=== PATIENT | male | born 1945 | race Caucasian/White ===

== ENCOUNTER 2020-07-15 10:43 | Emergency (ER) | payer MEDICARE, SELFPAY ==
[2020-07-15 11:28] VITALS: BP 115/75; PULSE 78; RESP 18; TEMP 36.6; O2SAT 97
[2020-07-15 11:45] LABS: Basophils Absolute Auto 0.1 K/mm3 (0.0-0.1); Basophils Percent Auto 0.8 % (0.2-1.2); Eosinophils Absolute Auto 0.6 K/mm3 (0-0.3); Eosinophils Percent Auto 8.3 % (0-4.4); Hematocrit 47.7 % (42.0-52.0); Hemoglobin 15.7 g/dL (14.0-18.0); Immature Granulocyte Absolute 0.01 K/mm3 (0.00-0.031); Immature Granulocyte Percent A 0.1 % (0-0.5); Lymphocytes Absolute Auto 1.15 K/mm3 (0.9-3.2); Lymphocytes Percent Auto 16.2 % (18.3-44.2); Mean Corpuscular HGB Conc 32.9 g/dl (32-36); Mean Corpuscular Hemoglobin 33.6 pg (26-34); Mean Corpuscular Volume 102.1 fl (80-100); Mean Platelet Volume 10.2 fl (7.4-10.4); Monocytes Absolute Auto 0.9 K/mm3 (0.1-0.6); Monocytes Percent Auto 12.5 % (2.6-8.5); Neutrophils Absolute Auto 4.4 K/mm3 (1.3-6.7); Neutrophils Percent Auto 62.1 % (45.5-73.1); Platelet Count Result 200 k/mm3 (150-375); Red Blood Count 4.67 M/mm3 (4.6-6.20); Red Cell Distribution Width 14.4 % (11.5-14.5); White Blood Count 7.1 K/mm3 (4.5-10.0)
[2020-07-15 11:57] LABS: Alanine Aminotransferase 11 U/L (4-50); Albumin Level 4.2 g/dL (3.5-5.1); Alkaline Phosphatase 31 U/L (38-126); Anion Gap 8 mmol/L (8-16); Aspartate Amino Transferase 20 U/L (17-59); Bilirubin,Total 0.6 mg/dL (0.2-1.3); Blood Urea Nitrogen 70 mg/dL (9-20); Calcium 9.9 mg/dL (8.4-10.2); Carbon Dioxide 27 mmol/L (22-30); Chloride 104 mmol/L (98-107); Estimated CRCL calculation 22 ml/min; Estimated Glomerular Filt Rate 22; Glucose 87 mg/dL (75-110); Potassium 4.8 mmol/L (3.4-5.0); Sodium 139 mmol/L (137-145)
[2020-07-15 11:59] LABS: INR 1.1; Prothrombin Time 14.2 Seconds (11.1-14.7)
[2020-07-15 12:00] LABS: Partial Thromboplastin Time 29.7 SECONDS (22.3-36.8)
--- NOTE | 2020-07-15 13:01 | ED.GIBLEED ---
HPI - GI Bleed General Chief complaint: GI Bleed Stated complaint: blood in stool Time Seen by Provider: 07/15/20 12:52 History of Present Illness HPI Narrative: He has had 3 bowel movements containing bright red blood since yesterday. He is not able to quantify. They are liquid stools. No abdominal pain, nausea, vomting. He has had no previous episodes. He takes 325 mg of aspirin daily. Related Data Home Medications Medication Instructions Recorded Confirmed ascorbic acid (vitamin C) 1,000 mg 1 gm PO DAILY 06/01/20 tablet aspirin 325 mg tablet 325 mg PO DAILY 06/01/20 beta carotene 25,000 unit capsule 25,000 unit PO DAILY 06/01/20 bumetanide 2 mg tablet 2 mg PO BID 06/01/20 calcium carbonate 600 mg calcium 600 mg PO DAILY 06/01/20 (1,500 mg) tablet carvedilol 3.125 mg tablet 3.125 mg PO Q12H 06/01/20 digoxin 125 mcg (0.125 mg) tablet 125 mcg PO BID tablet 06/01/20 hydralazine 25 mg tablet 25 mg PO TID 06/01/20 hydrochlorothiazide 25 mg tablet 25 mg PO DAILY 06/01/20 lactobacillus combination no.8 3 3,000 mmu cells PO DAILY 06/01/20 billion cell capsule spironolactone 25 mg tablet 25 mg PO DAILY 06/01/20 vitamin E (dl, acetate) 400 unit 400 unit PO DAILY 06/01/20 capsule zinc 50 mg tablet 50 mg PO DAILY 06/01/20 Allergies Allergy/AdvReac Type Severity Reaction Status Date / Time No Known Allergies Allergy Verified 05/28/13 11:13 Review of Systems Review of Systems: All systems reviewed & are unremarkable except as noted in HPI and below Constitutional: Constitutional: Denies fever(s) Cardiovascular: Cardiovascular: Denies chest pain Respiratory: Respiratory: Denies dyspnea Gastrointestinal: Gastrointestinal: Denies abdominal pain, Reports diarrhea, Denies nausea and Denies vomiting Genitourinary: Genitourinary: Denies dysuria Neurologic: Denies dizziness and Denies weakness Hematologic/Lymphatic: Hematologic/Lymphatic: Denies easy bleeding and Denies easy bruising [facility] Past Medical History Medical History C. difficile colitis CHF (congestive heart failure) CKD (chronic kidney disease) COPD (chronic obstructive pulmonary disease) CVA (cerebral vascular accident) Hepatitis Hernia HTN (hypertension) Hyperlipidemia Measles Mumps Myocardial infarction Prostate CA Shingles Family History Family History Sibling Patient's sister is in good health Mother Cerebrovascular accident, Onset Age: 68 Patient's mother is Cancer Polycystic kidney disease Father Family history of kidney disease, Onset Age: 78 Myocardial infarction Social History Social History Smoking status: Former smoker Smoking end date: 11/18/03 Alcohol intake: current Gender identity (if verbalized by the patient): Male Exam Const: General: healthy appearing, no acute distress and alert Orientation/consciousness: patient oriented x3 HENMT: Head: normal to inspection Neck: Neck: normal visual inspection and no lymphadenopathy Chest: Chest palpation & inspection: no tenderness Resp: Effort & Inspection: normal respiratory effort Auscultation: clear to auscultation bilaterally, no rales, no rhonchi and no wheezes Cardio: Jugular venous distension: no JVD Rate: regular rate Rhythm: regular rhythm Heart sounds: no murmurs GI: Inspection: non-distended GI Palp: Yes Soft to palpation and No Tenderness to palpation present (GI) Other: dried blood and stool around the rectum. 1 small external hemorrhoid. No active bleeding. Skin: General skin exam: normal color Neuro: General: patient oriented x3 and moves all extremities Speech: normal speech Extrem: General: no edema Psych: Appearance: well kempt Affect: normal affect Course Vital Signs Vital signs: Vital Signs Temperature 36.6
[2020-07-15 14:10] VITALS: BP 139/93; PULSE 75; RESP 17; O2SAT 100
== END 2020-07-15 14:12 | disposition home or self-care (01) ==
PROVIDERS: Emergency Medicine; Emergency Provider Emergency Medicine; PCP Internal Medicine
DX: K92.2 Gastrointestinal hemorrhage, unspecified (principal); I50.9 Heart failure, unspecified; I12.9 Hypertensive chronic kidney disease with stage 1 through stage 4 chronic kidney disease, or unspecified chronic kidney disease; N18.9 Chronic kidney disease, unspecified; Z86.73 Personal history of transient ischemic attack (TIA), and cerebral infarction without residual deficits; J44.9 Chronic obstructive pulmonary disease, unspecified; E78.5 Hyperlipidemia, unspecified; I25.2 Old myocardial infarction; Z85.46 Personal history of malignant neoplasm of prostate; Z87.891 Personal history of nicotine dependence
CPT/HCPCS: 36415; 80053; 85025; 85610; 85730; 86850; 86900; 86901; 99283

== ENCOUNTER 2020-08-08 02:03 | Outpatient (CLI) | payer MEDICARE, SELFPAY ==
[2020-08-08 16:34] LABS: SARS-CoV-2 RNA PCR Negative
== END 2020-08-08 02:04 | disposition home or self-care (01) ==
LOC: ANHCOVIDDT 02:03
PROVIDERS: PCP Internal Medicine; Visit Provider Internal Medicine Gastroenterology
DX: Z01.812 Encounter for preprocedural laboratory examination (principal); Z20.828 Contact with and (suspected) exposure to other viral communicable diseases
CPT/HCPCS: 87635; C9803; U0003

== ENCOUNTER 2020-08-10 00:31 | Day surgery (SDC) | payer MEDICARE, SELFPAY ==
[2020-08-05 10:19] VITALS: BMI 22.7
[2020-08-10 09:53] VITALS: BP 135/87; PULSE 81; RESP 18; TEMP 36.4; O2SAT 96; BMI 22.8
--- NOTE | 2020-08-10 09:58 | WPDANESEPPF ---
Anes - Initial Pre Proc Eval Procedure: Operation Date: 08/10/20 10:00 Proposed Procedures p Screening Colonoscopy - Jayesh Freeman MD Date/Time: 08/10/20 09:58 Surgeon: Jayesh Freeman MD Pre Op Diagnosis: Neoplasm Screening Patient Data Age: 75 Gender: M Height: 5 ft 11 in Weight: 74.2 kg Last Vital Signs Temp 97.5 F L 08/10/20 09:53 Pulse 81 08/10/20 09:53 Resp 18 08/10/20 09:53 BP 135/87 08/10/20 09:53 Pulse Ox 96 08/10/20 09:53 Allergies Allergy/AdvReac Type Severity Reaction Status Date / Time No Known Allergies Allergy Verified 08/10/20 09:47 Home Medications Medication Instructions Recorded Confirmed Type ascorbic acid (vitamin C) 1,000 mg 1 gm PO DAILY 06/01/20 08/10/20 History tablet aspirin 325 mg tablet 325 mg PO DAILY 06/01/20 08/10/20 History bumetanide 2 mg tablet 2 mg PO BID 06/01/20 08/10/20 History calcium carbonate 600 mg calcium 1,200 mg PO BID 06/01/20 08/10/20 History (1,500 mg) tablet digoxin 125 mcg (0.125 mg) tablet 125 mcg PO EVERY OTHER DAY tablet 06/01/20 08/10/20 History hydralazine 25 mg tablet 25 mg PO TID 06/01/20 08/10/20 History hydrochlorothiazide 25 mg tablet 25 mg PO DAILY 06/01/20 08/10/20 History lactobacillus combination no.8 3 3,000 mmu cells PO DAILY 06/01/20 08/10/20 History billion cell capsule spironolactone 25 mg tablet 25 mg PO DAILY 06/01/20 08/10/20 History vitamin E (dl, acetate) 400 unit 400 unit PO BID 06/01/20 08/10/20 History capsule zinc 50 mg tablet 50 mg PO DAILY 06/01/20 08/10/20 History albuterol sulfate 90 mcg/actuation 2 inhalation INHALATION BID #8.5 gm 06/02/20 08/10/20 Rx aerosol inhaler sertraline 50 mg tablet 50 mg PO DAILY #90 tablet 07/14/20 08/10/20 Rx aspirin 81 mg PO DAILY 08/05/20 08/10/20 History bumetanide 0.5 mg PO BID 08/05/20 08/10/20 History carvedilol 12.5 mg PO DAILY 08/05/20 08/10/20 History cholecalciferol (vitamin D3) 50 mcg PO DAILY 08/05/20 08/10/20 History [Vitamin D3] Patient hx anesthesia problems: none Family hx anesthesia problems: none PMFSH Social History Social History Years smoked: 20 Smoking status: Former smoker Smoking end date: 11/18/03 Alcohol intake: current Drinks per week: 4 Living arrangements: with family Gender identity (if verbalized by the patient): Male Spiritual care concerns: No Anes - Eval Final PreProcedure Day of Procedure 08/10/20 09:58 Patient weight: normal Heart: regular rate and rhythm Lungs: clear to auscultation Airway: Mallampati scale class II Neurological: alert and oriented Last oral intake: >/= 8 hours ASA classification: III Emergent: no Anesthetic plan: proceed Anesthesia type and monitoring: general GIVS and standard monitoring Informed Consent: The patient's anesthetic plan and its attendant risks and benefits were discussed with the patient/family/POA. Questions were solicited and answers provided to the satisfaction of the patient/family/POA.
[2020-08-10] MEDS: LACTATED RINGERS 1,000 ML 150 ML IV CONT (10:04)
--- NOTE | 2020-08-10 10:14 | PM.HPGS ---
History of Present Illness History of Present Illness Consent: Risks, benefits, and alternatives have been discussed and questions answered. Patient agrees to proceed with procedure. Chief complaint: Neoplasm Screening Narrative: Darrell Nielsen is a 75 year old male referred for screening colonoscopy. This is his 1st colonoscopy. He did see some blood his stools a few weeks ago but otherwise has had no symptoms PMFSH Past Medical History Medical History C. difficile colitis CHF (congestive heart failure) CKD (chronic kidney disease) COPD (chronic obstructive pulmonary disease) CVA (cerebral vascular accident) Hepatitis Hernia HTN (hypertension) Hyperlipidemia Measles Mumps Myocardial infarction Prostate CA Shingles Family History Family History Sibling Patient's sister is in good health Mother Cerebrovascular accident, Onset Age: 68 Patient's mother is Cancer Polycystic kidney disease Father Family history of kidney disease, Onset Age: 78 Myocardial infarction Social History Social History Years smoked: 20 Smoking status: Former smoker Smoking end date: 11/18/03 Alcohol intake: current Drinks per week: 4 Living arrangements: with family Gender identity (if verbalized by the patient): Male Spiritual care concerns: No Meds Home Medications and Allergies Home Medications Medication Instructions Recorded Confirmed Type ascorbic acid (vitamin C) 1,000 mg 1 gm PO DAILY 06/01/20 08/10/20 History tablet aspirin 325 mg tablet 325 mg PO DAILY 06/01/20 08/10/20 History bumetanide 2 mg tablet 2 mg PO BID 06/01/20 08/10/20 History calcium carbonate 600 mg calcium 1,200 mg PO BID 06/01/20 08/10/20 History (1,500 mg) tablet digoxin 125 mcg (0.125 mg) tablet 125 mcg PO EVERY OTHER DAY tablet 06/01/20 08/10/20 History hydralazine 25 mg tablet 25 mg PO TID 06/01/20 08/10/20 History hydrochlorothiazide 25 mg tablet 25 mg PO DAILY 06/01/20 08/10/20 History lactobacillus combination no.8 3 3,000 mmu cells PO DAILY 06/01/20 08/10/20 History billion cell capsule spironolactone 25 mg tablet 25 mg PO DAILY 06/01/20 08/10/20 History vitamin E (dl, acetate) 400 unit 400 unit PO BID 06/01/20 08/10/20 History capsule zinc 50 mg tablet 50 mg PO DAILY 06/01/20 08/10/20 History albuterol sulfate 90 mcg/actuation 2 inhalation INHALATION BID #8.5 gm 06/02/20 08/10/20 Rx aerosol inhaler sertraline 50 mg tablet 50 mg PO DAILY #90 tablet 07/14/20 08/10/20 Rx aspirin 81 mg PO DAILY 08/05/20 08/10/20 History bumetanide 0.5 mg PO BID 08/05/20 08/10/20 History carvedilol 12.5 mg PO DAILY 08/05/20 08/10/20 History cholecalciferol (vitamin D3) 50 mcg PO DAILY 08/05/20 08/10/20 History [Vitamin D3] Allergies Allergy/AdvReac Type Severity Reaction Status Date / Time No Known Allergies Allergy Verified 08/10/20 09:47 Vital Signs Vital Signs - 24 hr 08/10/20 09:53 Temperature 36.4 C L Pulse Rate 81 Respiratory Rate 18 Blood Pressure 135/87 Pulse Oximetry 96 Exam Resp: Auscultation: clear to auscultation bilaterally Cardio: Rate: regular rate Rhythm: regular rhythm GI: GI Palp: Yes Soft to palpation and No Tenderness to palpation present (GI) Assessment and Plan Assessment and plan (1) Colon cancer screening: Code(s): Z12.11 - Encounter for screening for malignant neoplasm of colon Status: Acute Assessment and Plan: Colonoscopy with possible biopsy or polypectomy or cautery or injection of substances.
[2020-08-10] MEDS: SIMETHICONE ORAL SUSPENSION 20 MG/0.3 ML 30 ML BOTTLE 0.6 ML IRRIGATION (10:32)
[2020-08-10 10:41] VITALS: BP 105/55; PULSE 66; RESP 16; O2SAT 98
[2020-08-10 10:51] VITALS: BP 124/74; PULSE 74; RESP 16; O2SAT 99
[2020-08-10 11:01] VITALS: BP 125/73; PULSE 67; RESP 16; O2SAT 99
== END 2020-08-10 11:21 | disposition home or self-care (01) ==
PROVIDERS: PCP Internal Medicine; Visit Provider Internal Medicine Gastroenterology
PROC: 0DJD8ZZ Inspection of Lower Intestinal Tract, Via Natural or Artificial Opening Endoscopic (ICD-10-PCS; CPT 45378; principal; 2020-08-10 10:00)
DX: Z12.11 Encounter for screening for malignant neoplasm of colon (principal); K57.30 Diverticulosis of large intestine without perforation or abscess without bleeding; K64.8 Other hemorrhoids; I13.0 Hypertensive heart and chronic kidney disease with heart failure and stage 1 through stage 4 chronic kidney disease, or unspecified chronic kidney disease; I50.9 Heart failure, unspecified; N18.9 Chronic kidney disease, unspecified; J44.9 Chronic obstructive pulmonary disease, unspecified; E78.5 Hyperlipidemia, unspecified; I25.2 Old myocardial infarction; Z85.46 Personal history of malignant neoplasm of prostate; Z86.73 Personal history of transient ischemic attack (TIA), and cerebral infarction without residual deficits; Z87.891 Personal history of nicotine dependence
CPT/HCPCS: G0121; J2704; J7120

== ENCOUNTER 2021-01-16 14:31 | Outpatient (CLI) | payer MEDICARE, SELFPAY | END 2021-01-16 14:32 | disposition home or self-care (01) | LOC: ANHCOVIDVC 14:31 | PROVIDERS: PCP Internal Medicine | DX: Z23 Encounter for immunization (principal) | CPT/HCPCS: 0001A; 91300 ==

== ENCOUNTER 2021-02-06 14:29 | Outpatient (CLI) | payer MEDICARE, SELFPAY | END 2021-02-06 14:30 | disposition home or self-care (01) | LOC: ANHCOVIDVC 14:29 | PROVIDERS: PCP Internal Medicine | DX: Z23 Encounter for immunization (principal) | CPT/HCPCS: 0002A; 91300 ==

== ENCOUNTER 2021-06-17 03:02 | Emergency (ER) | payer MEDICARE, SELFPAY ==
--- NOTE | ~2021-06-17 | XR_ITS ---
EXAMINATION: XR chest 1V portable DATE: 06/17/2021 03:23 INDICATION: Shortness of breath TECHNIQUE: frontal view of the chest was obtained. COMPARISON: Chest radiograph dated 05/28/[address] dated 11/10/2012 FINDINGS: Hyperexpansion of lungs with increased lucency and architectural distortion in the upper lung zones, left greater than right consistent with severe emphysema. Chronic pleural parenchymal scarring at the right upper lung zone. No other airspace opacities, pulmonary edema, pleural effusion or pneumothora x. The cardiomediastinal silhouette is normal. IMPRESSION: 1. Emphysema and chronic scarring at the right upper lung zone. No acute cardiopulmonary disease. Reviewed, dictated and finalized at location A. IMPRESSION: 1. Emphysema and chronic scarring at the right upper lung zone. No acute cardio pulmonary disease.
--- NOTE | 2021-06-17 03:05 | ECG_ITS ---
Measurements Intervals [place] Rate: 104 P: 62 FL: 161 QRS: 266 QRSD: 125 T: 79 QT: 334 QTc: 440 Interpretive Statements SINUS TACHYCARDIA ATRIAL AND VENTRICULAR PREMATURE COMPLEXES RIGHT BUNDLE BRANCH BLOCK ANTEROLATERAL INFARCT, AGE INDETERMINATE INFERIOR INFARCT, AGE INDETERMINATE BASELINE ARTIFACT- I, II, III, AVL, V1-V6 ABNORMAL ECG Electronically Signed On 06-17-2021 7:43:00 CDT by Ramírez Calhoun D.O.
[2021-06-17 03:06] VITALS: BP 160/90; PULSE 109; RESP 25; TEMP 36.6; O2SAT 91
--- NOTE | 2021-06-17 03:07 | ED.SOB ---
HPI - SOB/Dyspnea General Chief Complaint: Shortness of Breath/Dyspnea Stated Complaint: sob Time Seen by Provider: 06/17/21 03:05 History of Present Illness HPI Narrative: 76 yo male w/ h/o COPD presnets to the ED for SOB. This started yesterday evening and worsened overnight. Associated wtih cough productive of white sputum. O2 saturation 76% on RA during triage. No CP, fever. Related Data Home Medications Medication Instructions Recorded Confirmed ascorbic acid (vitamin C) 1,000 mg 1 gm PO DAILY 06/01/20 08/10/20 tablet aspirin 325 mg tablet 325 mg PO DAILY 06/01/20 08/10/20 bumetanide 2 mg tablet 2 mg PO BID 06/01/20 08/10/20 calcium carbonate 600 mg calcium 1,200 mg PO BID 06/01/20 08/10/20 (1,500 mg) tablet digoxin 125 mcg (0.125 mg) tablet 125 mcg PO EVERY OTHER DAY tablet 06/01/20 08/10/20 hydralazine 25 mg tablet 25 mg PO TID 06/01/20 08/10/20 hydrochlorothiazide 25 mg tablet 25 mg PO DAILY 06/01/20 08/10/20 lactobacillus combination no.8 3 3,000 mmu cells PO DAILY 06/01/20 08/10/20 billion cell capsule spironolactone 25 mg tablet 25 mg PO DAILY 06/01/20 08/10/20 vitamin E (dl, acetate) 400 unit 400 unit PO BID 06/01/20 08/10/20 capsule zinc 50 mg tablet 50 mg PO DAILY 06/01/20 08/10/20 aspirin 81 mg PO DAILY 08/05/20 08/10/20 bumetanide 0.5 mg PO BID 08/05/20 08/10/20 carvedilol 12.5 mg PO DAILY 08/05/20 08/10/20 cholecalciferol (vitamin D3) 50 mcg PO DAILY 08/05/20 08/10/20 [Vitamin D3] Allergies Allergy/AdvReac Type Severity Reaction Status Date / Time No Known Allergies Allergy Verified 08/10/20 09:47 Review of Systems Review of Systems: All systems reviewed & are unremarkable except as noted in HPI and below Constitutional: Constitutional: Denies fever(s) Eyes: Eyes: Reports no additional eye complaints ENT: Denies sore throat Cardiovascular: Cardiovascular: Denies chest pain Respiratory: Respiratory: Reports cough and Reports dyspnea Gastrointestinal: Gastrointestinal: Denies abdominal pain and Denies nausea Genitourinary: Genitourinary: Reports no additional male genitourinary complaints Musculoskeletal: Musculoskeletal: Reports no additional musculoskeletal complaints Neurologic: Reports system reviewed and no additional complaints, except as documented [facility] Past Medical History Medical History (Updated 06/18/21 @ 00:00 by Background Daemon) C. difficile colitis CHF (congestive heart failure) CKD (chronic kidney disease) COPD (chronic obstructive pulmonary disease) CVA (cerebral vascular accident) Hepatitis Hernia HTN (hypertension) Hyperlipidemia Measles Mumps Myocardial infarction Prostate CA Shingles Family History Family History Sibling Patient's sister is in good health Mother Cerebrovascular accident, Onset Age: 68 Patient's mother is Cancer Polycystic kidney disease Father Family history of kidney disease, Onset Age: 78 Myocardial infarction Social History Social History Years smoked: 20 Smoking status: Former smoker Smoking end date: 11/18/03 Alcohol intake: current Drinks per week: 4 Gender identity (if verbalized by the patient): Male Spiritual care concerns: No Course Vital Signs Vital signs: Vital Signs Temperature 36.6 C 06/17/21 03:06 Pulse Rate 109 H 06/17/21 03:06 Respiratory Rate 25 H 06/17/21 03:06 Blood Pressure 160/90 H 06/17/21 03:06 Pulse Oximetry 91 06/17/21 03:06 Temperature 36.7 C 06/17/21 06:34 Pulse Rate 79 06/17/21 06:34 Respiratory Rate 15 06/17/21 06:34 Blood Pressure 132/80 06/17/21 06:34 Pulse Oximetry 92 06/17/21 06:34 MDM - SOB/Dyspnea MDM Narrative Medical decision making narrative: After treatemnt his oxygen saturation is 88 %. He says that this is normal for him and he feels damn good . He would like to be discharged
[2021-06-17] MEDS: methylPREDNISolone SOD SUCC 125 MG VIAL IV PUSH (03:20)
[2021-06-17 03:27] LABS: Basophils Absolute Auto 0.1 K/mm3 (0.0-0.1); Basophils Percent Auto 0.4 % (0.2-1.2); Eosinophils Absolute Auto 0.2 K/mm3 (0-0.3); Eosinophils Percent Auto 1.3 % (0-4.4); Hematocrit 51.1 % (42.0-52.0); Hemoglobin 16.5 g/dL (14.0-18.0); Immature Granulocyte Absolute 0.05 K/mm3 (0.00-0.031); Immature Granulocyte Percent A 0.4 % (0-0.5); Lymphocytes Absolute Auto 1.27 K/mm3 (0.9-3.2); Mean Corpuscular HGB Conc 32.3 g/dl (32-36); Mean Corpuscular Hemoglobin 33.3 pg (26-34); Mean Corpuscular Volume 103.2 fl (80-100); Mean Platelet Volume 10.8 fl (7.4-10.4); Monocytes Absolute Auto 1.2 K/mm3 (0.1-0.6); Monocytes Percent Auto 8.2 % (2.6-8.5); Neutrophils Absolute Auto 11.4 K/mm3 (1.3-6.7); Neutrophils Percent Auto 80.7 % (45.5-73.1); Platelet Count Result 209 k/mm3 (150-375); Red Blood Count 4.95 M/mm3 (4.6-6.20); Red Cell Distribution Width 14.8 % (11.5-14.5); White Blood Count 14.1 K/mm3 (4.5-10.0)
--- NOTE | 2021-06-17 03:31 | PC.NURSE ---
Respiratory in room with patient at this time.
[2021-06-17] MEDS: IPRATROPIUM BR 0.02% INH SOLN 0.5 MG/2.5 ML VIAL 1 MG INHALATION (03:32)
[2021-06-17] MEDS: ALBUTEROL SULFATE NEB 2.5 MG/0.5 ML INH 10 MG INHALATION (03:32)
[2021-06-17 03:39] LABS: Anion Gap 15 mmol/L (8-16); Blood Urea Nitrogen 80 mg/dL (9-20); Calcium 10.4 mg/dL (8.4-10.2); Carbon Dioxide 24 mmol/L (22-30); Chloride 101 mmol/L (98-107); Estimated CRCL calculation 19 ml/min; Estimated Glomerular Filt Rate 18; Glucose 100 mg/dL (65-110); Potassium 5.5 mmol/L (3.4-5.0); Prothrombin Time 13.3 Seconds (11.1-14.7); Sodium 140 mmol/L (137-145)
[2021-06-17 03:44] LABS: Alveolar/Arterial O2 Gradient 96.9 mmHg; Base Excess ABG -3.1 mEq/l (+/-2.0); Carboxyhemoglobin 1.3 % THb (0-2.0); Device NASAL CANNULA; Fractional Inspired Oxygen 40 %; HCO3 ABG 23.9 mEq/l (22.0-26.0); Methemoglobin ABG 0.5 %THb (0-1.5); Modified Allen's Test Pass; Oxygen Content ABG 22.3 %vol (16.0-22.0); Oxygen Saturation ABG 98.3 % (95.0-100.0); Oxyhemoglobin 96.6 % THb (90.0-100.0); PCO2 ABG 49.4 mmHg (35.0-45.0); PO2 ABG 131.5 mmHg (80.0-100.0); PO2 FiO2 Ratio Arterial Blood 3.29 %; Reduced Hemoglobin 1.6 %THb (0-5.0); Site Drawn LEFT RADIAL; Total Hemoglobin 16.3 g/dL (12.0-18.0); pH ABG 7.302 (7.350-7.450)
[2021-06-17 03:45] VITALS: PULSE 95; RESP 23
[2021-06-17 04:56] VITALS: PULSE 77; RESP 19
[2021-06-17 05:07] VITALS: BP 136/85; PULSE 79; RESP 17; O2SAT 94
[2021-06-17 05:41] VITALS: O2SAT 92
[2021-06-17] MEDS: levoFLOXacin 500 MG TABLET PO (06:22)
--- NOTE | 2021-06-17 06:25 | PC.NURSE ---
Patient stating he feels much better.
[2021-06-17 06:34] VITALS: BP 132/80; PULSE 79; RESP 15; TEMP 36.7; O2SAT 92
== END 2021-06-17 06:36 | disposition home or self-care (01) ==
PROVIDERS: Emergency Provider Emergency Medicine; PCP Internal Medicine
DX: J44.1 Chronic obstructive pulmonary disease with (acute) exacerbation (principal); I50.9 Heart failure, unspecified; I13.0 Hypertensive heart and chronic kidney disease with heart failure and stage 1 through stage 4 chronic kidney disease, or unspecified chronic kidney disease; N18.9 Chronic kidney disease, unspecified; E78.5 Hyperlipidemia, unspecified; I25.2 Old myocardial infarction; Z85.46 Personal history of malignant neoplasm of prostate; Z86.73 Personal history of transient ischemic attack (TIA), and cerebral infarction without residual deficits; Z79.82 Long term (current) use of aspirin; Z87.891 Personal history of nicotine dependence; R00.0 Tachycardia, unspecified; I49.3 Ventricular premature depolarization; I49.1 Atrial premature depolarization; I45.10 Unspecified right bundle-branch block; R94.31 Abnormal electrocardiogram [ECG] [EKG]
CPT/HCPCS: 36415; 36600; 71045; 80048; 82375; 82805; 83050; 85025; 85610; 85730; 93005; 94640; 96374; 99284; A9270; J2930

== ENCOUNTER 2022-05-12 09:30 | Inpatient (IN) | payer MEDICARE, SELFPAY ==
[2022-05-12] VITALS (51 sets, daily range): BP systolic 103–151; BP diastolic 61–128; PULSE 78–113; RESP 16–33; TEMP 36.5–38.1; O2SAT 90–100; BMI 24.4
--- NOTE | ~2022-05-12 | XR_ITS ---
EXAMINATION: XR chest 1V portable INDICATION: Shortness of breath TECHNIQUE: Portable AP chest at 1031 hours COMPARISON: 06/17/2021 FINDINGS: There are lucencies left mid and upper lung zones, consistent with emphysema. Areas of coarse wire drawer jojo scarring are noted in the right upper lobe. No acute airspace opacities are identified. No pleura l effusion or pneumothorax. The cardiomediastinal silhouette is stable. IMPRESSION: 1. Emphysema without acute cardiopulmonary abnormality. Reviewed, dictated and finalized at location A.
--- NOTE | ~2022-05-12 | US_ITS ---
EXAMINATION: US abdomen limited DATE: 05/13/2022 14:42 INDICATION: Abdominal distention. History of polycystic kidney disease. TECHNIQUE: Multiple grayscale and Doppler ultrasound images of limited portions of the abdomen were o btained. COMPARISON: CT abdomen and pelvis to 714. FINDINGS: Pancreas not visualized. Multiple echogenic foci throughout the liver. Multiple liver cysts . No surface nodularity. Normal hepatopetal flow in the main portal vein. The gallbladder is partiall y collapsed with no abnormal wall thickening, pericholecystic fluid or stones. The normal common bile duct measures 7 mm. There was no sonographic Torres sign. Status post splenectomy. The right kidney measures 30 x 15 x 18 cm. The left kidney measures 30 x 13 x 17 cm. Both kidneys are difficult to measure due to gross enlargement and complete/near-complete replacement by cysts. IMPRESSION: 1. Innumerable hepatic and renal cysts, consistent with given history of positive disease. 2. Heterogeneous liver parenchyma with suggestion of multifocal echogenetic lesions which may be mima fact from cyst through transmission however regenerative nodules and metastases could appear similarl y. Reviewed, dictated and finalized at location K. IMPRESSION: 1. Innumerable hepatic and renal cysts, consistent with given history of positi ve disease. 2. Heterogeneous liver parenchyma with suggestion of multifocal echogenetic les ions which may be artifact from cyst through transmission however regenerative nodules and metastases could appear similarly.
--- NOTE | ~2022-05-12 | US_ITS ---
EXAMINATION: US venous doppler [facility] DATE: 05/13/2022 14:36 INDICATION: edema . TECHNIQUE: Grayscale images without and with compression and Doppler images of the bilateral lower ex tremity veins were obtained. COMPARISON: None FINDINGS: The right common femoral vein, profunda (deep) femoral vein, femoral vein, popliteal vein, peroneal v ein, posterior tibial veins, lesser saphenous, and greater saphenous vein are patent. The left common femoral vein, profunda femoral vein, femoral vein, popliteal vein, peroneal vein, pos terior tibial veins, and greater saphenous vein are patent. IMPRESSION: 1. Patent bilateral lower extremity veins. No evidence of deep venous thrombosis. Reviewed, dictated and finalized at location K. IMPRESSION: 1. Patent bilateral lower extremity veins. No evidence of deep venous thrombos is.
--- NOTE | 2022-05-12 09:33 | PC.NURSE ---
Patient's , Nieves [phone].
--- NOTE | 2022-05-12 09:35 | ECG_ITS ---
Measurements Intervals [place] Rate: 103 P: 49 [place]: 148 QRS: 266 QRSD: 131 T: 79 QT: 361 QTc: 475 Interpretive Statements SINUS TACHYCARDIA INTRAVENTRICULAR CONDUCTION DELAY [130+ ms QRS DURATION] INFERIOR MYOCARDIAL INFARCTION , OF INDETERMINATE AGE [40+ ms Q WAVE AND/OR ST/T ABNORMALITY IN II/aVF] ANTEROLATERAL MYOCARDIAL INFARCTION , OF INDETERMINATE AGE [40+ ms Q WAVE IN I/aVL/V3- V6] COMPARED TO ECG 06/17/2021 03:12:45 THERE IS NO SIGNIFICANT CHANGE Electronically Signed On 05-13-2022 7:02:35 CDT by Jimmy Torres M.D.
--- NOTE | 2022-05-12 09:37 | PC.NURSE ---
Oxygen applied for saturation of 91% and symptomatic.
[2022-05-12 09:47] LABS: Basophils Percent Auto 0.2 % (0.2-1.2); Eosinophils Absolute Auto 0.2 K/mm3 (0-0.3); Hematocrit 53.9 % (42.0-52.0); Hemoglobin 17.6 g/dL (14.0-18.0); Immature Granulocyte Absolute 0.03 K/mm3 (0.00-0.031); Immature Granulocyte Percent A 0.4 % (0-0.5); Immature Platelet Fraction Pct 8.7 % (0.9-11.2); Lymphocytes Absolute Auto 0.89 K/mm3 (0.9-3.2); Lymphocytes Percent Auto 10.9 % (18.3-44.2); Mean Corpuscular HGB Conc 32.7 g/dl (32-36); Mean Corpuscular Hemoglobin 33.7 pg (26-34); Mean Corpuscular Volume 103.3 fl (80-100); Mean Platelet Volume 11.5 fl (7.4-10.4); Monocytes Absolute Auto 0.7 K/mm3 (0.1-0.6); Monocytes Percent Auto 8.5 % (2.6-8.5); Neutrophils Absolute Auto 6.4 K/mm3 (1.3-6.7); Platelet Count Result 141 k/mm3 (150-375); Red Blood Count 5.22 M/mm3 (4.6-6.20); Red Cell Distribution Width 17.1 % (11.5-14.5); White Blood Count 8.2 K/mm3 (4.5-10.0)
[2022-05-12 09:55] LABS: Alanine Aminotransferase 23 U/L (6-50); Albumin Level 4.1 g/dL (3.5-5.1); Alkaline Phosphatase 40 U/L (38-126); Anion Gap 9 mmol/L (8-16); Aspartate Amino Transferase 28 U/L (17-59); Blood Urea Nitrogen 42 mg/dL (9-20); Calcium 8.9 mg/dL (8.4-10.2); Carbon Dioxide 22 mmol/L (22-30); Chloride 111 mmol/L (98-107); Estimated CRCL calculation 25 ml/min; Estimated Glomerular Filt Rate 26; Glucose 105 mg/dL (65-110); Potassium 4.3 mmol/L (3.4-5.0); Sodium 142 mmol/L (137-145)
--- NOTE | 2022-05-12 09:59 | ED.GENADULT ---
HPI - General Adult General Chief complaint: Shortness of Breath/Dyspnea Stated complaint: SOB Time Seen by Provider: 05/12/22 09:35 History of Present Illness HPI narrative: 76-year-old male with history of coronary artery disease and COPD presenting to the emergency department for evaluation of worsening shortness of breath. Patient states about 10 days ago patient did have a positive COVID test. Patient states initially his symptoms were minor but it progress into his chest and states he has had some worsening shortness of breath and increased work of breathing. Patient states he does have frequent follow-up with cardiology at [facility]. Patient denies any previous history of congestive heart failure and does not take a water pill. Related Data Home Medications Medication Instructions Recorded Confirmed ascorbic acid (vitamin C) 1,000 mg 1 gm PO DAILY 06/01/20 05/12/22 tablet calcium carbonate 600 mg calcium 1,500 mg PO BID 06/01/20 05/12/22 (1,500 mg) tablet (Calcium) hydralazine 25 mg tablet 25 mg PO TID 06/01/20 05/12/22 spironolactone 25 mg tablet 25 mg PO DAILY 06/01/20 05/12/22 vitamin E (dl, acetate) 180 mg 400 unit PO BID 06/01/20 05/12/22 (400 unit) capsule zinc 50 mg tablet 50 mg PO DAILY 06/01/20 05/12/22 aspirin 81 mg chewable tablet 81 mg PO DAILY 08/05/20 05/12/22 bumetanide 0.5 mg tablet 0.5 mg PO BID 08/05/20 05/12/22 carvedilol 12.5 mg tablet 12.5 mg PO DAILY 08/05/20 05/12/22 cholecalciferol (vitamin D3) 50 25 mcg PO DAILY 08/05/20 05/12/22 mcg (2,000 unit) tablet (Vitamin D3) atorvastatin 10 mg tablet 10 mg PO DAILY 05/12/22 05/12/22 beta carotene 25,000 unit tablet 25,000 unit PO DAILY 05/12/22 05/12/22 esomeprazole magnesium 40 mg 40 mg PO DAILY 05/12/22 05/12/22 capsule,delayed release (Nexium) fluticasone fur. 100 mcg-umeclid 1 inh inhalation DAILY 05/12/22 05/12/22 62.5 mcg-vilant 25 mcg inhalat.powder (Trelegy Ellipta) multivitamin 1 tablet PO DAILY 05/12/22 05/12/22 Allergies Allergy/AdvReac Type Severity Reaction Status Date / Time No Known Allergies Allergy Verified 05/12/22 09:44 Review of Systems Review of Systems: CONSTITUTIONAL: Denies fever, chills, or sweats. EYES: Denies visual changes, redness, or discharge. ENT: Denies rhinorrhea, congestion, sore throat, or otalgia. CARDIOVASCULAR: Denies chest pain, palpitations, or edema. RESPIRATORY: SOB GASTROINTESTINAL: Denies abdominal pain, nausea, vomiting, or diarrhea. GENITOURINARY: Denies dysuria or hematuria. SKIN: Denies rash or itching. MUSCULOSKELETAL: Lower extremity edema NEUROLOGIC: Denies headache, numbness, or weakness. PSYCHIATRIC: Denies anxiety or depression. [facility] Past Medical History Medical History (Updated 05/12/22 @ 14:35 by Janki Kim PA-C) Benign prostatic hyperplasia C. difficile colitis Cardiac arrest with ventricular fibrillation (2002) At time myocardial infarction. Cerebrovascular accident Chronic kidney disease Chronic obstructive pulmonary disease Congestive heart failure Hepatitis Hepatitis B Hernia Hyperlipidemia Hypertension Iron deficiency anemia Ischemic cardiomyopathy Measles Mumps Myocardial infarction Osteoarthritis Polycystic kidney disease Prostate CA Status post radiation seed implants. Shingles Surgical History Surgical History (Updated 05/12/22 @ 14:35 by Janki Kim PA-C) History of hernia repair History of hydrocelectomy Family History Family History Sibling Patient's sister is in good health Mother Cerebrovascular accident, Onset Age: 68 Patient's mother is Cancer Polycystic kidney disease Father Family history of kidney disease, Onset Age: 78 Myocardial infarction Social History Social History (Updated 05/12/22 @ 14:36 by Janki Kim PA-C) Social History: Surrogate decision maker: Code status: Smoking packs per day: 1
[2022-05-12 10:27] LABS: NT Pro B Type Natriuretic Pept 30400 pg/mL (5-100)
[2022-05-12] MEDS: ALBUTEROL SULFATE NEB 2.5 MG/3 ML INH 5 MG INHALATION (10:37)
[2022-05-12] MEDS: FUROSEMIDE INJ 40 MG/4 ML VIAL IV PUSH ×2 (11:25→20:44)
[2022-05-12 11:48] LABS: SARS-CoV-2 RNA PCR Positive
--- NOTE | 2022-05-12 14:50 | PM.IMHP ---
H&P: HPI History of Present Illness Date/Time: 05/12/22 14:50 Chief Complaint: Shortness of breath. Narrative: This is a pleasant 76-year-old male with coronary artery disease, congestive heart failure, chronic kidney disease, polycystic kidney disease, hypertension, and history of prostate cancer who presented to the emergency department for evaluation of shortness of breath. Few of his friends and family members tested positive for COVID about a week and half ago and 5 days ago he and his tested positive though he did not really have any significant symptoms at that time. He has started to feel unwell over the past 3 days with sinus congestion, decreased appetite, productive cough, and shortness of breath. He has also noticed swelling in his lower legs the last several days. He did indeed test positive for SARS-CoV-2 by PCR and chest x-ray showed emphysema without acute cardiopulmonary abnormality. He was given a dose of Lasix in the ER with good urine output and he is feeling somewhat better already. He denies fever, chills, sweats, headache, change in smell and taste, chest pain, pleuritic pain, palpitations, vomiting, and diarrhea. Review of Systems Review of Systems: Twelve systems were reviewed and are negative except for as per HPI. [facility] Past Medical History Medical History (Updated 05/13/22 @ 15:57 by Faraz Davis MD) Benign prostatic hyperplasia C. difficile colitis Cardiac arrest with ventricular fibrillation (2002) At time myocardial infarction. Cerebrovascular accident Chronic kidney disease, stage 4 (severe) Chronic obstructive pulmonary disease Congestive heart failure Coronary artery disease Hepatitis B Hernia Hyperlipidemia Hypertension Iron deficiency anemia Ischemic cardiomyopathy Measles Mumps Myocardial infarction Osteoarthritis Polycystic kidney disease Prostate CA Status post radiation seed implants. Shingles Surgical History Surgical History (Updated 05/12/22 @ 20:30 by Janki Kim PA-C) History of cardiac catheterization History of coronary artery stent placement History of hernia repair History of hydrocelectomy Family History Family History Sibling Patient's sister is in good health Mother Cerebrovascular accident, Onset Age: 68 Patient's mother is Cancer Polycystic kidney disease Father Family history of kidney disease, Onset Age: 78 Myocardial infarction Social History Social History (Updated 05/12/22 @ 20:31 by Janki Kim PA-C) Social History: Surrogate decision maker: Solange Nielsen, daughter. Code status: Full code. Smoking packs per day: 1 Smoking cigarettes per day: 20.0 Years smoked: 20 Smoking pack-years: 20.00 Smoking status: Never smoker Smoking end date: 11/18/03 Alcohol intake: current Drinks per week: 2 Substance use: never Additional living arrangements comments: The patient lives with his in [place]. Occupation/Education: retired Spiritual care concerns: No Meds Home Medications and Allergies Home Medications Medication Instructions Recorded Confirmed Type ascorbic acid (vitamin C) 1,000 mg 1 gm PO DAILY 06/01/20 05/12/22 History tablet calcium carbonate 600 mg calcium 1,500 mg PO DAILY 06/01/20 05/12/22 History (1,500 mg) tablet (Calcium) hydralazine 25 mg tablet 25 mg PO TID 06/01/20 05/12/22 History spironolactone 25 mg tablet 25 mg PO DAILY 06/01/20 05/12/22 History zinc 50 mg tablet 50 mg PO DAILY 06/01/20 05/12/22 History aspirin 81 mg chewable tablet 81 mg PO DAILY 08/05/20 05/12/22 History bumetanide 0.5 mg tablet 0.5 mg PO DAILY 08/05/20 05/12/22 History carvedilol 12.5 mg tablet 12.5 mg PO BID 08/05/20 05/12/22 History cholecalciferol (vitamin D3) 50 25 mcg PO DAILY 08/05/20 05/12/22 History mcg (2,000 unit) tablet (Vitamin D3) albuterol sulfate 90 mcg/actuation 2 inh in
--- NOTE | 2022-05-12 14:53 | PC.NURSE ---
This patient, Darrell Nielsen, was admitted to [facility] Surg Room 314-01 at 1450. Patient/family oriented to hospital policies and general routines including ID bracelet, bed and alarms, visiting hours, pain management, procedures, bathroom and other care routines, personal items, smoking policy, room service/diet, and visiting hours. Information on how to activate the Rapid Response Team has been discussed. Patient/Family are encouraged to report perceived risks to care and to ask questions if they do not understand what they are told or what they should do.
[2022-05-12] MEDS: carvediloL 12.5 MG TABLET PO (22:44)
[2022-05-13] VITALS (16 sets, daily range): BP systolic 87–132; BP diastolic 60–86; PULSE 65–103; RESP 16–23; TEMP 36.3–37.7; O2SAT 88–96
[2022-05-13 06:22] LABS: Basophils Percent Auto 0.4 % (0.2-1.2); Hematocrit 47.3 % (42.0-52.0); Hemoglobin 15.8 g/dL (14.0-18.0); Immature Granulocyte Absolute 0.03 K/mm3 (0.00-0.031); Immature Granulocyte Percent A 0.4 % (0-0.5); Immature Platelet Fraction Pct 8.5 % (0.9-11.2); Lymphocytes Absolute Auto 0.64 K/mm3 (0.9-3.2); Lymphocytes Percent Auto 8.3 % (18.3-44.2); Mean Corpuscular HGB Conc 33.4 g/dl (32-36); Mean Corpuscular Hemoglobin 33.7 pg (26-34); Mean Corpuscular Volume 100.9 fl (80-100); Mean Platelet Volume 10.9 fl (7.4-10.4); Monocytes Absolute Auto 0.7 K/mm3 (0.1-0.6); Neutrophils Absolute Auto 6.3 K/mm3 (1.3-6.7); Neutrophils Percent Auto 81.9 % (45.5-73.1); Platelet Count Result 133 k/mm3 (150-375); Red Blood Count 4.69 M/mm3 (4.6-6.20); Red Cell Distribution Width 16.4 % (11.5-14.5); White Blood Count 7.7 K/mm3 (4.5-10.0)
[2022-05-13 06:49] LABS: Alanine Aminotransferase 18 U/L (6-50); Albumin Level 3.4 g/dL (3.5-5.1); Alkaline Phosphatase 31 U/L (38-126); Anion Gap 8 mmol/L (8-16); Aspartate Amino Transferase 25 U/L (17-59); Blood Urea Nitrogen 44 mg/dL (9-20); CRP 7.5 mg/dL (<1.0); Calcium 8.4 mg/dL (8.4-10.2); Carbon Dioxide 22 mmol/L (22-30); Chloride 108 mmol/L (98-107); Estimated CRCL calculation 24 ml/min; Estimated Glomerular Filt Rate 25; Glucose 80 mg/dL (65-110); Magnesium 1.4 mg/dL (1.6-2.3); Potassium 4.1 mmol/L (3.4-5.0); Sodium 138 mmol/L (137-145)
[2022-05-13 07:07] LABS: Lactate Dehydrogenase 356 U/L (313-618)
[2022-05-13 07:44] LABS: Thyroid Stimulating Hormone Reflex 0.783 uIU/mL (0.465-4.68)
[2022-05-13] MEDS: ALBUTEROL SULFATE (*SP) AEROSOL 1 PUFF 2 PUFF INHALATION ×2 (07:51→21:03)
[2022-05-13] MEDS: FLUTICASONE/UMECLIDIN/VILANTER 100-62.5-25 MCG ELLIPTA 1 PUFF INHALATION (07:51)
[2022-05-13] MEDS: CHOLECALCIFEROL 1,000 UNITS TABLET 2000 UNITS PO (09:01)
[2022-05-13] MEDS: VITAMIN E 400 UNIT CAPSULE 800 UNIT PO (09:01)
[2022-05-13] MEDS: ASPIRIN 81 MG CHEWABLE TABLET PO (09:01)
[2022-05-13] MEDS: ZINC SULFATE 220 MG CAPSULE PO (09:01)
[2022-05-13] MEDS: hydrALAZINE HCL 25 MG TABLET PO ×2 (09:02→12:46)
[2022-05-13] MEDS: ASCORBIC ACID 500 MG TABLET 1000 MG PO (09:02)
[2022-05-13] MEDS: CALCIUM CARBONATE (OSCAL) 500 MG TABLET 1500 MG PO (09:02)
[2022-05-13] MEDS: carvediloL 12.5 MG TABLET PO ×2 (09:03→20:32)
[2022-05-13] MEDS: PANTOPRAZOLE 40 MG TABLET PO (09:03)
[2022-05-13] MEDS: ATORVASTATIN 10 MG TABLET PO (09:03)
[2022-05-13] MEDS: MULTIVITAMINS THERAPEUTIC TAB (*BKC) 1 TABLET PO (09:03)
[2022-05-13] MEDS: FUROSEMIDE INJ 40 MG/4 ML VIAL 20 MG IV PUSH ×2 (09:04→20:31)
[2022-05-13] MEDS: SPIRONOLACTONE 25 MG TABLET PO (09:04)
--- NOTE | 2022-05-13 12:09 | PCCCNOTE ---
On 05/13/22, the student, [Suellen Jain], provided care and completed [facility] documentation on this patient. I have reviewed the student's documentation and agree with the findings.
[2022-05-13] MEDS: MAGNESIUM SULF 2 GM/WATER 50ML 2 GM/50 ML BAG IVPB (12:31)
[2022-05-13] MEDS: MAGNESIUM OXIDE 400 MG TABLET PO (12:31)
--- NOTE | 2022-05-13 13:30 | PM.IMPN ---
Progress Note: A&P Assessment and Plan (1) COVID: Code(s): U07.1 - COVID-19 Status: Acute Assessment and Plan: No infiltrates noted on chest x-ray and he is not requiring supplemental oxygenation at this time. He may benefit from remdesivir as he has multiple comorbidities which put him at increased risk for complications with COVID however his renal function is not good enough to be started on that drug. Treatment is supportive at this time. Continue isolation per protocol. 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 (2) CHF exacerbation: Code(s): I50.9 - Heart failure, unspecified Status: Acute Assessment and Plan: Type unknown, he has not had an echocardiogram done at this facility recently that I can find. Patient endorses increasing lower extremity edema over the last several days for which he will be cautiously diuresed. (3) Chronic kidney disease, stage 4 (severe): Code(s): N18.4 - Chronic kidney disease, stage 4 (severe) Status: Acute Assessment and Plan: Creatinine is stable on review of previous labs and will be monitored while diuresing. (4) Hypertension: Code(s): I10 - Essential (primary) hypertension Status: Acute Assessment and Plan: Blood pressures were reviewed and they have been stable. Continue antihypertensives and monitor daily. (5) Chronic obstructive pulmonary disease: Code(s): J44.9 - Chronic obstructive pulmonary disease, unspecified Status: Acute Assessment and Plan: No acute exacerbation. Continue home inhalers and p.r.n. nebulizers. Subjective Date/time seen: 05/13/22 13:30 HPI This is a pleasant 76-year-old male with coronary artery disease, congestive heart failure, chronic kidney disease, polycystic kidney disease, hypertension, and history of prostate cancer who presented to the emergency department for evaluation of shortness of breath. Few of his friends and family members tested positive for COVID about a week and half ago and 5 days ago he and his tested positive though he did not really have any significant symptoms at that time. He has started to feel unwell over the past 3 days with sinus congestion, decreased appetite, productive cough, and shortness of breath. He has also noticed swelling in his lower legs the last several days. He did indeed test positive for SARS-CoV-2 by PCR and chest x-ray showed emphysema without acute cardiopulmonary abnormality. He was given a dose of Lasix in the ER with good urine output and he is feeling somewhat better already. He denies fever, chills, sweats, headache, change in smell and taste, chest pain, pleuritic pain, palpitations, vomiting, and diarrhea. 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
--- NOTE | 2022-05-13 13:46 | P.CONNP_ITS ---
Assessment and Plan Assessment and plan (1) Chronic kidney disease, stage 4 (severe): Code(s): N18.4 - Chronic kidney disease, stage 4 (severe) Status: Chronic Assessment and Plan: * secondary to polycystic kidney disease in combination with a degree of cardiorenal syndrome/CAD/vascular disease * baseline creatinine runs ~ 2.5 - 3.0mg/dl in the last several years * follows with outpatient nephrology (Dr. Priscila Guerrero at [facility]) * per his recollection, he was told in Dec 2021 that outpatient labs demonstrated GFR of 18cc/min * hence, current labs better than baseline * however, COVID-19 infection has been known to affect kidney function * follow repeat labs and UOP (2) COVID-19 virus infection: Code(s): U07.1 - COVID-19 Status: Acute Assessment and Plan: * now requiring supplemental oxygen in the context of shortness of breath * remdesivir contraindicated due to renal dysfunction * started on steroids (decadron) * attempt to continue/maintain dry lung strategy * follow respiratory status closely * continue supportive therapy (3) Ischemic cardiomyopathy: Code(s): I25.5 - Ischemic cardiomyopathy Status: Chronic Assessment and Plan: * follows with Dr. Uribe at [facility] * last Echo in August 2021 noted: * Severe left ventricular systolic dysfunction. Ejection fraction is measured at 32 %. Normal left ventricular cavity size. Mild concentric left ventricular hypertrophy. 2. Resting Segmental Wall Motion Analysis: Total wall motion score is 1.94. There is akinesis of the apical cap. There is mild hypokinesis of the basal to mid anterolateral wall. There is mild hypokinesis of the mid anterior wall. The basal anteroseptal to basal anterior wall demonstrates normal motion. The remaining left ventricular segments demonstrate severe hypokinesis. * There is moderate enlargement of the left atrium. * Normal appearance of the mitral valve leaflets. Moderate mitral valve regurgitation. * Normal appearance of the tricuspid leaflets. Mild tricuspid regurgitation. Normal right ventricular systolic pressure. * continue diuretics for now (4) Hypertension: Code(s): I10 - Essential (primary) hypertension Status: Chronic Assessment and Plan: * reasonable control at this time * follow trend of hemodynamics Long and extensive discussion with patient and (by phone) regarding his kidney disease/kidney function at this time and the need for close monitoring given diuretics and COVID-19 infection - they both appeared to voice understanding. Will continue to follow. History of Present Illness Reason for Consult Consult date: 05/13/22 Reason for consult: chronic renal failure Requesting physician: Matthew Laguerre MD Chief Complaint Chief complaint: CHF History of Present Illness Narrative: The patient is a 76-year-old male with a past medical history as outlined below who presented to [facility] Emergency room for further evaluation of shortness of breath. Apparently, a few of his friends and family members tested positive for COVID-19 about a week and half ago. His apparently tested positive 5 days ago as well. However, he himself did not have any significant symptoms in that time frame it is. However, over the last 3 days, he has noted symptoms of increased sinus congestion poor appetite productive cough and shortness of breath. He has also noticed an increase in swelling in his lower extremities in as same time frame. Given these constellation of symptoms, he p
--- NOTE | 2022-05-13 13:46 | PM.CNNEP ---
Assessment and Plan Assessment and plan (1) Chronic kidney disease, stage 4 (severe): Code(s): N18.4 - Chronic kidney disease, stage 4 (severe) Status: Chronic Assessment and Plan: secondary to polycystic kidney disease in combination with a degree of cardiorenal syndrome/CAD/vascular disease baseline creatinine runs ~ 2.5 - 3.0mg/dl in the last several years follows with outpatient nephrology (Dr. Priscila Guerrero at [facility]) per his recollection, he was told in Dec 2021 that outpatient labs demonstrated GFR of 18cc/min hence, current labs better than baseline however, COVID-19 infection has been known to affect kidney function follow repeat labs and UOP (2) COVID-19 virus infection: Code(s): U07.1 - COVID-19 Status: Acute Assessment and Plan: now requiring supplemental oxygen in the context of shortness of breath remdesivir contraindicated due to renal dysfunction started on steroids (decadron) attempt to continue/maintain dry lung strategy follow respiratory status closely continue supportive therapy (3) Ischemic cardiomyopathy: Code(s): I25.5 - Ischemic cardiomyopathy Status: Chronic Assessment and Plan: follows with Dr. Uribe at [facility] last Echo in August 2021 noted: Severe left ventricular systolic dysfunction. Ejection fraction is measured at 32 %. Normal left ventricular cavity size. Mild concentric left ventricular hypertrophy. 2. Resting Segmental Wall Motion Analysis: Total wall motion score is 1.94. There is akinesis of the apical cap. There is mild hypokinesis of the basal to mid anterolateral wall. There is mild hypokinesis of the mid anterior wall. The basal anteroseptal to basal anterior wall demonstrates normal motion. The remaining left ventricular segments demonstrate severe hypokinesis. There is moderate enlargement of the left atrium. Normal appearance of the mitral valve leaflets. Moderate mitral valve regurgitation. Normal appearance of the tricuspid leaflets. Mild tricuspid regurgitation. Normal right ventricular systolic pressure. continue diuretics for now (4) Hypertension: Code(s): I10 - Essential (primary) hypertension Status: Chronic Assessment and Plan: reasonable control at this time follow trend of hemodynamics Long and extensive discussion with patient and (by phone) regarding his kidney disease/kidney function at this time and the need for close monitoring given diuretics and COVID-19 infection - they both appeared to voice understanding. Will continue to follow. History of Present Illness Reason for Consult Consult date: 05/13/22 Reason for consult: chronic renal failure Requesting physician: Matthew Laguerre MD Chief Complaint Chief complaint: CHF History of Present Illness Narrative: The patient is a 76-year-old male with a past medical history as outlined below who presented to [facility] Emergency room for further evaluation of shortness of breath. Apparently, a few of his friends and family members tested positive for COVID-19 about a week and half ago. His apparently tested positive 5 days ago as well. However, he himself did not have any significant symptoms in that time frame it is. However, over the last 3 days, he has noted symptoms of increased sinus congestion poor appetite productive cough and shortness of breath. He has also noticed an increase in swelling in his lower extremities in as same time frame. Given these constellation of symptoms, he presented to the ER for further evaluation Workup and evaluation emergency room demonstrated the patient to be hemodynamically stable and and testing for COVID via saw [id number] PCR testing was positive as well. His chest x-ray also showed no acute cardiopulmonary abnormality but evidence of emphysema. He is known to have a history of chronic systolic heart failure/ cardiomyopathy as there was some concer
[2022-05-14] VITALS (11 sets, daily range): BP systolic 86–100; BP diastolic 58–80; PULSE 61–118; RESP 16–20; TEMP 36.1–36.8; O2SAT 93–96
[2022-05-14 06:25] LABS: Hematocrit 49.4 % (42.0-52.0); Hemoglobin 16.6 g/dL (14.0-18.0); Immature Platelet Fraction Pct 9.7 % (0.9-11.2); Mean Corpuscular HGB Conc 33.6 g/dl (32-36); Mean Corpuscular Hemoglobin 33.4 pg (26-34); Mean Corpuscular Volume 99.4 fl (80-100); Mean Platelet Volume 12.1 fl (7.4-10.4); Platelet Count Result 129 k/mm3 (150-375); Red Blood Count 4.97 M/mm3 (4.6-6.20); Red Cell Distribution Width 16.3 % (11.5-14.5); White Blood Count 10.5 K/mm3 (4.5-10.0)
[2022-05-14 06:50] LABS: Anion Gap 10 mmol/L (8-16); Blood Urea Nitrogen 60 mg/dL (9-20); Carbon Dioxide 22 mmol/L (22-30); Chloride 105 mmol/L (98-107); Estimated CRCL calculation 22 ml/min; Estimated Glomerular Filt Rate 22; Glucose 117 mg/dL (65-110); Potassium 4.3 mmol/L (3.4-5.0); Sodium 137 mmol/L (137-145)
[2022-05-14 06:52] LABS: Magnesium 1.9 mg/dL (1.6-2.3)
[2022-05-14] MEDS: FLUTICASONE/UMECLIDIN/VILANTER 100-62.5-25 MCG ELLIPTA 1 PUFF INHALATION (08:51)
[2022-05-14] MEDS: ALBUTEROL SULFATE (*SP) AEROSOL 1 PUFF 2 PUFF INHALATION ×2 (08:51→20:50)
[2022-05-14] MEDS: CALCIUM CARBONATE (OSCAL) 500 MG TABLET 1500 MG PO (09:52)
[2022-05-14] MEDS: hydrALAZINE HCL 25 MG TABLET PO (09:53)
[2022-05-14] MEDS: VITAMIN E 400 UNIT CAPSULE 800 UNIT PO (09:53)
[2022-05-14] MEDS: PANTOPRAZOLE 40 MG TABLET PO (09:53)
[2022-05-14] MEDS: ATORVASTATIN 10 MG TABLET PO (09:53)
[2022-05-14] MEDS: ASCORBIC ACID 500 MG TABLET 1000 MG PO (09:53)
[2022-05-14] MEDS: SPIRONOLACTONE 25 MG TABLET PO (09:53)
[2022-05-14] MEDS: ZINC SULFATE 220 MG CAPSULE PO (09:54)
[2022-05-14] MEDS: CHOLECALCIFEROL 1,000 UNITS TABLET 2000 UNITS PO (09:54)
[2022-05-14] MEDS: carvediloL 12.5 MG TABLET PO ×2 (09:54→20:28)
[2022-05-14] MEDS: MULTIVITAMINS THERAPEUTIC TAB (*BKC) 1 TABLET PO (09:54)
[2022-05-14] MEDS: ASPIRIN 81 MG CHEWABLE TABLET PO (09:54)
[2022-05-14] MEDS: MAGNESIUM OXIDE 400 MG TABLET PO (09:54)
[2022-05-14] MEDS: FUROSEMIDE INJ 40 MG/4 ML VIAL 20 MG IV PUSH (09:54)
--- NOTE | 2022-05-14 14:08 | PM.IMPN ---
Progress Note: A&P Assessment and Plan (1) COVID: Code(s): U07.1 - COVID-19 Status: Acute Assessment and Plan: No infiltrates noted on chest x-ray and he is not requiring supplemental oxygenation at this time. He may benefit from remdesivir as he has multiple comorbidities which put him at increased risk for complications with COVID however his renal function is not good enough to be started on that drug. Treatment is supportive at this time. Continue isolation per protocol. (2) CHF exacerbation: Code(s): I50.9 - Heart failure, unspecified Status: Acute Assessment and Plan: Type unknown, he has not had an echocardiogram done at this facility recently that I can find. Patient endorses increasing lower extremity edema over the last several days for which he will be cautiously diuresed. 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 will continue to monitor and have PT/OT evaluate patient, goal is wean the patient off Oxygen. 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 (3) Chronic kidney disease, stage 4 (severe): Code(s): N18.4 - Chronic kidney disease, stage 4 (severe) Status: Chronic Assessment and Plan: Creatinine is stable on review of previous labs and will be monitored while diuresing. (4) Hypertension: Code(s): I10 - Essential (primary) hypertension Status: Chronic Assessment and Plan: Blood pressures were reviewed and they have been stable. Continue antihypertensives and monitor daily. (5) Chronic obstructive pulmonary disease: Code(s): J44.9 - Chronic obstructive pulmonary disease, unspecified Status: Acute Assessment and Plan: No acute exacerbation. Continue home inhalers and p.r.n. nebulizers. 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 Exam Narrative: Patient is comfortable, NAD HEENT: eyes are clear and none icteric ROSELIA
--- NOTE | 2022-05-14 15:13 | P.PNNP_ITS ---
Progress Note: A&P Assessment and Plan (1) Chronic kidney disease, stage 4 (severe): Code(s): N18.4 - Chronic kidney disease, stage 4 (severe) Status: Chronic Assessment and Plan: * secondary to polycystic kidney disease in combination with a degree of cardiorenal syndrome/CAD/vascular disease * baseline creatinine runs ~ 2.5 - 3.0mg/dl in the last several years * follows with outpatient nephrology (Dr. Priscila Guerrero at [facility]) * per his recollection, he was told in Dec 2021 that outpatient labs demonstrated GFR of 18cc/min * hence, current labs better than baseline * however, COVID-19 infection has been known to affect kidney function * follow repeat labs and UOP (2) COVID-19 virus infection: Code(s): U07.1 - COVID-19 Status: Acute Assessment and Plan: * now requiring supplemental oxygen in the context of shortness of breath * remdesivir contraindicated due to renal dysfunction * started on steroids (decadron) * attempt to continue/maintain dry lung strategy * follow respiratory status closely * continue supportive therapy (3) Ischemic cardiomyopathy: Code(s): I25.5 - Ischemic cardiomyopathy Status: Chronic Assessment and Plan: * follows with Dr. Uribe at [facility] * last Echo in August 2021 noted: * Severe left ventricular systolic dysfunction. Ejection fraction is measured at 32 %. Normal left ventricular cavity size. Mild concentric left ventricular hypertrophy. 2. Resting Segmental Wall Motion Analysis: Total wall motion score is 1.94. There is akinesis of the apical cap. There is mild hypokinesis of the basal to mid anterolateral wall. There is mild hypokinesis of the mid anterior wall. The basal anteroseptal to basal anterior wall demonstrates normal motion. The remaining left ventricular segments demonstrate severe hypokinesis. * There is moderate enlargement of the left atrium. * Normal appearance of the mitral valve leaflets. Moderate mitral valve r egurgitation. * Normal appearance of the tricuspid leaflets. Mild tricuspid regurgitation. Normal right ventricular systolic pressure. * volume status appears better -- seems reasonable to hold diuretics for now (4) Hypertension: Code(s): I10 - Essential (primary) hypertension Status: Chronic Assessment and Plan: * running on the lower end of normal * will place holding parameters on carvedilol and hydralazine * follow trend of hemodynamics Long discussion (> 20min) with patient's (by phone) regarding current kidney function and issues with low BP readings; discussed situation with patient as well. Will continue to follow. Subjective Date/time seen: 05/14/22 15:13 Appears to be doing reasonably well at the time of my visit; breathing/respiratory status seems stable if not better; weaned down to 1L oxygen by nasal cannula; creatinine up a bit but not surprising in the context of IV diuresis; no apparent distress noted. Exam Narrative: General: WD/WN male in NAD Heart: normal S1 and S2; no rub Lungs: clear to auscultation Abdomen: soft, nontender, nondistended, positive bowel sounds Extremities: no cyanosis or clubbing; trace edema Skin: warm and dry Objective Data Vital Signs Vital Signs: Vital Signs Temp Pulse Resp BP Pulse Ox O2 Del Method O2 Flow Rate 05/14/22 08:00 89 05/14/22 14:30 Nasal Cannula 1
--- NOTE | 2022-05-14 15:13 | PM.PNNEP ---
Progress Note: A&P Assessment and Plan (1) Chronic kidney disease, stage 4 (severe): Code(s): N18.4 - Chronic kidney disease, stage 4 (severe) Status: Chronic Assessment and Plan: secondary to polycystic kidney disease in combination with a degree of cardiorenal syndrome/CAD/vascular disease baseline creatinine runs ~ 2.5 - 3.0mg/dl in the last several years follows with outpatient nephrology (Dr. Priscila Guerrero at [facility]) per his recollection, he was told in Dec 2021 that outpatient labs demonstrated GFR of 18cc/min hence, current labs better than baseline however, COVID-19 infection has been known to affect kidney function follow repeat labs and UOP (2) COVID-19 virus infection: Code(s): U07.1 - COVID-19 Status: Acute Assessment and Plan: now requiring supplemental oxygen in the context of shortness of breath remdesivir contraindicated due to renal dysfunction started on steroids (decadron) attempt to continue/maintain dry lung strategy follow respiratory status closely continue supportive therapy (3) Ischemic cardiomyopathy: Code(s): I25.5 - Ischemic cardiomyopathy Status: Chronic Assessment and Plan: follows with Dr. Uribe at [facility] last Echo in August 2021 noted: Severe left ventricular systolic dysfunction. Ejection fraction is measured at 32 %. Normal left ventricular cavity size. Mild concentric left ventricular hypertrophy. 2. Resting Segmental Wall Motion Analysis: Total wall motion score is 1.94. There is akinesis of the apical cap. There is mild hypokinesis of the basal to mid anterolateral wall. There is mild hypokinesis of the mid anterior wall. The basal anteroseptal to basal anterior wall demonstrates normal motion. The remaining left ventricular segments demonstrate severe hypokinesis. There is moderate enlargement of the left atrium. Normal appearance of the mitral valve leaflets. Moderate mitral valve regurgitation. Normal appearance of the tricuspid leaflets. Mild tricuspid regurgitation. Normal right ventricular systolic pressure. volume status appears better -- seems reasonable to hold diuretics for now (4) Hypertension: Code(s): I10 - Essential (primary) hypertension Status: Chronic Assessment and Plan: running on the lower end of normal will place holding parameters on carvedilol and hydralazine follow trend of hemodynamics Long discussion (> 20min) with patient's (by phone) regarding current kidney function and issues with low BP readings; discussed situation with patient as well. Will continue to follow. Subjective Date/time seen: 05/14/22 15:13 Appears to be doing reasonably well at the time of my visit; breathing/respiratory status seems stable if not better; weaned down to 1L oxygen by nasal cannula; creatinine up a bit but not surprising in the context of IV diuresis; no apparent distress noted. Exam Narrative: General: WD/WN male in NAD Heart: normal S1 and S2; no rub Lungs: clear to auscultation Abdomen: soft, nontender, nondistended, positive bowel sounds Extremities: no cyanosis or clubbing; trace edema Skin: warm and dry Objective Data Vital Signs Vital Signs: Vital Signs Temp Pulse Resp BP Pulse Ox O2 Del Method O2 Flow Rate 05/14/22 08:00 89 05/14/22 14:30 Nasal Cannula 1 05/14/22 08:00 95 Nasal Cannula 2 05/14/22 11:05 Nasal Cannula 2 05/14/22 08:00 36.4 C L 86 16 87/62 L 96 05/14/22 09:54 88 05/14/22 08:52 88 18 05/14/22 08:51 88 16 96 Nasal Cannula 2 05/14/22 04:00 80 05/14/22 04:00 36.8 C 61 16 100/58 L 93 05/14/22 00:00 90 05/14/22 00:00 36.7 C 81 16 86/62 L 95 05/13/22 21:00 95/60 L 05/13/22 20:00 85 05/13/22 20:32 65 05/13/22 20:00 37.1 C 93 20 87/61 L 95 05/13/22 16:22 37.3 C 103 H 18 98/68 L 96 I
--- NOTE | 2022-05-14 16:29 | ECG_ITS ---
Measurements Intervals [place] Rate: 87 P: RI: 0 QRS: -89 QRSD: 147 T: 104 QT: 415 QTc: 501 Interpretive Statements ATRIAL FIBRILLATION INTRAVENTRICULAR CONDUCTION DELAY LATERAL MYOCARDIAL INFARCTION , OF INDETERMINATE AGE INFERIOR MYOCARDIAL INFARCTION , PROBABLY OLD Electronically Signed On 05-15-2022 10:49:12 CDT by Aniceto Pittman M.D.
[2022-05-14 20:56] LABS: Anion Gap 11 mmol/L (8-16); Blood Urea Nitrogen 74 mg/dL (9-20); Calcium 8.2 mg/dL (8.4-10.2); Carbon Dioxide 21 mmol/L (22-30); Chloride 103 mmol/L (98-107); Estimated CRCL calculation 20 ml/min; Estimated Glomerular Filt Rate 20; Glucose 177 mg/dL (65-110); Magnesium 2.1 mg/dL (1.6-2.3); Potassium 4.2 mmol/L (3.4-5.0); Sodium 135 mmol/L (137-145)
[2022-05-15] VITALS (10 sets, daily range): BP systolic 74–96; BP diastolic 65–81; PULSE 53–90; RESP 16–20; TEMP 35.9–36.2; O2SAT 94–99
[2022-05-15 06:50] LABS: Hematocrit 47.2 % (42.0-52.0); Mean Corpuscular HGB Conc 33.9 g/dl (32-36); Mean Corpuscular Hemoglobin 33.5 pg (26-34); Mean Corpuscular Volume 98.7 fl (80-100); Mean Platelet Volume 12.1 fl (7.4-10.4); Platelet Count Result 140 k/mm3 (150-375); Red Blood Count 4.78 M/mm3 (4.6-6.20); White Blood Count 13.8 K/mm3 (4.5-10.0)
[2022-05-15 07:13] LABS: Anion Gap 7 mmol/L (8-16); Blood Urea Nitrogen 80 mg/dL (9-20); Calcium 7.9 mg/dL (8.4-10.2); Carbon Dioxide 23 mmol/L (22-30); Chloride 105 mmol/L (98-107); Estimated CRCL calculation 20 ml/min; Estimated Glomerular Filt Rate 20; Glucose 118 mg/dL (65-110); Magnesium 2.1 mg/dL (1.6-2.3); Potassium 4.5 mmol/L (3.4-5.0); Sodium 135 mmol/L (137-145)
[2022-05-15] MEDS: ALBUTEROL SULFATE (*SP) AEROSOL 1 PUFF 2 PUFF INHALATION ×2 (08:49→20:15)
[2022-05-15] MEDS: FLUTICASONE/UMECLIDIN/VILANTER 100-62.5-25 MCG ELLIPTA 1 PUFF INHALATION (08:50)
[2022-05-15] MEDS: CHOLECALCIFEROL 1,000 UNITS TABLET 2000 UNITS PO (09:12)
[2022-05-15] MEDS: CALCIUM CARBONATE (OSCAL) 500 MG TABLET 1500 MG PO (09:13)
[2022-05-15] MEDS: ASPIRIN 81 MG CHEWABLE TABLET PO (09:13)
[2022-05-15] MEDS: carvediloL 12.5 MG TABLET PO (09:13)
[2022-05-15] MEDS: VITAMIN E 400 UNIT CAPSULE 800 UNIT PO (09:13)
[2022-05-15] MEDS: PANTOPRAZOLE 40 MG TABLET PO (09:14)
[2022-05-15] MEDS: MULTIVITAMINS THERAPEUTIC TAB (*BKC) 1 TABLET PO (09:14)
[2022-05-15] MEDS: ZINC SULFATE 220 MG CAPSULE PO (09:14)
[2022-05-15] MEDS: SPIRONOLACTONE 25 MG TABLET PO (09:14)
[2022-05-15] MEDS: MAGNESIUM OXIDE 400 MG TABLET PO (09:14)
[2022-05-15] MEDS: ATORVASTATIN 10 MG TABLET PO (09:15)
[2022-05-15] MEDS: ASCORBIC ACID 500 MG TABLET 1000 MG PO (09:15)
--- NOTE | 2022-05-15 10:28 | P.PNNP_ITS ---
Progress Note: A&P Assessment and Plan (1) Chronic kidney disease, stage 4 (severe): Code(s): N18.4 - Chronic kidney disease, stage 4 (severe) Status: Chronic Assessment and Plan: * secondary to polycystic kidney disease in combination with a degree of cardiorenal syndrome/CAD/vascular disease * baseline creatinine runs ~ 2.5 - 3.0mg/dl in the last several years from review of records * follows with outpatient nephrology (Dr. Priscila Guerrero at [facility]) * will try to get more recent records if possible * per his recollection, he was told in Dec 2021 that outpatient labs demonstrated GFR of 18cc/min * hence, current labs are better than baseline * however, COVID-19 infection has been known to affect kidney function * follow repeat labs and UOP (2) COVID-19 virus infection: Code(s): U07.1 - COVID-19 Status: Acute Assessment and Plan: * now requiring supplemental oxygen in the context of shortness of breath * remdesivir contraindicated due to renal dysfunction * started on steroids (decadron) * attempt to continue/maintain dry lung strategy * follow respiratory status closely * continue supportive therapy (3) Ischemic cardiomyopathy: Code(s): I25.5 - Ischemic cardiomyopathy Status: Chronic Assessment and Plan: * follows with Dr. Uribe at [facility] * last Echo in August 2021 noted: * Severe left ventricular systolic dysfunction. Ejection fraction is measured at 32 %. Normal left ventricular cavity size. Mild concentric left ventricular hypertrophy. 2. Resting Segmental Wall Motion Analysis: Total wall motion score is 1.94. There is akinesis of the apical cap. There is mild hypokinesis of the basal to mid anterolateral wall. There is mild hypokinesis of the mid anterior wall. The basal anteroseptal to basal anterior wall demonstrates normal motion. The remaining left ventricular segments demonstrate severe hypokinesis. * There is moderate enlargement of the left atrium. * Normal appearance of the mitral valve leaflets. Moderate mitral valve regurgitation. * Normal appearance of the tricuspid leaflets. Mild tricuspid regurgitation. Normal right ventricular systolic pressure. * volume status appears better -- seems reasonable to hold diuretics for now (4) Hypertension: Code(s): I10 - Essential (primary) hypertension Status: Chronic Assessment and Plan: * running on the lower end of normal * will place holding parameters on carvedilol and hydralazine * trying to avoid overcontrol of BP thereby reducing the risk of renal hypoperfusion... * follow trend of hemodynamics Will continue to follow. Subjective Date/time seen: 05/15/22 10:28 Exam Narrative: General: WD/WN male in NAD Heart: normal S1 and S2; no rub Lungs: clear to auscultation Abdomen: soft, nontender, nondistended, positive bowel sounds Extremities: no cyanosis or clubbing; trace edema Skin: warm and dry Objective Data Vital Signs Vital Signs: Vital Signs Temp Pulse Resp BP Pulse Ox O2 Del Method O2 Flow Rate 05/15/22 09:13 80 05/15/22 08:50 80 18 05/15/22 08:50 95 Nasal Cannula 2 05/15/22 08:00 36.1 C L 90 18 96/69 L 96 05/15/22 04:00 85 05/15/22 03:51 35.9 C L 61 18 94/81 L 97 05/15/22 00:00 80 05/15/22 00:00 36.1
--- NOTE | 2022-05-15 10:28 | PM.PNNEP ---
Progress Note: A&P Assessment and Plan (1) Chronic kidney disease, stage 4 (severe): Code(s): N18.4 - Chronic kidney disease, stage 4 (severe) Status: Chronic Assessment and Plan: secondary to polycystic kidney disease in combination with a degree of cardiorenal syndrome/CAD/vascular disease baseline creatinine runs ~ 2.5 - 3.0mg/dl in the last several years from review of records follows with outpatient nephrology (Dr. Priscila Guerrero at [facility]) will try to get more recent records if possible per his recollection, he was told in Dec 2021 that outpatient labs demonstrated GFR of 18cc/min hence, current labs are better than baseline however, COVID-19 infection has been known to affect kidney function follow repeat labs and UOP (2) COVID-19 virus infection: Code(s): U07.1 - COVID-19 Status: Acute Assessment and Plan: now requiring supplemental oxygen in the context of shortness of breath remdesivir contraindicated due to renal dysfunction started on steroids (decadron) attempt to continue/maintain dry lung strategy follow respiratory status closely continue supportive therapy (3) Ischemic cardiomyopathy: Code(s): I25.5 - Ischemic cardiomyopathy Status: Chronic Assessment and Plan: follows with Dr. Uribe at [facility] last Echo in August 2021 noted: Severe left ventricular systolic dysfunction. Ejection fraction is measured at 32 %. Normal left ventricular cavity size. Mild concentric left ventricular hypertrophy. 2. Resting Segmental Wall Motion Analysis: Total wall motion score is 1.94. There is akinesis of the apical cap. There is mild hypokinesis of the basal to mid anterolateral wall. There is mild hypokinesis of the mid anterior wall. The basal anteroseptal to basal anterior wall demonstrates normal motion. The remaining left ventricular segments demonstrate severe hypokinesis. There is moderate enlargement of the left atrium. Normal appearance of the mitral valve leaflets. Moderate mitral valve regurgitation. Normal appearance of the tricuspid leaflets. Mild tricuspid regurgitation. Normal right ventricular systolic pressure. volume status appears better -- seems reasonable to hold diuretics for now (4) Hypertension: Code(s): I10 - Essential (primary) hypertension Status: Chronic Assessment and Plan: running on the lower end of normal will place holding parameters on carvedilol and hydralazine trying to avoid overcontrol of BP thereby reducing the risk of renal hypoperfusion... follow trend of hemodynamics Will continue to follow. Subjective Date/time seen: 05/15/22 10:28 Exam Narrative: General: WD/WN male in NAD Heart: normal S1 and S2; no rub Lungs: clear to auscultation Abdomen: soft, nontender, nondistended, positive bowel sounds Extremities: no cyanosis or clubbing; trace edema Skin: warm and dry Objective Data Vital Signs Vital Signs: Vital Signs Temp Pulse Resp BP Pulse Ox O2 Del Method O2 Flow Rate 05/15/22 09:13 80 05/15/22 08:50 80 18 05/15/22 08:50 95 Nasal Cannula 2 05/15/22 08:00 36.1 C L 90 18 96/69 L 96 05/15/22 04:00 85 05/15/22 03:51 35.9 C L 61 18 94/81 L 97 05/15/22 00:00 80 05/15/22 00:00 36.1 C L 54 L 16 82/72 L 97 05/14/22 20:57 94 Nasal Cannula 1 05/14/22 20:00 85 05/14/22 20:00 36.2 C L 99 16 92/80 L 95 05/14/22 20:28 89 05/14/22 16:00 36.6 C 118 H 16 94/80 L 95 05/14/22 16:00 97 05/14/22 12:00 36.1 C L 107 H 20 91/65 L 94 05/14/22 12:00 87 05/14/22 14:30 Nasal Cannula 1 05/14/22 11:05 Nasal Cannula 2 Intake/Output Intake/Output: Intake & Output 05/12/22 05/13/22 05/14/22 05/15/22 23:59 23:59 23:59 23:59 Intake Total 1480 1470 1270 1280 Output Total 2200 1900 800 500 Balance -720 -430 470 780 Meds
--- NOTE | 2022-05-15 15:51 | PC.NURSE ---
attempted to have pt sign release form for labs and progress notes from Ginna Guerrero MD from [facility]. Pt Pt declined stating, I am not signing anything without my glasses. '
--- NOTE | 2022-05-15 15:57 | PC.NURSE ---
Attempted to have pt sign release form for labs and progress notes from Dr. Ginna Guerrero from [facility]. I explained to pt what this release form was for. Pt state, I am not signing anything without my glasses. I asked pt if I can come back to have him sign after he obtains his glasses. He stated that his has his glasses and states he doesn't know when she can bring them in. I attempted to call to inquire about his glasses. She did not pick up operator phone but I left message to call back.
--- NOTE | 2022-05-15 16:40 | PM.IMPN ---
Progress Note: A&P Assessment and Plan (1) COVID: Code(s): U07.1 - COVID-19 Status: Acute Assessment and Plan: No infiltrates noted on chest x-ray and he is not requiring supplemental oxygenation at this time. He may benefit from remdesivir as he has multiple comorbidities which put him at increased risk for complications with COVID however his renal function is not good enough to be started on that drug. Treatment is supportive at this time. Continue isolation per protocol. (2) CHF exacerbation: Code(s): I50.9 - Heart failure, unspecified Status: Acute Assessment and Plan: Type unknown, he has not had an echocardiogram done at this facility recently that I can find. Patient endorses increasing lower extremity edema over the last several days for which he will be cautiously diuresed. 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 will continue to monitor and have PT/OT evaluate patient, goal is wean the patient off Oxygen. 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 (3) Chronic kidney disease, stage 4 (severe): Code(s): N18.4 - Chronic kidney disease, stage 4 (severe) Status: Chronic Assessment and Plan: Creatinine is stable on review of previous labs and will be monitored while diuresing. (4) Hypertension: Code(s): I10 - Essential (primary) hypertension Status: Chronic Assessment and Plan: Blood pressures were reviewed and they have been stable. Continue antihypertensives and monitor daily. (5) Chronic obstructive pulmonary disease: Code(s): J44.9 - Chronic obstructive pulmonary disease, unspecified Status: Acute Assessment and Plan: No acute exacerbation. Continue home inhalers and p.r.n. nebulizers. Subjective Date/time seen: 05/15/22 16:40
[2022-05-16] VITALS (11 sets, daily range): BP systolic 85–98; BP diastolic 58–73; PULSE 52–95; RESP 14–20; TEMP 35.7–36.7; O2SAT 93–100
[2022-05-16 06:27] LABS: Hematocrit 46.5 % (42.0-52.0); Hemoglobin 15.6 g/dL (14.0-18.0); Immature Platelet Fraction Pct 12.3 % (0.9-11.2); Mean Corpuscular HGB Conc 33.5 g/dl (32-36); Mean Corpuscular Hemoglobin 33.5 pg (26-34); Mean Platelet Volume 11.4 fl (7.4-10.4); Platelet Count Result 138 k/mm3 (150-375); Red Blood Count 4.65 M/mm3 (4.6-6.20); Red Cell Distribution Width 15.8 % (11.5-14.5); White Blood Count 12.7 K/mm3 (4.5-10.0)
[2022-05-16 06:47] LABS: Anion Gap 8 mmol/L (8-16); Blood Urea Nitrogen 88 mg/dL (9-20); Calcium 8.1 mg/dL (8.4-10.2); Carbon Dioxide 21 mmol/L (22-30); Chloride 104 mmol/L (98-107); Estimated CRCL calculation 21 ml/min; Estimated Glomerular Filt Rate 21; Glucose 111 mg/dL (65-110); Magnesium 2.2 mg/dL (1.6-2.3); Potassium 4.6 mmol/L (3.4-5.0); Sodium 133 mmol/L (137-145)
[2022-05-16] MEDS: ALBUTEROL SULFATE (*SP) AEROSOL 1 PUFF 2 PUFF INHALATION ×2 (08:39→20:32)
[2022-05-16] MEDS: FLUTICASONE/UMECLIDIN/VILANTER 100-62.5-25 MCG ELLIPTA 1 PUFF INHALATION (08:39)
[2022-05-16 09:18] LABS: NT Pro B Type Natriuretic Pept 30400 pg/mL (5-100)
[2022-05-16] MEDS: CALCIUM CARBONATE (OSCAL) 500 MG TABLET 1500 MG PO (09:31)
[2022-05-16] MEDS: SPIRONOLACTONE 25 MG TABLET PO (09:31)
[2022-05-16] MEDS: ASCORBIC ACID 500 MG TABLET 1000 MG PO (09:31)
[2022-05-16] MEDS: ATORVASTATIN 10 MG TABLET PO (09:32)
[2022-05-16] MEDS: PANTOPRAZOLE 40 MG TABLET PO (09:32)
[2022-05-16] MEDS: CHOLECALCIFEROL 1,000 UNITS TABLET 2000 UNITS PO (09:32)
[2022-05-16] MEDS: MULTIVITAMINS THERAPEUTIC TAB (*BKC) 1 TABLET PO (09:32)
[2022-05-16] MEDS: ASPIRIN 81 MG CHEWABLE TABLET PO (09:32)
[2022-05-16] MEDS: ZINC SULFATE 220 MG CAPSULE PO (09:32)
[2022-05-16] MEDS: VITAMIN E 400 UNIT CAPSULE 800 UNIT PO (09:32)
[2022-05-16] MEDS: MAGNESIUM OXIDE 400 MG TABLET PO (09:32)
--- NOTE | 2022-05-16 12:55 | P.PNNP_ITS ---
Progress Note: A&P Assessment and Plan (1) Chronic kidney disease, stage 4 (severe): Code(s): N18.4 - Chronic kidney disease, stage 4 (severe) Status: Chronic Assessment and Plan: * secondary to polycystic kidney disease in combination with a degree of cardiorenal syndrome/CAD/vascular disease * baseline creatinine runs ~ 2.5 - 3.0mg/dl in the last several years from review of records * follows with outpatient nephrology (Dr. Priscila Guerrero at [facility]) * will try to get more recent records if possible * per his recollection, he was told in Dec 2021 that outpatient labs demonstrated GFR of 18cc/min * hence, current labs are better than baseline * however, COVID-19 infection has been known to affect kidney function * follow repeat labs and UOP (2) COVID-19 virus infection: Code(s): U07.1 - COVID-19 Status: Acute Assessment and Plan: * now requiring supplemental oxygen in the context of shortness of breath * remdesivir contraindicated due to renal dysfunction * started on steroids (decadron) * attempt to continue/maintain dry lung strategy * follow respiratory status closely * continue supportive therapy (3) Ischemic cardiomyopathy: Code(s): I25.5 - Ischemic cardiomyopathy Status: Chronic Assessment and Plan: * follows with Dr. Uribe at [facility] * last Echo in August 2021 noted: * Severe left ventricular systolic dysfunction. Ejection fraction is measured at 32 %. Normal left ventricular cavity size. Mild concentric left ventricular hypertrophy. 2. Resting Segmental Wall Motion Analysis: Total wall motion score is 1.94. There is akinesis of the apical cap. There is mild hypokinesis of the basal to mid anterolateral wall. There is mild hypokinesis of the mid anterior wall. The basal anteroseptal to basal anterior wall demonstrates normal motion. The remaining left ventricular segments demonstrate severe hypokinesis. * There is moderate enlargement of the left atrium. * Normal appearance of the mitral valve leaflets. Moderate mitral valve regurgitation. * Normal appearance of the tricuspid leaflets. Mild tricuspid regurgitation. Normal right ventricular systolic pressure. * volume status appears better/compensated (4) Hypertension: Code(s): I10 - Essential (primary) hypertension Status: Chronic Assessment and Plan: * running on the lower end of normal * will place holding parameters on carvedilol and hydralazine * trying to avoid overcontrol of BP thereby reducing the risk of renal hypoperfusion... * follow trend of hemodynamics * PT/OT Will continue to follow. Subjective Date/time seen: 05/16/22 12:55 Appears to be doing reasonably well; off supplemental oxygen at the time of my visit with reported stable oxygen saturations; systolic BP at bit on the the low side but does not appear symptomatic; anxious for discharge. Exam Narrative: General: WD/WN male in NAD Heart: normal S1 and S2; no rub Lungs: clear to auscultation Abdomen: soft, nontender, nondistended, positive bowel sounds Extremities: no cyanosis or clubbing; trace edema Skin: warm and intact Objective Data Vital Signs Vital Signs: Vital Signs Temp Pulse Resp BP Pulse Ox O2 Del Method O2 Flow Rate 05/16/22 12:00 35.9 C L 72 14 85/58 L 95 05/16/22 08:00 94 Nasal Cannula 1 05/16/22 09:25
--- NOTE | 2022-05-16 12:55 | PM.PNNEP ---
Progress Note: A&P Assessment and Plan (1) Chronic kidney disease, stage 4 (severe): Code(s): N18.4 - Chronic kidney disease, stage 4 (severe) Status: Chronic Assessment and Plan: secondary to polycystic kidney disease in combination with a degree of cardiorenal syndrome/CAD/vascular disease baseline creatinine runs ~ 2.5 - 3.0mg/dl in the last several years from review of records follows with outpatient nephrology (Dr. Priscila Guerrero at [facility]) will try to get more recent records if possible per his recollection, he was told in Dec 2021 that outpatient labs demonstrated GFR of 18cc/min hence, current labs are better than baseline however, COVID-19 infection has been known to affect kidney function follow repeat labs and UOP (2) COVID-19 virus infection: Code(s): U07.1 - COVID-19 Status: Acute Assessment and Plan: now requiring supplemental oxygen in the context of shortness of breath remdesivir contraindicated due to renal dysfunction started on steroids (decadron) attempt to continue/maintain dry lung strategy follow respiratory status closely continue supportive therapy (3) Ischemic cardiomyopathy: Code(s): I25.5 - Ischemic cardiomyopathy Status: Chronic Assessment and Plan: follows with Dr. Uribe at [facility] last Echo in August 2021 noted: Severe left ventricular systolic dysfunction. Ejection fraction is measured at 32 %. Normal left ventricular cavity size. Mild concentric left ventricular hypertrophy. 2. Resting Segmental Wall Motion Analysis: Total wall motion score is 1.94. There is akinesis of the apical cap. There is mild hypokinesis of the basal to mid anterolateral wall. There is mild hypokinesis of the mid anterior wall. The basal anteroseptal to basal anterior wall demonstrates normal motion. The remaining left ventricular segments demonstrate severe hypokinesis. There is moderate enlargement of the left atrium. Normal appearance of the mitral valve leaflets. Moderate mitral valve regurgitation. Normal appearance of the tricuspid leaflets. Mild tricuspid regurgitation. Normal right ventricular systolic pressure. volume status appears better/compensated (4) Hypertension: Code(s): I10 - Essential (primary) hypertension Status: Chronic Assessment and Plan: running on the lower end of normal will place holding parameters on carvedilol and hydralazine trying to avoid overcontrol of BP thereby reducing the risk of renal hypoperfusion... follow trend of hemodynamics PT/OT Will continue to follow. Subjective Date/time seen: 05/16/22 12:55 Appears to be doing reasonably well; off supplemental oxygen at the time of my visit with reported stable oxygen saturations; systolic BP at bit on the the low side but does not appear symptomatic; anxious for discharge. Exam Narrative: General: WD/WN male in NAD Heart: normal S1 and S2; no rub Lungs: clear to auscultation Abdomen: soft, nontender, nondistended, positive bowel sounds Extremities: no cyanosis or clubbing; trace edema Skin: warm and intact Objective Data Vital Signs Vital Signs: Vital Signs Temp Pulse Resp BP Pulse Ox O2 Del Method O2 Flow Rate 05/16/22 12:00 35.9 C L 72 14 85/58 L 95 05/16/22 08:00 94 Nasal Cannula 1 05/16/22 09:25 95 05/16/22 08:39 93 Nasal Cannula 1 05/16/22 08:00 35.9 C L 95 18 95/73 L 100 05/16/22 04:00 36.1 C L 72 18 89/63 L 99 05/16/22 04:00 78 05/16/22 00:00 82 05/15/22 20:00 87 05/16/22 00:00 35.7 C L 78 18 90/63 L 97 05/15/22 20:00 94 Nasal Cannula 1 05/15/22 20:00 36.2 C L 83 18 87/70 L 96 05/15/22 20:21 94 Nasal Cannula 2 05/15/22 16:00 82 05/15/22 16:00 36.2 C L 81 20 93/65 L 99 Intake/Output Intake/Output: Intake & Output 05/13/22 05/14/22 05/15/22 05/16/22 23:59 23
--- NOTE | 2022-05-16 12:58 | PM.IMPN ---
Progress Note: A&P Assessment and Plan (1) COVID: Code(s): U07.1 - COVID-19 Status: Acute Assessment and Plan: the patient is on 1-2 L of oxygen. Likely does not need any oxygen at all. He feels good. Will titrate oxygen down. (2) CHF exacerbation: Code(s): I50.9 - Heart failure, unspecified Status: Acute (3) Chronic kidney disease, stage 4 (severe): Code(s): N18.4 - Chronic kidney disease, stage 4 (severe) Status: Chronic Assessment and Plan: Creatinine is stable on review of previous labs and will be monitored while diuresing. (4) Hypertension: Code(s): I10 - Essential (primary) hypertension Status: Chronic Assessment and Plan: Blood pressures were reviewed and they have been stable. Continue antihypertensives and monitor daily. (5) Chronic obstructive pulmonary disease: Code(s): J44.9 - Chronic obstructive pulmonary disease, unspecified Status: Acute Assessment and Plan: No acute exacerbation. Continue home inhalers and p.r.n. nebulizers. Subjective Date/time seen: 05/16/22 12:58 Reports his breathing is improved. Was on 1liter of oxygen this mornin Exam Narrative: Patient is comfortable, NAD HEENT: eyes are clear and none icteric LUNGS: nomal respiratory efforts ABD: not distended. Lower extremities: no edema SKIN: nonjaundiced Neuro: grossly intact. Objective Data Vital Signs Vital Signs: Vital Signs - 24 hr 05/15/22 16:00 05/15/22 16:00 05/15/22 20:21 Temperature 97.1 F L Pulse Rate 81 82 Respiratory Rate 20 Blood Pressure 93/65 L Pulse Oximetry 99 94 Oxygen Delivery Nasal Cannula Oxygen Flow Rate 2 05/15/22 20:00 05/15/22 20:00 05/16/22 00:00 Temperature 97.2 F L 96.2 F L Pulse Rate 83 78 Respiratory Rate 18 18 Blood Pressure 87/70 L 90/63 L Pulse Oximetry 96 94 97 Oxygen Delivery Nasal Cannula Oxygen Flow Rate 1 05/15/22 20:00 05/16/22 00:00 05/16/22 04:00 Temperature Pulse Rate 87 82 78 Respiratory Rate Blood Pressure Pulse Oximetry Oxygen Delivery Oxygen Flow Rate 05/16/22 04:00 05/16/22 08:00 05/16/22 08:39 Temperature 97.0 F L 96.7 F L Pulse Rate 72 95 Respiratory Rate 18 18 Blood Pressure 89/63 L 95/73 L Pulse Oximetry 99 100 93 Oxygen Delivery Nasal Cannula Oxygen Flow Rate 1 05/16/22 09:25 05/16/22 08:00 05/16/22 12:00 Temperature 96.7 F L Pulse Rate 95 72 Respiratory Rate 14 Blood Pressure 85/58 L Pulse Oximetry 94 95 Oxygen Delivery Nasal Cannula Oxygen Flow Rate 1 Intake/Output Intake/Output: Intake & Output 05/13/22 05/14/22 05/15/22 05/16/22 23:59 23:59 23:59 23:59 Intake Total 1470 1270 1902 340 Output Total 8743 422 0530 400 Balance -430 470 802 -60 Meds/Results Medications: Active Medications Generic Name Dose Route Start Last Admin Trade Name Freq PRN Reason Stop Dose Admin Albuterol 2 puff 05/13/22 08:00 05/16/22 08:39 Albuterol Sulfate (*Sp) Aerosol 1 Puff INHALATION 2 puff Q12HRT GEREMIAS Administration Ascorbic Acid 1,000 mg 05/13/22 09:00 05/16/22 09:31 Ascorbic Acid 500 Mg Tablet PO 1,000 mg DAILY GEREMIAS Administration Aspirin 81 mg 05/13/22 09:00 05/16/22 09:32 Aspirin 81 Mg Chewable Tablet PO 81 mg DAILY GEREMIAS Administration Atorvastatin Calcium 10 mg 05/13/22 09:00 05/16/22 09:32 Atorvastatin 10 Mg Tablet PO 10 mg DAILY GEREMIAS Administration Calcium Carbonate 1,500 mg 05/13/22 09:00 05/16/22 09:31 Calcium Carbonate (Oscal) 500 Mg Tablet PO 06/12/22 08:59 1,500 mg DAILY GEREMIAS Administration Carvedilol 12.5 mg 05/12/22 21:00 05/16/22 09:25 Carvedilol 12.5 Mg Tablet PO Not Given Q12HR [facility] Dexamethasone Sodium Phosphate 6 mg 05/14/22 09:00 05/16/22 09:31 Dexamethasone Sod Phos Inj 10 Mg/Ml 1 Ml Vial IV PUSH 05/23/22 09:01 6 mg DAILY GEREMIAS Administration Fluticasone/Umeclidinium/V
--- NOTE | 2022-05-16 18:42 | PM.CNCAR ---
Assessment and Plan Assessment and plan (1) Nonsustained ventricular tachycardia: Code(s): I47.2 - Ventricular tachycardia Status: Acute Assessment and Plan: Patient has a history of PVCs, is having frequent PVCs and some nonsustained ventricular tachycardia this admission Has always declined ICD implant Continues to decline ICD implant Continue medical therapy for arrhythmias with carvedilol Keep electrolytes within the normal range Okay to discontinue the telemetry (2) Persistent atrial fibrillation: Code(s): I48.19 - Other persistent atrial fibrillation Status: Acute Assessment and Plan: The patient has atrial fibrillation with a controlled rate. The atrial fibrillation appears to be new, no mention of this and Dr. Uribe's notes on all prior EKG shows sinus rhythm. Discussed changing aspirin to an anticoagulant. Patient request I discuss this with his , but he is not adverse to it. Will see how much Eliquis will cost, and discuss with Mrs. Nielsen tmr. (3) Ischemic cardiomyopathy: Code(s): I25.5 - Ischemic cardiomyopathy Status: Chronic Assessment and Plan: Longstanding ischemic cardiomyopathy, with some improvement of ejection fraction of the last few years. Chronic hypotension noted. (4) Acute systolic CHF (congestive heart failure): Code(s): I50.21 - Acute systolic (congestive) heart failure Status: Acute Assessment and Plan: Diuresing, improving. Chronic kidney disease followed by Dr. Davis, with a mild rise in BUN and creatinine this admission. (5) COVID: Code(s): U07.1 - COVID-19 Status: Acute Assessment and Plan: Doing better, off oxygen. Home soon. History of Present Illness History of Present Illness Consult date/time: 05/16/22 18:42 Reason For Visit: CHF Narrative: Darrell Nielsen is a 76-year-old male whom I was asked to see at the request of Dr. Laguerre for advice and opinion regarding his nonsustained ventricular tachycardia, in consultation. Mr. Nielsen has history of CAD, hypertension, ischemic cardiomyopathy, chronic CHF, chronic kidney disease, hypertension and dyslipidemia. Had a inferior STEMI complicated by cardiac arrest and cardiogenic shock in 2002. His right coronary artery stented. He is followed by Dr. Marcum and was last seen in December 2021, stable. He has always declined ICD therapy and, per her note, states ?God told me I did not need it. ? Echo in 08/2021 showed ejection fraction of 32%. The patient was admitted on 05/12/2022 with increasing shortness of breath. He tested positive for COVID 10 days ago. He has been treated conservatively, and done fairly well, and is now in 1-2 L of oxygen. He has been treated for CHF exacerbation with IV Lasix. Telemetry shows persistent atrial fibrillation, frequent PVCs, and some runs of ventricular tachycardia of 8 beats and approximately 22 beats. Review of Systems Constitutional: Constitutional: Denies fever(s) Cardiovascular: Cardiovascular: Denies chest pain, Reports pedal edema (On admission), Denies lightheadedness and Reports dyspnea (Improving) Respiratory: Respiratory: Reports chest congestion, Reports cough and Reports dyspnea Gastrointestinal: Gastrointestinal: Denies abdominal pain and Denies hematochezia Musculoskeletal: Musculoskeletal: Reports no additional musculoskeletal complaints Integumentary/Breasts: Skin/Breast: Reports system reviewed and no additional complaints, except as docu Neurologic: Reports system reviewed and no additional complaints, except as documented, Denies behavioral changes and Denies confusion Psychiatric: Psychiatric: Denies behavioral changes and Denies confusion [facility] Past Medical History Medical History Benign prostatic hyperplasia C. difficile colitis Cardiac arrest with ventricular fibrillation (2002) At time italo
[2022-05-16] MEDS: carvediloL 12.5 MG TABLET PO (20:47)
[2022-05-17 03:36] VITALS: BP 99/68; PULSE 86; RESP 18; TEMP 36.8; O2SAT 95
[2022-05-17 07:12] LABS: Hematocrit 45.7 % (42.0-52.0); Hemoglobin 15.1 g/dL (14.0-18.0); Immature Platelet Fraction Pct 11.9 % (0.9-11.2); Mean Corpuscular Hemoglobin 33.1 pg (26-34); Mean Corpuscular Volume 100.2 fl (80-100); Mean Platelet Volume 12.3 fl (7.4-10.4); Platelet Count Result 132 k/mm3 (150-375); Red Blood Count 4.56 M/mm3 (4.6-6.20); Red Cell Distribution Width 15.5 % (11.5-14.5); White Blood Count 11.3 K/mm3 (4.5-10.0)
[2022-05-17 07:16] LABS: Anion Gap 5 mmol/L (8-16); Blood Urea Nitrogen 97 mg/dL (9-20); Calcium 8.3 mg/dL (8.4-10.2); Carbon Dioxide 23 mmol/L (22-30); Chloride 106 mmol/L (98-107); Estimated CRCL calculation 22 ml/min; Estimated Glomerular Filt Rate 22; Glucose 123 mg/dL (65-110); Magnesium 2.3 mg/dL (1.6-2.3); Potassium 4.9 mmol/L (3.4-5.0); Sodium 134 mmol/L (137-145)
[2022-05-17 08:00] VITALS: BP 98/76; PULSE 72; RESP 16; TEMP 36.6; O2SAT 95; O2SAT 96
[2022-05-17] MEDS: FLUTICASONE/UMECLIDIN/VILANTER 100-62.5-25 MCG ELLIPTA 1 PUFF INHALATION (09:25)
[2022-05-17] MEDS: ALBUTEROL SULFATE (*SP) AEROSOL 1 PUFF 2 PUFF INHALATION (09:25)
[2022-05-17] MEDS: PANTOPRAZOLE 40 MG TABLET PO (10:05)
[2022-05-17] MEDS: ASCORBIC ACID 500 MG TABLET 1000 MG PO (10:05)
[2022-05-17] MEDS: VITAMIN E 400 UNIT CAPSULE 800 UNIT PO (10:05)
[2022-05-17] MEDS: MULTIVITAMINS THERAPEUTIC TAB (*BKC) 1 TABLET PO (10:05)
[2022-05-17] MEDS: ASPIRIN 81 MG CHEWABLE TABLET PO (10:05)
[2022-05-17] MEDS: CHOLECALCIFEROL 1,000 UNITS TABLET 2000 UNITS PO (10:05)
[2022-05-17] MEDS: CALCIUM CARBONATE (OSCAL) 500 MG TABLET 1500 MG PO (10:06)
[2022-05-17] MEDS: ZINC SULFATE 220 MG CAPSULE PO (10:06)
[2022-05-17] MEDS: ATORVASTATIN 10 MG TABLET PO (10:06)
[2022-05-17] MEDS: SPIRONOLACTONE 25 MG TABLET PO (10:06)
[2022-05-17] MEDS: MAGNESIUM OXIDE 400 MG TABLET PO (10:06)
[2022-05-17 12:00] VITALS: BP 98/72; PULSE 73; RESP 18; TEMP 36.4; O2SAT 96
--- NOTE | 2022-05-17 12:17 | PM.DS ---
DS: Admitting Diagnosis Discharge Date May 17, 2022 Admitting Diagnosis COVID pneumonia DS: Discharge Diagnosis Discharge Diagnosis (1) COVID: Code(s): U07.1 - COVID-19 Status: Acute Assessment and Plan: No oxygen requirements needed. Oxygen saturations 95% on patient was 1. Will continue dexamethasone for 7 more days. (2) CHF exacerbation: Code(s): I50.9 - Heart failure, unspecified Status: Acute Assessment and Plan: Appears to be euvolemic. Continue home cardiac medications. (3) Chronic kidney disease, stage 4 (severe): Code(s): N18.4 - Chronic kidney disease, stage 4 (severe) Status: Chronic Assessment and Plan: Monitor as an outpatient. (4) Hypertension: Code(s): I10 - Essential (primary) hypertension Status: Chronic Assessment and Plan: Blood pressures were reviewed and they have been stable. Continue antihypertensives and monitor daily. BP is chronically low. Monitor (5) Chronic obstructive pulmonary disease: Code(s): J44.9 - Chronic obstructive pulmonary disease, unspecified Status: Acute Assessment and Plan: No acute exacerbation. Continue home inhalers DS: Summary Hospital Course Hospital Course: Patient was admitted with shortness of breath found have COVID pneumonia. Patient was initially started on dexamethasone and he did exceptionally well. He did require 1liter infarction for day or 2 however last 24-48 hr has not required any oxygen. Patient will be sent home on low-dose dexamethasone for discharge but otherwise he is doing well ambulating in the room without any shortness of breath. Time Spent with Patient Time attestation: Total time spent providing and/or coordinating discharge services: Exam Narrative: Patient is comfortable, NAD HEENT: eyes are clear and none icteric LUNGS: nomal respiratory efforts ABD: not distended. Lower extremities: no edema SKIN: nonjaundiced Neuro: grossly intact. DS: Data Data Completed and Pending Labs on day of discharge: Labs from last 24 hours 05/17/22 05/17/22 06:31 06:31 WBC 11.3 H RBC 4.56 L Hgb 15.1 Hct 45.7 MCV 100.2 H MCH 33.1 MCHC 33.0 RDW 15.5 H Plt Count 132 L MPV 12.3 H % Immature Plt Fraction 11.9 H Sodium 134 L Potassium 4.9 Chloride 106 Carbon Dioxide 23 Anion Gap 5 L BUN 97 H Creatinine 2.80 H Estim Creat Clear Calc 22 Estimated GFR 22 L Glucose 123 H Calcium 8.3 L Magnesium 2.3 Discharge Plan Discharge Attending physician on discharge: Jimmy Clark Consulting providers: Sejal Oakley ; Faraz Davis Discharging Clinician: Jimmy Clark Patient Disposition: Home, Self-Care Activity: no preference Diet: as tolerated Patient Instructions: Antibiotic Form Stand Alone Forms: General Discharge Information Follow-up/Referrals: Sejal Oakley MD [Physician] - Zachery Fraser DO [Primary Care Provider] - Discharge Medications: New dexamethasone [Decadron] 4 mg tablet 4 mg PO DAILY Qty: 6 0RF Continued calcium carbonate [Calcium 600] 600 mg calcium (1,500 mg) tablet 1,500 mg PO DAILY hydralazine 25 mg tablet 25 mg PO TID spironolactone 25 mg tablet 25 mg PO DAILY ascorbic acid (vitamin C) 1,000 mg tablet 1 gm PO DAILY zinc 50 mg tablet 50 mg PO DAILY carvedilol 12.5 mg tablet 12.5 mg PO BID bumetanide 0.5 mg Tablet 0.5 mg PO DAILY aspirin 81 mg Tablet,Chewable 81 mg PO DAILY cholecalciferol (vitamin D3) [Vitamin D3] 50 mcg (2,000 unit) Tablet 25 mcg PO DAILY atorvastatin 10 mg Tablet 10 mg PO DAILY beta carotene 25,000 unit Tablet 25,000 unit PO DAILY Rx Instructions: administer with a meal esomeprazole magnesium [Nexium] 40 mg Capsule,Delayed Release(Dr/Ec) 40 mg PO DAILY Albino Reynolds 100-6
== END 2022-05-17 13:45 | disposition home or self-care (01) | DRG 177 ==
LOC: ANHED 13:09 → ANH3MEDSUR 14:19
PROVIDERS: Physician Assistant; Admitting Provider Family Medicine; Emergency Provider Emergency Medicine; PCP Internal Medicine; Visit Provider Chiropractor
DX: U07.1 COVID-19 (principal); I50.21 Acute systolic (congestive) heart failure; J12.82 Pneumonia due to coronavirus disease 2019; Q61.3 Polycystic kidney, unspecified; I13.0 Hypertensive heart and chronic kidney disease with heart failure and stage 1 through stage 4 chronic kidney disease, or unspecified chronic kidney disease; N18.4 Chronic kidney disease, stage 4 (severe); I47.2 Ventricular tachycardia; I48.19 Other persistent atrial fibrillation; D50.9 Iron deficiency anemia, unspecified; E78.5 Hyperlipidemia, unspecified; I25.10 Atherosclerotic heart disease of native coronary artery without angina pectoris; I25.5 Ischemic cardiomyopathy; I25.2 Old myocardial infarction; I08.1 Rheumatic disorders of both mitral and tricuspid valves; J43.9 Emphysema, unspecified; M19.90 Unspecified osteoarthritis, unspecified site; N40.0 Benign prostatic hyperplasia without lower urinary tract symptoms; Z86.19 Personal history of other infectious and parasitic diseases; Z86.73 Personal history of transient ischemic attack (TIA), and cerebral infarction without residual deficits; Z95.5 Presence of coronary angioplasty implant and graft; Z85.46 Personal history of malignant neoplasm of prostate; Z79.82 Long term (current) use of aspirin; Z86.74 Personal history of sudden cardiac arrest
CPT/HCPCS: 36415; 71045; 76705; 80048; 80053; 82728; 83615; 83735; 83880; 84443; 85025; 85027; 85055; 86140; 93005; 93970; 94640; 96374; 96375; 96376; 97161; 97165; 99285; A9270; C9803; G0378; J1100; J1940; J3475; U0003; U0005

== ENCOUNTER 2022-05-19 18:29 | Inpatient (IN) | payer MEDICARE, SELFPAY ==
[2022-05-19] VITALS (8 sets, daily range): BP systolic 108; BP diastolic 79; PULSE 93–109; RESP 14–26; TEMP 36.4; O2SAT 94–99; BMI 22.8
--- NOTE | ~2022-05-19 | XR_ITS ---
EXAMINATION: XR chest 1V portable Exam Date/Time: 05/19/2022 19:20 CDT HISTORY: dyspnea Comparison: 06/17/2021 and 05/12/2022. RESULT: Lines, tubes, and devices: None. Lungs and pleura: Stable left upper lung lucencies/architectural distortion and right upper lung sca rring. Cardiomediastinal silhouette: Stable cardiomediastinal silhouette. Other: No acute osseous or upper abdominal finding. IMPRESSION: No acute cardiopulmonary process. Reviewed, dictated and finalized at location K.
--- NOTE | ~2022-05-19 | CT_ITS ---
EXAMINATION: CT diagnostic chest wo con DATE: 05/22/2022 11:29 INDICATION: Abnormal chest radiograph. Hypoxia, dyspnea, shortness of breath. TECHNIQUE: Computed tomography (CT) of the chest was performed without intravenous contrast. Automate d exposure control and iterative reconstruction technique were employed. Exam dose: 216.20 mGy-cm to shaina exam DLP. COMPARISON: 05/2022 portable AP chest FINDINGS: There is severe bullous emphysema. There is volume loss of the right lung compared to the left, with very prominent discoid scarring in the right mid to upper lung and apex. No pulmonary infiltrate or consolidation is evident. Cardiomegaly. Aortic and great vessel and coronary artery calcifications. No thoracic aortic aneurysm . Calcified right paratracheal and bilateral calcified hilar and subcarinal lymph nodes in addition to scattered calcified pulmonary lungs, consistent with old pulmonary granulomatous disease. Posterior left diaphragmatic pleural calcification. Severe degenerative disc disease in the lower cervical spine. Mild degenerative spurring of the thora cic spine. No suspicious osteolytic or osteoblastic lesions are noted. Enlarged polycystic kidneys and multiple hepatic cysts. IMPRESSION: Severe bullous emphysema Prominent right mid to upper lung and right apical scarring Cardiomegaly Atherosclerosis Polycystic kidneys and multiple hepatic cysts Reviewed, dictated and finalized at Location A. Reviewed, dictated and finalized at location A.
--- NOTE | ~2022-05-19 | XR_ITS ---
EXAMINATION: XR chest port-a-cath/central INDICATION: Central line placement TECHNIQUE: Portable AP chest at 1540 hours COMPARISON: 05/21/2022 FINDINGS: A left internal jugular central venous catheter is been inserted which ends with its tip in the distal superior vena cava. Severe emphysema is noted. There are areas of chronic scarring in the right upper lobe. No acute airspace opacities are identified. No pleural effusion or pneumothorax. T he cardiomediastinal silhouette is stable. IMPRESSION: 1. Left internal jugular central venous catheter insertion, no pneumothorax. Reviewed, dictated and finalized at location B.
--- NOTE | ~2022-05-19 | XR_ITS ---
EXAMINATION: XR chest 1V portable DATE: 05/29/2022 05:35 INDICATION: Congestive heart failure. TECHNIQUE: A single frontal view of the chest was obtained. COMPARISON: Chest single view 05/25/2022, chest CT 05/22/2022 FINDINGS: There are lucencies and architectural distortion in the lungs, consistent with severe emphy sema. Calcified left lung nodules are consistent with old granulomatous disease. There are mild airsp robert opacities in the lower lung zones, consistent with atelectasis/scarring. There are airspace opaci ties in right mid and upper lung zones with a peripheral predominance, consistent with scarring. No p leural effusion or pneumothorax. Cardiomegaly is noted. A left internal jugular central venous cathet er is seen with tip in the superior vena cava. IMPRESSION: 1. Severe emphysema and stable atelectasis and scarring. 2. Cardiomegaly. Reviewed, dictated and finalized at location A.
--- NOTE | ~2022-05-19 | XR_ITS ---
EXAM: XR abdomen obstructive series DATE: 05/23/2022 14:43 HISTORY: abd pain . COMPARISON: None available. FINDINGS: Bibasilar scar/atelectasis and senescent change. Surgical clips over the GE junction. Pros roger implants. Severe degenerative change in the lower lumbar spine. Air-filled bowel shifted into th e left hemiabdomen, otherwise normal bowel gas pattern. Question massive hepatomegaly. IMPRESSION: Likely marked hepatomegaly. No radiographic evidence of obstruction or ileus. Reviewed, dictated and finalized at location K.
--- NOTE | ~2022-05-19 | XR_ITS ---
XR chest 1V portable DATE: 05/21/2022 05:49 INDICATION: Covid TECHNIQUE: Portable upright AP chest on 05/2022 at 0532 hours COMPARISON: 05/19/2022 portable AP chest FINDINGS: Cardiomegaly. Aortic calcification, ectasia and tortuosity. Prominent central pulmonary artery suggesting pulmonary hypertension. Bilateral hyperinflation with sparse lung markings in the left mid to upper lung, consistent with bul lous emphysema. Increased interstitial markings particularly lower lung zones, likely due to intersti tial fibrotic change. Right upper lobe scarring or mass. CT thorax is recommended. No pleural effusion or pneumothorax is detected. IMPRESSION: Bullous emphysema with probable pulmonary hypertension Scar versus mass, right upper lung; CT thorax is recommended Cardiomegaly Aortic calcification and ectasia and tortuosity Reviewed, dictated and finalized at location A.
--- NOTE | ~2022-05-19 | CT_ITS ---
EXAMINATION: CT femur LT wo con, CT abdomen pelvis wo con DATE: 05/28/2022 14:26 INDICATION: Large area of ecchymoses extending along the left thigh. TECHNIQUE: 1. Computed tomography (CT) of the abdomen and pelvis was performed without intravenous contrast. Au tomated exposure control and iterative reconstruction technique were employed. The dose-length produc t was 457.8 mGy-cm. 2. CT of the left thigh/femur was performed without intravenous contrast. Automated exposure control and iterative reconstruction technique were employed. The dose-length product was 1017.0 mGy-cm. COMPARISON: None FINDINGS: Abdomen and pelvis: Small bilateral posterior layering pleural effusions. Mild emphysema. Mild smooth septal line thicken ing at the bilateral lung bases consistent with mild pulmonary edema. Cluster of small nodules at the posterior basilar bilateral lower lobes the largest on the left measuring 1.5 x 1.0 cm in the larges t on the right measuring 10 x 8 mm. Cardiomegaly. Atherosclerotic coronary artery calcification along the right coronary artery. Curvilinear subendocardial calcification at the apex of the left ventricl e likely sequela of chronic infarct. No pericardial effusion. Innumerable cysts scattered throughout the liver and both kidneys consistent with autosomal dominant polycystic kidney disease. A few of the bilateral renal cysts demonstrate thin curvilinear mural calcification. No hydronephrosis. [place] er, pancreas and bilateral adrenal glands are normal. 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 There is moderate colonic diverticulosis with a sigmoid predominance. There is no adjacent inflammatory change to suggest diverticulitis. Small bowel and appendix are normal. Interva l repair of a prior small periumbilical hernia. There are some gas within the nondependent bladder. N umerous brachytherapy seeds at the prostate. No free intraperitoneal gas or fluid. No pathologically enlarged abdominal or pelvic lymphadenopathy. Mild S-shaped scoliosis of the lumbar spine with severe spondylosis. L5 is sacralized on the right. Left femur/thigh: Heterogeneous attenuation mass within the left abductor compartment of the left thigh which measures 10.0 cm craniocaudally and measuring 9.3 x 6.3 cm in maximal transaxial dimensions. Subcutaneous estrada a throughout the left thigh. Mild left hip osteoarthritis with no joint effusion. Chondrocalcinosis a nd severe tricompartmental osteoarthritis at the left knee. Minimal likely reactive left knee joint e ffusion. Atherosclerotic calcific a cyst along the femoral and popliteal arteries. IMPRESSION: 1. 10.0 x 9.3 x 6.3 cm heterogeneous attenuation mass in the left adductor muscular compartment. Appe arance is nonspecific but suggests an intramuscular hematoma although a solid soft tissue mass could not be excluded. Pre and postcontrast MRI could be obtained for more definitive determination. 2. Cluster of small nodular opacities in the bilateral lower lobes with distribution favoring an infe ctious/inflammatory etiology. Recommend 3 month follow-up chest CT. 3. Congestive heart failure with cardiomegaly, mild basilar pulmonary edema and small bilateral pleur al effusions. 4. Atherosclerotic coronary artery calcification present subendocardial calcification at the apex of the left ventricle suggestive of prior infarct. 5. Numerous hepatic and bilateral renal cysts consistent with autosomal dominant polycystic kidney di sease. 6. Emphysema. 6. Diverticulosis. Reviewed, dictated and finalized at location B. IMPRESSION: 1. 10.0 x 9.3 x 6.3 cm heterogeneous attenuation mass in the left adductor musc ular compartment. Appearance is nonspecific but suggests an intramuscular hemat jo although a solid s
--- NOTE | 2022-05-19 18:44 | ECG_ITS ---
Measurements Intervals [place] Rate: 107 P: VT: 0 QRS: 246 QRSD: 141 T: 72 QT: 353 QTc: 472 Interpretive Statements ATRIAL FIBRILLATION WITH RAPID VENTRICULAR RESPONSE INTRAVENTRICULAR CONDUCTION DELAY LATERAL INFARCT, AGE INDETERMINATE INFERIOR INFARCT, AGE INDETERMINATE BASELINE ARTIFACT- I, II, AVR, AVL, V6 ABNORMAL ECG Electronically Signed On 05-20-2022 7:17:44 CDT by Ramírez Calhoun D.O.
[2022-05-19 18:53] LABS: Alveolar/Arterial O2 Gradient 37.4 mmHg; Base Excess ABG -2.9 mEq/l (+/-2.0); Fractional Inspired Oxygen 21 %; HCO3 ABG 20.7 mEq/l (22.0-26.0); Oxygen Content ABG 23.9 %vol (16.0-22.0); Oxygen Saturation ABG 94.8 % (95.0-100.0); Oxyhemoglobin 93.5 % THb (90.0-100.0); PCO2 ABG 33.5 mmHg (35.0-45.0); PO2 ABG 72.2 mmHg (80.0-100.0); PO2 FiO2 Ratio Arterial Blood 3.44 %; Total Hemoglobin 18.2 g/dL (12.0-18.0); pH ABG 7.408 (7.350-7.450)
[2022-05-19 18:54] LABS: Modified Allen's Test Pass; Site Drawn LEFT RADIAL
[2022-05-19] MEDS: IPRATROPIUM BR 0.02% INH SOLN 0.5 MG/2.5 ML VIAL 1.5 MG INHALATION (19:05)
[2022-05-19] MEDS: ALBUTEROL SULFATE NEB 2.5 MG/3 ML INH 15 MG INHALATION (19:05)
[2022-05-19 19:06] LABS: Basophils Absolute Auto 0.1 K/mm3 (0.0-0.1); Basophils Percent Auto 0.3 % (0.2-1.2); Eosinophils Percent Auto 0.1 % (0-4.4); Hematocrit 53.7 % (42.0-52.0); Hemoglobin 17.6 g/dL (14.0-18.0); Immature Granulocyte Absolute 0.14 K/mm3 (0.00-0.031); Immature Granulocyte Percent A 0.9 % (0-0.5); Lymphocytes Absolute Auto 0.15 K/mm3 (0.9-3.2); Mean Corpuscular HGB Conc 32.8 g/dl (32-36); Mean Corpuscular Hemoglobin 32.8 pg (26-34); Mean Corpuscular Volume 100.2 fl (80-100); Mean Platelet Volume 12.1 fl (7.4-10.4); Monocytes Absolute Auto 0.5 K/mm3 (0.1-0.6); Monocytes Percent Auto 3.6 % (2.6-8.5); Neutrophils Absolute Auto 13.9 K/mm3 (1.3-6.7); Neutrophils Percent Auto 94.1 % (45.5-73.1); Nucleated Red Blood Cells Perc 0.1 % (0.0-0.2); Platelet Count Result 165 k/mm3 (150-375); Red Blood Count 5.36 M/mm3 (4.6-6.20); Red Cell Distribution Width 15.4 % (11.5-14.5); White Blood Count 14.8 K/mm3 (4.5-10.0)
[2022-05-19] MEDS: FUROSEMIDE INJ 40 MG/4 ML VIAL IV PUSH (19:08)
[2022-05-19] MEDS: methylPREDNISolone SOD SUCC 125 MG VIAL IV PUSH (19:08)
--- NOTE | 2022-05-19 19:09 | ED.SOB ---
HPI - SOB/Dyspnea General Chief Complaint: Shortness of Breath/Dyspnea Stated Complaint: shortness of breath Time Seen by Provider: 05/19/22 18:38 Source: patient History of Present Illness HPI Narrative: Patient presents with shortness of breath. Patient was recently admitted for COVID-pneumonia treated and overall was improving when he was discharged home he felt like he was getting worse with shortness of breath prickly during the night. Today he is having much harder time breathing his family was concerned so he was returned to the ER for further evaluation. Reports sensation of not being able to get enough air is also had increase in his cough since discharge noted any fevers chest pain belly pain nausea vomiting or diaphoresis. Denies any urinary symptoms Related Data Home Medications Medication Instructions Recorded Confirmed ascorbic acid (vitamin C) 1,000 mg 1 gm PO DAILY 06/01/20 05/12/22 tablet calcium carbonate 600 mg calcium 1,500 mg PO DAILY 06/01/20 05/12/22 (1,500 mg) tablet (Calcium) hydralazine 25 mg tablet 25 mg PO TID 06/01/20 05/12/22 spironolactone 25 mg tablet 25 mg PO DAILY 06/01/20 05/12/22 zinc 50 mg tablet 50 mg PO DAILY 06/01/20 05/12/22 bumetanide 0.5 mg tablet 0.5 mg PO DAILY 08/05/20 05/12/22 carvedilol 12.5 mg tablet 12.5 mg PO BID 08/05/20 05/12/22 cholecalciferol (vitamin D3) 50 25 mcg PO DAILY 08/05/20 05/12/22 mcg (2,000 unit) tablet (Vitamin D3) atorvastatin 10 mg tablet 10 mg PO DAILY 05/12/22 05/12/22 beta carotene 25,000 unit tablet 25,000 unit PO DAILY 05/12/22 05/12/22 esomeprazole magnesium 40 mg 40 mg PO DAILY 05/12/22 05/12/22 capsule,delayed release (Nexium) fluticasone fur. 100 mcg-umeclid 1 inh inhalation DAILY 05/12/22 05/12/22 62.5 mcg-vilant 25 mcg inhalat.powder (Trelegy Ellipta) multivitamin 1 tablet PO DAILY 05/12/22 05/12/22 vitamin E 600 unit capsule 2 cap PO DAILY 05/12/22 05/12/22 Allergies Allergy/AdvReac Type Severity Reaction Status Date / Time No Known Allergies Allergy Verified 05/19/22 19:12 Review of Systems Review of Systems: CONSTITUTIONAL: Denies fever, chills, or sweats. EYES: Denies visual changes, redness, or discharge. ENT: Denies rhinorrhea, congestion, sore throat, or otalgia. CARDIOVASCULAR: Denies chest pain, palpitations, or edema. RESPIRATORY: Cough and shortness of breath GASTROINTESTINAL: Denies abdominal pain, nausea, vomiting, or diarrhea. GENITOURINARY: Denies dysuria or hematuria. SKIN: Denies rash or itching. MUSCULOSKELETAL: Denies back pain, joint pain, or myalgia. NEUROLOGIC: Denies headache, numbness, dizziness, or weakness. PSYCHIATRIC: Denies anxiety or depression. All systems reviewed & are unremarkable except as noted in HPI and below PMFSH Past Medical History Medical History Benign prostatic hyperplasia C. difficile colitis Cardiac arrest with ventricular fibrillation (2002) At time myocardial infarction. Cerebrovascular accident Chronic kidney disease, stage 4 (severe) Chronic obstructive pulmonary disease Congestive heart failure Coronary artery disease Hepatitis B Hernia Hyperlipidemia Hypertension Iron deficiency anemia Ischemic cardiomyopathy Measles Mumps Myocardial infarction Osteoarthritis Polycystic kidney disease Prostate CA Status post radiation seed implants. Shingles Surgical History Surgical History History of cardiac catheterization History of coronary artery stent placement History of hernia repair History of hydrocelectomy Family History Family History Sibling Patient's sister is in good health Mother Cerebrovascular accident, Onset Age: 68 Patient's mother is Cancer Polycystic kidney disease Father Family history of kidney disease, Onset Age: 78 Myocardial infarction Soci
[2022-05-19 19:12] LABS: Glucose Point of Care 130 mg/dl (65-105)
[2022-05-19 19:15] LABS: Alanine Aminotransferase 30 U/L (6-50); Albumin Level 3.8 g/dL (3.5-5.1); Alkaline Phosphatase 42 U/L (38-126); Anion Gap 9 mmol/L (8-16); Aspartate Amino Transferase 22 U/L (17-59); Bilirubin,Total 1.4 mg/dL (0.2-1.3); Blood Urea Nitrogen 105 mg/dL (9-20); Calcium 9.1 mg/dL (8.4-10.2); Carbon Dioxide 25 mmol/L (22-30); Chloride 104 mmol/L (98-107); Estimated CRCL calculation 20 ml/min; Estimated Glomerular Filt Rate 20; Glucose 128 mg/dL (65-110); Magnesium 2.3 mg/dL (1.6-2.3); Potassium 5.5 mmol/L (3.4-5.0); Sodium 138 mmol/L (137-145)
[2022-05-19 19:30] LABS: NT Pro B Type Natriuretic Pept 30900 pg/mL (5-100); Troponin I 0.057 ng/mL (0.000-0.034)
[2022-05-19 19:40] LABS: SARS-CoV-2 RNA PCR Positive
[2022-05-19 19:52] LABS: Appearance Urine Clear (Clear); Bilirubin Urine Negative (Negative); Color Urine Yellow (Yellow); Glucose Urine UA Negative (Negative); Ketones Urine Negative (Negative); Leukocyte Esterase Ur 1+ LEU/UL (Negative); Nitrate Urine Negative (Negative); Protein Urine 1+ mg/dL (Negative); Urobilinogen Urine 0.2 mg/dL (<2.0)
[2022-05-19 19:55] LABS: WBC Urine 16-20 /hpf
[2022-05-19 19:57] LABS: Add Urine Microscopic? YES; Blood Urine Trace-Intact (Negative)
--- NOTE | 2022-05-19 20:17 | PM.IMHP ---
H&P: HPI History of Present Illness Date/Time: 05/19/22 20:17 Chief Complaint: SHORTNESS OF BREATH Narrative: This is a 76-year-old male with past medical history significant for coronary artery disease, chronic congestive heart failure, chronic kidney disease, ischemic cardiomyopathy, chronic obstructive pulmonary disease, polycystic kidney disease. Patient just recently discharged from [facility] when home returns today due to shortness of breath which is mainly at exertion, patient has chest congestion, known denies any fevers, rigors, chills, no chest pain, no leg swelling. Patient has a cough has had production of yellow sputum, denies any chest pain, syncope, near syncope, lightheadedness. Preliminary workup was significant for BUN 105 creatinine 3.1, [place] [address], a chest x-ray was clear, urinalysis showed 16-20 wbc's present and the patient tested positive for COVID. Patient has been admitted for further evaluation management and treatment. Review of Systems Review of Systems: Shortness of breath, chest congestion, cough, fatigue. Constitutional: Constitutional: Denies chills, Reports fatigue, Denies fever(s), Reports lethargy, Denies malaise and Denies night sweats Eyes: Eyes: Denies change in vision ENT: Denies dysphagia, Denies vertigo, Denies dizziness, Denies odynophagia and Denies disequilibrium Cardiovascular: Cardiovascular: Denies chest pain, Denies pedal edema, Denies irregular heart rhythm, Denies lightheadedness, Denies radiating jaw, neck or arm pain, Reports dyspnea and Reports dyspnea on exertion Respiratory: Respiratory: Reports chest congestion, Reports cough and Reports excessive phlegm production Gastrointestinal: Gastrointestinal: Denies abdominal pain, Denies dyspepsia, Denies heartburn, Denies nausea and Denies vomiting Genitourinary: Genitourinary: Denies dysuria Musculoskeletal: Musculoskeletal: Denies back pain, Denies arthralgias, Denies joint swelling and Denies muscle weakness Integumentary/Breasts: Skin/Breast: Denies rash Neurologic: Denies focal weakness and Denies Sensory deficit (Neuro) Psychiatric: Psychiatric: Reports no additional psychiatric complaints and Reports as per HPI Endocrine: Endocrine: Denies cold intolerance, Denies fatigue, Denies flushing, Denies heat intolerance, Denies polyphagia, Denies polydipsia and Denies palpitations Hematologic/Lymphatic: Hematologic/Lymphatic: Reports no additional hematologic/lymphatic complaints and Reports as per HPI Allergic/Immunologic: Allergic/Immunologic: Reports no additional allergic/immunologic complaints and Reports as per HPI [facility] Past Medical History Medical History (Updated 05/20/22 @ 04:15 by Tita Jones MD) Benign prostatic hyperplasia C. difficile colitis Cardiac arrest with ventricular fibrillation (2002) At time myocardial infarction. Cerebrovascular accident Chronic kidney disease, stage 4 (severe) Chronic obstructive pulmonary disease Congestive heart failure Coronary artery disease Hepatitis B Hernia Hyperlipidemia Hypertension Iron deficiency anemia Ischemic cardiomyopathy Measles Mumps Myocardial infarction Osteoarthritis Polycystic kidney disease Prostate CA Status post radiation seed implants. 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
--- NOTE | 2022-05-19 20:48 | PC.NURSE ---
Pt resting comfortable on stretcher at this time. Noted wet cough with no production.
--- NOTE | 2022-05-19 23:11 | ADMGEN ---
This patient, Darrell Nielsen, was admitted to IMU Room 207-01 on 05/19/22 at 2248. Patient/family oriented to hospital policies and general routines including ID bracelet, bed and alarms, visiting hours, pain management, procedures, bathroom and other care routines, personal items, smoking policy, room service/diet, and visiting hours. Information on how to activate the Rapid Response Team has been discussed. Patient/Family are encouraged to report perceived risks to care and to ask questions if they do not understand what they are told or what they should do.
[2022-05-20] VITALS (25 sets, daily range): BP systolic 94–105; BP diastolic 67–80; PULSE 88–120; RESP 18–24; TEMP 35.7–36.8; O2SAT 90–96
[2022-05-20] MEDS: methylPREDNISolone SOD SUCC 125 MG VIAL 60 MG IV PUSH ×4 (00:09→18:32)
[2022-05-20] MEDS: IPRATROPIUM BR 0.02% INH SOLN 0.5 MG/2.5 ML VIAL INHALATION ×4 (02:17→20:51)
[2022-05-20] MEDS: ALBUTEROL SULFATE NEB 2.5 MG/3 ML INH 5 MG INHALATION ×4 (02:17→20:51)
[2022-05-20 05:10] LABS: Basophils Absolute Auto 0.1 K/mm3 (0.0-0.1); Basophils Percent Auto 0.6 % (0.2-1.2); Eosinophils Absolute Auto 0.1 K/mm3 (0-0.3); Eosinophils Percent Auto 0.5 % (0-4.4); Hematocrit 45.9 % (42.0-52.0); Hemoglobin 15.3 g/dL (14.0-18.0); Immature Granulocyte Absolute 0.28 K/mm3 (0.00-0.031); Immature Granulocyte Percent A 1.1 % (0-0.5); Lymphocytes Absolute Auto 0.19 K/mm3 (0.9-3.2); Lymphocytes Percent Auto 0.8 % (18.3-44.2); Mean Corpuscular HGB Conc 33.3 g/dl (32-36); Mean Corpuscular Hemoglobin 32.8 pg (26-34); Mean Corpuscular Volume 98.5 fl (80-100); Mean Platelet Volume 12.3 fl (7.4-10.4); Monocytes Absolute Auto 0.6 K/mm3 (0.1-0.6); Monocytes Percent Auto 2.4 % (2.6-8.5); Neutrophils Absolute Auto 23.7 K/mm3 (1.3-6.7); Neutrophils Percent Auto 94.6 % (45.5-73.1); Platelet Count Result 152 k/mm3 (150-375); Red Blood Count 4.66 M/mm3 (4.6-6.20); White Blood Count 25.1 K/mm3 (4.5-10.0)
[2022-05-20 05:17] LABS: Anion Gap 8 mmol/L (8-16); Blood Urea Nitrogen 105 mg/dL (9-20); Calcium 8.4 mg/dL (8.4-10.2); Carbon Dioxide 20 mmol/L (22-30); Chloride 108 mmol/L (98-107); Estimated CRCL calculation 20 ml/min; Estimated Glomerular Filt Rate 20; Glucose 130 mg/dL (65-110); Potassium 5.3 mmol/L (3.4-5.0); Sodium 136 mmol/L (137-145)
[2022-05-20] MEDS: FLUTICASONE/UMECLIDIN/VILANTER 100-62.5-25 MCG ELLIPTA 1 PUFF INHALATION (08:32)
[2022-05-20] MEDS: PANTOPRAZOLE 40 MG TABLET PO (09:02)
[2022-05-20] MEDS: CHOLECALCIFEROL 1,000 UNITS TABLET 1000 UNITS PO (09:02)
[2022-05-20] MEDS: ATORVASTATIN 10 MG TABLET PO (09:02)
[2022-05-20] MEDS: ASCORBIC ACID 500 MG TABLET 1000 MG PO (09:03)
[2022-05-20] MEDS: carvediloL 12.5 MG TABLET PO ×2 (09:03→18:32)
[2022-05-20] MEDS: hydrALAZINE HCL 25 MG TABLET PO (09:03)
[2022-05-20] MEDS: ZINC SULFATE 220 MG CAPSULE PO (09:04)
[2022-05-20] MEDS: MULTIVITAMINS THERAPEUTIC TAB (*BKC) 1 TABLET PO (09:04)
[2022-05-20] MEDS: ASPIRIN 81 MG ENTERIC TABLET PO (09:05)
[2022-05-20] MEDS: CALCIUM CARBONATE (OSCAL) 500 MG TABLET 1000 MG PO (09:05)
[2022-05-20] MEDS: VITAMIN E 1,000 UNIT CAPSULE 1000 UNIT PO (09:05)
--- NOTE | 2022-05-20 10:51 | PCCCNOTE ---
On 05/20/22, the student, [Suellen Jain], provided care and completed [facility] documentation on this patient. I have reviewed the student's documentation and agree with the findings.
--- NOTE | 2022-05-20 11:51 | PM.IMPN ---
Progress Note: A&P Assessment and Plan (1) Chronic obstructive pulmonary disease: Code(s): J44.9 - Chronic obstructive pulmonary disease, unspecified Status: Acute (2) Persistent atrial fibrillation: Code(s): I48.19 - Other persistent atrial fibrillation Status: Acute (3) Ischemic cardiomyopathy: Code(s): I25.5 - Ischemic cardiomyopathy Status: Chronic (4) Chronic kidney disease, stage 4 (severe): Code(s): N18.4 - Chronic kidney disease, stage 4 (severe) Status: Chronic (5) Congestive heart failure: Code(s): I50.9 - Heart failure, unspecified Status: Acute (6) Acute kidney injury superimposed on CKD: Code(s): N17.9 - Acute kidney failure, unspecified; N18.9 - Chronic kidney disease, unspecified Status: Acute (7) UTI (urinary tract infection): Qualifiers: Hematuria presence: with hematuria Urinary tract infection type: site unspecified Qualified Code(s): N39.0 - Urinary tract infection, site not specified; R31.9 - Hematuria, unspecified Code(s): N39.0 - Urinary tract infection, site not specified Status: Acute (8) Hyperkalemia: Code(s): E87.5 - Hyperkalemia Status: Acute (9) Hypertension: Code(s): I10 - Essential (primary) hypertension Status: Chronic Plan Patient has been home for 1-2 days but returns due to increasing shortness of breath. He describes having a cough, shortness of breath and wheezing. It is unclear if he was on the dexamethasone at home. Suspect COPD exacerbation. Still wheezing. Continue Solu-Medrol and nebulizer treatments. BUN is 105 a creatinine about the same so suspect elevated BUN related to steroids. His BNP is 31 K but more likely related to the renal failure than CHF exacerbation. Chest x-ray is clear and he remains on room air. Urine and blood cultures are pending. Will continue Rocephin for now. Heart rate well controlled. Continue Coreg. Continue Xarelto. Repeat BMP later today given his mildly elevated potassium. White count noted and has climbed but more likely related to the steroids from overwhelming infection. Blood pressure was soft last admission. Improve this admission with systolic blood pressure in the 100 range. Will stop hydralazine but continue Coreg with parameters. Spironolactone and Bumex on hold. Renally dose Xarelto. Will start PT and OT. Increase activity. Remove Minor. Cardiology, pulmonary and nephrology have been consulted. Subjective Date/time seen: 05/20/22 11:51 Interval history: 76yo male with CKD, COPD, AFibCHF, CVA and HTN here for increasing SOB. He was recently hospitalized here from 05/12-05/17 for COVID and CHF exacerbation. He was noted to be in AFib which was new for this patient. He was treated with Dexamethasone due to minor hypoxia but easily weaned to room air. He was discharged on Xarelto and Dexamethasone for 6 more days. Patient returns because he developed increasing cough, shortness of breath wheezing at home. He believes that he had the steroids and Xarelto filled although he seems unsure of this. Was treated with steroids, Lasix, antibiotics and nebulizer treatments in the emergency room. He states he feels ?100% better?. He does not wear oxygen at home. Does not have a chronic Minor. Exam Narrative: AF 96.2 100/74 102 18 96% RA Gen - NARD sitting up in bed Chest - diffuse expiratory wheezes anteriorly, distant BS with expiratory rhonchi posteriorly. nml RR. No conversational dyspnea CV -irregularly irregular. S1-S2. Telemetry showing AFib/Flutter with mostly controlled rate Abd - Soft, NT/ND, Positive BS - Foely secured draining clear yellow urine Ext - No pedal edema Psych - Nml mood and affect Skin - Warm and dry Objective Data Vital Signs Vital Signs: Vital Signs - 24 hr 05/19/22 18:37 05/19/22 18:56 05/19/22 19:06 Temperature 97.6 F Pulse Rate 109 H 104 H 93 Respiratory Rate
--- NOTE | 2022-05-20 12:51 | P.CONNP_ITS ---
Assessment and Plan Assessment and plan (1) Chronic kidney disease, stage 4 (severe): Code(s): N18.4 - Chronic kidney disease, stage 4 (severe) Status: Chronic Assessment and Plan: * secondary to polycystic kidney disease in combination with a degree of cardiorenal syndrome/CAD/vascular disease * baseline creatinine runs ~ 2.5 - 3.0mg/dl in the last several years from records that are available * follows with outpatient nephrology (Dr. Ginna Guerrero at [facility]) * per his recollection, he was told in Dec 2021 that outpatient labs demonstrated a GFR of 18cc/min * hence, it would seems he probably close to baseline * azotemia likely secondary to previous/current steroid use (rather than uremia) * however, COVID-19 infection has been known to affect kidney function * follow repeat labs and UOP (2) Chronic obstructive pulmonary disease: Code(s): J44.9 - Chronic obstructive pulmonary disease, unspecified Status: Acute Assessment and Plan: * continue steroids, nebs, supplemental oxygen, and antibotics * follow respiratory status (3) Ischemic cardiomyopathy: Code(s): I25.5 - Ischemic cardiomyopathy Status: Chronic Assessment and Plan: * follows with Dr. Uribe at [facility] * last Echo in August 2021 noted: * Severe left ventricular systolic dysfunction. Ejection fraction is measured at 32 %. Normal left ventricular cavity size. Mild concentric left ventricular hypertrophy. 2. Resting Segmental Wall Motion Analysis: Total wall motion score is 1.94. There is akinesis of the apical cap. There is mild hypokinesis of the basal to mid anterolateral wall. There is mild hypokinesis of the mid anterior wall. The basal anteroseptal to basal anterior wall demonstrates normal motion. The remaining left ventricular segments demonstrate severe hypokinesis. * There is moderate enlargement of the left atrium. * Normal appearance of the mitral valve leaflets. Moderate mitral valve reg urgitation. * Normal appearance of the tricuspid leaflets. Mild tricuspid regurgitation. Normal right ventricular systolic pressure. * diuretics on hold (given stable volume status) (4) Hypertension: Code(s): I10 - Essential (primary) hypertension Status: Chronic Assessment and Plan: * running a bit soft at this time * follow trend of hemodynamics * BP medication on hold/with parameters Will continue to follow. History of Present Illness Reason for Consult Consult date: 05/20/22 Reason for consult: chronic renal failure Chief Complaint Chief complaint: Dyspnea History of Present Illness Narrative: The patient is a 76-year-old male with a past medical history as outlined below who presented to [facility] Emergency room for further evaluation of shortness of breath. The patient was just recently discharged from [facility] after being hospitalized for shortness of breath /hypoxia thought to be related to his C OVID-19 infection. He was treated with supportive therapy in the form of steroids and supplemental oxygen with significant improvement by the time of his discharge. There was some concern that perhaps maybe there was a CHF exacerbation playing a role but his chest x-ray during that hospital stay was clear and given his suboptimal hemodynamics, his diuretics were actually placed on hold prior to the time of discharge. Apparently, while the patient was at home for last 1-2 days, he started having increasin
--- NOTE | 2022-05-20 12:51 | PM.CNNEP ---
Assessment and Plan Assessment and plan (1) Chronic kidney disease, stage 4 (severe): Code(s): N18.4 - Chronic kidney disease, stage 4 (severe) Status: Chronic Assessment and Plan: secondary to polycystic kidney disease in combination with a degree of cardiorenal syndrome/CAD/vascular disease baseline creatinine runs ~ 2.5 - 3.0mg/dl in the last several years from records that are available follows with outpatient nephrology (Dr. Ginna Guerrero at [facility]) per his recollection, he was told in Dec 2021 that outpatient labs demonstrated a GFR of 18cc/min hence, it would seems he probably close to baseline azotemia likely secondary to previous/current steroid use (rather than uremia) however, COVID-19 infection has been known to affect kidney function follow repeat labs and UOP (2) Chronic obstructive pulmonary disease: Code(s): J44.9 - Chronic obstructive pulmonary disease, unspecified Status: Acute Assessment and Plan: continue steroids, nebs, supplemental oxygen, and antibotics follow respiratory status (3) Ischemic cardiomyopathy: Code(s): I25.5 - Ischemic cardiomyopathy Status: Chronic Assessment and Plan: follows with Dr. Uribe at [facility] last Echo in August 2021 noted: Severe left ventricular systolic dysfunction. Ejection fraction is measured at 32 %. Normal left ventricular cavity size. Mild concentric left ventricular hypertrophy. 2. Resting Segmental Wall Motion Analysis: Total wall motion score is 1.94. There is akinesis of the apical cap. There is mild hypokinesis of the basal to mid anterolateral wall. There is mild hypokinesis of the mid anterior wall. The basal anteroseptal to basal anterior wall demonstrates normal motion. The remaining left ventricular segments demonstrate severe hypokinesis. There is moderate enlargement of the left atrium. Normal appearance of the mitral valve leaflets. Moderate mitral valve regurgitation. Normal appearance of the tricuspid leaflets. Mild tricuspid regurgitation. Normal right ventricular systolic pressure. diuretics on hold (given stable volume status) (4) Hypertension: Code(s): I10 - Essential (primary) hypertension Status: Chronic Assessment and Plan: running a bit soft at this time follow trend of hemodynamics BP medication on hold/with parameters Will continue to follow. History of Present Illness Reason for Consult Consult date: 05/20/22 Reason for consult: chronic renal failure Chief Complaint Chief complaint: Dyspnea History of Present Illness Narrative: The patient is a 76-year-old male with a past medical history as outlined below who presented to [facility] Emergency room for further evaluation of shortness of breath. The patient was just recently discharged from [facility] after being hospitalized for shortness of breath /hypoxia thought to be related to his COVID-19 infection. He was treated with supportive therapy in the form of steroids and supplemental oxygen with significant improvement by the time of his discharge. There was some concern that perhaps maybe there was a CHF exacerbation playing a role but his chest x-ray during that hospital stay was clear and given his suboptimal hemodynamics, his diuretics were actually placed on hold prior to the time of discharge. Apparently, while the patient was at home for last 1-2 days, he started having increasing difficulty breathing particularly at night. associated symptoms included an increase in his cough with yellow sputum production, chest congestion, and a sensation that he was unable to get enough air despite his current breathing. No reported fevers, chills, rigors, chest pain, increased lower extremity edema, or syncope. Given his increased difficulty breathing, his family was concerned and brought him back to the ER for further evaluation. Workup and evaluation emergency room demonstr
[2022-05-20 14:20] LABS: Anion Gap 8 mmol/L (8-16); Blood Urea Nitrogen 109 mg/dL (9-20); Calcium 8.8 mg/dL (8.4-10.2); Carbon Dioxide 25 mmol/L (22-30); Chloride 104 mmol/L (98-107); Estimated CRCL calculation 19 ml/min; Estimated Glomerular Filt Rate 20; Glucose 130 mg/dL (65-110); Potassium 5.2 mmol/L (3.4-5.0); Sodium 137 mmol/L (137-145)
[2022-05-20 14:36] LABS: Troponin I 0.043 ng/mL (0.000-0.034)
[2022-05-20] MEDS: cefTRIAXone 2 GM in SODIUM CHLORIDE 0.9% IV 100 ML 200 ML IVPB (18:32)
[2022-05-20] MEDS: RIVAROXABAN 15 MG TABLET PO (18:33)
[2022-05-21] VITALS (28 sets, daily range): BP systolic 89–108; BP diastolic 62–81; PULSE 75–112; RESP 16–22; TEMP 36.1–37.2; O2SAT 94–99
--- NOTE | 2022-05-21 | ECHO_ITS ---
Patient Info Name: Darrell Nielsen Age: 76 years : 1945 Gender: Male Ht: 71 in Wt: 164 lbs BSA: 1.93 m2 HR: 112 bpm BP: 99 / 40 mmHg Exam Date: 05/21/2022 10:39 AM Exam Location: [facility] Patient Status: Inpatient Admit Date: 05/20/2022 Staff Ordering Physician: Tita Jones MD [employer] Developer: Franko Torres, MATT, RT Attending Provider: Tita Jones MD Referring Physician: Robert MARTIN; Exam Type: CA echo doppler color flow Study Info Indications I50.9 - Heart failure, unspecified Complete two-dimensional, color flow and Doppler transthoracic echocardiogram is performed. Strain analysis performed. Summary 1. Complete two-dimensional, color flow and Doppler transthoracic echocardiogram is performed. 2. Left ventricular chamber dimension is severely enlarged. 3. Left ventricular systolic function is severely reduced, estimated at <15%. 4. Cannot rule out left ventricular mass with the images obtained, likely old healed thrombus. 5. Right ventricular chamber dimension is moderately enlarged. 6. Right ventricular systolic function is reduced. 7. Left atrial chamber dimension is moderately enlarged. 8. There is moderate to severe mitral valve regurgitation. 9. Moderate pulmonary hypertension, estimated pulmonary arterial systolic pressure is 52 mmHg. 10. Dilated inferior vena cava with <50% collapse upon inspiration consistent with elevated right atrial pressure, 10 mmHg. Left Ventricle Left ventricular chamber dimension is severely enlarged. Left ventricular systolic function is severely reduced, estimated at <15%. The left ventricular diastolic function is abnormal. Cannot rule out left ventricular mass with the images obtained, likely old healed thrombus. Right Ventricle Right ventricular chamber dimension is moderately enlarged. Right ventricular systolic function is reduced. Left Atria Left atrial chamber dimension is moderately enlarged. Right Atria Right atrial chamber dimension is mildly enlarged. Aortic Valve The aortic valve is trileaflet. There is no aortic valve sclerosis. There is no aortic valve stenosis. There is no aortic valve regurgitation. Pulmonic Valve The pulmonic valve is normal. There is no pulmonic valve stenosis. There is no pulmonic regurgitation. Mitral Valve The mitral valve has normal leaflets. There is no mitral valve stenosis. There is moderate to severe mitral valve regurgitation. Tricuspid Valve The tricuspid valve leaflets are normal. There is no significant tricuspid valve stenosis. There is mild tricuspid valve regurgitation. Moderate pulmonary hypertension, estimated pulmonary arterial systolic pressure is 52 mmHg. Pericardium/Pleural The pericardium appears normal. There is no pericardial effusion. Inferior Vena Cava Dilated inferior vena cava with <50% collapse upon inspiration consistent with elevated right atrial pressure, 10 mmHg. Aorta The aortic root size at the sinus of Valsalva is normal. The prox ascending aorta size is normal. Left Ventricular Outflow Tract Name Value Normal LVOT 2D LVOT Diameter 2.0 cm LVOT Doppler
--- NOTE | 2022-05-21 | ECHO_ITS ---
Patient Info Name: Darrell Nielsen Age: 76 years : 1945 Gender: Male Ht: 71 in Wt: 164 lbs BSA: 1.93 m2 HR: 112 bpm BP: 99 / 40 mmHg Exam Date: 05/21/2022 10:39 AM Exam Location: [facility] Patient Status: Inpatient Admit Date: 05/20/2022 Staff Ordering Physician: Tita Jones MD Yield Analyst: Franko Torres, MATT, RT Attending Provider: Tita Jones MD Referring Physician: Robert MARTIN; Exam Type: CA echo doppler color flow Study Info Indications I50.9 - Heart failure, unspecified Complete two-dimensional, color flow and Doppler transthoracic echocardiogram is performed. Strain analysis performed. Summary 1. Complete two-dimensional, color flow and Doppler transthoracic echocardiogram is performed. 2. Left ventricular chamber dimension is severely enlarged. 3. Left ventricular systolic function is severely reduced, estimated at <15%. 4. Cannot rule out left ventricular mass with the images obtained, likely old healed thrombus. 5. Right ventricular chamber dimension is moderately enlarged. 6. Right ventricular systolic function is reduced. 7. Left atrial chamber dimension is moderately enlarged. 8. There is moderate to severe mitral valve regurgitation. 9. Moderate pulmonary hypertension, estimated pulmonary arterial systolic pressure is 52 mmHg. 10. Dilated inferior vena cava with <50% collapse upon inspiration consistent with elevated right atrial pressure, 10 mmHg. Left Ventricle Left ventricular chamber dimension is severely enlarged. Left ventricular systolic function is severely reduced, estimated at <15%. The left ventricular diastolic function is abnormal. Cannot rule out left ventricular mass with the images obtained, likely old healed thrombus. Right Ventricle Right ventricular chamber dimension is moderately enlarged. Right ventricular systolic function is reduced. Left Atria Left atrial chamber dimension is moderately enlarged. Right Atria Right atrial chamber dimension is mildly enlarged. Aortic Valve The aortic valve is trileaflet. There is no aortic valve sclerosis. There is no aortic valve stenosis. There is no aortic valve regurgitation. Pulmonic Valve The pulmonic valve is normal. There is no pulmonic valve stenosis. There is no pulmonic regurgitation. Mitral Valve The mitral valve has normal leaflets. There is no mitral valve stenosis. There is moderate to severe mitral valve regurgitation. Tricuspid Valve The tricuspid valve leaflets are normal. There is no significant tricuspid valve stenosis. There is mild tricuspid valve regurgitation. Moderate pulmonary hypertension, estimated pulmonary arterial systolic pressure is 52 mmHg. Pericardium/Pleural The pericardium appears normal. There is no pericardial effusion. Inferior Vena Cava Dilated inferior vena cava with <50% collapse upon inspiration consistent with elevated right atrial pressure, 10 mmHg. Aorta The aortic root size at the sinus of Valsalva is normal. The prox ascending aorta size is normal. Left Ventricular Outflow Tract Name Value Normal LVOT 2D LVOT Diameter 2.0 cm LVOT Doppler
[2022-05-21] MEDS: methylPREDNISolone SOD SUCC 125 MG VIAL 60 MG IV PUSH ×2 (00:01→05:56)
[2022-05-21] MEDS: IPRATROPIUM BR 0.02% INH SOLN 0.5 MG/2.5 ML VIAL INHALATION ×4 (02:56→18:06)
[2022-05-21] MEDS: ALBUTEROL SULFATE NEB 2.5 MG/3 ML INH 5 MG INHALATION ×2 (02:56→08:28)
[2022-05-21 05:26] LABS: Albumin Level 2.8 g/dL (3.5-5.1); Anion Gap 6 mmol/L (8-16); Blood Urea Nitrogen 110 mg/dL (9-20); Calcium 8.3 mg/dL (8.4-10.2); Carbon Dioxide 25 mmol/L (22-30); Chloride 103 mmol/L (98-107); Estimated CRCL calculation 19 ml/min; Estimated Glomerular Filt Rate 19; Glucose 192 mg/dL (65-110); Magnesium 2.2 mg/dL (1.6-2.3); Phosphorus 3.6 mg/dL (2.5-4.5); Potassium 5.1 mmol/L (3.4-5.0); Sodium 134 mmol/L (137-145)
[2022-05-21 05:27] LABS: Basophils Percent Auto 0.2 % (0.2-1.2); Hematocrit 43.2 % (42.0-52.0); Hemoglobin 14.5 g/dL (14.0-18.0); Immature Granulocyte Absolute 0.12 K/mm3 (0.00-0.031); Immature Granulocyte Percent A 0.6 % (0-0.5); Lymphocytes Absolute Auto 0.21 K/mm3 (0.9-3.2); Lymphocytes Percent Auto 1.1 % (18.3-44.2); Mean Corpuscular HGB Conc 33.6 g/dl (32-36); Mean Corpuscular Volume 98.2 fl (80-100); Monocytes Absolute Auto 0.4 K/mm3 (0.1-0.6); Neutrophils Absolute Auto 18.6 K/mm3 (1.3-6.7); Neutrophils Percent Auto 96.1 % (45.5-73.1); Nucleated Red Blood Cells Perc 0.1 % (0.0-0.2); Platelet Count Result 173 k/mm3 (150-375); White Blood Count 19.4 K/mm3 (4.5-10.0)
[2022-05-21 06:04] LABS: Acanthocytes 2+ (NORMAL); Platelet Estimate Adequate (Adequate)
[2022-05-21] MEDS: FLUTICASONE/UMECLIDIN/VILANTER 100-62.5-25 MCG ELLIPTA 1 PUFF INHALATION (08:28)
[2022-05-21] MEDS: predniSONE 20 MG TABLET 40 MG PO (09:16)
[2022-05-21] MEDS: carvediloL 12.5 MG TABLET PO ×2 (09:17→18:03)
[2022-05-21] MEDS: CALCIUM CARBONATE (OSCAL) 500 MG TABLET 1000 MG PO (09:18)
[2022-05-21] MEDS: CHOLECALCIFEROL 1,000 UNITS TABLET 1000 UNITS PO (09:18)
[2022-05-21] MEDS: VITAMIN E 1,000 UNIT CAPSULE 1000 UNIT PO (09:18)
[2022-05-21] MEDS: ASCORBIC ACID 500 MG TABLET 1000 MG PO (09:18)
[2022-05-21] MEDS: ZINC SULFATE 220 MG CAPSULE PO (09:19)
[2022-05-21] MEDS: ATORVASTATIN 10 MG TABLET PO (09:19)
[2022-05-21] MEDS: PANTOPRAZOLE 40 MG TABLET PO (09:19)
[2022-05-21] MEDS: MULTIVITAMINS THERAPEUTIC TAB (*BKC) 1 TABLET PO (09:34)
--- NOTE | 2022-05-21 11:25 | P.PNNP_ITS ---
Progress Note: A&P Assessment and Plan (1) Chronic kidney disease, stage 4 (severe): Code(s): N18.4 - Chronic kidney disease, stage 4 (severe) Status: Chronic Assessment and Plan: * secondary to polycystic kidney disease in combination with a degree of cardiorenal syndrome/CAD/vascular disease * No headaches, flank pain, hematuria, or kidney stones. * baseline creatinine runs ~ 2.5 - 3.0mg/dl in the last several years from records that are available * follows with outpatient nephrology (Dr. Ginna Guerrero at [facility]) * He seems to be close to his baseline renal function. * however, COVID-19 infection has been known to affect kidney function * Creatinine seems to be stable. No symptoms from the polycystic kidneys. (2) Chronic obstructive pulmonary disease: Code(s): J44.9 - Chronic obstructive pulmonary disease, unspecified Status: Acute Assessment and Plan: * continue steroids, nebs, and antibotics * Getting supportive care for COVID. * Breathing is better and he does not have a cough. (3) Ischemic cardiomyopathy: Code(s): I25.5 - Ischemic cardiomyopathy Status: Chronic Assessment and Plan: * follows with Dr. Uribe at [facility] * last Echo in August 2021 noted: * Severe left ventricular systolic dysfunction. Ejection fraction is measured at 32 %. Normal left ventricular cavity size. Mild concentric left ventricular hypertrophy. 2. Resting Segmental Wall Motion Analysis: Total wall motion score is 1.94. There is akinesis of the apical cap. There is mild hypokinesis of the basal to mid anterolateral wall. There is mild hypokinesis of the mid anterior wall. The basal anteroseptal to basal anterior wall demonstrates normal motion. The remaining left ventricular segments demonstrate severe hypokinesis. * There is moderate enlargement of the left atrium. * Normal appearance of the mitral valve leaflets. Moderate mitral valve regurgitation. * Normal appearance of the tricuspid leaflets. Mild tricuspid regurgitation. Normal right ventricular systolic pressure. * diuretics on hold (given stable volume status) * He may need these once he starts eating better. (4) Hypertension: Code(s): I10 - Essential (primary) hypertension Status: Chronic Assessment and Plan: * Systolic running 97-110. * BP medication on hold/with parameters Will continue to follow. Subjective Date/time seen: 05/21/22 11:25 Interval history: Darrell is feeling better today. He does not have a cough or shortness of breath. He is currently on room air. Review of Systems Cardiovascular: Cardiovascular: Reports no additional cardiovascular complaints Respiratory: Respiratory: Reports no additional respiratory complaints Gastrointestinal: Gastrointestinal: Reports no additional gastrointestinal complaints Genitourinary: Genitourinary: Reports no additional male genitourinary complaints Exam Narrative: WDWN in NAD skin no rash head ncat lungs clear cor reg no rub abd BS+ nontender and soft ext no edema. Objective Data Vital Signs Vital Signs: Vital Signs - 24 hr 05/20/22 12:40 05/20/22 13:20 05/20/22 13:36 Temperature 36.3 C L Pulse Rate 89 103 H 107 H Respiratory Rate 20 18 18 Blood Pressure 94/68 L Pu
--- NOTE | 2022-05-21 11:25 | PM.PNNEP ---
Progress Note: A&P Assessment and Plan (1) Chronic kidney disease, stage 4 (severe): Code(s): N18.4 - Chronic kidney disease, stage 4 (severe) Status: Chronic Assessment and Plan: secondary to polycystic kidney disease in combination with a degree of cardiorenal syndrome/CAD/vascular disease No headaches, flank pain, hematuria, or kidney stones. baseline creatinine runs ~ 2.5 - 3.0mg/dl in the last several years from records that are available follows with outpatient nephrology (Dr. Ginna Guerrero at [facility]) He seems to be close to his baseline renal function. however, COVID-19 infection has been known to affect kidney function Creatinine seems to be stable. No symptoms from the polycystic kidneys. (2) Chronic obstructive pulmonary disease: Code(s): J44.9 - Chronic obstructive pulmonary disease, unspecified Status: Acute Assessment and Plan: continue steroids, nebs, and antibotics Getting supportive care for COVID. Breathing is better and he does not have a cough. (3) Ischemic cardiomyopathy: Code(s): I25.5 - Ischemic cardiomyopathy Status: Chronic Assessment and Plan: follows with Dr. Uribe at [facility] last Echo in August 2021 noted: Severe left ventricular systolic dysfunction. Ejection fraction is measured at 32 %. Normal left ventricular cavity size. Mild concentric left ventricular hypertrophy. 2. Resting Segmental Wall Motion Analysis: Total wall motion score is 1.94. There is akinesis of the apical cap. There is mild hypokinesis of the basal to mid anterolateral wall. There is mild hypokinesis of the mid anterior wall. The basal anteroseptal to basal anterior wall demonstrates normal motion. The remaining left ventricular segments demonstrate severe hypokinesis. There is moderate enlargement of the left atrium. Normal appearance of the mitral valve leaflets. Moderate mitral valve regurgitation. Normal appearance of the tricuspid leaflets. Mild tricuspid regurgitation. Normal right ventricular systolic pressure. diuretics on hold (given stable volume status) He may need these once he starts eating better. (4) Hypertension: Code(s): I10 - Essential (primary) hypertension Status: Chronic Assessment and Plan: Systolic running 97-110. BP medication on hold/with parameters Will continue to follow. Subjective Date/time seen: 05/21/22 11:25 Interval history: Darrell is feeling better today. He does not have a cough or shortness of breath. He is currently on room air. Review of Systems Cardiovascular: Cardiovascular: Reports no additional cardiovascular complaints Respiratory: Respiratory: Reports no additional respiratory complaints Gastrointestinal: Gastrointestinal: Reports no additional gastrointestinal complaints Genitourinary: Genitourinary: Reports no additional male genitourinary complaints Exam Narrative: WDWN in NAD skin no rash head ncat lungs clear cor reg no rub abd BS+ nontender and soft ext no edema. Objective Data Vital Signs Vital Signs: Vital Signs - 24 hr 05/20/22 12:40 05/20/22 13:20 05/20/22 13:36 Temperature 36.3 C L Pulse Rate 89 103 H 107 H Respiratory Rate 20 18 18 Blood Pressure 94/68 L Pulse Oximetry 95 Oxygen Delivery 05/20/22 12:00 05/20/22 12:00 05/20/22 16:00 Temperature Pulse Rate 96 96 Respiratory Rate Blood Pressure Pulse Oximetry 95 Oxygen Delivery Room Air 05/20/22 16:00 05/20/22 16:39 05/20/22 18:32 Temperature 35.8 C L Pulse Rate 104 H 120 H Respiratory Rate 20 Blood Pressure 105/77 Pulse Oximetry 95 95 Oxygen Delivery Room Air 05/20/22 18:00 05/20/22 20:00 05/20/22 20:51 Temperature 36.4 C Pulse Rate 110 H 105 H 109 H Respiratory Rate 20 18 Blood Pressure 97/72 L Pulse Oximetry 90 Oxygen Delivery 05/20/22 21:03 05/20/22 21:03 05/20/22 20:00 Temperature Pulse Rate 102 H 113 H R
[2022-05-21 11:50] LABS: Potassium 5.1 mmol/L (3.4-5.0)
--- NOTE | 2022-05-21 13:45 | PM.IMPN ---
Progress Note: A&P Assessment and Plan (1) Septicemia: Code(s): A41.9 - Sepsis, unspecified organism Status: Acute Assessment and Plan: Patient returns to the hospital because of increasing shortness of breath. He was tachycardic but no fevers. White count was elevated but felt related to his steroids that he was discharged home with. Blood cultures returned positive yesterday. Rocephin was increased to 2 g. Blood cultures both grown Staph aureus this morning. Echo showing EF <15% with possible left ventricular mass. Urine culture pending. Source is unclear but consider occult pneumonia. Continue Rocephin and vancomycin. Repeat blood cultures. Consider VALERIA. Will discuss this further with Cardiology. (2) Chronic obstructive pulmonary disease: Code(s): J44.9 - Chronic obstructive pulmonary disease, unspecified Status: Acute Assessment and Plan: Patient has been home for 1-2 days but returns due to increasing shortness of breath. He describes having a cough, shortness of breath and wheezing. It is unclear if he was on the dexamethasone at home. Suspect COPD exacerbation. Solu-Medrol and nebulizer treatments started. BUN is 105 related to steroids. Changed to prednisone but will stop given the bacteremia. Continue nebs. (3) Persistent atrial fibrillation: Code(s): I48.19 - Other persistent atrial fibrillation Status: Acute Assessment and Plan: Patient was found to be in atrial fibrillation last hospitalization. Duration was unknown. Was started on Xarelto at that time. He remains on Coreg. Blood pressure soft felt related to his heart failure. Continue Coreg as tolerated. Contineu Xarerlto (4) Hyperkalemia: Code(s): E87.5 - Hyperkalemia Status: Acute Assessment and Plan: Potassium was 5.5 on admission. Potassium has improved and is 5.1 today. Not on medications to cause hyperkalemia. Nephrology following. Consider Lokaelma. Add low potassium diet. Continue to monitor. Kayexalate once given the NSVT (5) Congestive heart failure: Code(s): I50.9 - Heart failure, unspecified Status: Acute Assessment and Plan: His BNP is 31K but more likely related to the renal failure than CHF exacerbation. Chest x-ray was clear on admission and he remains on room air. Echo showing EF <15%. He has refused ICD implant. Mag level okay. Potassium slightly high. Patient is full code. Will discuss with him about changing this. Consider hospice given the multiorgan failure. (6) Acute kidney injury superimposed on CKD: Code(s): N17.9 - Acute kidney failure, unspecified; N18.9 - Chronic kidney disease, unspecified Status: Acute Assessment and Plan: Baseline creatinine in the 2.4-3 range. Cr climbing to 3.2. Nephrology following and appreciate their input. (7) UTI (urinary tract infection): Qualifiers: Hematuria presence: with hematuria Urinary tract infection type: site unspecified Qualified Code(s): N39.0 - Urinary tract infection, site not specified; R31.9 - Hematuria, unspecified Code(s): N39.0 - Urinary tract infection, site not specified Status: Acute Assessment and Plan: UA noted. Urine culture pending. Follow-up on results. Continue IV antibiotics Plan DVT prophylaxis: Xarelto Code status: Full Subjective Date/time seen: 05/21/22 13:45 Interval history: 76yo male with CKD, COPD, AFibCHF, CVA and HTN here for increasing SOB. He was recently hospitalized here from 05/12-05/17 for COVID and CHF exacerbation. He was noted to be in AFib which was new for this patient. He was treated with Dexamethasone due to minor hypoxia but easily weaned to room air. He was discharged on 05/17 on Xarelto and Dexamethasone for 6 more days. Patient feels much better today. Shortness of breath is improved. Exam Narrative: AF 97.0 89/74 93 20 95% RA Gen - NARD sitting up
[2022-05-21] MEDS: SODIUM POLYSTYRENE SULFONONATE 15 GM/60 ML BTL PO (15:00)
--- NOTE | 2022-05-21 15:10 | PM.CNPUL ---
Assessment and Plan Assessment and plan (1) Chronic obstructive pulmonary disease: Code(s): J44.9 - Chronic obstructive pulmonary disease, unspecified Status: Acute Assessment and Plan: He has bullous emphysema, takes Trelegy 100, one puff a day and albuterol one puff twice a day. Returned May 19 with increased shortness of breath, cough without sputum and wheezing worsened after he was diagnosed with COVID at the end of April. He was using dexamethasone at home, and on admission was started on solumedrol and nebulizer treatments. Steroids were stopped when he had bacteremia with 2:2 BC (+) Staph aureus. He may have an exacerbation of COPD, or may have a continuation of his COVID pneumonia and decompensated biventricular failure with new atrial fib. plan: Cornet valve to help with secretions, continue current antibiotics for his bacteremia which will cover community acquired pathogens for COPD, cont bronchodilators and Trelegy.. RUL area of abnormality; chest CT recommended. says he had one this year. plan: get results from chest CT Mo Bap. He quit tobacco 30 years ago, 1.5 ppd x 25 years. (2) Acute dyspnea: Code(s): R06.00 - Dyspnea, unspecified Status: Acute Assessment and Plan: Multifactorial; COPD + COVID pneumonia + pulmonary HTN + decompensated heart failure L and R chambers; he is on treatment for everything. Plan d/w on the phone and with Dr Pro History of Present Illness History of Present Illness Consult date: 05/21/22 Requesting physician: Tita Jones MD Chief complaint: Dyspnea Narrative: NEW: Darrell Nielsen is a 76 year old man admitted May 19 yesterday with increased shortness of breath after an admission from May 12-May 17 for COVID pneumonia, atrial fibrillation with RVR which might have been new, and CHF. He was discharged on room air, only required 1 L.min O2 while he was admitted last week. He is not clear about why he was re-admitted, says that he is not pleased with the hospital policy regarding his visitor restriction that will not allow his to visit. He has a number of baseline medical co-morbidities managed by a team at [facility]; polycystic kidney disease with baseline creat 2.4 with a plan for no dialysis followed by Dr Ginna Guerrero, Dr Cirilo Mosher pulmonary, and Dr Jolie Uribe -director mba, recently retired. His primary is Dr Fraser. He has COPD, sees Dr Cirilo Mosher at [facility] who treats him with Trelegy 100, one puff and day and albuterol one puff twice a day, scheduled, not p.r.n. He reports that he had a mild episode of pneumonia 6 months ago requiring out-patient antibiotics. At that time, he started Trelegy and stopped Anoro. He does not wheeze. He generally does not have secretions. He currently has a non-productive cough. His tells me that he talked his way into being discharged too early on May 17, had worsening shortness of breath that was uncontrolled which caused him to return May 19. WBC was considerably higher, went home with wbc 11.3, admitted with wbc 14.8 and bumped to 25.1. Today it is 19.4k. ABG this admission : 7.408/33.5/72.2/29.7/94.8% on Room Air. Compensated with mild hypocapnea, mild metabolic acidosis, pO2 better than expected. He has septicemia with Staph aureus 2:2 blood cultures from May 19, renal values are increased compare to last admission. He was admitted May 12 with BUN 42, creat 2.4, gradually increased to 97/2.8; now 110/3.2. Some is the steroids, and some is the underperfusion with EF now < 15% and new atrial fib. His new echo May 20 = low EF and area in LV which could be thrombus or mass. PMH: HTN. COPD. Not on home O2. CKD due to PCKD. CAD with NC 2002 with NC, cardiac arrest and cardiogenic shock, 2 RCA stents; decreased EF 2012 when he had sepsis, pneumonia and
[2022-05-21] MEDS: cefTRIAXone 2 GM in SODIUM CHLORIDE 0.9% IV 100 ML 200 ML IVPB (18:02)
[2022-05-21] MEDS: RIVAROXABAN 15 MG TABLET PO (18:03)
[2022-05-21] MEDS: ALBUTEROL SULFATE NEB 2.5 MG/3 ML INH INHALATION (18:06)
[2022-05-21] MEDS: ASPIRIN 81 MG ENTERIC TABLET PO (18:40)
[2022-05-21] MEDS: ALBUTEROL SULFATE NEB 2.5 MG/3 ML INH (21:24)
[2022-05-21] MEDS: IPRATROPIUM BR 0.02% INH SOLN 0.5 MG/2.5 ML VIAL (21:25)
[2022-05-22] VITALS (21 sets, daily range): BP systolic 99–146; BP diastolic 67–131; PULSE 87–120; RESP 16–20; TEMP 36.3–37.1; O2SAT 91–97
[2022-05-22] MEDS: IPRATROPIUM BR 0.02% INH SOLN 0.5 MG/2.5 ML VIAL INHALATION ×4 (02:49→22:01)
[2022-05-22] MEDS: ALBUTEROL SULFATE NEB 2.5 MG/3 ML INH INHALATION ×4 (02:49→22:01)
[2022-05-22 05:20] LABS: Basophils Percent Auto 0.1 % (0.2-1.2); Hematocrit 41.6 % (42.0-52.0); Immature Granulocyte Absolute 0.13 K/mm3 (0.00-0.031); Immature Granulocyte Percent A 0.8 % (0-0.5); Lymphocytes Absolute Auto 0.19 K/mm3 (0.9-3.2); Lymphocytes Percent Auto 1.2 % (18.3-44.2); Mean Corpuscular HGB Conc 33.7 g/dl (32-36); Mean Corpuscular Hemoglobin 33.2 pg (26-34); Mean Corpuscular Volume 98.6 fl (80-100); Mean Platelet Volume 11.4 fl (7.4-10.4); Monocytes Absolute Auto 0.7 K/mm3 (0.1-0.6); Monocytes Percent Auto 4.6 % (2.6-8.5); Neutrophils Absolute Auto 14.6 K/mm3 (1.3-6.7); Neutrophils Percent Auto 93.3 % (45.5-73.1); Nucleated Red Blood Cells Perc 0.2 % (0.0-0.2); Platelet Count Result 177 k/mm3 (150-375); Red Blood Count 4.22 M/mm3 (4.6-6.20); White Blood Count 15.6 K/mm3 (4.5-10.0)
[2022-05-22 05:29] LABS: Albumin Level 2.6 g/dL (3.5-5.1); Anion Gap 7 mmol/L (8-16); Blood Urea Nitrogen 113 mg/dL (9-20); Calcium 8.3 mg/dL (8.4-10.2); Carbon Dioxide 25 mmol/L (22-30); Chloride 103 mmol/L (98-107); Estimated CRCL calculation 20 ml/min; Estimated Glomerular Filt Rate 20; Glucose 144 mg/dL (65-110); Magnesium 2.3 mg/dL (1.6-2.3); Potassium 4.6 mmol/L (3.4-5.0); Sodium 135 mmol/L (137-145)
[2022-05-22] MEDS: FLUTICASONE/UMECLIDIN/VILANTER 100-62.5-25 MCG ELLIPTA 1 PUFF INHALATION (08:20)
--- NOTE | 2022-05-22 10:12 | PM.CNCAR ---
Assessment and Plan Assessment and plan (1) CHF (congestive heart failure): Code(s): I50.9 - Heart failure, unspecified Status: Acute (2) Persistent atrial fibrillation: Code(s): I48.19 - Other persistent atrial fibrillation Status: Acute Plan this is a 76-year-old man with: Worsening baseline shortness of breath undoubtedly related to both his chronic lung disease as well as his severe cardiomyopathy, low ejection fraction and the recent development of atrial fibrillation. Had a long discussion with the patient in his room today about the concept of attempting a cardioversion as confucianist of sinus rhythm may certainly help him symptomatically. Obviously will not correct his underlying cardiomyopathy or impact his lung disease. After a long discussion it is clear that the patient wishes to have his stunner at [facility] handle these problems in which I understand completely he has been followed over there for a long time. His longstanding physician has recently retired and he does not know the identity of his new doctor. At this point he is not in a state of volume overload I would simply recommend that he remain anticoagulated and follow-up bed very short interval with his physicians at [facility] regarding these decisions. I will try to identify who that physician is in my electronic record in the office and get a message that he needs to be seen in relatively short interval after discharge and as returning here for the same problem is not going to be of help to him since he does not wish to receive care through our practice Jimmy Torres MD [facility] History of Present Illness History of Present Illness Consult date/time: 05/22/22 10:12 Consult reason: atrial fibrillation Reason For Visit: Dyspnea Narrative: This is a 76-year-old man who is unknown to me prior to this encounter. He apparently has a history of coronary disease a severe ischemic cardiomyopathy atrial fibrillation, significant chronic lung disease and is coming into the hospital with recurrent shortness of breath. The patient was just in the hospital here at [place] because of symptoms of dyspnea and was discharged and returned within about 4 5 days of discharge could reportedly complaining of ongoing shortness of breath. He apparently cardiac stafford is known to have a severe ischemic cardiomyopathy and follows with a stunner at [facility]. He recently or was changed to a new physician who he cannot identify because of the mcc of his longstanding stunner. In any event during the recent hospitalization it was noted that he was in atrial fibrillation. Looks like this was a new occurrence as there was an electrocardiogram as recently as 04/22/2022 demonstrating sinus rhythm/ sinus tachycardia. The patient was anticoagulated with apixaban and improved with treatment of his COPD. He returns with ongoing shortness of breath. He says he is feeling better today and does not have any significant active complaints. He is still in atrial fibrillation on telemetry and his arrhythmia has not been treated with anything specific. Echocardiogram during this admission demonstrates left ventricular enlargement with a very low ejection fraction. He is not reporting symptoms of orthopnea PND or accumulating edema. He is very adamant that his participates in any significant decisions that pertain to was health care or cardiac status. Review of Systems Constitutional: Constitutional: Reports lethargy Eyes: Eyes: Reports no additional eye complaints ENT: Reports system reviewed and no additional complaints, except as documented Cardiovascular: Cardiovascular: Reports as per HPI Respiratory: Respiratory: Reports dyspnea Gastrointestinal: Gastrointestinal: Reports no additional gastrointestinal complaints Musculoskeletal: Musculoskeletal: Reports no additional musculoskeletal complaints Integumentary/Breasts
[2022-05-22] MEDS: MULTIVITAMINS THERAPEUTIC TAB (*BKC) 1 TABLET PO (10:21)
[2022-05-22] MEDS: ASCORBIC ACID 500 MG TABLET 1000 MG PO (10:21)
[2022-05-22] MEDS: ZINC SULFATE 220 MG CAPSULE PO (10:21)
[2022-05-22] MEDS: carvediloL 12.5 MG TABLET PO ×2 (10:21→18:47)
[2022-05-22] MEDS: VITAMIN E 1,000 UNIT CAPSULE 1000 UNIT PO (10:21)
[2022-05-22] MEDS: CALCIUM CARBONATE (OSCAL) 500 MG TABLET 1000 MG PO (10:21)
[2022-05-22] MEDS: ATORVASTATIN 10 MG TABLET PO (10:22)
[2022-05-22] MEDS: PANTOPRAZOLE 40 MG TABLET PO (10:22)
[2022-05-22] MEDS: CHOLECALCIFEROL 1,000 UNITS TABLET 1000 UNITS PO (10:22)
[2022-05-22] MEDS: ASPIRIN 81 MG ENTERIC TABLET PO (10:30)
--- NOTE | 2022-05-22 16:20 | PM.IMPN ---
Progress Note: A&P Assessment and Plan (1) Septicemia: Code(s): A41.9 - Sepsis, unspecified organism Status: Acute Assessment and Plan: Patient returns to the hospital because of increasing shortness of breath. He was tachycardic but no fevers. White count was elevated but felt related to his steroids that he was discharged home with. Blood cultures returned positive yesterday. Rocephin was increased to 2 g. Blood cultures both grown Staph aureus this morning. Echo showing EF <15% with possible left ventricular mass. Urine culture pending. Source is unclear but consider occult pneumonia. Continue Rocephin and vancomycin. Repeat blood cultures. Consider VALERIA. Will discuss this further with Cardiology. 05/22: Patient does not wish to receive care by our Cardiology team, transfer will be attempted to [facility] where his courtroom deputy or calendar clerk is. Blood cultures grew pansensitive Staph coccus aureus. Vancomycin will be discontinued. Continue Rocephin 2 g daily, currently day 4 of IV antibiotics, however blood cultures from May 19 were positive. Blood cultures from May 21 are pending. (2) Chronic obstructive pulmonary disease: Code(s): J44.9 - Chronic obstructive pulmonary disease, unspecified Status: Acute Assessment and Plan: Patient has been home for 1-2 days but returns due to increasing shortness of breath. He describes having a cough, shortness of breath and wheezing. It is unclear if he was on the dexamethasone at home. Suspect COPD exacerbation. Solu-Medrol and nebulizer treatments started. BUN is 105 related to steroids. Changed to prednisone but will stop given the bacteremia. Continue nebs. 05/22: Appears to be at baseline respiratory status (3) Persistent atrial fibrillation: Code(s): I48.19 - Other persistent atrial fibrillation Status: Acute Assessment and Plan: Patient was found to be in atrial fibrillation last hospitalization. Duration was unknown. Was started on Xarelto at that time. He remains on Coreg. Blood pressure soft felt related to his heart failure. Continue Coreg as tolerated. Contineu Xarerlto 05/22: Cardiology recommended VALERIA with possible cardioversion for symptom management, patient refusing to have this done here requesting to be transferred to [facility] for his cardiology team (4) Hyperkalemia: Code(s): E87.5 - Hyperkalemia Status: Acute Assessment and Plan: Potassium was 5.5 on admission. Potassium has improved and is 5.1 today. Not on medications to cause hyperkalemia. Nephrology following. Consider Lokaelma. Add low potassium diet. Continue to monitor. Kayexalate once given the NSVT 05/22: Resolved, potassium 4.6 today, continue to monitor (5) Congestive heart failure: Code(s): I50.9 - Heart failure, unspecified Status: Acute Assessment and Plan: His BNP is 31K but more likely related to the renal failure than CHF exacerbation. Chest x-ray was clear on admission and he remains on room air. Echo showing EF <15%. He has refused ICD implant. Mag level okay. Potassium slightly high. Patient is full code. Will discuss with him about changing this. Consider hospice given the multiorgan failure. 05/22: Patient adamant that all Cardiology discussions as well as decisions regarding code status and ICD placement be done through his courtroom deputy or calendar clerk in with his present (6) Acute kidney injury superimposed on CKD: Code(s): N17.9 - Acute kidney failure, unspecified; N18.9 - Chronic kidney disease, unspecified Status: Acute Assessment and Plan: Baseline creatinine in the 2.4-3 range. Cr climbing to 3.2. Nephrology following and appreciate their input. 05/22: Creatinine 3 today, stable (7) UTI (urinary tract infection): Qualifiers: Hematuria presence: with hematuria Urinary tract infection type: site unspecified Qualified Code(s): N39.0 - Urinary tract infection, site n
[2022-05-22] MEDS: RIVAROXABAN 15 MG TABLET PO (18:47)
[2022-05-22] MEDS: cefTRIAXone 2 GM in SODIUM CHLORIDE 0.9% IV 100 ML 200 ML IVPB (18:48)
--- NOTE | 2022-05-22 23:16 | PC.NURSE ---
This patient, Darrell Nielsen, was transferred to [[id number] ] on 05/22/22 at 2316. Personal belongings sent with patient. Report given to [Rosa VALLE ]. Appropriate documentation sent with patient.
[2022-05-23] VITALS (14 sets, daily range): BP systolic 94–128; BP diastolic 65–93; PULSE 83–110; RESP 16–18; TEMP 35.6–36.9; O2SAT 92–98
[2022-05-23] MEDS: ALBUTEROL SULFATE NEB 2.5 MG/3 ML INH INHALATION ×3 (01:58→14:40)
[2022-05-23] MEDS: IPRATROPIUM BR 0.02% INH SOLN 0.5 MG/2.5 ML VIAL INHALATION ×3 (01:58→14:40)
[2022-05-23 07:37] LABS: Basophils Percent Auto 0.1 % (0.2-1.2); Eosinophils Percent Auto 0.1 % (0-4.4); Hematocrit 46.9 % (42.0-52.0); Hemoglobin 16.1 g/dL (14.0-18.0); Immature Granulocyte Absolute 0.13 K/mm3 (0.00-0.031); Immature Granulocyte Percent A 0.9 % (0-0.5); Lymphocytes Absolute Auto 0.45 K/mm3 (0.9-3.2); Mean Corpuscular HGB Conc 34.3 g/dl (32-36); Mean Corpuscular Hemoglobin 33.5 pg (26-34); Mean Corpuscular Volume 97.7 fl (80-100); Mean Platelet Volume 11.9 fl (7.4-10.4); Monocytes Absolute Auto 0.9 K/mm3 (0.1-0.6); Neutrophils Absolute Auto 13.6 K/mm3 (1.3-6.7); Neutrophils Percent Auto 89.9 % (45.5-73.1); Nucleated Red Blood Cells Perc 0.3 % (0.0-0.2); Platelet Count Result 205 k/mm3 (150-375); White Blood Count 15.1 K/mm3 (4.5-10.0)
[2022-05-23 07:58] LABS: Albumin Level 2.9 g/dL (3.5-5.1); Anion Gap 8 mmol/L (8-16); Blood Urea Nitrogen 115 mg/dL (9-20); Calcium 8.7 mg/dL (8.4-10.2); Carbon Dioxide 22 mmol/L (22-30); Chloride 105 mmol/L (98-107); Estimated CRCL calculation 21 ml/min; Estimated Glomerular Filt Rate 21; Glucose 101 mg/dL (65-110); Magnesium 2.4 mg/dL (1.6-2.3); Phosphorus 4.1 mg/dL (2.5-4.5); Potassium 4.7 mmol/L (3.4-5.0); Sodium 135 mmol/L (137-145)
[2022-05-23] MEDS: FLUTICASONE/UMECLIDIN/VILANTER 100-62.5-25 MCG ELLIPTA 1 PUFF INHALATION (08:08)
[2022-05-23] MEDS: PANTOPRAZOLE 40 MG TABLET PO (09:56)
[2022-05-23] MEDS: VITAMIN E 1,000 UNIT CAPSULE 1000 UNIT PO (09:56)
[2022-05-23] MEDS: ATORVASTATIN 10 MG TABLET PO (09:56)
[2022-05-23] MEDS: ASCORBIC ACID 500 MG TABLET 1000 MG PO (09:56)
[2022-05-23] MEDS: ZINC SULFATE 220 MG CAPSULE PO (09:56)
[2022-05-23] MEDS: CHOLECALCIFEROL 1,000 UNITS TABLET 1000 UNITS PO (09:56)
[2022-05-23] MEDS: ASPIRIN 81 MG ENTERIC TABLET PO (09:56)
[2022-05-23] MEDS: carvediloL 12.5 MG TABLET PO ×2 (09:56→18:03)
[2022-05-23] MEDS: MULTIVITAMINS THERAPEUTIC TAB (*BKC) 1 TABLET PO (09:56)
[2022-05-23] MEDS: CALCIUM CARBONATE (OSCAL) 500 MG TABLET 1000 MG PO (09:56)
[2022-05-23] MEDS: polyethylene glycoL 3350 17 GM POWD.PACK PO (15:41)
--- NOTE | 2022-05-23 16:23 | PM.IMPN ---
Progress Note: A&P Assessment and Plan (1) Septicemia: Code(s): A41.9 - Sepsis, unspecified organism Status: Acute Assessment and Plan: Patient returns to the hospital because of increasing shortness of breath. He was tachycardic but no fevers. White count was elevated but felt related to his steroids that he was discharged home with. He was started on Rocephin and Vancomycin. Blood cultures returned positive and Rocephin was increased to 2 g. Blood cultures 05/19 both grown MSSA. UCx 06/08 also growing MSSA. Echo showing EF <15% with possible left ventricular mass. Source is unclear but consider occult pneumonia and/or endocarditis. Endocarditis can seed the urine. WBC was 25K but improved. Repeat BCx 05/21 (1of2) also growing Staph. Vancomycin stopped. Currently day 5 of IV antibiotics. Discussed with PharmID who recommended Ancef 2gm Q12hr. Repeat BCx. (2) Chronic obstructive pulmonary disease: Code(s): J44.9 - Chronic obstructive pulmonary disease, unspecified Status: Acute Assessment and Plan: Patient has been home for 1-2 days but returns due to increasing shortness of breath. He describes having a cough, shortness of breath and wheezing. It is unclear if he was on the dexamethasone at home. Suspect COPD exacerbation with bacteremia conributing to his symptoms. Solu-Medrol and nebulizer treatments were started. BUN was 105 related to steroids. Steroids stopped due to bacteremia. On room air. Change nebs to prn. (3) Persistent atrial fibrillation: Code(s): I48.19 - Other persistent atrial fibrillation Status: Acute Assessment and Plan: Patient was found to be in atrial fibrillation during the last hospitalization. Duration was unknown. Was started on Xarelto at that time. He remains on Coreg. Blood pressure soft felt related to his heart failure. Continue Coreg as tolerated. Continue Xarelto. Cardiology consulted. Cardioversion He states today that he is agreeable to see Card here. He is oriented but may be confused due to the elevated BUN. (4) Hyperkalemia: Code(s): E87.5 - Hyperkalemia Status: Acute Assessment and Plan: Potassium was 5.5 on admission. Potassium has improved and is 4.7 today. Not on medications to cause hyperkalemia. Nephrology following. Continue low potassium diet. Continue to monitor. (5) Congestive heart failure: Code(s): I50.9 - Heart failure, unspecified Status: Acute Assessment and Plan: His BNP is 31K but more likely related to the renal failure than CHF exacerbation. Chest x-ray was clear on admission and he remains on room air. Echo showing EF <15%. He has refused ICD implant. Mag and Potassium normal. Patient is full code. (6) Acute kidney injury superimposed on CKD: Code(s): N17.9 - Acute kidney failure, unspecified; N18.9 - Chronic kidney disease, unspecified Status: Acute Assessment and Plan: Baseline creatinine in the 2.4-[address] showing the PCKD. Cr climbing to 3.2 but better at 2.9 today. BUN was 42 last admission and climbed to 97 at last discharge probably due to steroids. HH stable. BUN 105 on admission this time and has climbed to 115. Steroids off. Nephrology following. Appears to be handling this well. No overt confusion and no rub (7) UTI (urinary tract infection): Qualifiers: Hematuria presence: with hematuria Urinary tract infection type: site unspecified Qualified Code(s): N39.0 - Urinary tract infection, site not specified; R31.9 - Hematuria, unspecified Code(s): N39.0 - Urinary tract infection, site not specified Status: Acute Assessment and Plan: UA noted. Urine culture growing MSSA. Suspect related to endocarditis with seedng of the urine. As above (8) COVID-19 virus infection: Code(s): U07.1 - COVID-19 Status: Acute Assessment and Plan: Treated with steroids last admission. Off steroids no
[2022-05-23] MEDS: cefTRIAXone 2 GM in SODIUM CHLORIDE 0.9% IV 100 ML 200 ML IVPB (18:02)
[2022-05-23] MEDS: RIVAROXABAN 15 MG TABLET PO (18:03)
[2022-05-23] MEDS: ACETAMINOPHEN 325 MG TABLET 650 MG PO (23:53)
[2022-05-24] VITALS (11 sets, daily range): BP systolic 95–104; BP diastolic 68–88; PULSE 54–103; RESP 16–20; TEMP 36.5–36.9; O2SAT 92–98
[2022-05-24] MEDS: ALBUTEROL SULFATE (*SP) AEROSOL 1 PUFF 2 PUFF INHALATION (04:30)
[2022-05-24 06:50] LABS: Basophils Percent Auto 0.2 % (0.2-1.2); Eosinophils Absolute Auto 0.1 K/mm3 (0-0.3); Eosinophils Percent Auto 0.8 % (0-4.4); Hematocrit 43.5 % (42.0-52.0); Hemoglobin 15.1 g/dL (14.0-18.0); Immature Granulocyte Percent A 0.8 % (0-0.5); Lymphocytes Absolute Auto 0.47 K/mm3 (0.9-3.2); Lymphocytes Percent Auto 3.6 % (18.3-44.2); Mean Corpuscular HGB Conc 34.7 g/dl (32-36); Mean Corpuscular Hemoglobin 33.6 pg (26-34); Mean Corpuscular Volume 96.9 fl (80-100); Mean Platelet Volume 12.4 fl (7.4-10.4); Monocytes Absolute Auto 1.1 K/mm3 (0.1-0.6); Neutrophils Absolute Auto 11.4 K/mm3 (1.3-6.7); Neutrophils Percent Auto 86.6 % (45.5-73.1); Nucleated Red Blood Cells Perc 0.2 % (0.0-0.2); Platelet Count Result 169 k/mm3 (150-375); Red Blood Count 4.49 M/mm3 (4.6-6.20); Red Cell Distribution Width 14.6 % (11.5-14.5); White Blood Count 13.2 K/mm3 (4.5-10.0)
[2022-05-24 07:04] LABS: Albumin Level 2.6 g/dL (3.5-5.1); Anion Gap 6 mmol/L (8-16); Blood Urea Nitrogen 113 mg/dL (9-20); Calcium 8.3 mg/dL (8.4-10.2); Carbon Dioxide 22 mmol/L (22-30); Chloride 107 mmol/L (98-107); Estimated CRCL calculation 22 ml/min; Estimated Glomerular Filt Rate 23; Glucose 89 mg/dL (65-110); Magnesium 2.2 mg/dL (1.6-2.3); Phosphorus 3.4 mg/dL (2.5-4.5); Potassium 4.4 mmol/L (3.4-5.0); Sodium 135 mmol/L (137-145)
[2022-05-24] MEDS: PANTOPRAZOLE 40 MG TABLET PO (08:17)
[2022-05-24] MEDS: ATORVASTATIN 10 MG TABLET PO (08:17)
[2022-05-24] MEDS: CHOLECALCIFEROL 1,000 UNITS TABLET 1000 UNITS PO (08:17)
[2022-05-24] MEDS: ASPIRIN 81 MG ENTERIC TABLET PO (08:17)
[2022-05-24] MEDS: ZINC SULFATE 220 MG CAPSULE PO (08:17)
[2022-05-24] MEDS: VITAMIN E 1,000 UNIT CAPSULE 1000 UNIT PO (08:17)
[2022-05-24] MEDS: MULTIVITAMINS THERAPEUTIC TAB (*BKC) 1 TABLET PO (08:18)
[2022-05-24] MEDS: carvediloL 12.5 MG TABLET PO ×2 (08:18→17:54)
[2022-05-24] MEDS: CALCIUM CARBONATE (OSCAL) 500 MG TABLET 1000 MG PO (08:18)
[2022-05-24] MEDS: ASCORBIC ACID 500 MG TABLET 1000 MG PO (08:18)
[2022-05-24] MEDS: polyethylene glycoL 3350 17 GM POWD.PACK PO ×2 (08:19→17:54)
[2022-05-24] MEDS: ceFAZolin 2 GM/D5W 50 ML 2 GM/50 ML BAG IVPB ×2 (08:19→21:07)
--- NOTE | 2022-05-24 10:12 | PM.PNCARD ---
Progress Note: A&P Assessment and Plan (1) Ischemic cardiomyopathy: Code(s): I25.5 - Ischemic cardiomyopathy Status: Chronic Plan 76-year-old man with: Profound essentially end-stage ischemic cardiomyopathy with low cardiac output. He has stage IV but apparently stable chronic kidney disease as well. His renal failure and relative hypotension have made institution of ARB or Entresto not realistic options. He has had the recent development of atrial fibrillation and so I will start amiodarone orally for this at this time. Systemic anticoagulation is in place. The patient is positive blood cultures with methicillin sensitive Staph complicated his current situation. I have reviewed his echocardiogram personally from the 21 of May. It is a good quality exam and I do not see any valvular vegetations. 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 At this point I do not believe that transesophageal echo would add anything to his care 0 or alter his decisions. I had a long serious talk with the patient today about the poor prognosis that he has given the profound cardiomyopathy and the comorbidities that he has. He wishes to discuss this with his which of course is understandable and is somewhat frustrated that he is of the impression that she will not be allowed in to visit in because of isolation. I will speak to the staff about this today. The patient despite seeing physicians at [facility] for quite a few years seem to have a very poor understanding regarding the seriousness of his health at this time and his rather poor prognosis. On another topic I did receive a phone call from the floor staff yesterday indicating that the patient did not have a cutting supervisor at [facility] and his wanted us to be aware of that. I did spend some time looking at the electronic medical record. That is factually incorrect. The patient does have an appointment with his new cutting supervisor in the middle of June for ongoing follow-up. His other specialists also including his florist and import manager are at that institution as well. Jimmy Torres MD [facility] Subjective Date/time seen: Date of service: 05/24/22 10:12 Interval history: Follow-up visit in this 76-year-old man with: Severe/profound ischemic cardiomyopathy with echocardiographic findings as detailed in the report. He enters the hospital with some shortness of breath and has severe comorbidities including severe chronic kidney disease and severe bullous emphysema. He says that he feels well today and does not offer any complaints. He has the recent development of atrial fibrillation in this setting which certainly is also consistent with worsening clinical status. Positive blood cultures with methicillin sensitive Staph are also noted. Exam Const: General: comfortable and no acute distress Other: Chronically ill frail-appearing man seated in bed in good spirits no distress HENMT: Mouth: Yes moist mucous membranes Eyes: Sclera: sclerae normal Pupils: Equal, round and reactive pupils present Neck: Neck: supple Other: Carotid pulses are intact in upstroke but diminished in volume. No obvious venous distention Resp: Other: Diminished breath sounds in both lung gutiérrez Cardio: Rhythm: abnormal rhythm irregularly irregular Other: Apical holosystolic murmur is audible grade 1-2/6 GI: GI Palp: Yes Soft to palpation Auscultation: normal bowel sounds Skin: General skin exam: normal color Neuro: Other: Normal cognition Extrem: Other: No peripheral edema at this time Objective Data Vital Signs Vital Signs: Vital Signs - 24 hr 05/23/22 12:02 05/23/22 12:00 05/23/22 14:40 Temperature 35.8 C L Pulse Rate 95 93 85 Respiratory Rate 18 16 Blood Pressure 94/69 L Pulse Oximetry 93 Oxygen Delivery 05/23/22 14:51 05/23/22 16:00 05/23/22 20:00 Temperature 36.0 C L
[2022-05-24] MEDS: FLUTICASONE/UMECLIDIN/VILANTER 100-62.5-25 MCG ELLIPTA 1 PUFF INHALATION (10:51)
[2022-05-24] MEDS: ALBUTEROL SULFATE (*SP) INHALER 2 PUFF INHALATION (11:05)
[2022-05-24] MEDS: AMIODARONE HCL 200 MG TABLET 400 MG PO ×2 (11:41→21:06)
--- NOTE | 2022-05-24 17:38 | PM.IMPN ---
Progress Note: A&P Assessment and Plan (1) Septicemia: Code(s): A41.9 - Sepsis, unspecified organism Status: Acute Assessment and Plan: Patient returns to the hospital because of increasing shortness of breath. He was tachycardic but no fevers. White count was elevated initially felt related to his steroids that he was discharged home with but more likely related to septicemia. He was started on Rocephin and Vancomycin. Blood cultures returned positive and Rocephin was increased to 2 g. Blood cultures 05/19 (2of2 bottles) growing MSSA. UCx 06/08 also growing MSSA. Echo showing EF <15% with possible left ventricular mass felt to ba a calcified and chronic mass. No obvious valvular echogenic masses. Source of bacteremia is unclear but consider occult pneumonia and/or endocarditis. Endocarditis can seed the urine. WBC was 25K but improved to 13K today. Repeat BCx 05/21 (1of2) also growing Staph. Vancomycin stopped. Rocephin changed to Ancef 2gm IV Q12h (with PharmD ID help). Currently day 6 of IV antibiotics. BCx 05/23 NGTD. Will need 6 weeks of treatment from the first set of negative cultures. (2) Chronic obstructive pulmonary disease: Code(s): J44.9 - Chronic obstructive pulmonary disease, unspecified Status: Acute Assessment and Plan: Patient has been home for 1-2 days but returns due to increasing shortness of breath. He describes having a cough, shortness of breath and wheezing. It is unclear if he was on the dexamethasone at home. Suspected COPD exacerbation. Solu-Medrol and nebulizer treatments were started on admission. Steroids stopped due to bacteremia. Symptoms resolved. Nebs changed to prn. (3) Persistent atrial fibrillation: Code(s): I48.19 - Other persistent atrial fibrillation Status: Acute Assessment and Plan: Patient was found to be in atrial fibrillation during the last hospitalization. Duration was unknown. Was started on Xarelto at that time. He remains on Coreg. Blood pressure soft felt related to his heart failure. Continue Coreg as tolerated. Continue Xarelto. Cardiology consulted and appreciate their input (4) Congestive heart failure: Code(s): I50.9 - Heart failure, unspecified Status: Acute Assessment and Plan: His BNP was 31K but more likely related to the renal failure than CHF exacerbation. Chest x-ray was clear on admission and he remained on room air. Echo showing EF <15% with diastolic dysfunction. It is documented that he has refused Lifevest and ICD implantation in the past but now he states he would be interested in moving forward with this. Will speak with Cardiology about getting this arranged. Mag and Potassium remain normal. Patient is full code. (5) Acute kidney injury superimposed on CKD: Code(s): N17.9 - Acute kidney failure, unspecified; N18.9 - Chronic kidney disease, unspecified Status: Acute Assessment and Plan: Baseline creatinine in the 2.4-[address] showing PCKD. Cr climbing to 3.2 but better at 2.7 today. BUN was 42 last admission and climbed to 97 at last discharge probably due to steroids. HH stable. BUN 105 on admission this time and climbed to 115. Steroids off. Nephrology following. BUn trending down as well. Continue to follow. Appreciate Nephrology input. (6) Hyperkalemia: Code(s): E87.5 - Hyperkalemia Status: Acute Assessment and Plan: Potassium was 5.5 on admission. Potassium has improved and remaining normal now. Not on medications to cause hyperkalemia. Nephrology following. Continue low potassium diet. Continue to monitor. (7) UTI (urinary tract infection): Qualifiers: Hematuria presence: with hematuria Urinary tract infection type: site unspecified Qualified Code(s): N39.0 - Urinary tract infection, site not specified; R31.9 - Hematuria, unspecified Code(s): N39.0 - Urinary tract infection, site not specified Status: Acute
[2022-05-24] MEDS: RIVAROXABAN 15 MG TABLET PO (17:54)
[2022-05-24] MEDS: ACETAMINOPHEN 325 MG TABLET 650 MG PO (17:59)
[2022-05-25] VITALS (17 sets, daily range): BP systolic 91–109; BP diastolic 65–72; PULSE 60–98; RESP 18; TEMP 36.2–36.7; O2SAT 93–98
[2022-05-25] MEDS: ALBUTEROL SULFATE NEB 2.5 MG/3 ML INH INHALATION (00:13)
[2022-05-25 06:26] LABS: Hematocrit 42.7 % (42.0-52.0); Hemoglobin 14.8 g/dL (14.0-18.0); Mean Corpuscular HGB Conc 34.7 g/dl (32-36); Mean Corpuscular Hemoglobin 33.6 pg (26-34); Mean Platelet Volume 12.4 fl (7.4-10.4); Platelet Count Result 171 k/mm3 (150-375); Red Cell Distribution Width 14.6 % (11.5-14.5); White Blood Count 13.5 K/mm3 (4.5-10.0)
[2022-05-25 06:32] LABS: Alanine Aminotransferase 20 U/L (6-50); Albumin Level 2.6 g/dL (3.5-5.1); Alkaline Phosphatase 28 U/L (38-126); Anion Gap 6 mmol/L (8-16); Aspartate Amino Transferase 20 U/L (17-59); Bilirubin,Total 0.9 mg/dL (0.2-1.3); Blood Urea Nitrogen 108 mg/dL (9-20); Calcium 8.4 mg/dL (8.4-10.2); Carbon Dioxide 22 mmol/L (22-30); Chloride 106 mmol/L (98-107); Estimated CRCL calculation 22 ml/min; Estimated Glomerular Filt Rate 22; Glucose 82 mg/dL (65-110); Potassium 4.5 mmol/L (3.4-5.0); Sodium 134 mmol/L (137-145)
[2022-05-25] MEDS: FLUTICASONE/UMECLIDIN/VILANTER 100-62.5-25 MCG ELLIPTA 1 PUFF INHALATION ×2 (07:56→08:03)
[2022-05-25] MEDS: ASCORBIC ACID 500 MG TABLET 1000 MG PO (09:10)
[2022-05-25] MEDS: carvediloL 12.5 MG TABLET PO ×2 (09:11→18:00)
[2022-05-25] MEDS: AMIODARONE HCL 200 MG TABLET 400 MG PO ×2 (09:11→20:18)
[2022-05-25] MEDS: ATORVASTATIN 10 MG TABLET PO (09:11)
[2022-05-25] MEDS: PANTOPRAZOLE 40 MG TABLET PO (09:11)
[2022-05-25] MEDS: polyethylene glycoL 3350 17 GM POWD.PACK PO (09:12)
[2022-05-25] MEDS: ZINC SULFATE 220 MG CAPSULE PO (09:12)
[2022-05-25] MEDS: ASPIRIN 81 MG ENTERIC TABLET PO (09:12)
[2022-05-25] MEDS: MULTIVITAMINS THERAPEUTIC TAB (*BKC) 1 TABLET PO (09:12)
[2022-05-25] MEDS: VITAMIN E 1,000 UNIT CAPSULE 1000 UNIT PO (09:12)
[2022-05-25] MEDS: CALCIUM CARBONATE (OSCAL) 500 MG TABLET 1000 MG PO (09:12)
[2022-05-25] MEDS: CHOLECALCIFEROL 1,000 UNITS TABLET 1000 UNITS PO (09:12)
[2022-05-25] MEDS: ceFAZolin 2 GM/D5W 50 ML 2 GM/50 ML BAG IVPB ×2 (09:18→20:29)
[2022-05-25] MEDS: BISACODYL 10 MG SUPPOSITORY RECTAL (12:01)
--- NOTE | 2022-05-25 13:24 | PM.PNCARD ---
Progress Note: A&P Assessment and Plan (1) Ischemic cardiomyopathy: Code(s): I25.5 - Ischemic cardiomyopathy Status: Chronic (2) Persistent atrial fibrillation: Code(s): I48.19 - Other persistent atrial fibrillation Status: Acute Plan 76-year-old man with profound ischemic cardiomyopathy also with the development of atrial fibrillation of recent but uncertain chronicity. He is anticoagulated and now on amiodarone as well. He does have positive blood cultures and is therefore being treated with at least 6 weeks of IV antibiotics. After lengthy discussion with the patient the recommendation/appropriate decision are for ongoing follow-up with his cardiology specialists at [facility] since he has been established for follow-up there for a long time and also sees both pulmonology and renal specialist at that hospital as well. He has advanced bullous emphysema and severe chronic renal insufficiency. He will discuss the concept of ICD implantation with his physician over there if he wishes to reconsider that decision. We will continue to follow the patient with you while he is here at [facility]. Jimmy Torres MD [facility] Subjective Date/time seen: Date of service: 05/25/22 13:24 Interval history: Follow-up visit in this 76-year-old man with: Severe/profound ischemic cardiomyopathy with echocardiographic findings as detailed in the report. He enters the hospital with some shortness of breath and has severe comorbidities including severe chronic kidney disease and severe bullous emphysema. He says that he feels well today and does not offer any complaints. He has the recent development of atrial fibrillation in this setting which certainly is also consistent with worsening clinical status. Positive blood cultures with methicillin sensitive Staph are also noted. Date of service 05/25/2022: Patient asymptomatic ischemic symptoms no symptoms of decompensated heart failure. Amiodarone started yesterday p.o. at a loading dosage of 400 mg q.12 hours for atrial fibrillation and nonsustained ventricular arrhythmias. Long discussion again with the patient and his who is in the room today regarding long-term plans of her cardiovascular treatment/follow-up. Long discussion about the concept of defibrillator implantation which again is something that he had been refusing for a number of years. He does have follow-up with his senior director at [facility] scheduled 06/27/2022. Does require 6 weeks of IV antibiotics. He will be hospitalized until IV access is placed and this is arranged. Exam Const: General: comfortable and no acute distress Other: Chronically ill frail-appearing man seated in bed in good spirits no distress HENMT: Mouth: Yes moist mucous membranes Eyes: Sclera: sclerae normal Pupils: Equal, round and reactive pupils present Neck: Neck: supple and no JVD Other: Carotid pulses are intact in upstroke but diminished in volume. No obvious venous distention Resp: Auscultation: diminished lung sounds Other: Diminished breath sounds in both lung gutiérrez Cardio: Rhythm: abnormal rhythm irregularly irregular Other: Apical holosystolic murmur is audible grade 1-2/6 GI: Auscultation: normal bowel sounds Skin: General skin exam: normal color Neuro: Cranial nerves: Yes Equal, round and reactive pupils present Other: Normal cognition Extrem: Other: No peripheral edema at this time Objective Data Vital Signs Vital Signs: Vital Signs - 24 hr 05/24/22 17:54 05/24/22 16:00 05/24/22 16:00 Temperature 36.8 C Pulse Rate 103 H 54 L 89 Respiratory Rate 18 Blood Pressure 102/68 Pulse Oximetry 92 Oxygen Delivery 05/24/22 21:06 05/24/22 20:00 05/24/22 20:00 Temperature 36.7 C Pulse Rate 103 H 98 84 Respiratory Rate 20 Blood Pressure 99/76 L Pulse Oximetry 96 Oxygen Delivery 05/24/22 20:00 05/25/22 00:14 05/25/22 00:15 Temper
--- NOTE | 2022-05-25 13:47 | PM.IMPN ---
Progress Note: A&P Assessment and Plan (1) Septicemia: Code(s): A41.9 - Sepsis, unspecified organism Status: Acute Assessment and Plan: Patient returns to the hospital because of increasing shortness of breath. He was tachycardic but no fevers. White count was elevated initially felt related to his steroids but more likely related to septicemia. He was started on Rocephin and Vancomycin. Blood cultures returned positive and Rocephin was increased to 2 g. Blood cultures 05/19 (2of2 bottles) growing MSSA. UCx 06/08 also growing MSSA. Echo showing EF <15% with possible left ventricular mass felt to be a calcified and chronic mass. No obvious valvular echogenic masses. Source of bacteremia is unclear but consider occult pneumonia and/or endocarditis. Endocarditis can seed the urine. WBC was 25K but improved to 13K (stable today). Repeat BCx 05/21 (1of2) also growing Staph. Vancomycin stopped. Rocephin changed to Ancef 2gm IV Q12h (with PharmD ID help). Currently day 7 of IV antibiotics. BCx 05/23 NGTD. Will need 6 weeks of treatment from 05/23/22. (2) Chronic obstructive pulmonary disease: Code(s): J44.9 - Chronic obstructive pulmonary disease, unspecified Status: Acute Assessment and Plan: Patient has been home for 1-2 days but returns due to increasing shortness of breath. He describes having a cough, shortness of breath and wheezing. It is unclear if he was on the dexamethasone at home. Suspected COPD exacerbation. Solu-Medrol and nebulizer treatments were started on admission. Steroids stopped due to bacteremia. Symptoms resolved. Nebs changed to prn. (3) Persistent atrial fibrillation: Code(s): I48.19 - Other persistent atrial fibrillation Status: Acute Assessment and Plan: Patient was found to be in atrial fibrillation during the last hospitalization. Duration was unknown. Was started on Xarelto at that time. He remains on Coreg. Blood pressure soft felt related to his heart failure. Continue Coreg as tolerated. Continue Xarelto. Cardiology consulted and appreciate their input (4) Congestive heart failure: Code(s): I50.9 - Heart failure, unspecified Status: Acute Assessment and Plan: His BNP was 31K but more likely related to the renal failure than CHF exacerbation. Chest x-ray was clear on admission and he remained on room air. Echo showing EF <15% with diastolic dysfunction. He is on Coreg but ACEI, Entresto, Spirnolactone and Empagliflozin not appropriate at this time due to his renal function. It is documented that he has refused ICD implantation in the past but now he states he would be interested in moving forward with this. Spoke with Cardiology who felt no need for LifeVest but will speak with him about about possible ICD placement in the future. Obviously not now since he is bacteremic. Mag and Potassium remain normal. Patient is a full code. (5) Acute kidney injury superimposed on CKD: Code(s): N17.9 - Acute kidney failure, unspecified; N18.9 - Chronic kidney disease, unspecified Status: Acute Assessment and Plan: Baseline creatinine in the 2.4-[address] showing PCKD. Cr climbed to 3.2 but stable at 2.8 today. BUN was 42 last admission and climbed to 97 at last discharge probably due to steroids. HH stable. BUN climbed to 115 this admission but improving off steroids. Good UOP. Nephrology following. Continue to follow. Appreciate Nephrology input. (6) Urine retention: Code(s): R33.9 - Retention of urine, unspecified Status: Acute Assessment and Plan: Patient had trouble voiding requiring Minor placement. Probably related to inactivity. He is up ambulating. Will consider Flomax but BP remains soft. May try voiding trial tomorrow. (7) Hyperkalemia: Code(s): E87.5 - Hyperkalemia Status: Acute Assessment and Plan: Potassium was 5.5 on admission. Potassium has improved and remaining normal n
[2022-05-25] MEDS: LIDOCAINE HCL 1% LOCAL INJ 2 ML AMPUL 5 ML INFILTRATE (15:00)
[2022-05-25] MEDS: CENTRAL LINE FLUSH 10 ML IV PUSH ×2 (18:00→23:38)
[2022-05-25] MEDS: RIVAROXABAN 15 MG TABLET PO (18:00)
[2022-05-25] MEDS: ACETAMINOPHEN 325 MG TABLET 650 MG PO (23:35)
[2022-05-26] VITALS (12 sets, daily range): BP systolic 87–106; BP diastolic 63–90; PULSE 61–83; RESP 16–18; TEMP 36.3–36.6; O2SAT 94–99
[2022-05-26 04:57] LABS: Hematocrit 39.3 % (42.0-52.0); Hemoglobin 13.5 g/dL (14.0-18.0); Mean Corpuscular HGB Conc 34.4 g/dl (32-36); Mean Corpuscular Hemoglobin 33.7 pg (26-34); Platelet Count Result 177 k/mm3 (150-375); Red Blood Count 4.01 M/mm3 (4.6-6.20); Red Cell Distribution Width 14.5 % (11.5-14.5); White Blood Count 13.6 K/mm3 (4.5-10.0)
[2022-05-26 04:59] LABS: Anion Gap 4 mmol/L (8-16); Blood Urea Nitrogen 100 mg/dL (9-20); Calcium 8.5 mg/dL (8.4-10.2); Carbon Dioxide 25 mmol/L (22-30); Chloride 106 mmol/L (98-107); Estimated CRCL calculation 22 ml/min; Estimated Glomerular Filt Rate 23; Glucose 77 mg/dL (65-110); Magnesium 2.2 mg/dL (1.6-2.3); Potassium 4.4 mmol/L (3.4-5.0); Sodium 135 mmol/L (137-145)
[2022-05-26] MEDS: FLUTICASONE/UMECLIDIN/VILANTER 100-62.5-25 MCG ELLIPTA 1 PUFF INHALATION (08:17)
[2022-05-26] MEDS: VITAMIN E 1,000 UNIT CAPSULE 1000 UNIT PO (08:31)
[2022-05-26] MEDS: carvediloL 12.5 MG TABLET PO (08:31)
[2022-05-26] MEDS: CHOLECALCIFEROL 1,000 UNITS TABLET 1000 UNITS PO (08:31)
[2022-05-26] MEDS: DOCUSATE SODIUM 100 MG CAPSULE PO ×2 (08:31→21:23)
[2022-05-26] MEDS: PANTOPRAZOLE 40 MG TABLET PO (08:31)
[2022-05-26] MEDS: MULTIVITAMINS THERAPEUTIC TAB (*BKC) 1 TABLET PO (08:31)
[2022-05-26] MEDS: polyethylene glycoL 3350 17 GM POWD.PACK PO (08:31)
[2022-05-26] MEDS: ASPIRIN 81 MG ENTERIC TABLET PO (08:32)
[2022-05-26] MEDS: ATORVASTATIN 10 MG TABLET PO (08:32)
[2022-05-26] MEDS: AMIODARONE HCL 200 MG TABLET 400 MG PO ×2 (08:32→21:23)
[2022-05-26] MEDS: CALCIUM CARBONATE (OSCAL) 500 MG TABLET 1000 MG PO (08:32)
[2022-05-26] MEDS: ASCORBIC ACID 500 MG TABLET 1000 MG PO (08:32)
[2022-05-26] MEDS: CENTRAL LINE FLUSH 10 ML IV PUSH ×4 (08:33→21:24)
[2022-05-26] MEDS: ceFAZolin 2 GM/D5W 50 ML 2 GM/50 ML BAG IVPB ×2 (08:33→21:24)
[2022-05-26] MEDS: ZINC SULFATE 220 MG CAPSULE PO (09:22)
--- NOTE | 2022-05-26 14:04 | PM.IMPN ---
Progress Note: A&P Assessment and Plan (1) Septicemia: Code(s): A41.9 - Sepsis, unspecified organism Status: Acute Assessment and Plan: Patient returns to the hospital because of increasing shortness of breath. He was tachycardic but no fevers. White count was elevated initially felt related to his steroids but more likely related to septicemia. He was started on Rocephin and Vancomycin. Blood cultures returned positive and Rocephin was increased to 2 g. Blood cultures 05/19 (2of2 bottles) growing MSSA. UCx 06/08 also growing MSSA. Echo showing EF <15% with possible left ventricular mass felt to be a calcified and chronic mass. No obvious valvular echogenic masses. Source of bacteremia is unclear but consider occult pneumonia and/or endocarditis. Endocarditis can seed the urine. WBC was 25K but improved to 13K and stable. Repeat BCx 05/21 (1of2) also growing Staph (sensitivities still pending). Vancomycin stopped. Rocephin changed to Ancef 2gm IV Q12h (with PharmD ID help). Currently day 8 of IV antibiotics. BCx 05/23 NGTD. Will need 6 weeks of treatment from 05/23/22. Cath placed for home IV abx. Will contact the lab about the sensitivities. (2) Chronic obstructive pulmonary disease: Code(s): J44.9 - Chronic obstructive pulmonary disease, unspecified Status: Acute Assessment and Plan: Patient has been home for 1-2 days but returns due to increasing shortness of breath. He describes having a cough, shortness of breath and wheezing. It is unclear if he was on the dexamethasone at home. Suspected COPD exacerbation. Solu-Medrol and nebulizer treatments were started on admission. Steroids stopped due to bacteremia. Symptoms resolved. Nebs changed to prn. On room air. (3) Persistent atrial fibrillation: Code(s): I48.19 - Other persistent atrial fibrillation Status: Acute Assessment and Plan: Patient was found to be in atrial fibrillation during the last hospitalization. Duration was unknown. Was started on Xarelto at that time. He remains on Coreg. Blood pressure soft felt related to his heart failure. Amiodarone started to try to convert him. Continue Coreg as tolerated. Continue Xarelto. Cardiology consulted and appreciate their input. Continue tele (4) Congestive heart failure: Code(s): I50.9 - Heart failure, unspecified Status: Acute Assessment and Plan: His BNP was 31K but more likely related to the renal failure than CHF exacerbation. Chest x-ray was clear on admission and he remained on room air. Echo showing EF <15% with diastolic dysfunction. He is on Coreg but ACEI, Entresto, Spirnolactone and Empagliflozin not appropriate at this time due to his renal function. It is documented that he has refused ICD implantation in the past but now he states he would be interested in moving forward with this. Spoke with Cardiology who felt no need for LifeVest but will speak with him about about possible ICD placement in the future. Obviously not now since he is bacteremic. Mag and Potassium remain normal. Patient is a full code. (5) Acute kidney injury superimposed on CKD: Code(s): N17.9 - Acute kidney failure, unspecified; N18.9 - Chronic kidney disease, unspecified Status: Acute Assessment and Plan: Baseline creatinine in the 2.4-[address] showing PCKD. Cr climbed to 3.2 but stable at 2.7 today. BUN was 42 last admission and climbed to 97 at last discharge probably due to steroids. HH stable. BUN climbed to 115 this admission but improving off steroids. Good UOP. Nephrology following. Continue to follow. Appreciate Nephrology input. (6) Urine retention: Code(s): R33.9 - Retention of urine, unspecified Status: Acute Assessment and Plan: Patient had trouble voiding requiring Minor placement. Probably related to inactivity. He is up ambulating now. Flomax held due to soft BP. Finesteride can also cause HoTN (as well as hyperkalemia) so w
[2022-05-26] MEDS: ACETAMINOPHEN 325 MG TABLET 650 MG PO ×2 (17:09→23:26)
[2022-05-26] MEDS: RIVAROXABAN 15 MG TABLET PO (17:10)
[2022-05-27] VITALS (13 sets, daily range): BP systolic 95–100; BP diastolic 57–83; PULSE 71–92; RESP 18–20; TEMP 36.4–36.6; O2SAT 90–99
[2022-05-27] MEDS: CENTRAL LINE FLUSH 10 ML IV PUSH ×4 (05:09→21:13)
[2022-05-27 05:16] LABS: Basophils Percent Auto 0.2 % (0.2-1.2); Eosinophils Absolute Auto 0.3 K/mm3 (0-0.3); Eosinophils Percent Auto 2.5 % (0-4.4); Hematocrit 37.6 % (42.0-52.0); Hemoglobin 12.6 g/dL (14.0-18.0); Immature Granulocyte Absolute 0.15 K/mm3 (0.00-0.031); Immature Granulocyte Percent A 1.2 % (0-0.5); Lymphocytes Absolute Auto 0.65 K/mm3 (0.9-3.2); Lymphocytes Percent Auto 5.2 % (18.3-44.2); Mean Corpuscular HGB Conc 33.5 g/dl (32-36); Mean Corpuscular Hemoglobin 33.4 pg (26-34); Mean Corpuscular Volume 99.7 fl (80-100); Monocytes Percent Auto 8.2 % (2.6-8.5); Neutrophils Absolute Auto 10.3 K/mm3 (1.3-6.7); Neutrophils Percent Auto 82.7 % (45.5-73.1); Platelet Count Result 179 k/mm3 (150-375); Red Blood Count 3.77 M/mm3 (4.6-6.20); Red Cell Distribution Width 14.7 % (11.5-14.5); White Blood Count 12.5 K/mm3 (4.5-10.0)
[2022-05-27 05:54] LABS: Albumin Level 2.5 g/dL (3.5-5.1); Alkaline Phosphatase 34 U/L (38-126); Anion Gap 2 mmol/L (8-16); Aspartate Amino Transferase 17 U/L (17-59); Bilirubin,Total 0.7 mg/dL (0.2-1.3); Blood Urea Nitrogen 91 mg/dL (9-20); Calcium 8.6 mg/dL (8.4-10.2); Carbon Dioxide 27 mmol/L (22-30); Chloride 107 mmol/L (98-107); Estimated CRCL calculation 18 ml/min; Estimated Glomerular Filt Rate 21; Glucose 87 mg/dL (65-110); Magnesium 2.1 mg/dL (1.6-2.3); Phosphorus 2.8 mg/dL (2.5-4.5); Potassium 4.3 mmol/L (3.4-5.0); Sodium 136 mmol/L (137-145)
[2022-05-27 06:04] LABS: Alanine Aminotransferase < 6 U/L (6-50)
[2022-05-27] MEDS: ceFAZolin 2 GM/D5W 50 ML 2 GM/50 ML BAG IVPB ×2 (08:18→21:13)
[2022-05-27] MEDS: polyethylene glycoL 3350 17 GM POWD.PACK PO (08:19)
[2022-05-27] MEDS: CALCIUM CARBONATE (OSCAL) 500 MG TABLET 1000 MG PO (08:20)
[2022-05-27] MEDS: carvediloL 12.5 MG TABLET PO ×2 (08:20→17:28)
[2022-05-27] MEDS: AMIODARONE HCL 200 MG TABLET 400 MG PO ×2 (08:20→21:12)
[2022-05-27] MEDS: ASCORBIC ACID 500 MG TABLET 1000 MG PO (08:20)
[2022-05-27] MEDS: ATORVASTATIN 10 MG TABLET PO (08:20)
[2022-05-27] MEDS: ASPIRIN 81 MG ENTERIC TABLET PO (08:20)
[2022-05-27] MEDS: DOCUSATE SODIUM 100 MG CAPSULE PO (08:21)
[2022-05-27] MEDS: PANTOPRAZOLE 40 MG TABLET PO (08:21)
[2022-05-27] MEDS: CHOLECALCIFEROL 1,000 UNITS TABLET 1000 UNITS PO (08:21)
[2022-05-27] MEDS: ZINC SULFATE 220 MG CAPSULE PO (08:21)
[2022-05-27] MEDS: MULTIVITAMINS THERAPEUTIC TAB (*BKC) 1 TABLET PO (08:21)
[2022-05-27] MEDS: VITAMIN E 1,000 UNIT CAPSULE 1000 UNIT PO (08:21)
[2022-05-27] MEDS: ALBUTEROL SULFATE NEB 2.5 MG/3 ML INH INHALATION (08:42)
--- NOTE | 2022-05-27 11:49 | PM.PNCARD ---
Progress Note: A&P Assessment and Plan (1) Heart failure with reduced ejection fraction: Code(s): I50.20 - Unspecified systolic (congestive) heart failure Status: Acute Assessment and Plan: 76-year-old male with multiple medical problems including CAD, severe ischemic cardiomyopathy with recent LV EF <15%, atrial fibrillation, renal insufficiency, chronic respiratory failure/emphysema. He used to follow up with Dr. Uribe at [facility], and is scheduled to see a different oven worker. I personally reviewed relevant medical information from [facility] about his cardiovascular care. Patient has declined ICD placement in the past. -patient is currently on carvedilol. Spoke with Nephrology. Patient has stage IV CKD. May add ARNI after creatinine remains stable with close monitoring of renal function -continue amiodarone for atrial fibrillation. Heart rate is controlled at present. He is currently on anticoagulation with rivaroxaban. -patient's prognosis is guarded (2) Ischemic cardiomyopathy: Code(s): I25.5 - Ischemic cardiomyopathy Status: Chronic Assessment and Plan: Management as above. Continue aspirin, statin. Patient otherwise to follow up with Cardiology as an outpatient. (3) Persistent atrial fibrillation: Code(s): I48.19 - Other persistent atrial fibrillation Status: Acute Assessment and Plan: Continue beta-ashly, amiodarone, and anticoagulation with rivaroxaban. (4) Septicemia: Code(s): A41.9 - Sepsis, unspecified organism Status: Acute Assessment and Plan: Patient has MSSA bacteremia. VALERIA is recommended to rule out endocarditis. I spoke with the patient. He initially seemed to be reluctant but would like to think about it. Subjective Date/time seen: 05/27/22 11:49 Interval history: Date of service 05/27/2022-patient is sitting up at the edge of the bed, eating lunch. Denies chest pain. He has dyspnea on minimal exertion which is chronic in nature. Patient has chronic cough. He is eager to get discharged home from the hospital. Awaiting home health care. Exam Narrative: PHYSICAL EXAMINATION: GENERAL: Ill-appearing male, sitting up at the edge of the bed; oriented, no acute distress MENTAL STATUS: affect appropriate to mood EYES: Extraocular movements intact, no pallor EARS: External ears appear normal, hearing grossly normal NOSE: Normal and patent, no discharge MOUTH: Mucous membranes moist, tongue normal NECK: Supple, left neck IV line in place CHEST: Severely diminished breath sounds bilaterally HEART: Normal rate, irregular rhythm ABDOMEN: Soft, nontender NEUROLOGICAL: Alert, oriented, normal speech, no gross motor deficits MUSCULOSKELETAL: No major deformity, no amputation EXTREMITIES: No pedal edema, no clubbing, no cyanosis SKIN: Ecchymosis in the arms PSYCHIATRIC: Normal mood, appropriate affect Objective Data Vital Signs Vital Signs: Vital Signs - 24 hr 05/26/22 12:00 05/26/22 14:00 05/26/22 16:00 Temperature 36.5 C Pulse Rate 78 75 77 Respiratory Rate 18 Blood Pressure 87/69 L Pulse Oximetry 97 Oxygen Delivery 05/26/22 15:30 05/26/22 20:58 05/26/22 21:23 Temperature 36.3 C L Pulse Rate 75 75 Respiratory Rate 18 Blood Pressure 98/64 L 101/64 Pulse Oximetry 99 Oxygen Delivery 05/26/22 20:00 05/26/22 20:00 05/26/22 22:16 Temperature Pulse Rate 77 Respiratory Rate Blood Pressure Pulse Oximetry 95 Oxygen Delivery Room Air Room Air 05/27/22 00:00 05/27/22 04:00 05/27/22 05:45 Temperature 36.4 C Pulse Rate 79 71 80 Respiratory Rate 18 Blood Pressure 100/57 L Pulse Oximetry 90 Oxygen Delivery 05/27/22 08:46 05/27/22 08:47 05/27/22 08:56 Temperature Pulse Rate 85 85 86 Respiratory Rate 18 18 20 Blood Pressure Pulse Oximetry 94 Oxygen Delivery Room Air 05/27/22 08:00 05/27/22 08:0
--- NOTE | 2022-05-27 13:49 | PM.IMPN ---
Progress Note: A&P Assessment and Plan (1) Septicemia: Code(s): A41.9 - Sepsis, unspecified organism Status: Acute Assessment and Plan: Patient returns to the hospital because of increasing shortness of breath. He was tachycardic but no fevers. White count was elevated initially felt related to his steroids but more likely related to septicemia. He was started on Rocephin and Vancomycin. Blood cultures returned positive and Rocephin was increased to 2 g. Blood cultures 05/19 (2of2 bottles) growing MSSA. UCx 06/08 also growing MSSA. Echo showing EF <15% with possible left ventricular mass felt to be a calcified and chronic mass. No obvious valvular echogenic masses. Source of bacteremia is unclear but consider occult pneumonia and/or endocarditis. Endocarditis can seed the urine. WBC was 25K but improved to 13K and stable. Repeat BCx 05/21 (1of2) also growing Staph with the same sensitivities. Vancomycin stopped. Rocephin changed to Ancef 2gm IV Q12h (with PharmD ID help). Currently day 9 of IV antibiotics. BCx 05/23 NGTD. Will need 6 weeks of treatment starting on 05/23/22. IV access placed for home IV abx. (2) Chronic obstructive pulmonary disease: Code(s): J44.9 - Chronic obstructive pulmonary disease, unspecified Status: Acute Assessment and Plan: Patient has been home for 1-2 days but returns due to increasing shortness of breath. He describes having a cough, shortness of breath and wheezing. It is unclear if he was on the dexamethasone at home. Suspected COPD exacerbation. Solu-Medrol and nebulizer treatments were started on admission. Steroids stopped due to bacteremia. Symptoms resolved. Nebs changed to prn. On room air. Resolved. (3) Persistent atrial fibrillation: Code(s): I48.19 - Other persistent atrial fibrillation Status: Acute Assessment and Plan: Patient was found to be in atrial fibrillation during the last hospitalization. Duration was unknown. Was started on Xarelto at that time. He remains on Coreg. Blood pressure soft felt related to his heart failure. Amiodarone started to try to convert him. Continue Coreg as tolerated. Continue Xarelto. Cardiology consulted and appreciate their input. Continue tele. Possible cardioversion tomorrow if he remains in AFib. (4) Congestive heart failure: Code(s): I50.9 - Heart failure, unspecified Status: Acute Assessment and Plan: His BNP was 31K but more likely related to the renal failure than CHF exacerbation. Chest x-ray was clear on admission and he remained on room air. Echo showing EF <15% with diastolic dysfunction. He is on Coreg but ACEI, Entresto, Spirnolactone and Empagliflozin not appropriate at this time due to his renal function. It is documented that he has refused ICD implantation in the past but now he states he would be interested in moving forward with this. Cardiology has spoken with him about about possible ICD placement in the future. Obviously not now since he is bacteremic. Mag and Potassium remain normal. Patient is a full code. (5) Acute kidney injury superimposed on CKD: Code(s): N17.9 - Acute kidney failure, unspecified; N18.9 - Chronic kidney disease, unspecified Status: Acute Assessment and Plan: Baseline creatinine in the 2.4-[address] showing PCKD. Cr climbed to 3.2 but stable at 2.9 today. BUN was 42 last admission and climbed to 97 at last discharge probably due to steroids. HH stable. BUN climbed to 115 this admission but improving off steroids. Good UOP. Nephrology following. Continue to follow. Appreciate Nephrology input. (6) Urine retention: Code(s): R33.9 - Retention of urine, unspecified Status: Acute Assessment and Plan: Patient had trouble voiding requiring Minor placement. Probably related to inactivity. He is up ambulating now. Flomax held due to soft BP. Finesteride can also cause HoTN (as well as hyperkalemia) so will hold this
[2022-05-27] MEDS: RIVAROXABAN 15 MG TABLET PO (17:28)
[2022-05-27] MEDS: ACETAMINOPHEN 325 MG TABLET 650 MG PO (23:22)
[2022-05-28] VITALS (11 sets, daily range): BP systolic 97–142; BP diastolic 69–72; PULSE 66–88; RESP 16–18; TEMP 36.1–36.7; O2SAT 95–98
[2022-05-28] MEDS: CENTRAL LINE FLUSH 10 ML IV PUSH ×4 (05:15→20:33)
[2022-05-28] MEDS: carvediloL 12.5 MG TABLET PO ×2 (08:23→17:07)
[2022-05-28] MEDS: ceFAZolin 2 GM/D5W 50 ML 2 GM/50 ML BAG IVPB ×2 (08:23→20:33)
[2022-05-28] MEDS: AMIODARONE HCL 200 MG TABLET 400 MG PO ×2 (08:24→20:33)
[2022-05-28] MEDS: ASPIRIN 81 MG ENTERIC TABLET PO (08:24)
[2022-05-28] MEDS: ASCORBIC ACID 500 MG TABLET 1000 MG PO (08:24)
[2022-05-28] MEDS: ATORVASTATIN 10 MG TABLET PO (08:24)
[2022-05-28] MEDS: CHOLECALCIFEROL 1,000 UNITS TABLET 1000 UNITS PO (08:24)
[2022-05-28] MEDS: MULTIVITAMINS THERAPEUTIC TAB (*BKC) 1 TABLET PO (08:24)
[2022-05-28] MEDS: VITAMIN E 1,000 UNIT CAPSULE 1000 UNIT PO (08:25)
[2022-05-28] MEDS: ZINC SULFATE 220 MG CAPSULE PO (08:25)
[2022-05-28] MEDS: PANTOPRAZOLE 40 MG TABLET PO (08:25)
[2022-05-28] MEDS: CALCIUM CARBONATE (OSCAL) 500 MG TABLET 1000 MG PO (08:25)
[2022-05-28] MEDS: FLUTICASONE/UMECLIDIN/VILANTER 100-62.5-25 MCG ELLIPTA 1 PUFF INHALATION (09:14)
[2022-05-28 13:45] LABS: Hemoglobin 11.4 g/dL (14.0-18.0)
--- NOTE | 2022-05-28 15:21 | PM.PNNEP ---
Progress Note: A&P Assessment and Plan (1) Chronic kidney disease, stage 4 (severe): Code(s): N18.4 - Chronic kidney disease, stage 4 (severe) Status: Chronic Assessment and Plan: secondary to polycystic kidney disease in combination with a degree of cardiorenal syndrome/CAD/vascular disease No headaches, flank pain, hematuria, or kidney stones. baseline creatinine runs ~ 2.5 - 3.0mg/dl in the last several years from records that are available follows with outpatient nephrology (Dr. Ginna Guerrero at [facility]) he seems to be close to his baseline renal function however, COVID-19 infection has been known to affect kidney function Will continue to follow intermittently. Subjective Date/time seen: 05/28/22 15:21 Chart reviewed since last seen - assuming care from Dr. Gonsalez; despite multiple issues since hospitalization began, his kidney/renal function remains fairly stable; at bedside and we discussed the situation; no apparent distress noted. Exam Narrative: General: WD/WN male in NAD Heart: normal S1 and S2; IRRR, no rub Lungs: clear to auscultation Abdomen: soft, nontender, nondistended, positive bowel sounds Extremities: no cyanosis or clubbing; trace edema Skin: warm and intact Objective Data Vital Signs Vital Signs: Vital Signs Temp Pulse Resp BP Pulse Ox O2 Del Method 05/28/22 14:00 36.1 C L 72 16 97/70 L 97 05/28/22 12:00 86 05/28/22 08:00 73 05/28/22 08:00 Room Air 05/28/22 09:15 95 Room Air 05/28/22 06:00 36.2 C L 74 18 102/69 98 05/28/22 04:00 67 05/28/22 00:00 67 05/27/22 22:00 36.6 C 75 18 95/68 L 99 05/27/22 20:00 84 Room Air 05/27/22 20:00 72 05/27/22 21:12 84 Intake/Output Intake/Output: Intake & Output 05/25/22 05/26/22 05/27/22 05/28/22 23:59 23:59 23:59 23:59 Intake Total 600 2170 2000 1162 Output Total 1550 1250 1201 520 Balance -950 920 799 642 Meds/Results Medications: Active Medications Generic Name Dose Route Start Last Admin Trade Name Tarah PRN Reason Stop Dose Admin Acetaminophen 650 mg 05/22/22 18:35 05/27/22 23:22 Acetaminophen 325 Mg Tablet PO 650 mg Q4H PRN Administration Headache Albuterol 2.5 mg 05/23/22 18:26 05/27/22 08:42 Albuterol Sulfate Neb 2.5 Mg/3 Ml Inh INHALATION 2.5 mg Q6HRT PRN Administration Shortness Of Breath Or Wheezing Albuterol 2 puff 05/24/22 05:01 05/24/22 11:05 Albuterol Sulfate (*Sp) Inhaler INHALATION 2 puff BID PRN Administration Shortness Of Breath Amiodarone HCl 400 mg 05/24/22 10:15 05/28/22 08:24 Amiodarone Hcl 200 Mg Tablet PO 400 mg Q12HR GEREMIAS Administration Ascorbic Acid 1,000 mg 05/20/22 09:00 05/28/22 08:24 Ascorbic Acid 500 Mg Tablet PO 1,000 mg DAILY GEREMIAS Administration Aspirin 81 mg 05/20/22 09:00 05/28/22 08:24 Aspirin 81 Mg Enteric Tablet PO 81 mg DAILY GEREMIAS Administration Atorvastatin Calcium 10 mg 05/20/22 09:00 05/28/22 08:24 Atorvastatin 10 Mg Tablet PO 10 mg DAILY GEREMIAS Administration Calcium Carbonate 1,000 mg 05/20/22 09:00 05/28/22 08:25 Calcium Carbonate (Oscal) 500 Mg Tablet PO 1,000 mg QAM GEREMIAS Administration Carvedilol 12.5 mg 05/20/22 08:00 05/28/22 17:07 Carvedilol 12.5 Mg Tablet PO 12.5 mg BIDWM GEREMIAS Administration Docusate Sodium 100 mg 05/25/22 21:00 05/28/22 08:25 Docusate Sodium 100 Mg Capsule PO Not Given Q12HR GEREMIAS Fluticasone/Umeclidinium/Vilanterol 1 puff 05/20/22 08:00 05/28/22 09:14 Fluticasone/Umeclidin/Vilanter 100-62.5-25 Mcg Ellipta INHALATION 1 puff DAILYRT GEREMIAS Administration Cefazolin Sodium 2 gm in 50 mls @ 100 mls/hr 05/24/22 09:00 07/11/22 08:23 Ancef 2 Gm/D5w 50 Ml IVPB 100 mls/hr Q12H GEREMIAS Administration Multivitamins Therapeutic 1 tablet 05/20/22 09:00 05/28/22 08:24 Multivitamins Therapeutic Tab (*Bkc) PO 1 tab
--- NOTE | 2022-05-28 15:26 | PM.IMPN ---
Progress Note: A&P Assessment and Plan (1) Hematoma: Code(s): T14.8XXA - Other injury of unspecified body region, initial encounter Status: Acute Assessment and Plan: Patient with large bruising to the left leg. CT A/P and femur showing 10x9cm mass left adductor clinically felt to be a hematoma. Hgb has dropped to 11.4 today. Will stop Xarelto. Serial HH to determine stability. (2) Septicemia: Code(s): A41.9 - Sepsis, unspecified organism Status: Acute Assessment and Plan: Patient returns to the hospital because of increasing shortness of breath. He was tachycardic but no fevers. White count was elevated initially felt related to his steroids but more likely related to septicemia. He was started on Rocephin and Vancomycin. Blood cultures returned positive and Rocephin was increased to 2 g. Blood cultures 05/19 (2of2 bottles) growing MSSA. UCx 06/08 also growing MSSA. Echo showing EF <15% with possible left ventricular mass felt to be a calcified and chronic mass. No obvious valvular echogenic masses. Source of bacteremia is unclear but consider occult pneumonia and/or endocarditis. Endocarditis can seed the urine. VALERIA was considered by cardiology but didn't feel this would add anything. WBC was 25K but improved to 13K and stable. Repeat BCx 05/21 (1of2) also growing Staph with the same sensitivities. Vancomycin stopped. Rocephin changed to Ancef 2gm IV Q12h (with PharmD ID help). BCx / NGTD. Will need 6 weeks of treatment starting on 05/23/22. IV access placed for home IV abx. (3) Congestive heart failure: Code(s): I50.9 - Heart failure, unspecified Status: Acute Assessment and Plan: His BNP was 31K but more likely related to the renal failure than CHF exacerbation. Chest x-ray was clear on admission and he remained on room air. Echo showing EF <15% with diastolic dysfunction. He is on Coreg but ACEI, Entresto, Spirnolactone and Empagliflozin not appropriate at this time due to his renal function. It is documented that he has refused ICD implantation in the past but now he states he would be interested in moving forward with this. Cardiology has spoken with him about about possible ICD placement in the future. Obviously not now since he is bacteremic. Mag and Potassium were monitored closely. Patient is a full code. CT scan today showing CMG, mild basilar pulmonary edema and small bilateral effusions. Will check CXR. (4) Persistent atrial fibrillation: Code(s): I48.19 - Other persistent atrial fibrillation Status: Acute Assessment and Plan: Patient was found to be in atrial fibrillation during the last hospitalization. Duration was unknown. Was started on Xarelto at that time. He remains on Coreg. Blood pressure soft felt related to his heart failure and/or from the acute blood loss. Amiodarone started to try to convert him. Continue Coreg as tolerated. Cardiology consulted and appreciate their input. Continue tele. Stop Xarelto. (5) Chronic obstructive pulmonary disease: Code(s): J44.9 - Chronic obstructive pulmonary disease, unspecified Status: Acute Assessment and Plan: Patient has been home for 1-2 days but returns due to increasing shortness of breath. He describes having a cough, shortness of breath and wheezing. It is unclear if he was on the dexamethasone at home. Suspected COPD exacerbation. Solu-Medrol and nebulizer treatments were started on admission. Steroids stopped due to bacteremia. Symptoms resolved. Nebs changed to prn. On room air. Resolved. (6) Acute kidney injury superimposed on CKD: Code(s): N17.9 - Acute kidney failure, unspecified; N18.9 - Chronic kidney disease, unspecified Status: Acute Assessment and Plan: Baseline creatinine in the 2.4-[address] showing PCKD. Cr climbed to 3.2 but stable at 2.9. BUN was 42 last admission and climbed to 97 at last discharge probably due to steroids. HH stable. BU
[2022-05-28 18:50] LABS: Hematocrit 34.5 % (42.0-52.0); Hemoglobin 11.4 g/dL (14.0-18.0)
[2022-05-28] MEDS: diphenhydrAMINE HCl CAP 25 MG CAPSULE PO (23:57)
[2022-05-28] MEDS: MELATONIN 5 MG TABLET PO (23:57)
[2022-05-28] MEDS: ACETAMINOPHEN 325 MG TABLET 650 MG PO (23:57)
[2022-05-29] VITALS (15 sets, daily range): BP systolic 91–142; BP diastolic 60–71; PULSE 61–83; RESP 16–20; TEMP 36.6–36.7; O2SAT 96–98
[2022-05-29 01:31] LABS: Hematocrit 31.1 % (42.0-52.0); Hemoglobin 10.4 g/dL (14.0-18.0)
[2022-05-29] MEDS: CENTRAL LINE FLUSH 10 ML IV PUSH ×4 (06:06→22:15)
[2022-05-29 06:25] LABS: Hematocrit 31.5 % (42.0-52.0); Hemoglobin 10.7 g/dL (14.0-18.0); Mean Corpuscular Hemoglobin 33.8 pg (26-34); Mean Corpuscular Volume 99.4 fl (80-100); Mean Platelet Volume 11.7 fl (7.4-10.4); Platelet Count Result 179 k/mm3 (150-375); Red Blood Count 3.17 M/mm3 (4.6-6.20); Red Cell Distribution Width 14.9 % (11.5-14.5); White Blood Count 10.6 K/mm3 (4.5-10.0)
[2022-05-29 06:39] LABS: Anion Gap 3 mmol/L (8-16); Blood Urea Nitrogen 75 mg/dL (9-20); Calcium 8.6 mg/dL (8.4-10.2); Carbon Dioxide 26 mmol/L (22-30); Chloride 108 mmol/L (98-107); Estimated CRCL calculation 22 ml/min; Estimated Glomerular Filt Rate 22; Glucose 74 mg/dL (65-110); Potassium 4.4 mmol/L (3.4-5.0); Sodium 137 mmol/L (137-145)
[2022-05-29] MEDS: ASCORBIC ACID 500 MG TABLET 1000 MG PO (09:00)
[2022-05-29] MEDS: VITAMIN E 1,000 UNIT CAPSULE 1000 UNIT PO (09:00)
[2022-05-29] MEDS: CALCIUM CARBONATE (OSCAL) 500 MG TABLET 1000 MG PO (09:01)
[2022-05-29] MEDS: PANTOPRAZOLE 40 MG TABLET PO (09:01)
[2022-05-29] MEDS: MULTIVITAMINS THERAPEUTIC TAB (*BKC) 1 TABLET PO (09:01)
[2022-05-29] MEDS: AMIODARONE HCL 200 MG TABLET 400 MG PO (09:01)
[2022-05-29] MEDS: carvediloL 12.5 MG TABLET PO ×2 (09:02→16:07)
[2022-05-29] MEDS: CHOLECALCIFEROL 1,000 UNITS TABLET 1000 UNITS PO (09:02)
[2022-05-29] MEDS: ATORVASTATIN 10 MG TABLET PO (09:02)
[2022-05-29] MEDS: ZINC SULFATE 220 MG CAPSULE PO (09:02)
[2022-05-29] MEDS: ceFAZolin 2 GM/D5W 50 ML 2 GM/50 ML BAG IVPB ×2 (09:07→21:29)
[2022-05-29] MEDS: FLUTICASONE/UMECLIDIN/VILANTER 100-62.5-25 MCG ELLIPTA 1 PUFF INHALATION (09:09)
--- NOTE | 2022-05-29 09:20 | PM.IMPN ---
Progress Note: A&P Assessment and Plan (1) Hematoma: Code(s): T14.8XXA - Other injury of unspecified body region, initial encounter Status: Acute Assessment and Plan: Patient with large bruising to the left leg. It appears he fell from a standing position hitting his left thigh against the toilet seat on 05/26. CT A/P and femur showing 10x9cm mass left adductor clinically felt to be a hematoma. Hgb has dropped to 10.7 today. Xarelto stopped. Hold ASA. Serial HH to determine stability. General surgery consult. (2) Septicemia: Code(s): A41.9 - Sepsis, unspecified organism Status: Acute Assessment and Plan: Patient returns to the hospital because of increasing shortness of breath. He was tachycardic but no fevers. White count was elevated initially felt related to his steroids but more likely related to septicemia. He was started on Rocephin and Vancomycin. Blood cultures returned positive and Rocephin was increased to 2 g. Blood cultures 05/19 (2of2 bottles) growing MSSA. UCx 06/08 also growing MSSA. Echo showing EF <15% with possible left ventricular mass felt to be a calcified and chronic mass. No obvious valvular echogenic masses. Source of bacteremia is unclear but consider occult pneumonia and/or endocarditis. Endocarditis can seed the urine. VALERIA was considered by cardiology but didn't feel this would add anything. WBC was 25K but improved to 13K and stable. Repeat BCx 05/21 (1of2) also growing Staph with the same sensitivities. Vancomycin stopped. Rocephin changed to Ancef 2gm IV Q12h (with PharmD ID help). BCx 05/23 NGTD. Will need 6 weeks of treatment starting on 05/23/22. IV access placed for home IV abx. (3) Congestive heart failure: Code(s): I50.9 - Heart failure, unspecified Status: Acute Assessment and Plan: His BNP was 31K but more likely related to the renal failure than CHF exacerbation. Chest x-ray was clear on admission and he remained on room air. Echo showing EF <15% with diastolic dysfunction. He is on Coreg but ACEI, Entresto, Spirnolactone and Empagliflozin not appropriate at this time due to his renal function. It is documented that he has refused ICD implantation in the past but now he states he would be interested in moving forward with this. Cardiology has spoken with him about about possible ICD placement in the future. Obviously not now since he is bacteremic. Mag and Potassium were monitored closely. Patient is a full code. CT scan showing CMG, mild basilar pulmonary edema and small bilateral effusions. CXR however does not show felisa pulmonary edema. he has a cough but appears more chronic. Continue to monitor. Consider lasix if he develops worsening cough, wheezing or hypoxia. (4) Persistent atrial fibrillation: Code(s): I48.19 - Other persistent atrial fibrillation Status: Acute Assessment and Plan: Patient was found to be in atrial fibrillation during the last hospitalization. Duration was unknown. Was started on Xarelto at that time. He remains on Coreg. Blood pressure soft felt related to his heart failure and/or from the acute blood loss. Amiodarone started to try to convert him. Continue Coreg as tolerated. Cardiology consulted and appreciate their input. Continue tele. Stop Xarelto. Spoke with Cardiology about the risk if patient cardioverts now that he is off Xarelto. They will evaluate his today. (5) Chronic obstructive pulmonary disease: Code(s): J44.9 - Chronic obstructive pulmonary disease, unspecified Status: Acute Assessment and Plan: Patient has been home for 1-2 days but returns due to increasing shortness of breath, cough, shortness of breath and wheezing suspected COPD exacerbation. Solu-Medrol and nebulizer treatments were started on admission. Steroids stopped due to bacteremia. Symptoms resolved but has residual cough. Nebs changed to prn. Continue Trelegy. He remains on room air. Resolved. Add Mucinex (
[2022-05-29 10:34] LABS: Hematocrit 32.2 % (42.0-52.0); Hemoglobin 10.8 g/dL (14.0-18.0)
--- NOTE | 2022-05-29 11:03 | PM.CNGS ---
Assessment and Plan Assessment and plan (1) Hematoma: Code(s): T14.8XXA - Other injury of unspecified body region, initial encounter Status: Acute Assessment and Plan: He appears to have a hematoma in the left adductor muscular compartment, likely traumatic in nature related to the fall on Saturday. There is no evidence of overlying skin necrosis or concern for compartment syndrome at this time. He is hemodynamically stable and his hemoglobin has had a very slow downward trend but remains stable. Would recommend to continue holding his anticoagulation and apply compression with robert wraps. No indication for surgical intervention at this time. Continue to monitor his H/H and will reassess the hematoma again tomorrow. (2) Anticoagulated by anticoagulation treatment: Code(s): Z79.01 - prison (current) use of anticoagulants Status: Acute Assessment and Plan: Patient was taking Xarelto for atrial fibrillation. This was held due to the left leg hematoma with the last dose on 05/27/22. Continue to hold Xarelto. (3) Septicemia: Code(s): A41.9 - Sepsis, unspecified organism Status: Acute Assessment and Plan: Blood cx 2/2 positive MSSA on 05/19 and had repeat blood cx on 05/21 and 05/23, with 05/23 blood cx negative. ID pharmacist was consulted and currently on IV Cefazolin. Management per Hospitalist. (4) Heart failure with reduced ejection fraction: Code(s): I50.20 - Unspecified systolic (congestive) heart failure Status: Acute Assessment and Plan: Echocardiogram on 05/21/22 with an EF of less than 15%. Cardiology following. (5) Acute kidney injury superimposed on CKD: Code(s): N17.9 - Acute kidney failure, unspecified; N18.9 - Chronic kidney disease, unspecified Status: Acute (6) Chronic obstructive pulmonary disease: Code(s): J44.9 - Chronic obstructive pulmonary disease, unspecified Status: Acute (7) Persistent atrial fibrillation: Code(s): I48.19 - Other persistent atrial fibrillation Status: Acute (8) Ischemic cardiomyopathy: Code(s): I25.5 - Ischemic cardiomyopathy Status: Chronic (9) Coronary artery disease: Code(s): I25.10 - Atherosclerotic heart disease of campo coronary artery without angina pectoris Status: Acute Plan I have discussed the patient's case and plan of care with Dr. Salamanca. Thank you for allowing us to see the patient in consultation and we will continue to follow along with you. History of Present Illness Consult details Consult date: 05/29/22 Reason for consult: other (Left thigh hematoma) Requesting physician: Vaughn Pro MD Narrative: This is a 76-year-old male with multiple medical problems who was diagnosed with COVID in late April and was admitted and treated for COVID pneumonia. He was discharged on 05/17/22 and returned to the ER on 05/19/22 with complaints of shortness of breath. He was admitted to the Hospitalist service for further treatment. Pulmonology was consulted and he has been treated for a combination of his chronic lung disease and possible prolonged symptoms of his COVID pneumonia. He was also found to be in atrial fibrillation and had decompensated heart failure with an echocardiogram on 05/21/22 that showed an EF of less than 15%. He does have ischemic cardiomyopathy and has followed a Aml Analyst at [facility] for many years. Cardiology has been following and initially continued his anticoagulation and was going to have him follow-up with his Aml Analyst as an outpatient. He also had a WBC count of 14.8K on admission that peaked at 25.1K, which was initially felt to be related to his steroids. Then, he had blood cultures from 05/19/22 come back positive 12/20 for MSSA. The source was felt to be either pulmonary or from endocarditis. He was started on IV antibiotics. It appears there has been some consideration of a VALERIA with cardioversion, but he developed ecchymosi
[2022-05-29] MEDS: ALBUTEROL SULFATE NEB 2.5 MG/3 ML INH INHALATION (12:10)
[2022-05-29] MEDS: guaiFENesin 12 HR 600 MG TABCR PO ×2 (12:42→21:29)
--- NOTE | 2022-05-29 16:30 | PM.PNCARD ---
Progress Note: A&P Assessment and Plan (1) Hematoma: Code(s): T14.8XXA - Other injury of unspecified body region, initial encounter Status: Acute (2) Persistent atrial fibrillation: Code(s): I48.19 - Other persistent atrial fibrillation Status: Acute (3) Congestive heart failure: Code(s): I50.9 - Heart failure, unspecified Status: Acute Plan 76-year-old man with: Chronic ischemic cardiomyopathy he also has the recent development of atrial fibrillation. Stable good rate control with amiodarone and his beta-ashly. Anticoagulation had to be stopped because of the hematoma that he has developed in his left thigh. I am going to reduce his amiodarone to 400 mg daily at this time and I doubt he will medically cardiovert given the extensive dilated cardiomyopathy that he has. 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 Central IV access has been placed for long-term anti antibiotics. Once things are felt to be stable enough regarding his thigh hematoma he can be discharged for follow-up with his physicians and at [facility]. Jimmy Torres MD [facility] Subjective Date/time seen: Date of service: 05/29/22 16:30 Interval history: Follow-up visit in this 76-year-old man with: Severe ischemic cardiomyopathy with previous PA and low ejection fraction. Patient now has recent development of atrial fibrillation. Patient is hospitalized with pneumonia as well. Amiodarone has been started in anticipation of considering cardioversion in the foreseeable future. Apixaban was started for anticoagulation and had to be stopped over this past weekend as he fell on the toilet in his hospital room creating a hematoma in his left thigh. Patient is comfortable this afternoon does not describe any complaints. Exam Const: General: comfortable and no acute distress Other: Frail elderly gentleman pleasant cooperative no distress HENMT: Mouth: Yes moist mucous membranes Eyes: Sclera: sclerae normal Pupils: Equal, round and reactive pupils present Neck: Neck: supple Other: No significant venous distention Resp: Auscultation: clear to auscultation bilaterally and diminished lung sounds Cardio: Rhythm: abnormal rhythm irregularly irregular GI: GI Palp: Yes Soft to palpation Auscultation: normal bowel sounds Skin: General skin exam: normal color Neuro: Other: Normal cognition Extrem: Other: Year no edema, resolving hematoma in the left thigh in an Tao wrap Objective Data Vital Signs Vital Signs: Vital Signs - 24 hr 05/28/22 20:33 05/28/22 20:00 05/28/22 22:00 Temperature 36.7 C Pulse Rate 88 80 Respiratory Rate 16 Blood Pressure 142/72 H Pulse Oximetry 96 Oxygen Delivery Room Air 05/28/22 20:00 05/29/22 00:00 05/29/22 04:00 Temperature Pulse Rate 71 79 81 Respiratory Rate Blood Pressure Pulse Oximetry Oxygen Delivery 05/29/22 05:21 05/29/22 09:01 05/29/22 09:02 Temperature 36.7 C Pulse Rate 76 83 83 Respiratory Rate 18 Blood Pressure 142/70 H Pulse Oximetry 97 Oxygen Delivery 05/29/22 09:10 05/29/22 12:10 05/29/22 12:17 Temperature Pulse Rate 65 66 Respiratory Rate 20 20 Blood Pressure Pulse Oximetry 96 Oxygen Delivery Room Air 05/29/22 08:00 05/29/22 13:46 05/29/22 16:07 Temperature 36.6 C Pulse Rate 66 73 77 Respiratory Rate 20 18 Blood Pressure 92/60 L Pulse Oximetry 96 98 Oxygen Delivery Room Air Intake/Output Intake/Output: Intake & Output 05/26/22 05/27/22 05/28/22 05/29/22 23:59 23:59 23:59 23:59 Intake Total 2170 2000 1262 1030 Output Total 1250 1201 520 100 Balance 920 799 742 930 Meds/Results Medications: Active Medications Generic Name Dose Route Start Last Admin Trade Name Freq PRN Reason Stop Dos
[2022-05-29 16:39] LABS: Hematocrit 32.7 % (42.0-52.0); Hemoglobin 10.7 g/dL (14.0-18.0)
[2022-05-29] MEDS: DOCUSATE SODIUM 100 MG CAPSULE PO (21:29)
[2022-05-29] MEDS: MELATONIN 5 MG TABLET PO (21:30)
[2022-05-29] MEDS: ACETAMINOPHEN 325 MG TABLET 650 MG PO (21:34)
[2022-05-29 22:59] LABS: Hematocrit 30.7 % (42.0-52.0); Hemoglobin 10.4 g/dL (14.0-18.0)
[2022-05-30] VITALS (17 sets, daily range): BP systolic 89–110; BP diastolic 55–73; PULSE 61–82; RESP 16–20; TEMP 36.3; O2SAT 96–99
[2022-05-30] MEDS: ALBUTEROL SULFATE NEB 2.5 MG/3 ML INH INHALATION (00:21)
[2022-05-30] MEDS: CENTRAL LINE FLUSH 10 ML IV PUSH ×3 (05:57→21:01)
[2022-05-30 06:04] LABS: Hematocrit 30.4 % (42.0-52.0); Hemoglobin 10.2 g/dL (14.0-18.0)
[2022-05-30] MEDS: FLUTICASONE/UMECLIDIN/VILANTER 100-62.5-25 MCG ELLIPTA 1 PUFF INHALATION (08:02)
[2022-05-30] MEDS: CALCIUM CARBONATE (OSCAL) 500 MG TABLET 1000 MG PO (09:20)
[2022-05-30] MEDS: VITAMIN E 1,000 UNIT CAPSULE 1000 UNIT PO (09:20)
[2022-05-30] MEDS: AMIODARONE HCL 200 MG TABLET 400 MG PO (09:20)
[2022-05-30] MEDS: guaiFENesin 12 HR 600 MG TABCR PO ×2 (09:21→20:56)
[2022-05-30] MEDS: MULTIVITAMINS THERAPEUTIC TAB (*BKC) 1 TABLET PO (09:21)
[2022-05-30] MEDS: ZINC SULFATE 220 MG CAPSULE PO (09:21)
[2022-05-30] MEDS: CHOLECALCIFEROL 1,000 UNITS TABLET 1000 UNITS PO (09:21)
[2022-05-30] MEDS: ATORVASTATIN 10 MG TABLET PO (09:21)
[2022-05-30] MEDS: PANTOPRAZOLE 40 MG TABLET PO (09:21)
[2022-05-30] MEDS: ASCORBIC ACID 500 MG TABLET 1000 MG PO (09:22)
[2022-05-30] MEDS: ceFAZolin 2 GM/D5W 50 ML 2 GM/50 ML BAG IVPB ×2 (09:22→20:55)
[2022-05-30] MEDS: carvediloL 12.5 MG TABLET PO ×2 (09:22→17:00)
--- NOTE | 2022-05-30 13:05 | PM.IMPN ---
Progress Note: A&P Assessment and Plan (1) Hematoma: Code(s): T14.8XXA - Other injury of unspecified body region, initial encounter Status: Acute Assessment and Plan: Patient with large bruising to the left leg. It appears he fell from a standing position hitting his left thigh against the toilet seat on 05/26. CT A/P and femur showing 10x9cm mass left adductor clinically felt to be a hematoma. Xarelto and aspirin stopped. Serial HH to determine stability. Hgb has dropped to 10 range and appears to be stable. General surgery consulted and appreciate their input (2) Septicemia: Code(s): A41.9 - Sepsis, unspecified organism Status: Acute Assessment and Plan: Patient returns to the hospital because of increasing shortness of breath. He was tachycardic but no fevers. White count was elevated initially felt related to his steroids but more likely related to septicemia. He was started on Rocephin and Vancomycin. Blood cultures returned positive and Rocephin was increased to 2 g. Blood cultures 05/19 (2of2 bottles) growing MSSA. UCx 06/08 also growing MSSA. Echo showing EF <15% with possible left ventricular mass felt to be a calcified and chronic mass. No obvious valvular echogenic masses. Source of bacteremia is unclear but consider occult pneumonia and/or endocarditis. Endocarditis can seed the urine. VALERIA was considered by cardiology but didn't feel this would add anything. WBC was 25K but improved. Repeat BCx 05/21 (1of2) also growing Staph with the same sensitivities. Vancomycin stopped. Rocephin changed to Ancef 2gm IV Q12h (with PharmD ID help). BCx 05/23 NGTD. Will need 6 weeks of treatment starting on 05/23/22. IV access placed for home IV abx. (3) Congestive heart failure: Code(s): I50.9 - Heart failure, unspecified Status: Acute Assessment and Plan: His BNP was 31K but more likely related to the renal failure than CHF exacerbation. Chest x-ray was clear on admission and he remained on room air. Echo showing EF <15% with diastolic dysfunction. He is on Coreg but ACEI, Entresto, Spirnolactone and Empagliflozin not appropriate at this time due to his renal function. It is documented that he has refused ICD implantation in the past but now he states he would be interested in moving forward with this. Cardiology has spoken with him about about possible ICD placement in the future. Obviously not now since he is bacteremic. Mag and Potassium were monitored closely. Patient is a full code. CT showing CMG, mild basilar pulmonary edema and small bilateral effusions. CXR however does not show felisa pulmonary edema. Continue to monitor. Consider lasix if he develops worsening cough, wheezing, SOB or hypoxia. (4) Persistent atrial fibrillation: Code(s): I48.19 - Other persistent atrial fibrillation Status: Acute Assessment and Plan: Patient was found to be in atrial fibrillation during the last hospitalization. Duration was unknown. Was started on Xarelto at that time. He remains on Coreg. Blood pressure soft felt related to his heart failure and/or from the acute blood loss. Amiodarone started. Continue Coreg as tolerated. Cardiology consulted and appreciate their input. Continue tele. Stop Xarelto. Spoke with Cardiology about the risk if patient cardioverts now that he is off Xarelto. Plan is to continue Amio in case he has cardioversion at a later time. (5) Chronic obstructive pulmonary disease: Code(s): J44.9 - Chronic obstructive pulmonary disease, unspecified Status: Acute Assessment and Plan: Patient has been home for 1-2 days but returns due to increasing shortness of breath, cough, shortness of breath and wheezing suspected COPD exacerbation. Solu-Medrol and nebulizer treatments were started on admission. Steroids stopped due to bacteremia. Symptoms resolved but has residual cough. Nebs changed to prn. Continue Trelegy. He remains on room air. Resolved. (
--- NOTE | 2022-05-30 16:34 | PM.PNGS ---
Progress Note: A&P Assessment and Plan (1) Hematoma: Code(s): T14.8XXA - Other injury of unspecified body region, initial encounter Status: Acute Assessment and Plan: This is in the abductor compartment of his left thigh. CT reviewed. At this time would recommend avoiding anticoagulation for a time period of about a further 2 weeks. Toward the end of that consider getting an ultrasound of the thigh and as long as the hematoma has begun to be reabsorbed and has not enlarged, anticoagulation could probably be re- started. This would perhaps allow the patient to have his cardioversion 4-5 weeks from now if that is acceptable to cardiology. I have talked with the patient and his about going ahead and using the Tao wrap for compression for least another week and then they can stop that if long as things get better. If they began noticing increased swelling they should resume it. No need to follow-up with me unless this becomes more swollen PCP can follow. (2) Anticoagulated by anticoagulation treatment: Code(s): Z79.01 - technician terminal and repeater (current) use of anticoagulants Status: Acute Assessment and Plan: Patient needs anticoagulation because of his atrial fibrillation and possible need for cardioversion. However, he fell and had trauma to the left thigh leading to development of a hematoma as shown by the CT scan of his left lower extremity. (3) Septicemia: Code(s): A41.9 - Sepsis, unspecified organism Status: Acute Assessment and Plan: The other documentation shows patient may have occult infection of a heart valve or pneumonia. (MSSA) see medical note for plans for treatment. Since the patient was on IV antibiotics at the time of the injury I doubt that this would have been seeded by the blood infection. I have however discussed with patient and to remove the Tao wrap at least daily and inspect the area and if signs of infection develop they should be letting their physician know. Subjective Subjective Date/Time Seen: 05/30/22 16:34 Patient reports: no new complaints and other (No increase in swelling upper leg on left.) Interval history: Patient seen in follow-up for left leg hematoma. Patient and have not noticed any increase in size in the swelling. They have noticed that the Tao wrap was put on in variable places. I counseled them was where I thought it might be best used. Review of Systems Review of Systems: All systems reviewed & are unremarkable except as noted in HPI and below Constitutional: Constitutional: Reports as per HPI, Denies chills and Denies fever(s) Cardiovascular: Cardiovascular: Denies chest pain and Denies dyspnea Respiratory: Respiratory: Reports no additional respiratory complaints and Denies dyspnea Gastrointestinal: Gastrointestinal: Denies bloating Musculoskeletal: Musculoskeletal: Reports no additional musculoskeletal complaints Psychiatric: Psychiatric: Denies anxiety Exam Skin: General skin exam: normal color, elasticity normal, atrophy and ecchymosis (Mainly on the mid and lower thigh left side.) Other: There is definitely increased tissue fullness in the left medial thigh when compared to the right. Extrem: Left lower extremity: hip/thigh Details: ecchymosis (With underlying tissue fullness) and other (Tao wrap was from the mid thigh to the upper calf across the knee when I entered the room. No skin breakdown.); no penetrating wound Objective Data Vital Signs Vital Signs: Vital Signs - 24 hr 05/29/22 22:00 05/30/22 00:10 05/30/22 00:22 Temperature 36.7 C Pulse Rate 77 67 69 Respiratory Rate 16 20 20 Blood Pressure 91/71 L Pulse Oximetry 98 Oxygen Delivery 05/29/22 20:00 05/29/22 20:00 05/30/22 00:00 Temperature Pulse Rate 72 69 77 Respiratory Rate Blood Pressure Pulse Oximetry Oxygen Delivery Room Air 05/30/22 04:00 05/30/22 06:00 05/30/22 08:03 Temperature 36.3 C L Pulse
[2022-05-30] MEDS: DOCUSATE SODIUM 100 MG CAPSULE PO (20:55)
[2022-05-30] MEDS: MELATONIN 5 MG TABLET PO (22:59)
[2022-05-31] VITALS (19 sets, daily range): BP systolic 92–121; BP diastolic 59–79; PULSE 66–96; RESP 14–18; TEMP 36.2–36.6; O2SAT 92–99
[2022-05-31] MEDS: CENTRAL LINE FLUSH 10 ML IV PUSH ×3 (05:54→22:00)
[2022-05-31 06:19] LABS: Hemoglobin 10.3 g/dL (14.0-18.0); Mean Corpuscular HGB Conc 32.2 g/dl (32-36); Mean Corpuscular Hemoglobin 33.9 pg (26-34); Mean Corpuscular Volume 105.3 fl (80-100); Mean Platelet Volume 11.3 fl (7.4-10.4); Platelet Count Result 155 k/mm3 (150-375); Red Blood Count 3.04 M/mm3 (4.6-6.20); Red Cell Distribution Width 16.2 % (11.5-14.5); White Blood Count 11.3 K/mm3 (4.5-10.0)
[2022-05-31 06:26] LABS: Albumin Level 2.5 g/dL (3.5-5.1); Anion Gap 1 mmol/L (8-16); Blood Urea Nitrogen 67 mg/dL (9-20); Calcium 8.6 mg/dL (8.4-10.2); Carbon Dioxide 26 mmol/L (22-30); Chloride 108 mmol/L (98-107); Estimated CRCL calculation 18 ml/min; Estimated Glomerular Filt Rate 22; Glucose 79 mg/dL (65-110); Magnesium 2.2 mg/dL (1.6-2.3); Phosphorus 2.6 mg/dL (2.5-4.5); Potassium 4.4 mmol/L (3.4-5.0); Sodium 135 mmol/L (137-145)
[2022-05-31] MEDS: FLUTICASONE/UMECLIDIN/VILANTER 100-62.5-25 MCG ELLIPTA 1 PUFF INHALATION (08:12)
[2022-05-31] MEDS: MULTIVITAMINS THERAPEUTIC TAB (*BKC) 1 TABLET PO (09:15)
[2022-05-31] MEDS: ASCORBIC ACID 500 MG TABLET 1000 MG PO (09:15)
[2022-05-31] MEDS: AMIODARONE HCL 200 MG TABLET 400 MG PO (09:15)
[2022-05-31] MEDS: CHOLECALCIFEROL 1,000 UNITS TABLET 1000 UNITS PO (09:15)
[2022-05-31] MEDS: VITAMIN E 1,000 UNIT CAPSULE 1000 UNIT PO (09:15)
[2022-05-31] MEDS: ZINC SULFATE 220 MG CAPSULE PO (09:16)
[2022-05-31] MEDS: CALCIUM CARBONATE (OSCAL) 500 MG TABLET 1000 MG PO (09:16)
[2022-05-31] MEDS: PANTOPRAZOLE 40 MG TABLET PO (09:16)
[2022-05-31] MEDS: ATORVASTATIN 10 MG TABLET PO (09:17)
[2022-05-31] MEDS: ceFAZolin 2 GM/D5W 50 ML 2 GM/50 ML BAG IVPB ×2 (09:17→20:26)
--- NOTE | 2022-05-31 10:30 | PM.DS ---
DS: Admitting Diagnosis Discharge Date 05/31/22 Admitting Diagnosis Shortness of breath DS: Discharge Diagnosis Discharge Diagnosis (1) Hematoma: Code(s): T14.8XXA - Other injury of unspecified body region, initial encounter Status: Acute Assessment and Plan: Patient developed a large bruising to the left leg. It appears he fell from a standing position hitting his left thigh against the toilet seat on 05/26. This was an unwitnessed fall. No head injury. CT A/P and femur showing 10x9cm mass left adductor clinically felt to be a hematoma. Xarelto and aspirin were stopped. Serial HH performed until stable. Hemoglobin was 13.5 but dropped to 10 range where remains stable. General surgery consulted. They recommended staying off anticoagulation for 2 weeks. Tao wrap to the left lower extremity for 1 week. Remove Tao wrap weekly to assess for evidence of infection or clinical changes. Thigh ultrasound in 2 weeks and if unchanged than consider resuming anticoagulation. (2) Septicemia: Code(s): A41.9 - Sepsis, unspecified organism Status: Acute Assessment and Plan: Patient returned to the hospital because of increasing shortness of breath. He was tachycardic but no fevers. White count was elevated initially felt related to his steroids but more likely related to septicemia. He was started on Rocephin and Vancomycin. Blood cultures returned positive and Rocephin was increased to 2 g. Blood cultures 05/19 (2of2 bottles) growing MSSA. UCx 06/08 also growing MSSA. Echo showing EF <15% with possible left ventricular mass felt to be a calcified and chronic mass. No obvious valvular echogenic masses by TTE. Source of bacteremia is unclear but consider occult pneumonia and/or endocarditis. Endocarditis can seed the urine. VALERIA was considered by cardiology but didn't feel this would add anything. WBC was 25K but improved. Repeat BCx 05/21 (1of2) also growing MSSA. Vancomycin stopped. Rocephin changed to Ancef 2gm IV Q12h (with PharmD ID help). BCx 05/23 NGTD. Plan for 6 weeks of treatment starting on 05/23/22. IV access placed for home IV abx. (3) Congestive heart failure: Code(s): I50.9 - Heart failure, unspecified Status: Acute Assessment and Plan: His BNP was 31K but more likely related to the renal failure than CHF exacerbation. Chest x-ray was clear on admission and he remained on room air. Echo showing EF <15% with diastolic dysfunction. We continued Coreg; ACEI, Entresto, Spirnolactone and Empagliflozin not appropriate at this time due to his renal function. It is documented that he has refused ICD implantation in the past but now he states he would be interested in moving forward with this. Cardiology has spoken with him about about possible ICD placement in the future. Obviously not now since he is bacteremic. Mag and Potassium were monitored closely. Patient is a full code. Recent CT showing CMG, mild basilar pulmonary edema and small bilateral effusions. CXR however does not show felisa pulmonary edema. He denies SOB and remains on room air. (4) Persistent atrial fibrillation: Code(s): I48.19 - Other persistent atrial fibrillation Status: Acute Assessment and Plan: Patient was found to be in atrial fibrillation during the last hospitalization in April 2022. Duration was unknown. Was started on Xarelto at that time and continued here. He remained on Coreg here. Amiodarone started. Cardiology consulted and appreciate their input. Tele monitored and patient remained in AFib. We stopped Xarelto due the development of a hematoma. Spoke with Cardiology about the risk if patient cardioverts now that he is off Xarelto but felt less likely so pwlan is to continue Amio in case he has cardioversion at a later time. (5) Chronic obstructive pulmonary disease: Code(s): J44.9 - Chronic obstructive pulmonary disease, unspecified Status: Acute Assessment and Plan: Gabriela
--- NOTE | 2022-05-31 10:51 | PM.IMPN ---
Progress Note: A&P Assessment and Plan (1) Congestive heart failure: Code(s): I50.9 - Heart failure, unspecified Status: Acute Assessment and Plan: His BNP was 31K but more likely related to the renal failure than CHF exacerbation. Chest x-ray was clear on admission and he remained on room air.? Echo showing EF <15% with diastolic dysfunction. We continued his Coreg; ACEI, Entresto, Spirnolactone and Empagliflozin not appropriate at this time due to his renal function. It is documented that he has refused ICD implantation in the past but now he states he would be interested in moving forward with this. Cardiology has spoken with him about about possible ICD placement in the future. Obviously not now since he is bacteremic. Mag and Potassium were monitored closely. Patient is a full code. Recent CT showing CMG, mild basilar pulmonary edema and small bilateral effusions. CXR however does not show felisa pulmonary edema. And patient appears euvolemic. Blood pressure soft felt related to his heart failure and/or from the acute blood loss. COreg held today. Spoke with Cardiology. Plan to decrease Coreg dose and check orthostatics to see how he does with the lower dose. Plan to monitor overnight. (2) Hematoma: Code(s): T14.8XXA - Other injury of unspecified body region, initial encounter Status: Acute Assessment and Plan: Patient with large bruising to the left leg. It appears he fell from a standing position hitting his left thigh against the toilet seat on 05/26. CT A/P and femur showing 10x9cm mass left adductor clinically felt to be a hematoma. Xarelto and aspirin stopped. Serial HH performed showing stability. Hgb was 13 but has dropped to 10 range and stable. General surgery consulted and appreciate their input. Plan for REINA wrap for 1 week removing daily to assess for clinical changes and looking for signs of infection. Will need thigh US in 2 weeks to assess size of the hematoma before resuming anticoagulation. (3) Septicemia: Code(s): A41.9 - Sepsis, unspecified organism Status: Acute Assessment and Plan: Patient returns to the hospital because of increasing shortness of breath.? He was tachycardic but no fevers.? White count was elevated initially felt related to his steroids but more likely related to septicemia. He was started on Rocephin and Vancomycin. Blood cultures returned positive and Rocephin was increased to 2 g.? Blood cultures 05/19 (2of2 bottles) growing MSSA.? UCx 06/08 also growing MSSA. Echo showing EF <15% with possible left ventricular mass felt to be a calcified and chronic mass. No obvious valvular echogenic masses. Source of bacteremia is unclear but consider occult pneumonia and/or endocarditis. Endocarditis can seed the urine. VALERIA was considered by cardiology but they didn't feel this would add anything. WBC was 25K but improved. Repeat BCx 05/21 (1of2) also growing MSSA. Vancomycin stopped. Rocephin changed to Ancef 2gm IV Q12h (with PharmD ID help). BCx 05/23 NGTD. Will need 6 weeks of treatment starting on 05/23/22. IV access placed for home IV abx.? (4) Persistent atrial fibrillation: Code(s): I48.19 - Other persistent atrial fibrillation Status: Acute Assessment and Plan: Patient was found to be in atrial fibrillation during the last hospitalization in April 2022.? Duration was unknown. He was started on Xarelto at that time. He remained on Coreg. Amiodarone started. Cardiology consulted and appreciate their input. Continue tele. We stopped Xarelto due to hematoma. Spoke with Cardiology about the risk if patient cardioverts now that he is off Xarelto but they felt low risk for him to cardiovert with the Amio. Plan is to continue Amio in case he has cardioversion at a later time. Decrease Coreg as above. (5) Acute kidney injury superimposed on CKD: Code(s): N17.9 - Acute kidney failure, unspecified; N18.9 - Chronic kidney disease, unspecified Status
[2022-05-31] MEDS: carvediloL 6.25 MG TABLET PO ×2 (11:49→16:30)
--- NOTE | 2022-05-31 12:13 | PM.PNGS ---
Progress Note: A&P Assessment and Plan (1) Hematoma: Code(s): T14.8XXA - Other injury of unspecified body region, initial encounter Status: Acute Assessment and Plan: This is in the adductor compartment of his left thigh. No evidence of an enlarging hematoma, appears stable. H/H remains stable. Continue to hold anticoagulation and use the robert wrap for compression. No surgical indication at this time. Will sign off. Recommend wearing the robert wrap for about a week and then he can stop using this. Would also recommend a follow-up ultrasound in 2 weeks and if the hematoma appears to be decreasing in size, then his anticoagulation could be restarted. Can f/u with his PCP after discharge for monitoring and ultrasound. Call with any surgical questions or concerns. (2) Anticoagulated by anticoagulation treatment: Code(s): Z79.01 - program trainer (current) use of anticoagulants Status: Acute (3) Septicemia: Code(s): A41.9 - Sepsis, unspecified organism Status: Acute Plan I have discussed the patient's case and plan of care with Dr. Salamanca. Subjective Subjective Date/Time Seen: 05/31/22 12:13 Patient reports: no new complaints and afebrile Interval history: Patient seen and examined. He denies any pain. He feels some of the swelling in his left thigh has gone down. Review of Systems Review of Systems: All systems reviewed & are unremarkable except as noted in HPI and below Exam Const: General: comfortable and no acute distress Orientation/consciousness: patient oriented x3 Extrem: Other: Left upper leg ecchymosis mostly medial and posterior but does extend also laterally on the anterior aspect, the area of ecchymosis starts around the skin fold below the groin down to just below the medial knee. There is swelling mostly of the left upper thigh medially and near the groin fold that seems softer today on exam, no evidence of an enlarging hematoma. All overlying skin appears intact and viable. Psych: Insight: Good insight present (Psych) Objective Data Vital Signs Vital Signs: Vital Signs - 24 hr 05/30/22 13:56 05/30/22 16:00 05/30/22 17:00 Temperature 97.3 F L Pulse Rate 61 78 81 Respiratory Rate 18 Blood Pressure 103/73 Pulse Oximetry 98 Oxygen Delivery Fraction of Inspired Oxygen 05/30/22 20:10 05/30/22 22:00 05/30/22 20:00 Temperature 97.3 F L Pulse Rate 82 67 Respiratory Rate 20 16 Blood Pressure 91/69 L Pulse Oximetry 96 99 Oxygen Delivery Room Air Room Air Fraction of Inspired Oxygen 0.21 05/30/22 20:00 05/31/22 00:00 05/31/22 04:00 Temperature Pulse Rate 72 69 71 Respiratory Rate Blood Pressure Pulse Oximetry Oxygen Delivery Fraction of Inspired Oxygen 05/31/22 06:00 05/31/22 08:12 05/31/22 09:15 Temperature 97.7 F Pulse Rate 78 96 Respiratory Rate 14 Blood Pressure 96/76 L Pulse Oximetry 96 98 Oxygen Delivery Room Air Fraction of Inspired Oxygen 05/31/22 08:00 05/31/22 08:00 05/31/22 11:49 Temperature 97.2 F L Pulse Rate 76 74 66 Respiratory Rate 16 Blood Pressure 92/59 L Pulse Oximetry 98 Oxygen Delivery Fraction of Inspired Oxygen Intake/Output Intake/Output: Intake & Output 05/28/22 05/29/22 05/30/22 05/31/22 23:59 23:59 23:59 23:59 Intake Total 1262 1800 1470 840 Output Total 413 862 9618 650 Balance 742 1700 395 190 Meds/Results Medications: Active Medications Generic Name Dose Route Start Last Admin Trade Name Freq PRN Reason Stop Dose Admin Acetaminophen 650 mg 05/22/22 18:35 05/29/22 21:34 Acetaminophen 325 Mg Tablet PO 650 mg Q4H PRN Administration Headache Albuterol 2.5 mg 05/23/22 18:26 05/30/22 00:21 Albuterol Sulfate Neb 2.5 Mg/3 Ml Inh INHALATION 2.5 mg Q6HRT PRN Administration Shortness Of Breath Or Wheezing Albuterol 2 puff 05/24/22 05:01 05/24/22 11:05 Albuterol Sulfate (*Sp) Inhaler
[2022-05-31] MEDS: ACETAMINOPHEN 325 MG TABLET 650 MG PO ×2 (12:52→23:08)
[2022-05-31] MEDS: MELATONIN 5 MG TABLET PO (20:26)
[2022-05-31] MEDS: guaiFENesin 12 HR 600 MG TABCR PO (20:26)
[2022-06-01] VITALS (12 sets, daily range): BP systolic 101–118; BP diastolic 68–82; PULSE 68–100; RESP 18–22; TEMP 36.3–36.4; O2SAT 94–97
[2022-06-01] MEDS: CENTRAL LINE FLUSH 20 ML IV PUSH (05:12)
[2022-06-01] MEDS: CENTRAL LINE FLUSH 10 ML IV PUSH ×2 (05:12→14:47)
[2022-06-01 05:23] LABS: Hemoglobin 10.4 g/dL (14.0-18.0); Mean Corpuscular HGB Conc 32.5 g/dl (32-36); Mean Corpuscular Hemoglobin 34.3 pg (26-34); Mean Corpuscular Volume 105.6 fl (80-100); Mean Platelet Volume 10.9 fl (7.4-10.4); Platelet Count Result 154 k/mm3 (150-375); Red Blood Count 3.03 M/mm3 (4.6-6.20); Red Cell Distribution Width 16.9 % (11.5-14.5); White Blood Count 11.3 K/mm3 (4.5-10.0)
[2022-06-01 05:32] LABS: Anion Gap 3 mmol/L (8-16); Blood Urea Nitrogen 68 mg/dL (9-20); Calcium 8.5 mg/dL (8.4-10.2); Carbon Dioxide 26 mmol/L (22-30); Chloride 110 mmol/L (98-107); Estimated CRCL calculation 17 ml/min; Estimated Glomerular Filt Rate 20; Glucose 82 mg/dL (65-110); Potassium 4.5 mmol/L (3.4-5.0); Sodium 139 mmol/L (137-145)
[2022-06-01] MEDS: AMIODARONE HCL 200 MG TABLET 400 MG PO (09:08)
[2022-06-01] MEDS: CALCIUM CARBONATE (OSCAL) 500 MG TABLET 1000 MG PO (09:08)
[2022-06-01] MEDS: CHOLECALCIFEROL 1,000 UNITS TABLET 1000 UNITS PO (09:08)
[2022-06-01] MEDS: ceFAZolin 2 GM/D5W 50 ML 2 GM/50 ML BAG IVPB (09:08)
[2022-06-01] MEDS: PANTOPRAZOLE 40 MG TABLET PO (09:08)
[2022-06-01] MEDS: MULTIVITAMINS THERAPEUTIC TAB (*BKC) 1 TABLET PO (09:08)
[2022-06-01] MEDS: ASCORBIC ACID 500 MG TABLET 1000 MG PO (09:09)
[2022-06-01] MEDS: ZINC SULFATE 220 MG CAPSULE PO (09:09)
[2022-06-01] MEDS: carvediloL 6.25 MG TABLET PO ×2 (09:10→18:12)
[2022-06-01] MEDS: guaiFENesin 12 HR 600 MG TABCR PO (09:10)
[2022-06-01] MEDS: ATORVASTATIN 10 MG TABLET PO (09:10)
[2022-06-01] MEDS: VITAMIN E 1,000 UNIT CAPSULE 1000 UNIT PO (09:10)
--- NOTE | 2022-06-01 09:11 | PM.DS ---
DS: Admitting Diagnosis Discharge Date 06/01/22 Admitting Diagnosis Shortness of Breath DS: Discharge Diagnosis Discharge Diagnosis (1) Congestive heart failure: Code(s): I50.9 - Heart failure, unspecified Status: Acute Assessment and Plan: His BNP was 31K but more likely related to the renal failure than CHF exacerbation. Chest x-ray was clear on admission and he remained on room air.? Echo showing EF <15% with diastolic dysfunction. We continued his Coreg; ACEI, Entresto, Spirnolactone and Empagliflozin not appropriate at this time due to his renal function. It is documented that he has refused ICD implantation in the past but now he states he would be interested in moving forward with this. Cardiology has spoken with him about about possible ICD placement in the future. Obviously not now since he is bacteremic. Mag and Potassium were monitored closely. Patient is a full code. Recent CT showing CMG, mild basilar pulmonary edema and small bilateral effusions. CXR however does not show felisa pulmonary edema. And patient appears euvolemic. Blood pressure soft felt related to his heart failure and/or from the acute blood loss. COreg held today. Spoke with Cardiology. Plan to decrease Coreg dose and check orthostatics to see how he does with the lower dose. Plan to monitor overnight. -06/01/22 BP normotensive (improved) today. Will continue with lower dose of carvedilol for discharge to home with close follow up with Cardiology. Patient continues to refuse intervention by in house Cardiology stating he would prefer to get cardioversion with his [employer] at [facility] after discharge. (2) Hematoma: Code(s): T14.8XXA - Other injury of unspecified body region, initial encounter Status: Acute Assessment and Plan: Patient with large bruising to the left leg. It appears he fell from a standing position hitting his left thigh against the toilet seat on 05/26. CT A/P and femur showing 10x9cm mass left adductor clinically felt to be a hematoma. Xarelto and aspirin stopped. Serial HH performed showing stability. Hgb was 13 but has dropped to 10 range and stable. General surgery consulted and appreciate their input. Plan for REINA wrap for 1 week removing daily to assess for clinical changes and looking for signs of infection. Will need thigh US in 2 weeks to assess size of the hematoma before resuming anticoagulation. -06/01/22 - soft tissue ultrasound for left thigh ordered for two weeks from discharge to follow up. H/H has remained stable. As per General Surgery recommendation, will continue to hold anticoagulation for discharge with plan to restart after treatment of thigh hematoma completed with follow up US. (3) Septicemia: Code(s): A41.9 - Sepsis, unspecified organism Status: Acute Assessment and Plan: Patient returns to the hospital because of increasing shortness of breath.? He was tachycardic but no fevers.? White count was elevated initially felt related to his steroids but more likely related to septicemia. He was started on Rocephin and Vancomycin. Blood cultures returned positive and Rocephin was increased to 2 g.? Blood cultures 05/19 (2of2 bottles) growing MSSA.? UCx 06/08 also growing MSSA. Echo showing EF <15% with possible left ventricular mass felt to be a calcified and chronic mass. No obvious valvular echogenic masses. Source of bacteremia is unclear but consider occult pneumonia and/or endocarditis. Endocarditis can seed the urine. VALERIA was considered by cardiology but they didn't feel this would add anything. WBC was 25K but improved. Repeat BCx 05/21 (1of2) also growing MSSA. Vancomycin stopped. Rocephin changed to Ancef 2gm IV Q12h (with PharmD ID help). BCx 05/23 NGTD. Will need 6 weeks of treatment starting on 05/23/22. IV access placed for home IV abx.?Will discharge to home with a total of 6 weeks (42 days ) of cefazolin from 05/23 to complete treatment of endocarditis. (4)
[2022-06-01] MEDS: FLUTICASONE/UMECLIDIN/VILANTER 100-62.5-25 MCG ELLIPTA 1 PUFF INHALATION (09:36)
== END 2022-06-01 18:20 | disposition home health service (06) | DRG 871 ==
LOC: ANHED 20:22 → ANHIMU 21:36 → ANH3MEDSUR 05-23 13:31 → ANHIMU 06-04 10:39
PROVIDERS: Internal Medicine; Internal Medicine Nephrology; Student in an Organized Health Care Education/Training Program; Admitting Provider Internal Medicine; Emergency Provider Emergency Medicine; PCP Internal Medicine; Visit Provider Family Medicine
DX: A41.9 Sepsis, unspecified organism (principal); I50.21 Acute systolic (congestive) heart failure; U07.1 COVID-19; I48.19 Other persistent atrial fibrillation; N18.4 Chronic kidney disease, stage 4 (severe); N17.9 Acute kidney failure, unspecified; N39.0 Urinary tract infection, site not specified; I13.0 Hypertensive heart and chronic kidney disease with heart failure and stage 1 through stage 4 chronic kidney disease, or unspecified chronic kidney disease; Q61.3 Polycystic kidney, unspecified; I25.5 Ischemic cardiomyopathy; Z87.891 Personal history of nicotine dependence; E78.5 Hyperlipidemia, unspecified; N40.0 Benign prostatic hyperplasia without lower urinary tract symptoms; I25.2 Old myocardial infarction; I25.10 Atherosclerotic heart disease of native coronary artery without angina pectoris; Z86.73 Personal history of transient ischemic attack (TIA), and cerebral infarction without residual deficits; Z86.19 Personal history of other infectious and parasitic diseases; E87.5 Hyperkalemia; R31.9 Hematuria, unspecified; I27.20 Pulmonary hypertension, unspecified; J43.9 Emphysema, unspecified; M79.81 Nontraumatic hematoma of soft tissue; Z86.74 Personal history of sudden cardiac arrest; R33.9 Retention of urine, unspecified; R00.0 Tachycardia, unspecified; Z95.5 Presence of coronary angioplasty implant and graft; Z79.899 Other long term (current) drug therapy; Z79.82 Long term (current) use of aspirin; Z82.49 Family history of ischemic heart disease and other diseases of the circulatory system; B95.61 Methicillin susceptible Staphylococcus aureus infection as the cause of diseases classified elsewhere; Z79.01 Long term (current) use of anticoagulants
CPT/HCPCS: 36415; 36556; 36600; 71045; 71250; 73700; 74019; 74176; 80048; 80053; 80069; 81001; 82805; 82948; 83735; 83880; 84100; 84132; 84484; 85014; 85018; 85025; 85027; 87040; 87086; 87088; 87147; 87186; 93005; 93306; 94640; 94667; 94668; 96365; 96375; 96376; 97161; 97165; 99285; A9270; C1751; C9803; G0378; J0131; J0690; J0696; J1940; J2930; J3370; J7512; U0003; U0005

== ENCOUNTER 2022-06-10 07:30 | Inpatient (IN) | payer MEDICARE, SELFPAY ==
[2022-06-10] VITALS (27 sets, daily range): BP systolic 86–126; BP diastolic 56–92; PULSE 62–116; RESP 15–29; TEMP 36.4–36.8; O2SAT 91–100; BMI 24.3; BMI 23.1
--- NOTE | ~2022-06-10 | US_ITS ---
EXAMINATION: US renal BI DATE: 06/10/2022 13:48 INDICATION: elevated creatinine TECHNIQUE: Multiple ultrasound grayscale images of the kidneys were obtained. COMPARISON: None. FINDINGS: Innumerable variably sized cysts in the renal fossae bilaterally, with little intervening normal sukhdeep l parenchyma. There is no hydronephrosis. The bladder was not imaged. IMPRESSION: 1. Polycystic kidney disease. Reviewed, dictated and finalized at location K.
--- NOTE | ~2022-06-10 | XR_ITS ---
EXAMINATION: XR chest 1V portable INDICATION: Shortness of breath TECHNIQUE: Portable AP chest at 0903 hours COMPARISON: 06/11/2022 FINDINGS: A left internal jugular central venous catheter ends with its tip at the superior cavoatria l junction. There are stable, minimal airspace opacities of the lung bases. No pleural effusion or pn eumothorax. Cardiomegaly is noted. There is severe emphysema. IMPRESSION: 1. Minimal bibasilar airspace opacities of the lung bases, consistent with atelectasis versus pneumon ia. 2. Cardiomegaly. Reviewed, dictated and finalized at location L. IMPRESSION: 1. Minimal bibasilar airspace opacities of the lung bases, consistent with atel ectasis versus pneumonia. 2. Cardiomegaly.
--- NOTE | ~2022-06-10 | XR_ITS ---
XR chest 1V portable 06/10/2022 08:16 Indication: Dyspnea. Hypertension. COPD. Covid. Procedure: AP view of the chest Comparison: Comparison to multiple prior studies sequentially, with oldest reviewed study dated 12/2021. Findings: Central line tip in the SVC. Heart size upper normal. Asymmetric right-sided airspace disea se may represent edema or pneumonia. There is hyperinflation of the left lung. No significant pneumot horax or pleural effusion. No acute osseous abnormality. Impression: 1: Developing asymmetric right-sided airspace disease which may represent asymmetric edema or pneumon ia. Reviewed, dictated and finalized at location A. Impression: 1: Developing asymmetric right-sided airspace disease which may represent asymm etric edema or pneumonia.
--- NOTE | ~2022-06-10 | US_ITS ---
EXAMINATION: US soft tissue LE LT DATE: 06/11/2022 11:37 INDICATION: Left thigh hematoma with bruising. TECHNIQUE: Multiple grayscale and Doppler ultrasound images of the region of concern at the left thig h and posterior calf were obtained. COMPARISON: None FINDINGS: Prominent subcutaneous edema at the posterior left calf and minimal subcutaneous edema at the region of concern at the left thigh. No loculated fluid collections to suggest hematoma or abscess. No abnor mal masses. Patent compressible veins are identified at the region of concern at the left thigh. IMPRESSION: 1. Subcutaneous edema but no organized hematoma at the regions of concern at the left thigh and poste rior left calf. Reviewed, dictated and finalized at location A. IMPRESSION: 1. Subcutaneous edema but no organized hematoma at the regions of concern at th e left thigh and posterior left calf.
--- NOTE | ~2022-06-10 | US_ITS ---
EXAMINATION: US venous doppler [facility] DATE: 06/10/2022 11:47 INDICATION: Left lower limb swelling. Deep venous thrombosis. TECHNIQUE: Grayscale ultrasound images without and with compression and Doppler ultrasound images of the bilateral lower extremity veins were obtained. COMPARISON: 05/13/2022 FINDINGS: The visualized portions of right common femoral vein, profunda (deep) femoral vein, femoral vein, pop liteal vein, posterior tibial veins, peroneal veins and greater saphenous vein outflow are patent. The visualized portions of left common femoral vein, profunda femoral vein, femoral vein, popliteal v ein, posterior tibial veins, peroneal vein and greater saphenous vein outflow are patent. IMPRESSION: 1. No deep venous thrombosis in either lower limb. Reviewed, dictated and finalized at location A.
--- NOTE | ~2022-06-10 | XR_ITS ---
EXAMINATION: XR chest 1V portable DATE: 06/11/2022 05:43 INDICATION: Congestive heart failure TECHNIQUE: frontal view of the chest was obtained. COMPARISON: Chest radiograph dated 06/10/2022 FINDINGS: Emphysema with increased lucencies and architectural distortion in the bilateral mid and upper lung z ones. Opacities in the bilateral lower lung zones with some improvement on the right. No pneumothorax or definitive pleural effusion. Small calcified nodule in the left lower lung zone consistent with o ld granulomatous disease. Cardiomegaly. IMPRESSION: 1. Severe emphysema. 2. Opacities at the bilateral lower lung zones with some improvement on the right which could represe nt atelectasis/scarring, pulmonary edema, pneumonia or some combination thereof. 3. Cardiomegaly. Reviewed, dictated and finalized at location A. IMPRESSION: 1. Severe emphysema. 2. Opacities at the bilateral lower lung zones with some improvement on the rig ht which could represent atelectasis/scarring, pulmonary edema, pneumonia or so me combination thereof. 3. Cardiomegaly.
--- NOTE | 2022-06-10 07:41 | ECG_ITS ---
Measurements Intervals [place] Rate: 89 P: [place]: 0 QRS: 267 QRSD: 138 T: 90 QT: 385 QTc: 469 Interpretive Statements ATRIAL FIBRILLATION INTRAVENTRICULAR CONDUCTION DELAY POOR R WAVE PROGRESSION, CONSIDER ANTEROLATERAL INFARCT INFERIOR INFARCT, AGE INDETERMINATE BORDERLINE ST-T WAVE ABNORMALITY- HIGH LATERAL LEADS BASELINE ARTIFACT- I, II ABNORMAL ECG Electronically Signed On 06-10-2022 14:26:41 CDT by Ramírez Calhoun D.O.
--- NOTE | 2022-06-10 07:51 | ED.SOB ---
HPI - SOB/Dyspnea General Chief Complaint: Shortness of Breath/Dyspnea Stated Complaint: SOB Time Seen by Provider: 06/10/22 07:37 History of Present Illness HPI Narrative: 77-year-old male who was recently admitted for CHF, bacteremia presents here for 1 to 2 days of increased dyspnea at home, per at bedside he never seem to have fully recovered since discharge, and she thinks that his urine has also been cloudier than usual. Patient denies any chest pain, fevers or chills. Has been taking all of his medications but was taken off his Xarelto recently due to a fall with left leg hematoma. Related Data Home Medications Medication Instructions Recorded Confirmed ascorbic acid (vitamin C) 1,000 mg 1 gm PO DAILY 06/01/20 05/20/22 tablet calcium carbonate 600 mg calcium 1,500 mg PO DAILY 06/01/20 05/20/22 (1,500 mg) tablet (Calcium) spironolactone 25 mg tablet 25 mg PO DAILY 06/01/20 05/20/22 zinc 50 mg tablet 50 mg PO DAILY 06/01/20 05/20/22 cholecalciferol (vitamin D3) 50 25 mcg PO DAILY 08/05/20 05/20/22 mcg (2,000 unit) tablet (Vitamin D3) atorvastatin 10 mg tablet 10 mg PO DAILY 05/12/22 05/20/22 beta carotene 25,000 unit tablet 25,000 unit PO DAILY 05/12/22 05/20/22 esomeprazole magnesium 40 mg 40 mg PO DAILY 05/12/22 05/20/22 capsule,delayed release (Nexium) fluticasone fur. 100 mcg-umeclid 1 inh inhalation DAILY 05/12/22 05/20/22 62.5 mcg-vilant 25 mcg inhalat.powder (Trelegy Ellipta) multivitamin 1 tablet PO DAILY 05/12/22 05/20/22 vitamin E 600 unit capsule 2 cap PO DAILY 05/12/22 05/20/22 aspirin 81 mg tablet,delayed 81 mg PO DAILY 05/20/22 05/20/22 release acetaminophen 650 mg tablet 650 mg PO Q4H PRN Pain 05/22/22 05/22/22 Allergies Allergy/AdvReac Type Severity Reaction Status Date / Time No Known Allergies Allergy Verified 05/19/22 19:12 Review of Systems Review of Systems: CONST: No fever. HEENT: No sore throat C/V: No chest pain RESP: Dyspnea GI: No abdominal pain : Cloudy urine. M/S: No joint pain. SKIN: No rash. NEURO: [No headache or focal numbness or weakness] PSYCH: [No depression] [facility] Past Medical History Medical History Benign prostatic hyperplasia C. difficile colitis Cardiac arrest with ventricular fibrillation (2002) At time myocardial infarction. Cerebrovascular accident Chronic kidney disease, stage 4 (severe) Chronic obstructive pulmonary disease Congestive heart failure Coronary artery disease Hepatitis B Hernia Hyperlipidemia Hypertension Iron deficiency anemia Ischemic cardiomyopathy Measles Mumps Myocardial infarction Osteoarthritis Polycystic kidney disease Prostate CA Status post radiation seed implants. Shingles Surgical History Surgical History History of cardiac catheterization History of coronary artery stent placement History of hernia repair History of hydrocelectomy Family History Family History Sibling Patient's sister is in good health Mother Cerebrovascular accident, Onset Age: 68 Patient's mother is Cancer Polycystic kidney disease Father Family history of kidney disease, Onset Age: 78 Myocardial infarction Social History Social History Social History: Surrogate decision maker: Solange Nielsen, daughter. Code status: Full code. Smoking packs per day: 1 Smoking cigarettes per day: 20.0 Years smoked: 20 Smoking pack-years: 20.00 Smoking status: Former smoker Tobacco type: cigarettes Smoking end date: 11/18/03 Alcohol intake: never Drinks per week: 2 Substance use: never Substance use type: does not use Additional living arrangements comments: The patient lives with his in [place]. Spiritual care concerns: No Exam Narrative: EXAMINATION OF O
[2022-06-10 07:55] LABS: Basophils Percent Auto 0.2 % (0.2-1.2); Eosinophils Percent Auto 0.6 % (0-4.4); Hemoglobin 13.9 g/dL (14.0-18.0); Immature Granulocyte Absolute 0.02 K/mm3 (0.00-0.031); Immature Granulocyte Percent A 0.4 % (0-0.5); Lymphocytes Absolute Auto 0.46 K/mm3 (0.9-3.2); Lymphocytes Percent Auto 9.6 % (18.3-44.2); Mean Corpuscular HGB Conc 30.2 g/dl (32-36); Mean Corpuscular Hemoglobin 34.5 pg (26-34); Mean Corpuscular Volume 114.1 fl (80-100); Mean Platelet Volume 11.8 fl (7.4-10.4); Monocytes Absolute Auto 0.3 K/mm3 (0.1-0.6); Monocytes Percent Auto 7.1 % (2.6-8.5); Neutrophils Absolute Auto 3.9 K/mm3 (1.3-6.7); Neutrophils Percent Auto 82.1 % (45.5-73.1); Nucleated Red Blood Cells Absolute Auto 0.3 K/mm3 (0.0-0.012); Nucleated Red Blood Cells Perc 7.1 % (0.0-0.2); Platelet Count Result 145 k/mm3 (150-375); Red Blood Count 4.03 M/mm3 (4.6-6.20); Red Cell Distribution Width 24.1 % (11.5-14.5); White Blood Count 4.8 K/mm3 (4.5-10.0)
[2022-06-10] MEDS: IPRATROPIUM BR 0.02% INH SOLN 0.5 MG/2.5 ML VIAL INHALATION (08:00)
[2022-06-10 08:07] LABS: Alanine Aminotransferase 11 U/L (6-50); Albumin Level 3.7 g/dL (3.5-5.1); Alkaline Phosphatase 46 U/L (38-126); Anion Gap 16 mmol/L (8-16); Aspartate Amino Transferase 28 U/L (17-59); Bilirubin,Total 1.2 mg/dL (0.2-1.3); Blood Urea Nitrogen 87 mg/dL (9-20); Carbon Dioxide 17 mmol/L (22-30); Chloride 106 mmol/L (98-107); Estimated CRCL calculation 18 ml/min; Estimated Glomerular Filt Rate 18; Glucose 101 mg/dL (65-110); Potassium 5.9 mmol/L (3.4-5.0); Sodium 139 mmol/L (137-145)
[2022-06-10 08:17] LABS: NT Pro B Type Natriuretic Pept > 35000 pg/mL (5-100); Troponin I 0.034 ng/mL (0.000-0.034)
[2022-06-10] MEDS: methylPREDNISolone SOD SUCC 125 MG VIAL IV PUSH (08:17)
[2022-06-10 08:30] LABS: Burr Cells 1+ (NORMAL); Macrocytosis 2+ (NORMAL)
[2022-06-10 08:31] LABS: SARS-CoV-2 RNA PCR Positive
[2022-06-10] MEDS: LACTATED RINGERS 1,000 ML 999 ML IV CONT (08:50)
[2022-06-10 10:45] LABS: Alveolar/Arterial O2 Gradient 128.2 mmHg; Base Excess ABG -7.1 mEq/l (+/-2.0); Device BIPAP; Expiratory Pressure 8 cmH2O; Fractional Inspired Oxygen 60 %; HCO3 ABG 16.6 mEq/l (22.0-26.0); Inspiratory Pressure 15 cmH2O; Modified Allen's Test Pass; Oxygen Content ABG 17.9 %vol (16.0-22.0); Oxygen Saturation ABG 99.6 % (95.0-100.0); Oxyhemoglobin 97.3 % THb (90.0-100.0); PCO2 ABG 28.3 mmHg (35.0-45.0); PO2 ABG 268.5 mmHg (80.0-100.0); PO2 FiO2 Ratio Arterial Blood 4.47 %; Site Drawn LEFT RADIAL; Total Hemoglobin 12.6 g/dL (12.0-18.0); pH ABG 7.386 (7.350-7.450)
[2022-06-10 10:52] LABS: D Dimer 2.29 ug/mL (<0.48)
--- NOTE | 2022-06-10 11:26 | PM.IMHP ---
H&P: HPI History of Present Illness Date/Time: 06/10/22 11:26 Chief Complaint: Increased shortness of breath Narrative: [age] years old male with history of atrial fibrillation, coronary artery disease, ischemic cardiac myopathy with Ejection fraction only 15%, patient refused placement of defibrillator in the past, history of COPD, renal insufficiency, old cva, high cholesterol, recent history of COVID, recent history of hospitalization in [place] with discharge on home IV antibiotics few days ago for possible pneumonia versus endocarditis was admitted through the emergency room with the complaints that since he left the hospital and went home he was not feeling good. According to the patient and the records reviewed, patient's Xarelto was put on hold because of hematoma in the lower extremity. He was only taking aspirin for atrial fibrillation. Yesterday his shortness of breath got worse and decided to come to the emergency room. At present patient has mild shortness of breath and irregular heartbeat but denies any chest pain. No abdominal pain, no nausea, no vomiting Review of Systems Review of Systems: All systems reviewed & are unremarkable except as noted in HPI and below ( the history and physical examination.) [facility] Past Medical History Medical History Benign prostatic hyperplasia C. difficile colitis Cardiac arrest with ventricular fibrillation (2002) At time myocardial infarction. Cerebrovascular accident Chronic kidney disease, stage 4 (severe) Chronic obstructive pulmonary disease Congestive heart failure Coronary artery disease Hepatitis B Hernia Hyperlipidemia Hypertension Iron deficiency anemia Ischemic cardiomyopathy Measles Mumps Myocardial infarction Osteoarthritis Polycystic kidney disease Prostate CA Status post radiation seed implants. Shingles Surgical History Surgical History History of cardiac catheterization History of coronary artery stent placement History of hernia repair History of hydrocelectomy Family History Family History Sibling Patient's sister is in good health Mother Cerebrovascular accident, Onset Age: 68 Patient's mother is Cancer Polycystic kidney disease Father Family history of kidney disease, Onset Age: 78 Myocardial infarction Social History Social History Social History: Surrogate decision maker: Solange Nielsen, daughter. Code status: Full code. Smoking packs per day: 1 Smoking cigarettes per day: 20.0 Years smoked: 20 Smoking pack-years: 20.00 Smoking status: Former smoker Tobacco type: cigarettes Smoking end date: 11/18/03 Alcohol intake: never Drinks per week: 2 Substance use: never Substance use type: does not use Additional living arrangements comments: The patient lives with his in [place]. Spiritual care concerns: No Meds Home Medications and Allergies Home Medications Medication Instructions Recorded Confirmed Type ascorbic acid (vitamin C) 1,000 mg 1 gm PO DAILY 06/01/20 05/20/22 History tablet calcium carbonate 600 mg calcium 1,500 mg PO DAILY 06/01/20 05/20/22 History (1,500 mg) tablet (Calcium) spironolactone 25 mg tablet 25 mg PO DAILY 06/01/20 05/20/22 History zinc 50 mg tablet 50 mg PO DAILY 06/01/20 05/20/22 History cholecalciferol (vitamin D3) 50 25 mcg PO DAILY 08/05/20 05/20/22 History mcg (2,000 unit) tablet (Vitamin D3) atorvastatin 10 mg tablet 10 mg PO DAILY 05/12/22 05/20/22 History beta carotene 25,000 unit tablet 25,000 unit PO DAILY 05/12/22 05/20/22 History esomeprazole magnesium 40 mg 40 mg PO DAILY 05/12/22 05/20/22 History capsule,delayed release (Nexium) fluticasone fur. 100 mcg-umeclid 1 inh inhalation DAILY 05/12/22 05/20/22 H
--- NOTE | 2022-06-10 11:33 | PM.CNNEP ---
Assessment and Plan Additional Plan 1. Alayna has chronic kidney disease. This is from autosomal dominant polycystic kidney disease. His baseline creatinine is 2.8. 2. The patient has acute kidney injury. His creatinine is up to 3.4 the patient does have hypotension. This might be contributing. 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 So this could be decompensated heart failure with poor forward flow. It is also possible that he has increased renal venous hypertension from the CHF causing his creatinine to be higher as well. he could possibly be over diuresed. I do not see a diuretic on his admitmeds though. he does have something else going on with his cough and shortness of breath. If this is just a delayed onset of symptoms from COVID, he could have ATN from COVID. he could have rhabdomyolysis as well. Will check a CPK. His bladder could be malfunctioning again and so could have retention. Will check an ultrasound of the kidneys and a bladder scan. Allergic interstitial nephritis is always possible because he is on antibiotics. He does not have a rash or peripheral eosinophilia however. Glomerulonephritis is unlikely in this clinical scenario. Will check a CPK, Urine electrolytes, Hold the spironolactone, get his blood pressure back up, start midodrine to get his blood pressure up, consider dobutamine if fluid burden worsens and his blood pressure comes back up. 3. his potassium is high. Will hold the spironolactone and give lokelma 4. The patient has a metabolic acidosis. Will start bicarbonate pills. 5. The patient has hypotension. He is getting some had a starch. 6. The patient has endocarditis. He is getting vancomycin plus Zosyn. Will discuss changing to cefepime instead of Zosyn. 7. The patient has COPD. 8. The patient has mild anemia. His hemoglobin is actually much better than it was last admission. 9. He has swelling in the left lower extremity. Last admission he had that big hematoma so this may be chronic. He is getting a venous Doppler to be sure this isn't a DVT since he is off anticoagulation, and has COVID. History of Present Illness Reason for Consult Consult date: 06/10/22 Chief Complaint Chief complaint: PNA ?/AFIB/COPD/CHF/Dyspnea History of Present Illness Narrative: Darrell is a very pleasant 77-year-old gentleman who has multiple medical problems including recent COVID. This was 1st diagnosed on 05/12. He had a repeat swab early in May which was positive. He was in hospital for quite a bit of time mostly only mildly symptomatic. He was discharged. Patient also has history of chronic kidney disease from polycystic kidneys with a baseline creatinine of 2.8 followed by a doctor at [facility], coronary disease, congestive heart failure with an ejection fraction of 15%, atrial fibrillation, hyperlipidemia, COPD, history of C diff, stroke, hepatitis-B, hypertension, osteoarthritis, prostate cancer, and history of shingles. the patient was in the hospital for a long time in May with the COVID. He was on isolation the whole time. He did have problems with hypotension at the time but this resolved by discharge. He had a large left thigh bruise as well. CT showed an intramuscular hematoma. Because of that bruise and hematoma, his anticoagulants were held. Venous Dopplers were done in April which were negative. He was treated conservatively for his ejection fraction of 15%. Cardiology saw the patient and discussed AICD placement but could not because he had bacteremia. He was found to have bacteremia and LV mass felt to be possible endocarditis. He was treated with antibiotics for 6 weeks. He also had some urinary retention and needed a Minor catheter for a while. He was discharged without the catheter with good urinary flow however. His creatinine did rise to as high as 3.2 during
--- NOTE | 2022-06-10 12:00 | ADMGEN ---
This patient, Darrell Nielsen, was admitted to IMU Room 212-01 at 1012. Patient/family oriented to hospital policies and general routines including ID bracelet, bed and alarms, visiting hours, pain management, procedures, bathroom and other care routines, personal items, smoking policy, room service/diet, and visiting hours. Information on how to activate the Rapid Response Team has been discussed. Patient/Family are encouraged to report perceived risks to care and to ask questions if they do not understand what they are told or what they should do.
[2022-06-10] MEDS: SODIUM BICARBONATE 8.4% 50 MEQ/50 ML SYRINGE 79 MEQ IV PUSH (12:02)
[2022-06-10] MEDS: hetaSTARCH 6%/NACL 500 ML 250 ML IV CONT (12:02)
[2022-06-10] MEDS: AMIODARONE HCL 200 MG TABLET PO (12:03)
[2022-06-10] MEDS: ASPIRIN 81 MG ENTERIC TABLET PO (12:03)
[2022-06-10 12:40] LABS: Appearance Urine Clear (Clear); Bilirubin Urine Negative (Negative); Blood Urine 2+ (Negative); Color Urine Yellow (Yellow); Glucose Urine UA Negative (Negative); Ketones Urine Trace mg/dL (Negative); Leukocyte Esterase Ur Negative LEU/UL (NEGATIVE); Nitrate Urine Negative (Negative); Protein Urine 2+ mg/dL (Negative); Specific Grav Ur 1.015 (1.001-1.035); Urobilinogen Urine 0.2 mg/dL (<2.0); pH Urine 5.5 (5.0-9.0)
[2022-06-10 12:48] LABS: Creatinine Urine 86.9 mg/dL; Total Protein Urine Random 81 mg/dL; Ur Ttl Prot Creatinine Ratio 0.93 mg/mg (0-0.20); Urea Random Urine 734 MG/DL
[2022-06-10 12:52] LABS: Amorphous Sediment Urine Few; Sodium Urine Random 38 meq/L; WBC Urine 0-3 /hpf (0-3)
[2022-06-10 12:56] LABS: Add Urine Microscopic? YES
[2022-06-10 13:25] LABS: Creatine Kinase 48 U/L (55-170)
--- NOTE | 2022-06-10 14:01 | ECG_ITS ---
Measurements Intervals [place] Rate: 124 P: [place]: 0 QRS: 253 QRSD: 130 T: 83 QT: 360 QTc: 518 Interpretive Statements ATRIAL FIBRILLATION WITH RAPID VENTRICULAR RESPONSE INTRAVENTRICULAR CONDUCTION DELAY WITH FEATURES OF BOTH RBBB AND LBBB INFERIOR INFARCT, AGE INDETERMINATE BASELINE ARTIFACT- I, II, III, AVR, AVL, AVF, V1-V6 ABNORMAL ECG Electronically Signed On 06-10-2022 14:28:05 CDT by Ramírez Calhoun D.O.
[2022-06-10] MEDS: ATORVASTATIN 10 MG TABLET PO (14:18)
[2022-06-10] MEDS: SODIUM ZIRCONIUM CYCLOSILICATE 10 GM POWD.PACK PO (14:25)
[2022-06-10] MEDS: FLUTICASONE/UMECLIDIN/VILANTER 100-62.5-25 MCG ELLIPTA 1 PUFF INHALATION (14:33)
[2022-06-10 18:16] LABS: Albumin Level 2.4 g/dL (3.5-5.1); Alkaline Phosphatase 33 U/L (38-126); Anion Gap 8 mmol/L (8-16); Aspartate Amino Transferase 18 U/L (17-59); Bilirubin,Total 0.7 mg/dL (0.2-1.3); Blood Urea Nitrogen 86 mg/dL (9-20); Calcium 7.4 mg/dL (8.4-10.2); Carbon Dioxide 22 mmol/L (22-30); Chloride 108 mmol/L (98-107); Estimated CRCL calculation 19 ml/min; Estimated Glomerular Filt Rate 20; Glucose 158 mg/dL (65-110); Potassium 4.9 mmol/L (3.4-5.0); Sodium 138 mmol/L (137-145)
[2022-06-10 18:27] LABS: Alanine Aminotransferase < 4 U/L (6-50)
--- NOTE | 2022-06-10 18:37 | PC.NURSE ---
Dr. Gonsalez updated on potassium level
[2022-06-10] MEDS: CENTRAL LINE FLUSH 10 ML IV PUSH (20:28)
[2022-06-10 22:33] LABS: Free T4 Free Thyroxine Reflex 1.13 ng/dL (0.78-2.19)
[2022-06-10 23:33] LABS: Total Triiodothyronine (T3) 0.31 NG/ML (0.97-1.69)
[2022-06-11] VITALS (17 sets, daily range): BP systolic 83–120; BP diastolic 58–68; PULSE 67–92; RESP 18–24; TEMP 35.6–36.7; O2SAT 92–100
[2022-06-11] MEDS: CENTRAL LINE FLUSH 10 ML IV PUSH ×4 (04:40→20:29)
[2022-06-11 04:47] LABS: Hematocrit 33.1 % (42.0-52.0); Hemoglobin 10.9 g/dL (14.0-18.0); Mean Corpuscular HGB Conc 32.9 g/dl (32-36); Mean Corpuscular Volume 109.2 fl (80-100); Mean Platelet Volume 11.6 fl (7.4-10.4); Platelet Count Result 133 k/mm3 (150-375); Red Blood Count 3.03 M/mm3 (4.6-6.20); Red Cell Distribution Width 23.8 % (11.5-14.5); White Blood Count 7.2 K/mm3 (4.5-10.0)
[2022-06-11 04:58] LABS: Albumin Level 2.3 g/dL (3.5-5.1); Alkaline Phosphatase 35 U/L (38-126); Anion Gap 5 mmol/L (8-16); Aspartate Amino Transferase 20 U/L (17-59); Bilirubin,Total 0.7 mg/dL (0.2-1.3); Blood Urea Nitrogen 89 mg/dL (9-20); Calcium 7.7 mg/dL (8.4-10.2); Carbon Dioxide 23 mmol/L (22-30); Chloride 109 mmol/L (98-107); Estimated CRCL calculation 19 ml/min; Estimated Glomerular Filt Rate 20; Glucose 131 mg/dL (65-110); Phosphorus 3.9 mg/dL (2.5-4.5); Potassium 5.1 mmol/L (3.4-5.0); Sodium 137 mmol/L (137-145)
[2022-06-11 05:01] LABS: Alanine Aminotransferase < 4 U/L (6-50)
--- NOTE | 2022-06-11 08:18 | PM.PNNEP ---
Progress Note: A&P Additional Plan 1. Alayna has chronic kidney disease. This is from autosomal dominant polycystic kidney disease. His baseline creatinine is 2.8. 2. The patient has acute kidney injury. His creatinine peaked at 3.4 and now 3.1 CK is okay. Urine electrolytes are pre renal (fractional excretion of urea) Renal ultrasound shows nothing acute. Just the polycystic kidneys. Patient had hypotension on admission. This seems better with the hetastarch. It is still not ideal so will start midodrine. 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 3. his potassium is improved 4. The patient has a metabolic acidosis. This is better. 5. The patient has hypotension. He is getting some hetsastarch. 6. The patient has endocarditis. He is getting vancomycin plus cefepime 7. The patient has COPD. 8. The patient has mild anemia. His hemoglobin is actually much better than it was last admission. 9. He has swelling in the left lower extremity. Venous Dopplers negative. This is the remainders of a hematoma from last admission. Subjective Date/time seen: 06/11/22 08:18 Interval history: Patient says he slept really well last night and feels good today. He is on airvo currently. Set at 30%. Not much of an appetite Review of Systems Cardiovascular: Cardiovascular: Reports no additional cardiovascular complaints Respiratory: Respiratory: Reports no additional respiratory complaints Gastrointestinal: Gastrointestinal: Reports no additional gastrointestinal complaints Genitourinary: Genitourinary: Reports no additional male genitourinary complaints Exam Narrative: WDWN in NAD skin no rash head ncat lungs decreased breath sounds at the bases cor reg no rub or gallop abd BS+ nontender and soft ext no edema or cyanosis Objective Data Vital Signs Vital Signs: Vital Signs - 24 hr 06/10/22 08:29 06/10/22 08:32 06/10/22 09:10 Temperature Pulse Rate 95 98 Respiratory Rate 19 Blood Pressure 90/75 L Pulse Oximetry 99 99 Oxygen Delivery BiPAP Oxygen Flow Rate Fraction of Inspired Oxygen 06/10/22 10:00 06/10/22 10:15 06/10/22 12:03 Temperature 36.8 C Pulse Rate 92 79 83 Respiratory Rate 19 24 H Blood Pressure 87/62 L 86/74 L Pulse Oximetry 99 100 Oxygen Delivery Oxygen Flow Rate Fraction of Inspired Oxygen 06/10/22 12:09 06/10/22 12:00 06/10/22 13:27 Temperature 36.4 C Pulse Rate 81 80 Respiratory Rate 22 H 20 Blood Pressure 93/62 L 109/92 H Pulse Oximetry 100 100 Oxygen Delivery BiPAP Oxygen Flow Rate Fraction of Inspired Oxygen 06/10/22 12:00 06/10/22 14:52 06/10/22 14:53 Temperature Pulse Rate Respiratory Rate Blood Pressure Pulse Oximetry 98 100 100 Oxygen Delivery BiPAP High Flow Therapy with Na High Flow Therapy with Na Oxygen Flow Rate 40 40 Fraction of Inspired Oxygen 60 40 40 06/10/22 12:00 06/10/22 14:00 06/10/22 15:14 Temperature Pulse Rate 86 73 Respiratory Rate Blood Pressure Pulse Oximetry 98 Oxygen Delivery High Flow Therapy with Na Oxygen Flow Rate 40 Fraction of Inspired Oxygen 30 06/10/22 16:34 06/10/22 16:00 06/10/22 17:08 Temperature 36.6 C Pulse Rate 82 77 70 Respiratory Rate 26 H 22 H Blood Pressure 98/56 L Pulse Oximetry 100 91 100 Oxygen Delivery BiPAP Oxygen Flow Rate Fraction of Inspired Oxygen 06/10/22 17:44 06/10/22 16:00 06/10/22 18:00 Temperature Pulse Rate 73 82 87 Respiratory Rate Blood Pressure Pulse Oximetry 100 Oxygen Delivery Oxygen Flow Rate Fraction of Inspired Oxygen 06/10/22 16:00 06/10/22 20:00 06/10/22 21:18 Temperature 36.5 C Pulse Rate 89 77 Respiratory Rate 20 22 H Blood Pressure 115/87 Pulse Oximetry 100 92 100 Oxygen Delivery BiPAP BiPAP Oxygen Flow Rate Fraction of Inspired Oxygen 30 06/10/22 20:00
[2022-06-11] MEDS: FLUTICASONE/UMECLIDIN/VILANTER 100-62.5-25 MCG ELLIPTA 1 PUFF INHALATION (08:25)
--- NOTE | 2022-06-11 08:34 | PM.CNCAR ---
Assessment and Plan Assessment and plan (1) Acute dyspnea: Code(s): R06.00 - Dyspnea, unspecified Status: Acute (2) Persistent atrial fibrillation: Code(s): I48.19 - Other persistent atrial fibrillation Status: Acute Plan This is a 77-year-old man who is short short of breath because of underlying severe cardiomyopathy and very low ejection fraction and even lower cardiac output recently because of the development of atrial fibrillation. At this time on physical exam and by chest x-ray he is really not significantly volume overloaded as far as I can tell. 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 The patient case is complicated by the fact that he has severe emphysema as well. There is the need to resume systemic anticoagulation I believe his left thigh hematoma is resolving and oral anticoagulation she will be resumed I will order that today. He is a very frail gentleman who in fact appears to have end-stage ischemic cardiomyopathy. He may benefit from home oxygen if he qualifies for that. Other than this there is not much else that can be offered to him in terms of treatment of his cardiomyopathy here at [facility]. Due to the severity of his LV dysfunction and comorbidities including his lung disease and renal disease he would be better served by hospitalization at [facility] where he has received his care for many years. There is nothing else that I believe we can offer him here at [facility] as he does not appear to be volume overloaded. Once again and I will resume systemic anticoagulation at this time. Jimmy Torres MD [facility] History of Present Illness History of Present Illness Consult date/time: 06/11/22 08:34 Consult reason: shortness of breath Reason For Visit: PNA ?/AFIB/COPD/CHF/Dyspnea Narrative: This is a 77-year-old man is being seen at the request of the hospitalist this morning he was admitted to the hospitalist being seen in the emergency room yesterday with worsening shortness of breath. He is well known to our service and has been admitted to previous times here over the course of the summer with symptoms of dyspnea. The reader is referred to previous notes for the details but in summary he has a well-known history of severe ischemic cardiomyopathy with very low ejection fraction as well as the relatively recent development of atrial fibrillation according to the records in about April of this year. In addition to this he has severe underlying COPD and stage 4 chronic kidney disease. The patient's medical care for many years has been delivered by specialist at [facility] including shirt presser house fellow and hvac maintenance technician. He suffered a significant myocardial infarction many years ago and despite revascularization I believe because of late presentation he has a very low ejection fraction. His recent echocardiography here demonstrates an ejection fraction of 15%. He has a chronic left bundle branch block. In the past his shirt presser had offered and discussed/recommended a defibrillator which the patient refused. His longstanding shirt presser recently retired and he has plans/appointments in place to have his new physician start seeing him in the 1st or 2nd week of June. During his recent hospitalization he was anticoagulated of course because of his atrial fibrillation and he had a fall in the room the toilet seat and developed a left thigh hematoma at that time his systemic anticoagulation was stopped. He has not had any recurrent bleeding from that site. His admission laboratory data demonstrates relatively severe chronic renal insufficiency which is not really significantly changed from baseline. His chest x-ray shows severe and chronic emphysema I do not really see significant changes of pulmonary congestion. He has some mild lower extremity edema that is not significa
[2022-06-11] MEDS: AMIODARONE HCL 200 MG TABLET PO (10:24)
[2022-06-11] MEDS: ASPIRIN 81 MG ENTERIC TABLET PO (10:24)
[2022-06-11] MEDS: MIDODRINE HCL 2.5 MG TABLET 5 MG PO ×3 (10:24→18:01)
[2022-06-11] MEDS: APIXABAN 2.5 MG TABLET PO ×2 (10:24→20:28)
[2022-06-11] MEDS: ATORVASTATIN 10 MG TABLET PO (10:25)
--- NOTE | 2022-06-11 11:46 | PM.IMPN ---
Progress Note: A&P Assessment and Plan (1) Heart failure with reduced ejection fraction: Code(s): I50.20 - Unspecified systolic (congestive) heart failure Status: Acute Assessment and Plan: Had long discussion with patient and about the various procedures offered in the past and needed for his heart. and patient adamant deny ever outright refusing a procedure but do agree it is probably best to attempt to transfer the patient to the a It Investment/Portfolio Manager from the group he sees as his actual It Investment/Portfolio Manager has retired. Will attempt to get patient accepted by hospitalist at [facility], as that is who is required to give acceptance of the patient for transfer in non-emergent cases. -Appreciate Cardiology recommendations -Continue diuresis as tolerated -Resume anticoagulation (2) Chronic obstructive pulmonary disease: Code(s): J44.9 - Chronic obstructive pulmonary disease, unspecified Status: Acute Assessment and Plan: will continue with BiPAP and home medications (3) COVID-19 virus infection: Code(s): U07.1 - COVID-19 Status: Acute Assessment and Plan: past infection, will still monitor closely, isolation (4) Hematoma: Code(s): T14.8XXA - Other injury of unspecified body region, initial encounter Status: Acute Assessment and Plan: Ordered follow up ultrasound, althogh clinically this does not appear to be necessary. The thigh hematoma looks much better and the hemoglobin and hematocrit are stable. (5) Acute on chronic renal failure: Code(s): N17.9 - Acute kidney failure, unspecified; N18.9 - Chronic kidney disease, unspecified Status: Acute Assessment and Plan: Likely due to urinary obstruction. Gillespie placed. Discussed with patient and his that he will need to keep gillespie catheter at discharge and follow up outpatient with Urology unless for some reason Urology needs to be consulted while inpatient. (6) Chronic atrial fibrillation: Code(s): I48.20 - Chronic atrial fibrillation, unspecified Status: Acute Assessment and Plan: Rate controlled but still in atrial fibrillation. Apixaban restarted. (7) Septicemia: Code(s): A41.9 - Sepsis, unspecified organism Status: Acute Assessment and Plan: Previously treated for MSSA bacteremia and endocarditis with plan for ancef 2g q12h for a total of 6 weeks. Will plan to resume this treatment tomorrow as long as no growth on cultures or worsening of clinical status. (8) Hyperkalemia: Code(s): E87.5 - Hyperkalemia Status: Acute Assessment and Plan: will give bicarb monitor closely. Subjective Date/time seen: 06/12/22 00:46 Patient at bedside during rounds. Patient and his deny that he has ever outright refused to have a procedure at [facility]. Patient denies worsening of thigh hematoma. Denies chest pain but has significant shortness of breath. His previous It Investment/Portfolio Manager has retired but new appointment to establish care is scheduled for July 07. They did not try to move this appointment forward after the last hospitalization. Patient and report that after discharge, patient had difficulty urinating for a week before he went to the emergency department. Reports incomplete emptying as well as hesitancy and stranguria. Reports this inability to urinate cause his stomach to tighten and caused him to feel chest pressure and tightness prior to coming to the emergency department. Patient says he does not follow with a urologist. Review of Systems Respiratory: Respiratory: Reports dyspnea Genitourinary: Genitourinary: Denies dysuria and Reports urinary hesitancy Exam Narrative: GENERAL: NAD, cooperative HEENT: Normocephalic, atraumatic, anicteric, nares clear, oropharynx moist and clear, poor dentition NECK: No bruits bilaterally, no JVD, no thyromegaly, no lymphadenopathy CV
[2022-06-11] MEDS: WATER FOR IRRIGATION, STERILE 1,000 ML BOTTLE 1000 ML (18:30)
[2022-06-12] VITALS (20 sets, daily range): BP systolic 85–110; BP diastolic 53–79; PULSE 64–80; RESP 16–22; TEMP 36.1–36.8; O2SAT 94–100
[2022-06-12] MEDS: MELATONIN 3 MG TABLET 6 MG PO ×2 (01:46→21:18)
[2022-06-12 05:16] LABS: Estimated CRCL calculation 21 ml/min; Estimated Glomerular Filt Rate 21
[2022-06-12] MEDS: CENTRAL LINE FLUSH 10 ML IV PUSH ×4 (06:10→21:18)
[2022-06-12] MEDS: FLUTICASONE/UMECLIDIN/VILANTER 100-62.5-25 MCG ELLIPTA 1 PUFF INHALATION (08:31)
--- NOTE | 2022-06-12 09:03 | PM.IMPN ---
Progress Note: A&P Assessment and Plan (1) Heart failure with reduced ejection fraction: Code(s): I50.20 - Unspecified systolic (congestive) heart failure Status: Acute Assessment and Plan: Echo with EF <15% in atrial fibrillation with cardiorenal syndrome. Patient currently appears to be clinically stable on 3LPM but still needs cardioversion as he continues to be rate controlled in atrial fibrillation. Discussed patient with hospitalist, Dr. Lemus, from [facility] who has agreed to accept the patient. -Appreciate Cardiology recommendations -Continue diuresis as tolerated -Continue apixaban (2) Acute on chronic renal failure: Code(s): N17.9 - Acute kidney failure, unspecified; N18.9 - Chronic kidney disease, unspecified Status: Acute Assessment and Plan: Likely due to urinary obstruction. Gillespie placed. Discussed with patient and his that he will need to keep gillespie catheter at discharge and follow up outpatient with Urology unless for some reason Urology needs to be consulted while inpatient. Creatinine is near baseline at 2.9 today. Will continue to monitor. -Appreciate recommendations from Nephrology (3) Endocarditis due to methicillin susceptible Staphylococcus aureus (MSSA): Code(s): I33.0 - Acute and subacute infective endocarditis; B95.61 - Methicillin susceptible Staphylococcus aureus infection as the cause of diseases classified elsewhere Status: Acute Assessment and Plan: During prior hospitalization from 05/19/22 -06/01/22, patient developed MSSA bacteremia from MSSA urinary tract infection. Initial cultures from 05/19/22 two of two sets were positive for Staphylococcus aureus sensitive to cefazolin. Patient had a transthoracic echo, which showed a lesion that was likely an old clot, but could not rule out endocarditis as the patient declined VALERIA by Cardiology preferring to follow up with his established Stitch Bonding Machine Tender Helper at [facility]. The patient had a central line placed to complete 6 weeks treatment for presumed MSSA endocarditis with cefazolin 2g IV BID from 05/23/22 through 07/05/22. On admission, this was broadened due to concern for worsening infection. -Will restart cefazolin tonight in preparation for transfer to [facility] -Cefazolin 2g q12h through 07/05/22 -Discontinue vancomycin and cefepime (4) Acute respiratory failure with hypoxia: Code(s): J96.01 - Acute respiratory failure with hypoxia Status: Acute Assessment and Plan: Patient does not require oxygen at home but continues to require oxygen to maintain adequate saturation due to his heart failure. Patient also has very weak cough. Will wean oxygen as tolerated. (5) Chronic obstructive pulmonary disease: Code(s): J44.9 - Chronic obstructive pulmonary disease, unspecified Status: Acute Assessment and Plan: Stable and does not appear to be having an acute COPD exacerbation. (6) Hematoma: Code(s): T14.8XXA - Other injury of unspecified body region, initial encounter Status: Acute Assessment and Plan: Ordered follow up ultrasound, although clinically this does not appear to be necessary. The thigh hematoma looks much better and the hemoglobin and hematocrit are stable. (7) Chronic atrial fibrillation: Code(s): I48.20 - Chronic atrial fibrillation, unspecified Status: Acute Assessment and Plan: Rate controlled but still in atrial fibrillation. Apixaban restarted. (8) Hyperkalemia: Code(s): E87.5 - Hyperkalemia Status: Acute Assessment and Plan: Resolved. Subjective Date/time seen: 06/12/22 09:03 Patient's says he feels very anxious and did not sleep well overnight. Patient reports shortness of breath and difficultly breathing. Review of Systems Respiratory: Respiratory: Reports dyspnea Exam Narrative: GENERAL: lying in bed,
[2022-06-12 09:49] LABS: Anion Gap 8 mmol/L (8-16); Blood Urea Nitrogen 97 mg/dL (9-20); Calcium 8.1 mg/dL (8.4-10.2); Carbon Dioxide 21 mmol/L (22-30); Chloride 108 mmol/L (98-107); Estimated CRCL calculation 21 ml/min; Estimated Glomerular Filt Rate 21; Glucose 116 mg/dL (65-110); Potassium 5.4 mmol/L (3.4-5.0); Sodium 137 mmol/L (137-145)
[2022-06-12] MEDS: MIDODRINE HCL 2.5 MG TABLET 5 MG PO ×3 (09:54→17:11)
[2022-06-12] MEDS: ASPIRIN 81 MG ENTERIC TABLET PO (09:54)
[2022-06-12] MEDS: APIXABAN 2.5 MG TABLET PO ×2 (09:54→21:18)
[2022-06-12] MEDS: ATORVASTATIN 10 MG TABLET PO (09:55)
[2022-06-12] MEDS: AMIODARONE HCL 200 MG TABLET PO (09:55)
[2022-06-12 10:36] LABS: Basophils Percent Auto 0.1 % (0.2-1.2); Eosinophils Percent Auto 0.3 % (0-4.4); Hematocrit 36.5 % (42.0-52.0); Hemoglobin 11.4 g/dL (14.0-18.0); Immature Granulocyte Absolute 0.04 K/mm3 (0.00-0.031); Immature Granulocyte Percent A 0.5 % (0-0.5); Lymphocytes Absolute Auto 0.28 K/mm3 (0.9-3.2); Lymphocytes Percent Auto 3.2 % (18.3-44.2); Mean Corpuscular HGB Conc 31.2 g/dl (32-36); Mean Corpuscular Hemoglobin 35.2 pg (26-34); Mean Corpuscular Volume 112.7 fl (80-100); Mean Platelet Volume 12.1 fl (7.4-10.4); Monocytes Absolute Auto 0.7 K/mm3 (0.1-0.6); Monocytes Percent Auto 7.8 % (2.6-8.5); Neutrophils Absolute Auto 7.8 K/mm3 (1.3-6.7); Neutrophils Percent Auto 88.1 % (45.5-73.1); Nucleated Red Blood Cells Absolute Auto 0.3 K/mm3 (0.0-0.012); Nucleated Red Blood Cells Perc 2.8 % (0.0-0.2); Platelet Count Result 143 k/mm3 (150-375); Red Blood Count 3.24 M/mm3 (4.6-6.20); Red Cell Distribution Width 23.6 % (11.5-14.5); White Blood Count 8.8 K/mm3 (4.5-10.0)
[2022-06-12] MEDS: DEXTROSE 50% 25 GM/50 ML SYRINGE IV PUSH (10:45)
[2022-06-12] MEDS: SODIUM POLYSTYRENE SULFONONATE 15 GM/60 ML BTL 30 GM PO (10:45)
[2022-06-12] MEDS: INSULIN HUMAN REGULAR (*BKC) 100 UNITS/ML 10 UNITS IV PUSH (10:46)
[2022-06-12 11:11] LABS: Hypochromasia 1+ (NORMAL); Platelet Estimate Adequate (Adequate)
[2022-06-12 11:12] LABS: Poikilocytosis 1+ (NORMAL); Stomatocytes 1+ (NORMAL); Tear Drop Cells 1+ (NORMAL)
[2022-06-12 11:13] LABS: Acanthocytes 1+ (NORMAL); Burr Cells 1+ (NORMAL); Crenated RBC 1+ (NORMAL)
[2022-06-12 15:05] LABS: Anion Gap 8 mmol/L (8-16); Blood Urea Nitrogen 98 mg/dL (9-20); Calcium 7.8 mg/dL (8.4-10.2); Carbon Dioxide 24 mmol/L (22-30); Chloride 109 mmol/L (98-107); Estimated CRCL calculation 21 ml/min; Estimated Glomerular Filt Rate 21; Glucose 97 mg/dL (65-110); Potassium 4.9 mmol/L (3.4-5.0); Sodium 141 mmol/L (137-145)
--- NOTE | 2022-06-12 16:12 | PM.PNNEP ---
Progress Note: A&P Additional Plan 1. Alayna has chronic kidney disease. This is from autosomal dominant polycystic kidney disease. His baseline creatinine is 2.8. 2. The patient has acute kidney injury. His creatinine peaked at 3.4 and now 2.9 CK is okay. Urine electrolytes are pre renal (fractional excretion of urea) Renal ultrasound shows nothing acute. Just the polycystic kidneys. Patient had hypotension on admission. This seems better with the hetastarch and is now on midodrine. 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 3. his potassium is Normal 4. The patient has a metabolic acidosis. CO2 is normal 5. The patient has hypotension. improved with midodrine. 6. The patient has endocarditis. He is getting vancomycin plus cefepime 7. The patient has COPD. 8. The patient has mild anemia. His hemoglobin is actually much better than it was last admission. 9. He has swelling in the left lower extremity. Venous Dopplers negative. This is the remainders of a hematoma from last admission. Subjective Date/time seen: 06/12/22 16:12 Interval history: Patient says he slept really well last night and feels good today. He is on 7L of oxygen right now. in the room. we discussed the case. Exam Narrative: WDWN in NAD skin no rash head ncat lungs decreased breath sounds at the bases cor reg no rub abd BS+ nontender and soft ext no edema Objective Data Vital Signs Vital Signs: Vital Signs - 24 hr 06/11/22 18:00 06/11/22 20:00 06/11/22 20:00 Temperature Pulse Rate 84 80 80 Respiratory Rate 22 H Blood Pressure Pulse Oximetry 98 Oxygen Delivery High Flow Therapy with Na Oxygen Flow Rate 12 Fraction of Inspired Oxygen 30 06/11/22 20:00 06/11/22 22:00 06/11/22 23:28 Temperature 36.4 C 36.5 C Pulse Rate 87 69 77 Respiratory Rate 22 H 20 Blood Pressure 87/60 L 120/68 Pulse Oximetry 92 98 Oxygen Delivery Oxygen Flow Rate Fraction of Inspired Oxygen 06/12/22 00:34 06/12/22 00:05 06/12/22 00:00 Temperature Pulse Rate 76 76 74 Respiratory Rate 22 H 22 H Blood Pressure Pulse Oximetry 94 98 Oxygen Delivery High Flow Nasal Cannula BiPAP Oxygen Flow Rate 13 Fraction of Inspired Oxygen 06/12/22 00:00 06/12/22 02:00 06/12/22 04:00 Temperature Pulse Rate 74 73 68 Respiratory Rate 22 H Blood Pressure Pulse Oximetry 94 Oxygen Delivery BiPAP Oxygen Flow Rate Fraction of Inspired Oxygen 30 06/12/22 04:00 06/12/22 04:00 06/12/22 05:49 Temperature 36.5 C Pulse Rate 68 80 74 Respiratory Rate 22 H 20 22 H Blood Pressure 85/60 L Pulse Oximetry 94 95 99 Oxygen Delivery High Flow Nasal Cannula High Flow Nasal Cannula Oxygen Flow Rate 12 12 Fraction of Inspired Oxygen 30 06/12/22 06:00 06/12/22 08:00 06/12/22 08:35 Temperature 36.2 C L Pulse Rate 67 65 Respiratory Rate 20 Blood Pressure 88/65 L Pulse Oximetry 100 99 Oxygen Delivery High Flow Nasal Cannula Oxygen Flow Rate 12 Fraction of Inspired Oxygen 06/12/22 09:55 06/12/22 10:03 06/12/22 08:00 Temperature Pulse Rate 72 67 Respiratory Rate Blood Pressure Pulse Oximetry 99 Oxygen Delivery High Flow Nasal Cannula Oxygen Flow Rate 7 Fraction of Inspired Oxygen 06/12/22 10:00 06/12/22 12:00 06/12/22 12:00 Temperature 36.6 C Pulse Rate 74 71 64 Respiratory Rate 22 H Blood Pressure 110/79 Pulse Oximetry 99 Oxygen Delivery Oxygen Flow Rate Fraction of Inspired Oxygen 06/12/22 08:00 06/12/22 12:00 06/12/22 14:00 Temperature Pulse Rate 76 Respiratory Rate Blood Pressure Pulse Oximetry 99 99 Oxygen Delivery Nasal Cannula Nasal Cannula Oxygen Flow Rate 3 3 Fraction of Inspired Oxygen Intake/Output Intake/Output: Intake & Output 06/09/22 06/10/22 06/11/22 06/12/22 23:59 23:59 23:59 23:
[2022-06-12] MEDS: ceFAZolin 2 GM/D5W 50 ML 2 GM/50 ML BAG IVPB (21:17)
[2022-06-13] VITALS (18 sets, daily range): BP systolic 98–117; BP diastolic 71–76; PULSE 67–99; RESP 16–23; TEMP 36.3–36.8; O2SAT 80–100
[2022-06-13] MEDS: CENTRAL LINE FLUSH 10 ML IV PUSH ×4 (05:10→21:24)
[2022-06-13 05:41] LABS: Basophils Percent Auto 0.2 % (0.2-1.2); Eosinophils Absolute Auto 0.5 K/mm3 (0-0.3); Eosinophils Percent Auto 5.4 % (0-4.4); Hematocrit 36.8 % (42.0-52.0); Hemoglobin 11.9 g/dL (14.0-18.0); Immature Granulocyte Absolute 0.06 K/mm3 (0.00-0.031); Immature Granulocyte Percent A 0.7 % (0-0.5); Lymphocytes Percent Auto 3.6 % (18.3-44.2); Mean Corpuscular HGB Conc 32.3 g/dl (32-36); Mean Corpuscular Hemoglobin 36.2 pg (26-34); Mean Corpuscular Volume 111.9 fl (80-100); Mean Platelet Volume 11.8 fl (7.4-10.4); Monocytes Percent Auto 12.2 % (2.6-8.5); Neutrophils Absolute Auto 6.5 K/mm3 (1.3-6.7); Neutrophils Percent Auto 77.9 % (45.5-73.1); Nucleated Red Blood Cells Absolute Auto 0.3 K/mm3 (0.0-0.012); Nucleated Red Blood Cells Perc 3.6 % (0.0-0.2); Platelet Count Result 140 k/mm3 (150-375); Red Blood Count 3.29 M/mm3 (4.6-6.20); Red Cell Distribution Width 23.5 % (11.5-14.5); White Blood Count 8.3 K/mm3 (4.5-10.0)
[2022-06-13 05:50] LABS: Anion Gap 7 mmol/L (8-16); Blood Urea Nitrogen 91 mg/dL (9-20); Calcium 8.1 mg/dL (8.4-10.2); Carbon Dioxide 25 mmol/L (22-30); Chloride 108 mmol/L (98-107); Estimated CRCL calculation 22 ml/min; Estimated Glomerular Filt Rate 23; Glucose 88 mg/dL (65-110); Sodium 140 mmol/L (137-145)
[2022-06-13] MEDS: FLUTICASONE/UMECLIDIN/VILANTER 100-62.5-25 MCG ELLIPTA 1 PUFF INHALATION (08:33)
[2022-06-13 08:34] LABS: Band Neutrophils Percent 3 % (0-6); Basophilic Stippling 1+ (NORMAL); Eosinophils Absolute Manual 0.66 K/mm3 (0.02-0.5); Eosinophils Percent Manual 8 % (0-4); Lymphocytes Absolute Manual 0.24 K/mm3 (1.1-4.5); Metamyelocytes Percent 2 %; Monocytes Absolute Manual 0.49 K/mm3 (0.1-0.90); Monocytes Percent Manual 6 % (3-9); Neutrophils Absolute Manual 6.72 K/mm3 (1.3-6.7); Neutrophils Percent Manual 78 % (46-73); Nucleated Red Blood Cells 6 %; Total Cells Counted 100
[2022-06-13 08:35] LABS: Large Platelets Present; Platelet Estimate Adequate (Adequate)
[2022-06-13 08:37] LABS: Crenated RBC 1+ (NORMAL)
--- NOTE | 2022-06-13 08:58 | PM.IMPN ---
Progress Note: A&P Assessment and Plan (1) Heart failure with reduced ejection fraction: Code(s): I50.20 - Unspecified systolic (congestive) heart failure Status: Acute Assessment and Plan: Echo with EF <15% in atrial fibrillation with cardiorenal syndrome. Patient currently appears to be clinically stable on 3LPM but still needs cardioversion as he continues to be rate controlled in atrial fibrillation. Discussed patient with hospitalist, Dr. Lemus, from [facility] who has agreed to accept the patient. -Appreciate Cardiology recommendations -Unable to diurese due to low BP -Continue apixaban (2) Acute on chronic renal failure: Code(s): N17.9 - Acute kidney failure, unspecified; N18.9 - Chronic kidney disease, unspecified Status: Acute Assessment and Plan: Likely due to urinary obstruction. Gillespie placed. Discussed with patient and his that he will need to keep gillespie catheter at discharge and follow up outpatient with Urology unless for some reason Urology needs to be consulted while inpatient. Creatinine at baseline at 2.7 today. Will continue to monitor. -Appreciate recommendations from Nephrology (3) Endocarditis due to methicillin susceptible Staphylococcus aureus (MSSA): Code(s): I33.0 - Acute and subacute infective endocarditis; B95.61 - Methicillin susceptible Staphylococcus aureus infection as the cause of diseases classified elsewhere Status: Acute Assessment and Plan: During prior hospitalization from 05/19/22 -06/01/22, patient developed MSSA bacteremia from MSSA urinary tract infection. Initial cultures from 05/19/22 two of two sets were positive for Staphylococcus aureus sensitive to cefazolin. Patient had a transthoracic echo, which showed a lesion that was likely an old clot, but could not rule out endocarditis as the patient declined VALERIA by Cardiology preferring to follow up with his established Math Coach at [facility]. The patient had a central line placed to complete 6 weeks treatment for presumed MSSA endocarditis with cefazolin 2g IV BID from 05/23/22 through 07/05/22. On admission, this was broadened due to concern for worsening infection. -Cefazolin 2g q12h through 07/05/22 -Discontinue vancomycin and cefepime (4) Acute respiratory failure with hypoxia: Code(s): J96.01 - Acute respiratory failure with hypoxia Status: Acute Assessment and Plan: Patient does not require oxygen at home but continues to require oxygen to maintain adequate saturation due to his heart failure. Needs PT for weak cough. Will wean oxygen as tolerated. (5) Chronic obstructive pulmonary disease: Code(s): J44.9 - Chronic obstructive pulmonary disease, unspecified Status: Acute Assessment and Plan: Stable and does not appear to be having an acute COPD exacerbation. (6) Hematoma: Code(s): T14.8XXA - Other injury of unspecified body region, initial encounter Status: Acute Assessment and Plan: Ordered follow up ultrasound, although clinically this does not appear to be necessary. The thigh hematoma looks much better and the hemoglobin and hematocrit are stable. (7) Chronic atrial fibrillation: Code(s): I48.20 - Chronic atrial fibrillation, unspecified Status: Acute Assessment and Plan: Rate controlled but still in atrial fibrillation. Apixaban restarted. (8) Hyperkalemia: Code(s): E87.5 - Hyperkalemia Status: Acute Assessment and Plan: Resolved. Additional Plan Spoke with [facility] transfer center today and gave dehydration unit operator phone number to transfer center for contact about the patient. Subjective Date/time seen: 06/13/22 08:58 Patient says he feels a little better today. Patient says the pill he was given for anxiety worked very well to help him sleep last night, which is why he feels better today. Review of Systems Respirator
[2022-06-13] MEDS: ceFAZolin 2 GM/D5W 50 ML 2 GM/50 ML BAG IVPB ×2 (10:05→21:23)
[2022-06-13] MEDS: ZINC SULFATE 220 MG CAPSULE PO (10:06)
[2022-06-13] MEDS: VITAMIN E 400 UNIT CAPSULE 1200 UNIT PO (10:06)
[2022-06-13] MEDS: MIDODRINE HCL 2.5 MG TABLET 5 MG PO ×3 (10:07→17:16)
[2022-06-13] MEDS: MULTIVITAMINS THERAPEUTIC TAB (*BKC) 1 TABLET PO (10:07)
[2022-06-13] MEDS: CALCIUM CARBONATE (OSCAL) 500 MG TABLET PO (10:07)
[2022-06-13] MEDS: ASPIRIN 81 MG ENTERIC TABLET PO (10:08)
[2022-06-13] MEDS: CHOLECALCIFEROL 1,000 UNITS TABLET 1000 UNITS PO (10:08)
[2022-06-13] MEDS: ATORVASTATIN 10 MG TABLET PO (10:09)
[2022-06-13] MEDS: ASCORBIC ACID 500 MG TABLET 1000 MG PO (10:10)
[2022-06-13] MEDS: AMIODARONE HCL 200 MG TABLET PO (10:10)
[2022-06-13] MEDS: APIXABAN 2.5 MG TABLET PO ×2 (10:11→21:24)
--- NOTE | 2022-06-13 13:59 | PM.PNCARD ---
Progress Note: A&P Assessment and Plan (1) Acute dyspnea: Code(s): R06.00 - Dyspnea, unspecified Status: Acute (2) Persistent atrial fibrillation: Code(s): I48.19 - Other persistent atrial fibrillation Status: Acute Assessment and Plan: On anticoagulation (3) Acute systolic CHF (congestive heart failure): Code(s): I50.21 - Acute systolic (congestive) heart failure Status: Acute Assessment and Plan: Continue current meds (4) Ischemic cardiomyopathy: Code(s): I25.5 - Ischemic cardiomyopathy Status: Chronic Assessment and Plan: Awaiting transfer (5) Coronary artery disease: Code(s): I25.10 - Atherosclerotic heart disease of [place] coronary artery without angina pectoris Status: Acute (6) Chronic obstructive pulmonary disease: Code(s): J44.9 - Chronic obstructive pulmonary disease, unspecified Status: Acute Subjective Date/time seen: 06/13/22 13:59 Interval history: 77-year-old with severe cardiomyopathy and heart failure Date of service 06/13/2022: He feels little bit better today. He has little less short of breath. Review of Systems Constitutional: Constitutional: Reports lethargy Eyes: Eyes: Reports no additional eye complaints ENT: Reports system reviewed and no additional complaints, except as documented Cardiovascular: Cardiovascular: Reports as per HPI and Reports dyspnea Respiratory: Respiratory: Reports dyspnea Gastrointestinal: Gastrointestinal: Reports no additional gastrointestinal complaints Musculoskeletal: Musculoskeletal: Reports no additional musculoskeletal complaints Integumentary/Breasts: Skin/Breast: Reports system reviewed and no additional complaints, except as docu Neurologic: Reports system reviewed and no additional complaints, except as documented Endocrine: Endocrine: Reports no additional endocrine complaints Hematologic/Lymphatic: Hematologic/Lymphatic: Reports no additional hematologic/lymphatic complaints Allergic/Immunologic: Allergic/Immunologic: Reports no additional allergic/immunologic complaints Exam Const: General: comfortable Other: Frail elderly man supine in bed watching television has nasal cannula oxygen in place no distress HENMT: Mouth: Yes moist mucous membranes Eyes: Sclera: sclerae normal Neck: Neck: supple and no JVD Resp: Other: Breath sounds are diminished in both lung gutiérrez no pulmonary rales or wheezing Cardio: Rhythm: abnormal rhythm irregularly irregular GI: Auscultation: normal bowel sounds Skin: General skin exam: normal color Neuro: Other: Alert and oriented, Extrem: Other: Extremities are warm trivial amount of pretibial edema Objective Data Vital Signs Vital Signs: Vital Signs - 24 hr 06/12/22 14:00 06/12/22 16:00 06/12/22 16:00 Temperature Pulse Rate 76 70 Respiratory Rate Blood Pressure Pulse Oximetry 99 Oxygen Delivery Nasal Cannula Oxygen Flow Rate 3 Fraction of Inspired Oxygen 06/12/22 16:00 06/12/22 18:00 06/12/22 19:55 Temperature 36.1 C L Pulse Rate 72 74 79 Respiratory Rate 16 Blood Pressure 89/53 L Pulse Oximetry 99 96 Oxygen Delivery High Flow Nasal Cannula Oxygen Flow Rate 2.5 Fraction of Inspired Oxygen 06/12/22 19:56 06/12/22 20:00 06/12/22 20:00 Temperature 36.8 C Pulse Rate 73 70 70 Respiratory Rate 20 20 Blood Pressure 101/74 Pulse Oximetry 99 99 Oxygen Delivery High Flow Nasal Cannula Oxygen Flow Rate 3 Fraction of Inspired Oxygen 30 06/12/22 22:00 06/13/22 00:00 06/13/22 00:00 Temperature 36.7 C Pulse Rate 80 94 94 Respiratory Rate 18 18 Blood Pressure 98/73 L Pulse Oximetry 98 98 Oxygen Delivery High Flow Nasal Cannula Oxygen Flow Rate 3 Fraction of Inspired Oxygen 30 06/13/22 00:00 06/13/22 00:15 06/13/22 02:00 Temperature Pulse Rate 88 78 Respiratory Rate 19 Blood Pressure P
--- NOTE | 2022-06-13 15:08 | PM.PNNEP ---
Progress Note: A&P Additional Plan 1. Alayna has chronic kidney disease. This is from autosomal dominant polycystic kidney disease. His baseline creatinine is 2.8. 2. The patient has acute kidney injury. His creatinine peaked at 3.4 and now 2.7. this is his baseline. CK is okay. Urine electrolytes are pre renal (fractional excretion of urea) Renal ultrasound shows nothing acute. Just the polycystic kidneys. Patient had hypotension on admission. This seems better with the hetastarch and is now on midodrine. 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 3. his potassium is normal 4. metabolic acidosis resolved. 5. The patient has hypotension. systolic 98 to 107 improved with midodrine. 6. The patient has endocarditis. He is getting vancomycin plus cefepime 7. The patient has COPD. 8. The patient has mild anemia. His hemoglobin is actually much better than it was last admission. 9. He has swelling in the left lower extremity. Venous Dopplers negative. This is the remainders of a hematoma from last admission. Subjective Date/time seen: 06/13/22 15:08 Interval history: Patient says he feels okay breathing fine now. on nasac canula. o2 flow down to 1 liter now. o2 sats good. Exam Narrative: WDWN in NAD skin no rash or sq nodules head ncat lungs decreased breath sounds at the bases cor reg no rub abd BS+ nontender and soft ext no edema or cyanosis. Objective Data Vital Signs Vital Signs: Vital Signs - 24 hr 06/12/22 16:00 06/12/22 16:00 06/12/22 16:00 Temperature 36.1 C L Pulse Rate 70 72 Respiratory Rate 16 Blood Pressure 89/53 L Pulse Oximetry 99 99 Oxygen Delivery Nasal Cannula Oxygen Flow Rate 3 Fraction of Inspired Oxygen 06/12/22 18:00 06/12/22 19:55 06/12/22 19:56 Temperature 36.8 C Pulse Rate 74 79 73 Respiratory Rate 20 Blood Pressure 101/74 Pulse Oximetry 96 99 Oxygen Delivery High Flow Nasal Cannula Oxygen Flow Rate 2.5 Fraction of Inspired Oxygen 06/12/22 20:00 06/12/22 20:00 06/12/22 22:00 Temperature Pulse Rate 70 70 80 Respiratory Rate 20 Blood Pressure Pulse Oximetry 99 Oxygen Delivery High Flow Nasal Cannula Oxygen Flow Rate 3 Fraction of Inspired Oxygen 30 06/13/22 00:00 06/13/22 00:00 06/13/22 00:00 Temperature 36.7 C Pulse Rate 94 94 88 Respiratory Rate 18 18 Blood Pressure 98/73 L Pulse Oximetry 98 98 Oxygen Delivery High Flow Nasal Cannula Oxygen Flow Rate 3 Fraction of Inspired Oxygen 30 06/13/22 00:15 06/13/22 02:00 06/13/22 04:00 Temperature Pulse Rate 78 76 Respiratory Rate 19 Blood Pressure Pulse Oximetry Oxygen Delivery BiPAP Oxygen Flow Rate Fraction of Inspired Oxygen 06/13/22 04:00 06/13/22 04:00 06/13/22 04:40 Temperature 36.8 C Pulse Rate 76 84 99 Respiratory Rate 19 20 23 H Blood Pressure 107/76 Pulse Oximetry 98 96 80 L Oxygen Delivery BiPAP BiPAP Oxygen Flow Rate 3 Fraction of Inspired Oxygen 30 06/13/22 05:38 06/13/22 06:00 06/13/22 07:59 Temperature 36.7 C Pulse Rate 80 67 74 Respiratory Rate 20 16 Blood Pressure 103/73 Pulse Oximetry 99 100 Oxygen Delivery Nasal Cannula Oxygen Flow Rate 2.5 Fraction of Inspired Oxygen 06/13/22 08:35 06/13/22 10:10 06/13/22 12:00 Temperature 36.5 C Pulse Rate 82 86 68 Respiratory Rate 18 16 Blood Pressure 99/74 L Pulse Oximetry 99 98 Oxygen Delivery Nasal Cannula Oxygen Flow Rate 2 Fraction of Inspired Oxygen 06/13/22 08:00 06/13/22 10:00 06/13/22 12:00 Temperature Pulse Rate 86 80 73 Respiratory Rate Blood Pressure Pulse Oximetry Oxygen Delivery Oxygen Flow Rate Fraction of Inspired Oxygen 06/13/22 14:00 06/13/22 08:00 06/13/22 12:00 Temperature Pulse Rate 76 Respiratory Rate Blood Pressure Pulse Oximetry 98 98 Oxygen Deliv
[2022-06-13] MEDS: MELATONIN 3 MG TABLET 6 MG PO (21:24)
[2022-06-14] VITALS (14 sets, daily range): BP systolic 98–138; BP diastolic 72–95; PULSE 67–113; RESP 12–18; TEMP 36.3–36.9; O2SAT 93–98
[2022-06-14 05:25] LABS: Basophils Percent Auto 0.4 % (0.2-1.2); Eosinophils Absolute Auto 0.7 K/mm3 (0-0.3); Eosinophils Percent Auto 8.7 % (0-4.4); Hematocrit 39.4 % (42.0-52.0); Immature Granulocyte Absolute 0.11 K/mm3 (0.00-0.031); Immature Granulocyte Percent A 1.4 % (0-0.5); Lymphocytes Absolute Auto 0.27 K/mm3 (0.9-3.2); Lymphocytes Percent Auto 3.5 % (18.3-44.2); Mean Corpuscular HGB Conc 30.5 g/dl (32-36); Mean Corpuscular Hemoglobin 34.9 pg (26-34); Mean Corpuscular Volume 114.5 fl (80-100); Mean Platelet Volume 12.5 fl (7.4-10.4); Monocytes Absolute Auto 0.8 K/mm3 (0.1-0.6); Monocytes Percent Auto 10.5 % (2.6-8.5); Neutrophils Absolute Auto 5.8 K/mm3 (1.3-6.7); Neutrophils Percent Auto 75.5 % (45.5-73.1); Nucleated Red Blood Cells Absolute Auto 0.3 K/mm3 (0.0-0.012); Platelet Count Result 147 k/mm3 (150-375); Red Blood Count 3.44 M/mm3 (4.6-6.20); Red Cell Distribution Width 23.3 % (11.5-14.5); White Blood Count 7.7 K/mm3 (4.5-10.0)
[2022-06-14 05:39] LABS: Albumin Level 2.5 g/dL (3.5-5.1); Alkaline Phosphatase 39 U/L (38-126); Anion Gap 9 mmol/L (8-16); Aspartate Amino Transferase 23 U/L (17-59); Bilirubin,Total 0.9 mg/dL (0.2-1.3); Blood Urea Nitrogen 84 mg/dL (9-20); Calcium 8.6 mg/dL (8.4-10.2); Carbon Dioxide 25 mmol/L (22-30); Chloride 108 mmol/L (98-107); Estimated CRCL calculation 24 ml/min; Estimated Glomerular Filt Rate 25; Glucose 96 mg/dL (65-110); Potassium 4.4 mmol/L (3.4-5.0); Sodium 142 mmol/L (137-145)
[2022-06-14 06:09] LABS: Alanine Aminotransferase < 6 U/L (6-50)
[2022-06-14 07:04] LABS: Anisocytosis 1+ (NORMAL); Band Neutrophils Percent 3 % (0-6); Eosinophils Absolute Manual 0.77 K/mm3 (0.02-0.5); Eosinophils Percent Manual 10 % (0-4); Giant Platelets Present; Lymphocytes Absolute Manual 0.23 K/mm3 (1.1-4.5); Macrocytosis 1+ (NORMAL); Metamyelocytes Percent 2 %; Monocytes Absolute Manual 0.23 K/mm3 (0.1-0.90); Monocytes Percent Manual 3 % (3-9); Myelocytes Percent 1 %; Neutrophils Absolute Manual 6.23 K/mm3 (1.3-6.7); Neutrophils Percent Manual 78 % (46-73); Nucleated Red Blood Cells 9 %; Platelet Estimate Adequate (Adequate); Poikilocytosis 1+ (NORMAL); Total Cells Counted 100
[2022-06-14 07:05] LABS: Acanthocytes 1+ (NORMAL); Burr Cells 1+ (NORMAL); Hypochromasia 1+ (NORMAL); Toxic Granulation Present (NORMAL)
--- NOTE | 2022-06-14 08:12 | PM.IMPN ---
Progress Note: A&P Assessment and Plan (1) Heart failure with reduced ejection fraction: Code(s): I50.20 - Unspecified systolic (congestive) heart failure Status: Acute Assessment and Plan: Echo with EF <15% in atrial fibrillation with cardiorenal syndrome. Patient currently appears to be clinically stable on 3LPM but still needs cardioversion as he continues to be rate controlled in atrial fibrillation. Discussed patient with hospitalist, Dr. Lemus, from [facility] who has agreed to accept the patient. -Appreciate Cardiology recommendations -May be able to restart diuresis as midodrine is helping BP -Continue apixaban (2) Acute on chronic renal failure: Code(s): N17.9 - Acute kidney failure, unspecified; N18.9 - Chronic kidney disease, unspecified Status: Acute Assessment and Plan: Likely due to urinary obstruction. Gillespie placed. Discussed with patient and his that he will need to keep gillespie catheter at discharge and follow up outpatient with Urology unless for some reason Urology needs to be consulted while inpatient. Creatinine at baseline at 2.7 today. Will continue to monitor. -Appreciate recommendations from Nephrology (3) Endocarditis due to methicillin susceptible Staphylococcus aureus (MSSA): Code(s): I33.0 - Acute and subacute infective endocarditis; B95.61 - Methicillin susceptible Staphylococcus aureus infection as the cause of diseases classified elsewhere Status: Acute Assessment and Plan: During prior hospitalization from 05/19/22 -06/01/22, patient developed MSSA bacteremia from MSSA urinary tract infection. Initial cultures from 05/19/22 two of two sets were positive for Staphylococcus aureus sensitive to cefazolin. Patient had a transthoracic echo, which showed a lesion that was likely an old clot, but could not rule out endocarditis as the patient declined [facility] by Cardiology preferring to follow up with his established Warehouse Freight Handler at [facility]. The patient had a central line placed to complete 6 weeks treatment for presumed MSSA endocarditis with cefazolin 2g IV BID from 05/23/22 through 07/05/22. On admission, this was broadened due to concern for worsening infection. -Cefazolin 2g q12h through 07/05/22 -Discontinue vancomycin and cefepime (4) Acute respiratory failure with hypoxia: Code(s): J96.01 - Acute respiratory failure with hypoxia Status: Acute Assessment and Plan: Patient does not require oxygen at home but continues to require oxygen to maintain adequate saturation due to his heart failure. Needs PT for weak cough. Will wean oxygen as tolerated. (5) Chronic obstructive pulmonary disease: Code(s): J44.9 - Chronic obstructive pulmonary disease, unspecified Status: Acute Assessment and Plan: Stable and does not appear to be having an acute COPD exacerbation. (6) Hematoma: Code(s): T14.8XXA - Other injury of unspecified body region, initial encounter Status: Acute Assessment and Plan: Ordered follow up ultrasound, although clinically this does not appear to be necessary. The thigh hematoma looks much better and the hemoglobin and hematocrit are stable. (7) Chronic atrial fibrillation: Code(s): I48.20 - Chronic atrial fibrillation, unspecified Status: Acute Assessment and Plan: Rate controlled but still in atrial fibrillation. Apixaban restarted. (8) Hyperkalemia: Code(s): E87.5 - Hyperkalemia Status: Acute Assessment and Plan: Resolved. Additional Plan Spoke with [facility] transfer center today and gave manager community relations phone number to transfer center for contact about the patient. Subjective Date/time seen: 06/14/22 08:12 Patient says he feels better and wants to know what is taking so long to transfer to [facility]. He feels like his breathing is better. Working with PT. Review of Systems
[2022-06-14] MEDS: MIDODRINE HCL 2.5 MG TABLET 5 MG PO ×3 (08:23→17:06)
[2022-06-14] MEDS: VITAMIN E 400 UNIT CAPSULE 1200 UNIT PO (08:23)
[2022-06-14] MEDS: CALCIUM CARBONATE (OSCAL) 500 MG TABLET PO (08:23)
[2022-06-14] MEDS: MULTIVITAMINS THERAPEUTIC TAB (*BKC) 1 TABLET PO (08:23)
[2022-06-14] MEDS: ASCORBIC ACID 500 MG TABLET 1000 MG PO (08:23)
[2022-06-14] MEDS: AMIODARONE HCL 200 MG TABLET PO (08:24)
[2022-06-14] MEDS: ATORVASTATIN 10 MG TABLET PO (08:24)
[2022-06-14] MEDS: APIXABAN 2.5 MG TABLET PO ×2 (08:24→21:09)
[2022-06-14] MEDS: ASPIRIN 81 MG ENTERIC TABLET PO (08:24)
[2022-06-14] MEDS: CHOLECALCIFEROL 1,000 UNITS TABLET 1000 UNITS PO (08:24)
[2022-06-14] MEDS: ZINC SULFATE 220 MG CAPSULE PO (08:24)
[2022-06-14] MEDS: ceFAZolin 2 GM/D5W 50 ML 2 GM/50 ML BAG IVPB ×2 (08:25→21:10)
[2022-06-14] MEDS: FLUTICASONE/UMECLIDIN/VILANTER 100-62.5-25 MCG ELLIPTA 1 PUFF INHALATION (08:59)
--- NOTE | 2022-06-14 13:05 | PM.PNNEP ---
Progress Note: A&P Additional Plan 1. Darrell has chronic kidney disease. This is from autosomal dominant polycystic kidney disease. His baseline creatinine is 2.8. 2. The patient has acute kidney injury. His creatinine has fallen to 2.5. This is below baseline. Most likely because he is at bed rest and muscle turnover is lower, hence generating less creatinine. CK is okay. Urine electrolytes are pre renal (fractional excretion of urea) Renal ultrasound shows nothing acute. Just the polycystic kidneys. Acute kidney injury is resolved. 3. his potassium is normal 4. metabolic acidosis resolved. 5. The patient has hypotension. systolic 98 to 130 improved with midodrine. 6. The patient has endocarditis. He is getting vancomycin plus cefepime 7. The patient has COPD. 8. The patient has mild anemia. His hemoglobin is 12. 9. He has swelling in the left lower extremity. Venous Dopplers negative. This is the remainders of a hematoma from last admission. Subjective Date/time seen: 06/14/22 13:05 Interval history: Patient says he feels okay Lying flat in bed. On just 1liter/minute of oxygen now. He feels good with this. Exam Narrative: WDWN in NAD skin no rash head ncat lungs decreased breath sounds at the bases cor reg no rub or gallop abd BS+ nontender and soft ext no presacral edema but has 1+ edema LLE. no cyanosis. Objective Data Vital Signs Vital Signs: Vital Signs - 24 hr 06/13/22 14:00 06/13/22 14:46 06/13/22 16:00 Temperature Pulse Rate 76 83 Respiratory Rate Blood Pressure Pulse Oximetry Oxygen Delivery Nasal Cannula Oxygen Flow Rate 1 Fraction of Inspired Oxygen 06/13/22 16:00 06/13/22 16:00 06/13/22 18:00 Temperature 36.5 C Pulse Rate 97 80 Respiratory Rate 20 Blood Pressure 104/71 Pulse Oximetry 98 100 Oxygen Delivery Nasal Cannula Oxygen Flow Rate 1 Fraction of Inspired Oxygen 06/13/22 20:00 06/13/22 20:00 06/13/22 20:00 Temperature 36.3 C L Pulse Rate 78 72 72 Respiratory Rate 20 20 Blood Pressure 117/75 Pulse Oximetry 98 98 Oxygen Delivery Nasal Cannula Oxygen Flow Rate 1 Fraction of Inspired Oxygen 30 06/13/22 22:00 06/14/22 00:00 06/14/22 00:00 Temperature 36.9 C Pulse Rate 77 81 81 Respiratory Rate 14 14 Blood Pressure 98/72 L Pulse Oximetry 97 97 Oxygen Delivery Nasal Cannula Oxygen Flow Rate 1 Fraction of Inspired Oxygen 30 06/14/22 00:00 06/14/22 02:00 06/14/22 04:00 Temperature Pulse Rate 77 82 78 Respiratory Rate Blood Pressure Pulse Oximetry Oxygen Delivery Oxygen Flow Rate Fraction of Inspired Oxygen 06/14/22 04:00 06/14/22 04:00 06/14/22 06:00 Temperature 36.3 C L Pulse Rate 78 78 74 Respiratory Rate 14 12 Blood Pressure 138/81 Pulse Oximetry 97 98 Oxygen Delivery Nasal Cannula Oxygen Flow Rate 1 Fraction of Inspired Oxygen 30 06/14/22 07:48 06/14/22 08:59 06/14/22 08:00 Temperature 36.6 C Pulse Rate 85 Respiratory Rate 12 Blood Pressure 119/82 Pulse Oximetry 98 93 93 Oxygen Delivery Nasal Cannula Nasal Cannula Oxygen Flow Rate 1 1 Fraction of Inspired Oxygen 06/14/22 08:00 06/14/22 10:00 06/14/22 12:00 Temperature 36.3 C L Pulse Rate 82 81 98 Respiratory Rate 12 Blood Pressure 132/86 Pulse Oximetry 98 Oxygen Delivery Oxygen Flow Rate Fraction of Inspired Oxygen 06/14/22 12:00 06/14/22 12:00 Temperature Pulse Rate 113 H Respiratory Rate Blood Pressure Pulse Oximetry 93 Oxygen Delivery Nasal Cannula Oxygen Flow Rate 1 Fraction of Inspired Oxygen Intake/Output Intake/Output: Intake & Output 06/11/22 06/12/22 06/13/22 06/14/22 23:59 23:59 23:59 23:59 Intake Total 576 483 3332 620 Output Total 732 989 3792 500 Balance -20 -392 40 120 Meds/Results Medications: Active Medications Generic Name Dose Route Start Last Admin T
[2022-06-14] MEDS: ACETAMINOPHEN 325 MG TABLET 650 MG PO (13:13)
[2022-06-14] MEDS: CENTRAL LINE FLUSH 10 ML IV PUSH ×3 (14:25→21:10)
[2022-06-14] MEDS: MELATONIN 3 MG TABLET 6 MG PO (21:09)
[2022-06-14] MEDS: hydrOXYzine HCL 25 MG TABLET PO (21:09)
[2022-06-15] VITALS (18 sets, daily range): BP systolic 97–109; BP diastolic 67–73; PULSE 69–145; RESP 20–28; TEMP 36.2–36.7; O2SAT 93–99
[2022-06-15] MEDS: CENTRAL LINE FLUSH 10 ML IV PUSH ×2 (05:17→14:34)
[2022-06-15 05:39] LABS: Anion Gap 4 mmol/L (8-16); Blood Urea Nitrogen 80 mg/dL (9-20); Calcium 8.2 mg/dL (8.4-10.2); Carbon Dioxide 28 mmol/L (22-30); Chloride 109 mmol/L (98-107); Estimated CRCL calculation 24 ml/min; Estimated Glomerular Filt Rate 25; Glucose 78 mg/dL (65-110); Potassium 4.8 mmol/L (3.4-5.0); Sodium 141 mmol/L (137-145)
[2022-06-15] MEDS: FLUTICASONE/UMECLIDIN/VILANTER 100-62.5-25 MCG ELLIPTA 1 PUFF INHALATION (08:00)
[2022-06-15] MEDS: hydrOXYzine HCL 25 MG TABLET PO (08:17)
[2022-06-15] MEDS: ACETAMINOPHEN 325 MG TABLET 650 MG PO (08:17)
[2022-06-15] MEDS: IPRATROPIUM BR 0.02% INH SOLN 0.5 MG/2.5 ML VIAL INHALATION ×2 (08:28→13:05)
[2022-06-15] MEDS: ALBUTEROL SULFATE NEB 2.5 MG/3 ML INH INHALATION (08:29)
[2022-06-15] MEDS: ceFAZolin 2 GM/D5W 50 ML 2 GM/50 ML BAG IVPB (08:31)
[2022-06-15] MEDS: ASCORBIC ACID 500 MG TABLET 1000 MG PO (08:36)
[2022-06-15] MEDS: AMIODARONE HCL 200 MG TABLET PO (08:36)
[2022-06-15] MEDS: VITAMIN E 400 UNIT CAPSULE 1200 UNIT PO (08:36)
[2022-06-15] MEDS: MIDODRINE HCL 2.5 MG TABLET 5 MG PO ×2 (08:36→12:20)
--- NOTE | 2022-06-15 08:36 | PM.IMPN ---
Progress Note: A&P Assessment and Plan (1) Heart failure with reduced ejection fraction: Code(s): I50.20 - Unspecified systolic (congestive) heart failure Status: Acute Assessment and Plan: Echo with EF <15% in atrial fibrillation with cardiorenal syndrome. Patient currently appears to be clinically stable on 3LPM but still needs cardioversion as he continues to be rate controlled in atrial fibrillation. Discussed patient with hospitalist, Dr. Lemus, from [facility] who has agreed to accept the patient. -Appreciate Cardiology recommendations -May be able to restart diuresis as midodrine is helping BP -Continue apixaban (2) Acute on chronic renal failure: Code(s): N17.9 - Acute kidney failure, unspecified; N18.9 - Chronic kidney disease, unspecified Status: Acute Assessment and Plan: Likely due to urinary obstruction. Gillespie placed. Discussed with patient and his that he will need to keep gillespie catheter at discharge and follow up outpatient with Urology unless for some reason Urology needs to be consulted while inpatient. Creatinine at baseline at 2.7 today. Will continue to monitor. -Appreciate recommendations from Nephrology (3) Endocarditis due to methicillin susceptible Staphylococcus aureus (MSSA): Code(s): I33.0 - Acute and subacute infective endocarditis; B95.61 - Methicillin susceptible Staphylococcus aureus infection as the cause of diseases classified elsewhere Status: Acute Assessment and Plan: During prior hospitalization from 05/19/22 -06/01/22, patient developed MSSA bacteremia from MSSA urinary tract infection. Initial cultures from 05/19/22 two of two sets were positive for Staphylococcus aureus sensitive to cefazolin. Patient had a transthoracic echo, which showed a lesion that was likely an old clot, but could not rule out endocarditis as the patient declined [facility] by Cardiology preferring to follow up with his established Jalousie Installer at [facility]. The patient had a central line placed to complete 6 weeks treatment for presumed MSSA endocarditis with cefazolin 2g IV BID from 05/23/22 through 07/05/22. On admission, this was broadened due to concern for worsening infection. -Cefazolin 2g q12h through 07/05/22 -Discontinue vancomycin and cefepime (4) Acute respiratory failure with hypoxia: Code(s): J96.01 - Acute respiratory failure with hypoxia Status: Acute Assessment and Plan: Patient does not require oxygen at home but continues to require oxygen to maintain adequate saturation due to his heart failure. Needs PT for weak cough. Will wean oxygen as tolerated. (5) Chronic obstructive pulmonary disease: Code(s): J44.9 - Chronic obstructive pulmonary disease, unspecified Status: Acute Assessment and Plan: Stable and does not appear to be having an acute COPD exacerbation. (6) Hematoma: Code(s): T14.8XXA - Other injury of unspecified body region, initial encounter Status: Acute Assessment and Plan: Ordered follow up ultrasound, although clinically this does not appear to be necessary. The thigh hematoma looks much better and the hemoglobin and hematocrit are stable. (7) Chronic atrial fibrillation: Code(s): I48.20 - Chronic atrial fibrillation, unspecified Status: Acute Assessment and Plan: Rate controlled but still in atrial fibrillation. Apixaban restarted. (8) Hyperkalemia: Code(s): E87.5 - Hyperkalemia Status: Acute Assessment and Plan: Resolved. Additional Plan Spoke with [facility] transfer center today and gave community dietitian phone number to transfer center for contact about the patient. Subjective Date/time seen: 06/15/22 08:36 Exam Narrative: GENERAL: NAD, cooperative HEENT: Normocephalic, atraumatic, anicteric NECK: Supple CV: Normal S1, S2, irregular rhythm, regular rate , No MRG RESP: Improved air
[2022-06-15] MEDS: ZINC SULFATE 220 MG CAPSULE PO (08:37)
[2022-06-15] MEDS: ATORVASTATIN 10 MG TABLET PO (08:37)
[2022-06-15] MEDS: CALCIUM CARBONATE (OSCAL) 500 MG TABLET PO (08:37)
[2022-06-15] MEDS: APIXABAN 2.5 MG TABLET PO (08:37)
[2022-06-15] MEDS: ASPIRIN 81 MG ENTERIC TABLET PO (08:37)
[2022-06-15] MEDS: MULTIVITAMINS THERAPEUTIC TAB (*BKC) 1 TABLET PO (08:37)
[2022-06-15] MEDS: CHOLECALCIFEROL 1,000 UNITS TABLET 1000 UNITS PO (08:37)
--- NOTE | 2022-06-15 08:41 | PM.TDS ---
Transfer Discharge Sum: Prov Provider Date of admission: 06/10/22 08:39 Primary care physician: Zachery Fraser DO Admitting clinician: Matias Lemus MD Consults: 06/10/22 Consult to Physician Routine Comment: Called the exchange and notified them of consult Consulting Provider: Rusty Joyce call or contact centre coach/MD group to consult: Cardiology Reason for consultation: Chf, Cardiomyopathy, cardiac arrythmia Has provider been notified: Yes Consult to Physician Routine Comment: Spoke with Dr and notified him of consult Consulting Provider: Aurelio Gonsalez call or contact centre coach/MD group to consult: Nephrology Reason for consultation: renal failure Has provider been notified: Yes DS: Admitting Diagnosis Discharge Date 06/15/22 Admitting Diagnosis Heart Failure, Urinary Retention DS: Discharge Diagnosis Discharge Diagnosis (1) Heart failure with reduced ejection fraction: Code(s): I50.20 - Unspecified systolic (congestive) heart failure Status: Acute Assessment and Plan: Echo with EF <15% in atrial fibrillation with cardiorenal syndrome. Patient currently appears to be clinically stable on 3LPM but still needs cardioversion as he continues to be rate controlled in atrial fibrillation. Discussed patient with hospitalist, Dr. Lemus, from [facility] who has agreed to accept the patient. -Appreciate Cardiology recommendations -May be able to restart diuresis as midodrine is helping BP -Continue apixaban (2) Acute on chronic renal failure: Code(s): N17.9 - Acute kidney failure, unspecified; N18.9 - Chronic kidney disease, unspecified Status: Acute Assessment and Plan: Likely due to urinary obstruction. Gillespie placed. Discussed with patient and his that he will need to keep gillespie catheter at discharge and follow up outpatient with Urology unless for some reason Urology needs to be consulted while inpatient. Creatinine at baseline at 2.7 today. Will continue to monitor. -Appreciate recommendations from Nephrology (3) Endocarditis due to methicillin susceptible Staphylococcus aureus (MSSA): Code(s): I33.0 - Acute and subacute infective endocarditis; B95.61 - Methicillin susceptible Staphylococcus aureus infection as the cause of diseases classified elsewhere Status: Acute Assessment and Plan: During prior hospitalization from 05/19/22 -06/01/22, patient developed MSSA bacteremia from MSSA urinary tract infection. Initial cultures from 05/19/22 two of two sets were positive for Staphylococcus aureus sensitive to cefazolin. Patient had a transthoracic echo, which showed a lesion that was likely an old clot, but could not rule out endocarditis as the patient declined [facility] by Cardiology preferring to follow up with his established Resource Specialist at [facility]. The patient had a central line placed to complete 6 weeks treatment for presumed MSSA endocarditis with cefazolin 2g IV BID from 05/23/22 through 07/05/22. On admission, this was broadened due to concern for worsening infection. -Cefazolin 2g q12h through 07/05/22 -Discontinue vancomycin and cefepime (4) Acute respiratory failure with hypoxia: Code(s): J96.01 - Acute respiratory failure with hypoxia Status: Acute Assessment and Plan: Patient does not require oxygen at home but continues to require oxygen to maintain adequate saturation due to his heart failure. Needs PT for weak cough. Will wean oxygen as tolerated. (5) Chronic obstructive pulmonary disease: Code(s): J44.9 - Chronic obstructive pulmonary disease, unspecified Status: Acute Assessment and Plan: Stable and does not appear to be having an acute COPD exacerbation. (6) Hematoma: Code(s): T14.8XXA - Other injury of unspecified body region, initial encounter Status: Acute Assessment and Plan: Ordered follow up ultrasound, although clinically this does not appear to
--- NOTE | 2022-06-15 08:46 | ECG_ITS ---
Measurements Intervals [place] Rate: 140 P: [place]: 0 QRS: 252 QRSD: 120 T: 73 QT: 342 QTc: 523 Interpretive Statements ATRIAL FIBRILLATION WITH RAPID VENTRICULAR RESPONSE VENTRICULAR COUPLET RIGHT AXIS DEVIATION IVCD, INTERMITTENT RBBB AND LBBB INFERIOR INFARCT, AGE INDETERMINATE BASELINE ARTIFACT- I, II, AVR, AVL, V4-V6 ABNORMAL ECG Electronically Signed On 06-15-2022 9:47:27 CDT by Ramírez Calhoun D.O.
[2022-06-15] MEDS: AMIODARONE 150 MG/D5W 100 ML 150 MG/100 ML BAG 600 MG IV CONT (09:00)
[2022-06-15] MEDS: AMIODARONE 360 MG/D5W 200 ML 360 MG/200 ML BAG 33.33 MG IV CONT (09:19)
[2022-06-15 09:20] LABS: Magnesium 1.9 mg/dL (1.6-2.3)
[2022-06-15] MEDS: LORazepam (*CRX) 0.5 MG TABLET 0.25 MG PO (09:20)
[2022-06-15] MEDS: AMIODARONE 360 MG/D5W 200 ML 360 MG/200 ML BAG 16.67 MG IV CONT (15:11)
--- NOTE | 2022-06-15 15:18 | PM.PNNEP ---
Progress Note: A&P Additional Plan 1. Darrell has chronic kidney disease. This is from autosomal dominant polycystic kidney disease. His baseline creatinine is 2.8. 2. The patient has acute kidney injury. His creatinine has fallen to 2.5. This is stable. Acute kidney injury is resolved. Renal will view from a distance. Subjective Date/time seen: 06/15/22 15:18 Interval history: Patient says he feels okay He had some shortness of breath this morning. Exam Narrative: WDWN in NAD skin no rash head ncat lungs decreased breath sounds at the bases , some increase in expiratory phase as usual. cor reg no rub or gallop abd BS+ nontender and soft ext no presacral edema but has 1+ edema LLE. no cyanosis. Objective Data Vital Signs Vital Signs: Vital Signs - 24 hr 06/14/22 16:00 06/14/22 16:00 06/14/22 16:00 Temperature 36.7 C Pulse Rate 85 67 Respiratory Rate 12 Blood Pressure 124/95 H Pulse Oximetry 94 93 Oxygen Delivery Nasal Cannula Oxygen Flow Rate 1 Fraction of Inspired Oxygen 06/14/22 18:00 06/14/22 20:00 06/14/22 20:00 Temperature 36.5 C Pulse Rate 89 82 84 Respiratory Rate 18 Blood Pressure 102/76 Pulse Oximetry 95 Oxygen Delivery Oxygen Flow Rate Fraction of Inspired Oxygen 06/14/22 20:00 06/14/22 22:00 06/15/22 00:00 Temperature 36.7 C Pulse Rate 84 101 H 71 Respiratory Rate 18 20 Blood Pressure 100/67 Pulse Oximetry 95 97 Oxygen Delivery Nasal Cannula Oxygen Flow Rate 1 Fraction of Inspired Oxygen 06/15/22 00:00 06/15/22 00:00 06/15/22 02:00 Temperature Pulse Rate 69 69 75 Respiratory Rate 20 Blood Pressure Pulse Oximetry 97 Oxygen Delivery Nasal Cannula Oxygen Flow Rate 1 Fraction of Inspired Oxygen 06/15/22 04:00 06/15/22 04:00 06/15/22 04:00 Temperature 36.2 C L Pulse Rate 77 77 81 Respiratory Rate 20 20 Blood Pressure 102/67 Pulse Oximetry 97 99 Oxygen Delivery Nasal Cannula Oxygen Flow Rate 1 Fraction of Inspired Oxygen 06/15/22 06:00 06/15/22 07:49 06/15/22 08:05 Temperature 36.4 C Pulse Rate 72 76 Respiratory Rate 24 H Blood Pressure 97/73 L Pulse Oximetry 97 93 Oxygen Delivery Nasal Cannula Oxygen Flow Rate 1 Fraction of Inspired Oxygen 06/15/22 08:30 06/15/22 08:42 06/15/22 08:36 Temperature Pulse Rate 112 H 128 H 90 Respiratory Rate 28 H 24 H Blood Pressure Pulse Oximetry Oxygen Delivery Oxygen Flow Rate Fraction of Inspired Oxygen 06/15/22 09:00 06/15/22 09:19 06/15/22 08:00 Temperature Pulse Rate 145 H 132 H Respiratory Rate Blood Pressure Pulse Oximetry 94 Oxygen Delivery Nasal Cannula Oxygen Flow Rate 1 Fraction of Inspired Oxygen 06/15/22 08:00 06/15/22 10:00 06/15/22 12:00 Temperature 36.2 C L Pulse Rate 102 H 117 H 112 H Respiratory Rate 24 H Blood Pressure 109/69 Pulse Oximetry 96 Oxygen Delivery Oxygen Flow Rate Fraction of Inspired Oxygen 06/15/22 13:00 06/15/22 13:09 06/15/22 12:00 Temperature Pulse Rate 102 H 87 100 Respiratory Rate 22 H 20 Blood Pressure Pulse Oximetry Oxygen Delivery Oxygen Flow Rate Fraction of Inspired Oxygen 06/15/22 14:00 06/15/22 12:00 06/15/22 15:11 Temperature Pulse Rate 88 110 H Respiratory Rate Blood Pressure Pulse Oximetry 94 Oxygen Delivery Nasal Cannula Oxygen Flow Rate 1 Fraction of Inspired Oxygen Intake/Output Intake/Output: Intake & Output 06/12/22 06/13/22 06/14/22 06/15/22 23:59 23:59 23:59 23:59 Intake Total 560 1140 1200 470 Output Total 952 1100 950 500 Balance -392 40 250 -30 Meds/Results Medications: Active Medications Generic Name Dose Route Start Last Admin Trade Name Freq PRN Reason Stop Dose Admin Acetaminophen 650 mg 06/12/22 14:39 06/15/22 08:17 Acetaminophen 325 Mg Tablet PO 650 mg Q4H PRN Admin
== END 2022-06-15 15:25 | disposition short-term general hospital (02) | DRG 682 ==
LOC: ANHED 09:12 → ANHIMU 11:56
PROVIDERS: Internal Medicine Nephrology; Admitting Provider Internal Medicine; Emergency Provider Emergency Medicine; PCP Internal Medicine; Visit Provider Family Medicine
DX: N17.9 Acute kidney failure, unspecified (principal); I33.0 Acute and subacute infective endocarditis; I50.21 Acute systolic (congestive) heart failure; U07.1 COVID-19; J96.01 Acute respiratory failure with hypoxia; Q61.3 Polycystic kidney, unspecified; I13.0 Hypertensive heart and chronic kidney disease with heart failure and stage 1 through stage 4 chronic kidney disease, or unspecified chronic kidney disease; E87.2 Acidosis; I48.19 Other persistent atrial fibrillation; R78.81 Bacteremia; A49.01 Methicillin susceptible Staphylococcus aureus infection, unspecified site; N18.4 Chronic kidney disease, stage 4 (severe); R33.9 Retention of urine, unspecified; D50.9 Iron deficiency anemia, unspecified; E87.5 Hyperkalemia; E78.5 Hyperlipidemia, unspecified; F41.9 Anxiety disorder, unspecified; I44.7 Left bundle-branch block, unspecified; I25.5 Ischemic cardiomyopathy; I25.2 Old myocardial infarction; I95.9 Hypotension, unspecified; I25.10 Atherosclerotic heart disease of native coronary artery without angina pectoris; J43.9 Emphysema, unspecified; M19.90 Unspecified osteoarthritis, unspecified site; N40.0 Benign prostatic hyperplasia without lower urinary tract symptoms; S80.12XD Contusion of left lower leg, subsequent encounter; W01.118D Fall on same level from slipping, tripping and stumbling with subsequent striking against other sharp object, subsequent encounter; Z86.73 Personal history of transient ischemic attack (TIA), and cerebral infarction without residual deficits; Z95.5 Presence of coronary angioplasty implant and graft; Z87.891 Personal history of nicotine dependence; Z85.46 Personal history of malignant neoplasm of prostate; Z79.82 Long term (current) use of aspirin; Z79.01 Long term (current) use of anticoagulants
CPT/HCPCS: 36415; 36600; 71045; 76775; 76882; 80048; 80053; 81001; 82533; 82550; 82565; 82570; 82805; 83735; 83880; 84100; 84156; 84300; 84439; 84443; 84480; 84484; 84540; 85025; 85027; 85055; 85380; 87040; 87086; 93005; 93970; 94002; 94003; 94640; 96374; 97110; 97161; 97530; 99285; A9270; C9803; J0282; J0690; J0692; J1815; J2930; J3370; J7120; U0003; U0005

== ENCOUNTER 2022-08-28 15:12 | Emergency (ER) | payer MEDICARE, SELFPAY ==
--- NOTE | ~2022-08-28 | XR_ITS ---
EXAMINATION: XR chest ET placement Exam Date/Time: 08/28/2022 15:40 CDT HISTORY: ET TUBE Comparison: X-ray abdomen, same date. Chest x-ray 06/15/2022. CT abdomen pelvis 05/28/2022, CT chest . RESULT: Lines, tubes, and devices: Endotracheal tube, terminating 4 cm above the so. NG tube, side port projecting over the stomach, tip out of the [id number]. Surgical clips over the left upper quadran t. Lungs and pleura: Right apical pleural thickening and right upper lung scar. Emphysematous change. B ibasilar segmental/subsegmental airspace disease. Bilateral angle blunting. Lucency of the left hemit horax. Thin, peripheral lucency in the lower right lateral lung. Cardiomediastinal silhouette: Stable. Other: No acute osseous or upper abdominal finding. IMPRESSION: Endotracheal tube, in good position. Possible moderate to large anteriorly loculated left pneumothora x, a crosstable lateral view of the chest would be helpful for further evaluation. Small peripheral r ight pneumothorax versus skinfold. Asymmetric edema with bibasilar atelectasis/consolidation, possibl e component of aspiration. Bilateral small effusions versus chronic pleural scarring. Results reported telephonically to the charge nurse by Dr. Ash at 4:00 PM on 08/28/2022. Report dr afted to await completion of the crosstable lateral view. Findings discussed in part with Dr. Rodriguez at 4:20 PM, who was called away as the patient began to code. Reviewed, dictated and finalized at location K. IMPRESSION: Endotracheal tube, in good position. Possible moderate to large anteriorly locu lated left pneumothorax, a crosstable lateral view of the chest would be helpfu l for further evaluation. Small peripheral right pneumothorax versus skinfold. Asymmetric edema with bibasilar atelectasis/consolidation, possible component o f aspiration. Bilateral small effusions versus chronic pleural scarring. Results reported telephonically to the charge nurse by Dr. Ash at 4:00 PM on 08/28/2022. Report drafted to await completion of the crosstable lateral view. Findings discussed in part with Dr. Rodriguez at 4:20 PM, who was called away as the patient began to code.
--- NOTE | ~2022-08-28 | XR_ITS ---
EXAMINATION: XR abdomen NG/feed tube insert INDICATION: OG tube placement TECHNIQUE: Portable AP KUB-NG at 1543 hours COMPARISON: 05/23/2022 FINDINGS: The OG tube is in the stomach. The visualized bowel gas is nonspecific. There is severe lum bar spondylosis. There are airspace opacities in the visualized lung bases. IMPRESSION: 1. OG tube in the stomach. Reviewed, dictated and finalized at location A. IMPRESSION: 1. OG tube in the stomach.
--- NOTE | ~2022-08-28 | XR_ITS ---
EXAMINATION: XR chest 2V Exam Date/Time: 08/28/2022 16:25 CDT HISTORY: r/o pneumo Comparison: X-ray chest, same date at 3:42 PM. RESULT: Lines, tubes, and devices: Endotracheal tube and nasogastric tube remain in stable and good position . Lungs and pleura: Increasing diffuse reticular and patchy airspace disease. No definite anteriorly p ositioned pneumothorax seen in the lateral views. Cardiomediastinal silhouette: Stable. Other: No acute osseous or upper abdominal finding. IMPRESSION: Appropriately positioned endotracheal and nasogastric tubes. No definite pneumothorax. Pulmonary opac ities likely reflect a combination of worsening pulmonary edema/atelectasis, possibly with a componen t of aspiration. Underlying pneumonia is not excluded. Reviewed, dictated and finalized at location K. IMPRESSION: Appropriately positioned endotracheal and nasogastric tubes. No definite pneumo thorax. Pulmonary opacities likely reflect a combination of worsening pulmonary edema/atelectasis, possibly with a component of aspiration. Underlying pneumon ia is not excluded.
[2022-08-28 15:23] VITALS: BP 65/54; PULSE 107; RESP 12; O2SAT 62; O2SAT 67
--- NOTE | 2022-08-28 15:24 | ED.SOB ---
HPI - SOB/Dyspnea General Chief Complaint: Shortness of Breath/Dyspnea Stated Complaint: resp failure Time Seen by Provider: 08/28/22 15:22 Source: EMS Mode of arrival: EMS Limitations: physical limitation and clinical condition History of Present Illness HPI Narrative: The patient is a 77-year-old male with a complex past medical history of HFrEF, ischemic cardiomyopathy estimated EF <15%, adult polycystic kidney disease, chronic kidney disease stage IV, COPD, atrial fibrillation with recent admission to [facility], discharged to [facility] facility, presenting to the emergency department for evaluation of respiratory failure, intubated prior to arrival to our facility. Reportedly, patient was short of breath this morning at cardiac rehab, this afternoon continue to report shortness of breath to staff at his care facility, thus EMS was called. At the time of EMS arrival, patient became unconscious and was intubated. Patient then was noted to be in ventricular tachycardia on the monitor and defibrillated in route. Patient converted to normal sinus rhythm and was given an amiodarone bolus. Patient arrived here intubated, unconscious, unresponsive. Related Data Home Medications Medication Instructions Recorded Confirmed ascorbic acid (vitamin C) 1,000 mg 1 gm PO DAILY 06/01/20 06/10/22 tablet calcium carbonate 600 mg calcium 1,500 mg PO DAILY 06/01/20 06/10/22 (1,500 mg) tablet (Calcium) spironolactone 25 mg tablet 25 mg PO DAILY 06/01/20 06/10/22 zinc 50 mg tablet 50 mg PO DAILY 06/01/20 06/10/22 cholecalciferol (vitamin D3) 50 25 mcg PO DAILY 08/05/20 06/10/22 mcg (2,000 unit) tablet (Vitamin D3) atorvastatin 10 mg tablet 10 mg PO DAILY 05/12/22 06/10/22 beta carotene 25,000 unit tablet 25,000 unit PO DAILY 05/12/22 06/10/22 esomeprazole magnesium 40 mg 40 mg PO DAILY 05/12/22 06/10/22 capsule,delayed release (Nexium) fluticasone fur. 100 mcg-umeclid 1 inh inhalation DAILY 05/12/22 06/10/22 62.5 mcg-vilant 25 mcg inhalat.powder (Trelegy Ellipta) multivitamin 1 tablet PO DAILY 05/12/22 06/10/22 vitamin E 600 unit capsule 2 cap PO DAILY 05/12/22 06/10/22 aspirin 81 mg tablet,delayed 81 mg PO DAILY 05/20/22 06/10/22 release acetaminophen 650 mg tablet 650 mg PO Q4H PRN Pain 05/22/22 06/10/22 rivaroxaban 20 mg tablet (Xarelto) 20 mg PO HS 06/11/22 06/11/22 Allergies Allergy/AdvReac Type Severity Reaction Status Date / Time No Known Allergies Allergy Verified 05/19/22 19:12 Review of Systems Review of Systems: ROS unobtainable: Yes unobtainable due to medical condition and unobtainable due to mental status [facility] Past Medical History Medical History Benign prostatic hyperplasia C. difficile colitis Cardiac arrest with ventricular fibrillation (2002) At time myocardial infarction. Cerebrovascular accident Chronic kidney disease, stage 4 (severe) Chronic obstructive pulmonary disease Congestive heart failure Coronary artery disease Hepatitis B Hernia Hyperlipidemia Hypertension Iron deficiency anemia Ischemic cardiomyopathy Measles Mumps Myocardial infarction Osteoarthritis Polycystic kidney disease Prostate CA Status post radiation seed implants. 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
[2022-08-28 15:25] LABS: Glucose Point of Care 145 mg/dl (65-105)
--- NOTE | 2022-08-28 15:30 | ECG_ITS ---
Measurements Intervals [place] Rate: 106 P: 92 HI: 154 QRS: 265 QRSD: 112 T: 85 QT: 391 QTc: 520 Interpretive Statements POSSIBLE JUNCTIONAL RHYTHM WIDE QRS COMPLEXES WITH FEATURS OF BOTH RBBB AND LBBB OLD INFERIOR INFARCT COMPARED TO ECG 06/15/2022 08:54:55 Electronically Signed On 08-29-2022 14:45:51 CDT by Deuce Magdaleno M.D.
[2022-08-28 16:14] LABS: Hematocrit 39.4 % (42.0-52.0); Hemoglobin 12.6 g/dL (14.0-18.0); Mean Corpuscular Hemoglobin 32.9 pg (26-34); Mean Corpuscular Volume 102.9 fl (80-100); Mean Platelet Volume 11.6 fl (7.4-10.4); Platelet Count Result 206 k/mm3 (150-375); Red Blood Count 3.83 M/mm3 (4.6-6.20); White Blood Count 3.1 K/mm3 (4.5-10.0)
[2022-08-28 16:23] LABS: Lactic Acid Reflex 3.8 mmol/L (0.7-2.0)
[2022-08-28 16:34] LABS: Band Neutrophils Percent 6 % (0-6); Lymphocytes Absolute Manual 0.21 K/mm3 (1.1-4.5); Lymphocytes Percent Manual 7 % (18-44); Metamyelocytes Percent 2 %; Monocytes Absolute Manual 0.03 K/mm3 (0.1-0.90); Monocytes Percent Manual 1 % (3-9); Neutrophils Absolute Manual 2.79 K/mm3 (1.3-6.7); Neutrophils Percent Manual 84 % (46-73); Platelet Estimate Adequate (Adequate); Total Cells Counted 100
[2022-08-28 16:35] LABS: Acanthocytes 1+ (NORMAL); Burr Cells 1+ (NORMAL); Ovalocytes 1+ (NORMAL)
[2022-08-28 16:36] LABS: Schistocytes None Seen (NORMAL)
[2022-08-28 16:36] LABS: INR 3.3; Prothrombin Time 32.4 Seconds (11.1-14.7)
[2022-08-28 16:37] LABS: Partial Thromboplastin Time 45.5 SECONDS (22.3-36.8)
--- NOTE | 2022-08-28 16:37 | PM.CNCAR ---
Assessment and Plan Assessment and plan (1) Cardiac arrest: Code(s): I46.9 - Cardiac arrest, cause unspecified Status: Acute (2) Respiratory failure: Code(s): J96.90 - Respiratory failure, unspecified, unspecified whether with hypoxia or hypercapnia Status: Acute (3) Chronic atrial fibrillation: Code(s): I48.20 - Chronic atrial fibrillation, unspecified Status: Acute (4) Heart failure with reduced ejection fraction: Code(s): I50.20 - Unspecified systolic (congestive) heart failure Status: Acute (5) Chronic obstructive pulmonary disease: Code(s): J44.9 - Chronic obstructive pulmonary disease, unspecified Status: Acute (6) Coronary artery disease: Code(s): I25.10 - Atherosclerotic heart disease of [place] coronary artery without angina pectoris Status: Acute (7) Chronic obstructive pulmonary disease: Code(s): J44.9 - Chronic obstructive pulmonary disease, unspecified Status: Acute (8) Chronic kidney disease, stage 4 (severe): Code(s): N18.4 - Chronic kidney disease, stage 4 (severe) Status: Chronic Plan ECGs do not demonstrate STEMI. His wide complex QRSs were present on prior EKGs, along with an old inferior infarction. At this time, would not take patient to the pharmacy laboratory technician; would medically treat for now. Heparin drip if no contraindications. Pressors for hemodynamic support as needed. Would continue with Amiodarone drip. Would initiate therapeutic hypothermia. Trend troponins and repeat serial EKGs. Patient has a very poor prognosis. History of Present Illness History of Present Illness Consult date/time: 08/28/22 16:37 Requesting physician: Jessica Rodriguez MD Consult reason: Other (Cardiac arrest) Reason For Visit: resp failure Narrative: Patient is a 77-year-old male with a history of heart failure with reduced ejection fraction / ischemic cardiomyopathy with LVEF <15%, atrial fibrillation, panlobar emphysema with severe bullous disease, history of COVID infection in April, history of Staph aureus septicemia, CKD stage 4, history of prostate cancer, adult polycystic kidney disease who presented from his rehab center with shortness of breath. Per the , patient was doing rehab earlier today and complained of shortness of breath. Upon EMS arrival, patient was unconscius and was intubated. Patient was shocked for ventricular tachycardia. Given an amiodarone bolus. Shortly after arrival here, patient lost a pulse and CODE BLUE was called. CPR was done for about 2-3 minutes. CODE STEMI was called at the same time as CODE BLUE. Upon my evaluation, patient had a pulse, but then shortly thereafter, he had lost a pulse again and required CPR again for a few minutes. The EKGs obtained were obtained upon ER arrival, and were obtained prior to his first round of CPR. Review of Systems Review of Systems: ROS unobtainable: Yes unobtainable due to medical condition [facility] Past Medical History Medical History Benign prostatic hyperplasia C. difficile colitis Cardiac arrest with ventricular fibrillation (2002) At time myocardial infarction. Cerebrovascular accident Chronic kidney disease, stage 4 (severe) Chronic obstructive pulmonary disease Congestive heart failure Coronary artery disease Hepatitis B Hernia Hyperlipidemia Hypertension Iron deficiency anemia Ischemic cardiomyopathy Measles Mumps Myocardial infarction Osteoarthritis Polycystic kidney disease Prostate CA Status post radiation seed implants. Shingles Surgical History Surgical History History of cardiac catheterization History of coronary artery stent placement History of hernia repair History of hydrocelectomy Family History Family History Sibling Patient's sister is in good health Mother Deceas
[2022-08-28 16:55] LABS: Add Urine Microscopic? YES; Appearance Urine Turbid (Clear); Bacteria Urine Trace /hpf; Bilirubin Urine Negative (Negative); Blood Urine 1+ (Negative); Color Urine Amber (Yellow); Glucose Urine UA Negative (Negative); Ketones Urine Negative (Negative); Leukocyte Esterase Ur 3+ LEU/UL (Negative); Mucus Urine Heavy /lpf; Nitrate Urine Negative (Negative); Protein Urine 2+ mg/dL (Negative); RBC Urine 21-50 /hpf (0-2); Specific Grav Ur 1.014 (1.001-1.035); Squamous Epithelial Cell Urine Rare /hpf (Few); Urobilinogen Urine Negative mg/dL (<2.0); WBC Clumps Urine Present /HPF; WBC Urine >75 /hpf
--- NOTE | 2022-08-28 16:57 | PC.NURSE ---
started the attempt to reach [facility] [place]
--- NOTE | 2022-08-28 17:03 | PC.NURSE ---
Not a candidate for donation due to hx of hepatitis B per Magno at [facility]
--- NOTE | 2022-08-28 17:33 | PC.NURSE ---
spouse took phone and glasses.
--- NOTE | 2022-08-28 17:59 | PC.NURSE ---
Pt presented to ED at 1520 via EMS. PT had been in respiratory distress at [facility] and was intubated by EMS. Pt was found to be in Vtach en route to the hospital and was synchronized cardioverted by EMS at 200 yang. pt arrived to ED and was checked into room. PT lost pulse at 1525 and compressions were started. ACLS protocols were followed and at 1527 compressions were stopped for a pulse check, and the patient was found to be in ST with a pulse. Levophed was started and patient closely monitored. At 1532 patient was found to be in VTach. ACLS protocols were followed and patient was synchronized cardioverted X 3 due to refractory Vtach. at 1546, the patient lost a pulse again. ACLS protocols were followed and the DARBY was applied. compressions given. Pt regained a pulse at 1551 and was in a Sinus Rhythm. Pt went back in to a vtach rhythm at 1551 and an amiodarone gtt was started. Dr. Rodriguez spoke with the family. Family decided that if the patient arrested again, they did not want us to code him again. At 1623, pt lost a pulse and was in PEA. Pt .
[2022-08-28 19:08] LABS: Reflex Lactic Acid Yes or No Add Lactic
--- NOTE | 2022-08-28 19:37 | PC.NURSE ---
Security notified that Jericho Mena has been contacted by . home called ED Charge and will arrive shortly to picking crew supervisor body.
== END 2022-08-28 19:37 | disposition expired ==
PROVIDERS: Emergency Provider Emergency Medicine
DX: I46.9 Cardiac arrest, cause unspecified (principal); J96.90 Respiratory failure, unspecified, unspecified whether with hypoxia or hypercapnia; I47.20 Ventricular tachycardia, unspecified; N40.0 Benign prostatic hyperplasia without lower urinary tract symptoms; I13.0 Hypertensive heart and chronic kidney disease with heart failure and stage 1 through stage 4 chronic kidney disease, or unspecified chronic kidney disease; N18.4 Chronic kidney disease, stage 4 (severe); I50.9 Heart failure, unspecified; I25.10 Atherosclerotic heart disease of native coronary artery without angina pectoris; M19.90 Unspecified osteoarthritis, unspecified site
CPT/HCPCS: 36415; 36556; 36600; 71046; 81001; 82948; 83605; 85025; 85610; 85730; 87040; 87077; 87086; 87088; 87186; 92950; 93005; 96374; 99285; C1751; J0171; J0282; J2250; J7030